=== PATIENT | male | born 1930 | race Caucasian/White ===

== ENCOUNTER 2016-06-22 13:12 | Emergency (ER) | payer MEDICARE, OTHER | END 2016-06-22 15:47 | disposition home or self-care (01) | DX: J06.9 Acute upper respiratory infection, unspecified (principal); B97.89 Other viral agents as the cause of diseases classified elsewhere; I10 Essential (primary) hypertension; J44.9 Chronic obstructive pulmonary disease, unspecified ==

== ENCOUNTER 2016-07-02 | Outpatient (CLI) | payer MEDICARE, OTHER | END 2016-07-02 06:15 | disposition EMS.NT ==

== ENCOUNTER 2017-03-21 22:24 | Observation (INO) | payer MEDICARE, OTHER ==
[2017-03-21 22:43] LABS: BASOPHILS % (AUTO) 0.3 %; EOSINOPHILS % (AUTO) 0.1 %; HCT - HEMATOCRIT 44.2 % (42.0-52.0); HGB - HEMOGLOBIN 14.7 g/dL (14.0-18.0); LYMPHOCYTES # (AUTO) 0.7 10^3/uL (1.5-3.5); LYMPHOCYTES % (AUTO) 11.2 %; MEAN CORPUSCULAR HEMOGLOBIN 29.3 pg (27.0-31.0); MEAN CORPUSCULAR HGB CONC 33.2 g/dL (32.0-36.0); MEAN CORPUSCULAR VOLUME 88.1 fL (80.0-94.0); MEAN PLATELET VOLUME 7.9 fL (7.4-11.4); MONOCYTES # (AUTO) 0.4 10^3/uL (0.0-1.0); MONOCYTES % (AUTO) 6.4 %; NEUTROPHILS # (AUTO) 5.1 10^3/uL (1.5-6.6); RED BLOOD COUNT 5.02 10^6/uL (4.70-6.10); RED CELL DISTRIBUTION WIDTH 16.7 % (12.0-15.0); UNCORRECTED WHITE BLOOD COUNT 6.2 x10^3/uL; WHITE BLOOD COUNT 6.2 x10^3/uL (4.8-10.8)
[2017-03-21 22:59] LABS: ALBUMIN/GLOBULIN RATIO 1.6 (1.0-2.2); BILIRUBIN,TOTAL 0.6 mg/dL (0.2-1.0); CALCIUM 8.8 mg/dL (8.5-10.3); CREATININE 1.3 mg/dL (0.6-1.2); MAGNESIUM 2.8 mg/dL (1.7-2.8); PHOSPHORUS 3.2 mg/dL (2.5-4.6); POTASSIUM 4.2 mmol/L (3.5-5.0); TOTAL PROTEIN 7.2 g/dL (6.7-8.2)
--- NOTE | 2017-03-21 23:06 | XRAY Preliminary Report ---
Exam: XR CHEST 2 VIEW PA/LAT IMPRESSION: Possible COPD without acute process seen in the chest. [facility] SITE ID: [id number]
--- NOTE | 2017-03-21 23:08 | XRAY Report ---
EXAM: CHEST RADIOGRAPHY EXAM DATE: 03/21/2017 10:53 PM. CLINICAL HISTORY: Chest pain. COMPARISON: 06/22/2016. TECHNIQUE: 2 views. FINDINGS: Lungs/Pleura: Large volumes. No focal opacities evident. No pneumothorax or pleural effusion. Mediastinum: Within exam limitations, cardiomediastinal contour is normal. Other: None. IMPRESSION: Possible COPD without acute process seen in the chest. [facility] Referring Provider Line: [phone] SITE ID: [id number]
[2017-03-21] MEDS ORDERED: HYDROcod/ACETAM 10 MG/325 MG TABLET PO PRN (23:38)
[2017-03-21] MEDS ORDERED: ONDANSETRON 4 MG/2 ML VIAL IVP PRN (23:38)
[2017-03-21] MEDS ORDERED: HYDROcod/ACETAM 5/325 MG TABLET PO PRN (23:38)
[2017-03-21] MEDS ORDERED: IPRATROPIUM/ALBUTEROL 3 ML NEB INH PRN (23:38)
[2017-03-21] MEDS ORDERED: ACETAMINOPHEN 325 MG TABLET PO PRN (23:38)
[2017-03-21] MEDS ORDERED: SODIUM CHLORIDE FLUSH 0.9% 10 ML SYRINGE IVP PRN (23:38)
[2017-03-21] MEDS ORDERED: NITROGLYCERIN SL 0.4 MG TABLET SL PRN (23:38)
[2017-03-21] MEDS ORDERED: PROCHLORPERAZINE 10 MG/2 ML VIAL IVP PRN (23:38)
--- NOTE | 2017-03-21 23:43 | ED Physician Documentation ---
PD HPI CHEST PAIN - Stated complaint Stated Complaint: HIGH HEART RATE - Chief complaint Chief Complaint: Cardiac - History obtained from History obtained from: Patient, Family - History of Present Illness Timing - onset: Today Timing - onset during: Rest Timing - details: Gradual onset, Still present Quality: Pressure, Tightness Location: Left chest Associated symptoms: Shortness of air, Feeling faint / dizzy, Palpitations Similar symptoms before: Work up / diagnostics, Treatment, Follow up Recently seen: Clinic - Additional information Additional information: Patient is an 87 year old male with significant cardiac history and prior stents who is presenting to the emergency department for tachycardia and chest pain. According to patient and family, earlier in the day, the patient was having indigestion and intermittent tachycardia. the stated that he heart rate went up to over 170. The stated that the patient felt better, but again tonight when the patient was lying in bed he developed chest pain a second time so they came to the emergency department for evaluation. Review of Systems Constitutional: denies: Fever, Chills Eyes: denies: Decreased vision Ears: reports: Reviewed and negative Nose: reports: Reviewed and negative Throat: denies: Sore throat Cardiac: reports: Chest pain / pressure, Palpitations. denies: Calf pain Respiratory: denies: Dyspnea, Cough, Wheezing GI: denies: Nausea, Vomiting, Constipation, Diarrhea : denies: Dysuria, Frequency Skin: denies: Rash Musculoskeletal: denies: Neck pain, Back pain Neurologic: denies: Generalized weakness, Focal weakness, Numbness, Difficulty speaking, Syncope, Seizure, Headache Immunocompromised: denies: Immunocompromised PD PAST MEDICAL HISTORY - Past Medical History Past Medical History: Yes Cardiovascular: Hypertension, [place] Respiratory: COPD GI: GERD, Other Other Past Medical History: [place] 2008; IBS - Past Surgical History Past Surgical History: Yes - Present Medications Home Medications: Ambulatory Orders Medication Instructions Recorded Confirmed Budesonide/Formoterol 80/4.5 2 puffs INH BID 06/22/16 03/21/17 [Symbicort] Carvedilol 12.5 mg ORAL BID 06/22/16 03/21/17 Clopidogrel [Plavix] 75 mg ORAL DAILY 06/22/16 03/21/17 Furosemide 20 mg ORAL DAILY 06/22/16 03/21/17 Gabapentin 300 mg ORAL TID 06/22/16 03/21/17 Simvastatin 80 mg ORAL DAILY 06/22/16 03/21/17 Triazolam [Halcion] 0.25 mg ORAL QPM PRN 06/22/16 03/21/17 Albuterol Sulfate [Proair 1 puffs IH DAILY 03/21/17 03/21/17 Respiclick] Apixaban [Eliquis] 1 tab PO BID 03/21/17 03/21/17 Budesonide/Formoterol Fumarate 2 puffs IH BID 03/21/17 03/21/17 [Symbicort 160-4.5 Mcg Inhaler] Ipratropium/Albuterol Sulfate 3 ml IH Q6HR PRN 03/21/17 03/21/17 [Iprat-Albut 0.5-3(2.5) mg/3 ml] Lisinopril 1 tab PO DAILY 03/21/17 03/21/17 Nitroglycerin 1 tab PO DAILY PRN 03/21/17 03/21/17 Pantoprazole Sodium 1 tab PO DAILY 03/21/17 03/21/17 Potassium Chloride [K-Dur] 1 tab PO DAILY 03/21/17 03/21/17 Tamsulosin HCl [Flomax] 1 tab PO DAILY 03/21/17 03/21/17 - Allergies Allergies/Adverse Reactions: Allergies Allergy/AdvReac Type Severity Reaction Status Date / Time No Known Drug Allergies Allergy Verified 03/21/17 22:33 - Social History Does the pt smoke?: No Smoking Status: Never smoker Does the pt drink ETOH?: No Does the pt have substance abuse?: No - Immunizations Immunizations are current?: Yes - POLST Patient has POLST: No PD ED PE NORMAL - Vitals Vital signs reviewed: Yes - General General: Alert and oriented X 3, Well developed/nourished - HEENT HEENT: Atraumatic, PERRL, Moist mucous membranes - Respiratory Respiratory: No respiratory distress - Abdomen Abdomen: Soft, Non tender, Non distended - Derm Derm: Normal color, Warm and dry, No rash - Extremities Extremities: No deformity, No calf tenderness / cord - Neuro Neuro: Alert and oriented X 3, No motor deficit, No sensory deficit, Normal speech Eye Opening: Spontaneous Motor: Obeys Commands Verbal: Oriented GCS Score: 15 - Psych Psych: Normal mood PD ED PE EXPANDED - HEENT HEENT: Dry mucous membranes - Cardiac Cardiac: Irregularly irregular Results - Vitals Vitals: Vital Signs - 24 hr 03/21/17 03/21/17 03/21/17 22:25 22:45 23:06 Temperature 35.9 C L Heart Rate 79 80 73 Respiratory 18 16 12 Rate Blood Pressure 173/104 H 172/98 H 145/96 H O2 Saturation 98 96 97 03/21/17 03/21/17 23:09 23:41 Temperature Heart Rate 140 H 73 Respiratory 18 14 Rate Blood Pressure 136/94 H 147/89 H O2 Saturation 96 98 Oxygen O2 Source Room air - EKG (time done) 2233 Rate: Rate (enter#) (75) Rhythm: NSR, Abnormal P waves [place]: LAD Intervals: Normal [place] Ischemia: T wave inversion Compare to prior EKG: Old EKG unavailable - Labs Labs: Laboratory Tests 03/21/17 03/21/17 03/21/17 21:35 21:35 21:35 WBC 6.2 RBC 5.02 Hgb 14.7 Hct 44.2 MCV 88.1 MCH 29.3 MCHC 33.2 RDW 16.7 H Plt Count 149 MPV 7.9 Neut # 5.1 Lymph # 0.7 L Allen # 0.4 Eos # 0.0 Baso # 0.0 Absolute Nucleated RBC 0.00 Nucleated RBC % 0.0 Sodium 138 Potassium 4.2 Chloride 106 Carbon Dioxide 25 Anion Gap 7.0 BUN 34 H Creatinine 1.3 H Estimated GFR (MDRD) 52 L Glucose 138 H Calcium 8.8 Phosphorus 3.2 Magnesium 2.8 Total Bilirubin 0.6 AST 17 ALT 24 Alkaline Phosphatase 68 Troponin I < 0.04 Total Protein 7.2 Albumin 4.4 Globulin 2.8 Albumin/Globulin Ratio 1.6 Lipase 29 TSH 03/21/17 21:35 WBC RBC Hgb Hct MCV MCH MCHC RDW Plt Count MPV Neut # Lymph # Allen # Eos # Baso # Absolute Nucleated RBC Nucleated RBC % Sodium Potassium Chloride Carbon Dioxide Anion Gap BUN Creatinine Estimated GFR (MDRD) Glucose Calcium Phosphorus Magnesium Total Bilirubin AST ALT Alkaline Phosphatase Troponin I Total Protein Albumin Globulin Albumin/Globulin Ratio Lipase TSH 0.36 - Rads (name of study) chest x-ray Radiology: Final report received (findings consistent with copd) PD MEDICAL DECISION MAKING - ED course Complexity details: reviewed old records, reviewed results, re-evaluated patient , considered differential, d/w patient, d/w family ED course: Patient was seen and examined at bedside. ekg was performed and showed sinus dysrythmia. iv access was gained and labs were drawn. patient was placed on a monitor. Patient's labs were within normal limits, but had a heart score of 5. Patient required further observation. Hospitalist was contacted and the case was discussed with him. patient was placed in observation for further evaluation and care. Departure - Departure Disposition: ED Place in Observation Clinical Impression: Chest pain Condition: Good
--- NOTE | 2017-03-22 00:45 | HISTORY & PHYSICAL EXAMINATION ---
Chief Complaint - Chief Complaint Chief Complaint: Chest pain History of Present Illness - Admitted From Admitted From:: Emergency department - History Obtained From Records Reviewed: Yes History obtained from: Patient Exam Limitations: None - History of Present Illness HPI Comment/Other: Patient is an 87-year-old gentleman with a past medical history significant for coronary artery disease status post 3 stents, recent history of DVT and PE earlier this year on Eliquis, COPD, hypertension, hyperlipidemia and BPH who presented to the emergency department with a chief complaint of chest pain. The patient states that he was in his normal state of health today he and his ate at [employer] for dinner and he noticed that he was having a lot of indigestion, gas and burping in the evening. He states that when he went to bed and lie down he began feeling chest discomfort. The patient states that the discomfort was located in the substernal region of his chest. He states that it lasted until he reached the emergency department. He states initially the discomfort was about a 6 out of 10 by the time he arrived in the emergency department it was down to a 2 out of 10. The patient also states that he began to feel some palpitations in his chest and his took his heart rate at that time and his heart rate was 130 at home. The patient denies having had any shortness of air, orthopnea, PND, nausea, diaphoresis or lightheadedness. The patient states that the pain did not change with any position or with exertion. The patient states that he continued to feel gassy and continue to burp. Given his history of heart disease and his palpitations he decided to come into the emergency department. Patient denies any fevers, chills, headaches, blurred vision, runny nose, sore throat, nasal congestion, abdominal pain, diarrhea, constipation, dysuria, increased urinary frequency, joint pain, joint swelling, muscle aches, muscle pain, back pain, neck stiffness, recent unintentional weight loss, changes in appetite, polyuria, polydipsia or any focal neurologic deficits. On presentation to the emergency department the patient was afebrile he was quite hypertensive with a blood pressure of 173/104 but otherwise the remainder of his vital signs were within normal limits and he was not in any respiratory distress. The patient was monitored on telemetry during the time he was in the emergency department and he did have a few episodes where his heart rate did go up into the 140s and into the 120s. At that time the patient appeared to have an atrial arrhythmia but was asymptomatic. The patient's chest pain resolved while he was in the emergency department and his EKG did not show any obvious ischemic changes. The patient's troponin was negative and the remainder of his lab work was notable for a creatinine of 1.3 but was otherwise unremarkable. The patient underwent a chest x-ray which revealed possible COPD without acute process in the chest. Given the patient's significant cardiac history and the fact that pain started only shortly prior to arrival it was decided that the patient would be best off in observation for rule out of acute coronary syndrome. History - Past Medical History Cardiovascular: reports: Hypertension, High cholesterol, Coronary artery disease (Status post 3 stents), Pulmonary embolism, [place] Respiratory: reports: COPD GI: reports: GERD, Other : reports: Benign prostate hypertrophy Psych: reports: Other Musculoskeletal: reports: Other (DVT) MRSA Hx?: No Other Past Medical History: [place] 2008; IBS - Past Surgical History General: reports: Appendectomy - Family & Social History Family History: Mother: , CAD, Father: , Cancer, Sister: CAD Living arrangement: At home Living Situation: With spouse/s.o. Social History Notes: The patient was born in [place] and raised in [place]. Patient currently lives with his in [place], [place]. 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 He states that over his career he lived throughout [place], [place], [place], [place], [place] and [facility]. The patient states that he only settle down on [facility] last year. The patient previously smoked cigars but quit in 1979. The patient states he has never touched alcohol and denies any illicit drug use. The patient and his are very active. - POLST Patient has POLST: No POLST Status: Full Code Meds/Allgy - Home Medications Home Medications: Ambulatory Orders Medication Instructions Recorded Confirmed Budesonide/Formoterol 80/4.5 2 puffs INH BID 06/22/16 03/21/17 [Symbicort] Carvedilol 12.5 mg ORAL BID 06/22/16 03/21/17 Clopidogrel [Plavix] 75 mg ORAL DAILY 06/22/16 03/21/17 Furosemide 20 mg ORAL DAILY 06/22/16 03/21/17 Gabapentin 300 mg ORAL TID 06/22/16 03/21/17 Simvastatin 80 mg ORAL DAILY 06/22/16 03/21/17 Triazolam [Halcion] 0.25 mg ORAL QPM PRN 06/22/16 03/21/17 Albuterol Sulfate [Proair 1 puffs IH DAILY 03/21/17 03/21/17 Respiclick] Apixaban [Eliquis] 1 tab PO BID 03/21/17 03/21/17 Budesonide/Formoterol Fumarate 2 puffs IH BID 03/21/17 03/21/17 [Symbicort 160-4.5 Mcg Inhaler] Ipratropium/Albuterol Sulfate 3 ml IH Q6HR PRN 03/21/17 03/21/17 [Iprat-Albut 0.5-3(2.5) mg/3 ml] Lisinopril 1 tab PO DAILY 03/21/17 03/21/17 Nitroglycerin 1 tab PO DAILY PRN 03/21/17 03/21/17 Pantoprazole Sodium 1 tab PO DAILY 03/21/17 03/21/17 Potassium Chloride [K-Dur] 1 tab PO DAILY 03/21/17 03/21/17 Tamsulosin HCl [Flomax] 1 tab PO DAILY 03/21/17 03/21/17 - Allergies Allergies/Adverse Reactions: Allergies Allergy/AdvReac Type Severity Reaction Status Date / Time No Known Drug Allergies Allergy Verified 03/21/17 22:33 Review of Systems - Other Findings Other Findings: A comprehensive review of systems was performed the pertinent positives and negatives are stated above in the HPI and the remainder of the review of systems is negative. Exam - Vital Signs Reviewed Vital Signs: Yes Vital Signs: Vital Signs x48h Temp Pulse Resp BP Pulse Ox 03/22/17 00:10 36.4 C L 72 14 150/97 H 97 03/21/17 23:41 73 14 147/89 H 98 - Physical Exam General Appearance: positive: No acute distress, Alert Eyes Bilateral: positive: Normal inspection, PERRL, EOMI, No lid inflammation, Conjunctivae nml, No scleral icterus ENT: positive: ENT inspection nml, Pharynx nml, No signs of dehydration. negative: Purulent nasal drainage, Pharyngeal erythema, Oral lesions Neck: positive: Nml inspection, Thyroid nml, No JVD, Trachea midline. negative : Thyromegaly, Lymphadenopathy (R), Lymphadenopathy (L) Respiratory: positive: Chest non-tender, No respiratory distress, Breath sounds nml. negative: Wheezes, Rales, Rhonchi Cardiovascular: positive: No murmur, No gallop, Irregularly irregular. negative : Systolic murmur Peripheral Pulses: positive: 2+ Abdomen: positive: Non-tender, No organomegaly, Nml bowel sounds, Other ( Abdomen is distended). negative: Guarding, Rebound Back: positive: Nml inspection. negative: CVA tenderness (R), CVA tenderness (L ) Skin: positive: Color nml, No rash, Warm. negative: Cyanosis, Pallor Extremities: positive: Non-tender, Full ROM, Nml appearance, No pedal edema Neurologic/Psychiatric: positive: Oriented x3, CN's nml (2-12), Motor nml, Sensation nml, Mood/affect nml Conclusion/Plan - Problem List (1) Chest pain Conclusion/Plan: Patient has a history of coronary disease status post 3 stents. Patient is on Plavix, lisinopril, Coreg and Eliquis. He presented to the emergency department with a chief complaint of chest discomfort. Patient had chest pain at rest while in bed with symptoms of indigestion, gas and burping. Patient also experienced palpitations at home and when his checked his heart rate was in the 130s. On presentation to the emergency department the patient's EKG showed no ST elevations or ischemic changes but there was an irregular rhythm with abnormal P waves. The patient did have several episodes in the emergency department where his heart rate went into the 120s and 130s. The patient's EKG troponin was negative and chest x-ray was negative. Patient was placed in observation for rule out of acute coronary syndrome and further monitoring on telemetry. Plan: Serial troponins x3 Telemetry monitoring Nitroglycerin when necessary for chest pain Aspirin Lipitor Echo (2) Arrhythmia Conclusion/Plan: The patient presented to the emergency department with chest discomfort and palpitations at home. At home the patient's noted that the patient's heart rate was in the 130s. In the emergency department the patient was on telemetry and had several episodes where his heart rate would go into the 120s and 130s. The patient did have palpitations at home but did not feel palpitations in the emergency department. The patient denied any dizziness or syncope. The patient's EKG did show a atrial arrhythmia with abnormal P waves the patient may be having multifocal atrial tachycardia. The patient could also be having atrial fibrillation although there are P waves present on his EKG. The patient is hemodynamically stable and is on Coreg and Eliquis. Plan: The patient will be placed in observation for serial troponins and telemetry monitoring. The patient may need further workup as an outpatient including a Holter monitor and cardiology referral. (3) Hypertension Conclusion/Plan: Patient has history of hypertension presents with an elevated blood pressure on presentation. Plan: Patient will be placed on home doses of antihypertensive medications We will monitor his blood pressure closely We will titrate antihypertensive medication as needed. (4) COPD (chronic obstructive pulmonary disease) Conclusion/Plan: Patient has history of COPD. Currently his COPD appears to be stable as the patient does not have any wheezing, hypoxia or shortness of air. Patient will be continued on duo nebs as needed while he is hospitalized, he will also be placed on budesonide twice daily and formoterol twice daily. (5) Hyperlipidemia Conclusion/Plan: Patient has history of hyperlipidemia and is on a statin at home Patient appears to be stable and will be continued on his home dose of statin (6) Pulmonary embolism Conclusion/Plan: Patient had a pulmonary embolism and DVT earlier this year and is currently still on Eliquis. The patient has been told that he will need to be on Eliquis lifelong. Continue patient's home dose of Eliquis - Lab Results Lab results reviewed: Yes Fish Bones: 03/21/17 21:35 03/21/17 21:35 Other Lab Results: Laboratory Results WBC 6.2 x10^3/uL (4.8-10.8) 03/21/17 21:35 RBC 5.02 10^6/uL (4.70-6.10) 03/21/17 21:35 Hgb 14.7 g/dL (14.0-18.0) 03/21/17 21:35 Hct 44.2 % (42.0-52.0) 03/21/17 21:35 MCV 88.1 fL (80.0-94.0) 03/21/17 21:35 MCH 29.3 pg (27.0-31.0) 03/21/17 21:35 MCHC 33.2 g/dL (32.0-36.0) 03/21/17 21:35 RDW 16.7 % (12.0-15.0) H 03/21/17 21:35 Plt Count 149 10^3/uL (130-450) 03/21/17 21:35 MPV 7.9 fL (7.4-11.4) 03/21/17 21:35 Neut # 5.1 10^3/uL (1.5-6.6) 03/21/17 21:35 Lymph # 0.7 10^3/uL (1.5-3.5) L 03/21/17 21:35 [place] # 0.4 10^3/uL (0.0-1.0) 03/21/17 21:35 Eos # 0.0 10^3/uL (0.0-0.7) 03/21/17 21:35 Baso # 0.0 10^3/uL (0.0-0.1) 03/21/17 21:35 Absolute Nucleated RBC 0.00 x10^3/uL 03/21/17 21:35 Nucleated RBC % 0.0 /100WBC 03/21/17 21:35 Sodium 138 mmol/L (135-145) 03/21/17 21:35 Potassium 4.2 mmol/L (3.5-5.0) 03/21/17 21:35 Chloride 106 mmol/L (101-111) 03/21/17 21:35 Carbon Dioxide 25 mmol/L (21-32) 03/21/17 21:35 Anion Gap 7.0 (6-13) 03/21/17 21:35 BUN 34 mg/dL (6-20) H 03/21/17 21:35 Creatinine 1.3 mg/dL (0.6-1.2) H 03/21/17 21:35 Estimated GFR (MDRD) 52 (>89) L 03/21/17 21:35 Glucose 138 mg/dL (70-100) H 03/21/17 21:35 Calcium 8.8 mg/dL (8.5-10.3) 03/21/17 21:35 Phosphorus 3.2 mg/dL (2.5-4.6) 03/21/17 21:35 Magnesium 2.8 mg/dL (1.7-2.8) 03/21/17 21:35 Total Bilirubin 0.6 mg/dL (0.2-1.0) 03/21/17 21:35 AST 17 IU/L (10-42) 03/21/17 21:35 ALT 24 IU/L (10-60) 03/21/17 21:35 Alkaline Phosphatase 68 IU/L (42-121) 03/21/17 21:35 Troponin I < 0.04 ng/mL (<0.49) 03/21/17 21:35 Total Protein 7.2 g/dL (6.7-8.2) 03/21/17 21:35 Albumin 4.4 g/dL (3.2-5.5) 03/21/17 21:35 Globulin 2.8 g/dL (2.1-4.2) 03/21/17 21:35 Albumin/Globulin Ratio 1.6 (1.0-2.2) 03/21/17 21:35 Lipase 29 U/L (22-51) 03/21/17 21:35 TSH 0.36 uIU/mL (0.34-5.60) 03/21/17 21:35 - Diagnostic Imaging Results Diagnostic Imaging Results: positive: Final report reviewed Diagnostic Imaging Results Comments: Chest x-ray Impression: Possible COPD without acute process seen in the chest. - EKG Results EKG Interpreted Independently: Yes EKG Findings: Atrial arrhythmia with no ST elevations or ischemic changes. Issues/Core Measures - Anticipated LOS Anticipated Stay Length: Less than 2 midnights - DVT/VTE - Prophylaxis VTE/DVT Device ordered at admit?: Yes
[2017-03-22] MEDS: FORMOTEROL FUMARATE NEB 20 MCG/2 ML INH SCH ×2 (01:46→07:19)
[2017-03-22] MEDS: BUDESONIDE 0.5 MG/2 ML NEB INH SCH ×2 (01:46→07:19)
[2017-03-22 05:08] LABS: BASOPHILS % (AUTO) 0.1 %; HCT - HEMATOCRIT 39.5 % (42.0-52.0); HGB - HEMOGLOBIN 13.2 g/dL (14.0-18.0); LYMPHOCYTES # (AUTO) 0.7 10^3/uL (1.5-3.5); LYMPHOCYTES % (AUTO) 13.5 %; MEAN CORPUSCULAR HEMOGLOBIN 29.6 pg (27.0-31.0); MEAN CORPUSCULAR HGB CONC 33.4 g/dL (32.0-36.0); MEAN CORPUSCULAR VOLUME 88.5 fL (80.0-94.0); MEAN PLATELET VOLUME 8.2 fL (7.4-11.4); MONOCYTES # (AUTO) 0.3 10^3/uL (0.0-1.0); MONOCYTES % (AUTO) 4.9 %; NEUTROPHILS # (AUTO) 4.3 10^3/uL (1.5-6.6); NEUTROPHILS % (AUTO) 81.5 %; NUCLEATED RED BLOOD CELLS AUTO 0.1 /100WBC; RED BLOOD COUNT 4.46 10^6/uL (4.70-6.10); RED CELL DISTRIBUTION WIDTH 16.5 % (12.0-15.0); UNCORRECTED WHITE BLOOD COUNT 5.3 x10^3/uL; WHITE BLOOD COUNT 5.3 x10^3/uL (4.8-10.8)
[2017-03-22 05:25] LABS: ALBUMIN/GLOBULIN RATIO 1.5 (1.0-2.2); BILIRUBIN,TOTAL 0.7 mg/dL (0.2-1.0); BUN - BLOOD UREA NITROGEN 34 mg/dL (6-20); CALCIUM 8.4 mg/dL (8.5-10.3); CARBON DIOXIDE - CO2 22 mmol/L (21-32); CHLORIDE 109 mmol/L (101-111); CHOL/HDL RATIO 2.9 (<5.0); CHOLESTEROL 169 mg/dL; CREATININE 1.1 mg/dL (0.6-1.2); GFR - MDRD 63 (>89); GLUCOSE 149 mg/dL (70-100); HDL CHOLESTEROL 58 mg/dL; LDL/HDL RATIO 1.6 (<3.6); POTASSIUM 4.5 mmol/L (3.5-5.0); SODIUM 138 mmol/L (135-145); TOTAL PROTEIN 5.7 g/dL (6.7-8.2); TRIGLYCERIDES 107 mg/dL; VLDL CHOLESTEROL 21 mg/dL
[2017-03-22] MEDS ORDERED: SODIUM CHLORIDE FLUSH 0.9% 10 ML SYRINGE IVP SCH (06:00)
[2017-03-22] MEDS ORDERED: GABAPENTIN 300 MG CAPSULE PO SCH (06:00)
[2017-03-22] MEDS ORDERED: PANTOPRAZOLE 40 MG TABLET PO SCH (07:00)
[2017-03-22] MEDS ORDERED: CALCIUM CARBONATE CHEW 500 MG TABLET PO PRN (07:36)
[2017-03-22 08:33] VITALS: BP 144/89
[2017-03-22] MEDS ORDERED: CARVEDILOL 12.5 MG TABLET PO SCH (09:00)
[2017-03-22] MEDS ORDERED: CLOPIDOGREL 75 MG TABLET PO SCH (09:00)
[2017-03-22] MEDS ORDERED: POLYETHYLENE GLYCOL 3350 17 GM PACKET PO SCH (09:00)
[2017-03-22] MEDS ORDERED: APIXABAN 2.5 MG TABLET PO SCH (09:00)
[2017-03-22] MEDS ORDERED: NON FORMULARY MED (Simvastatin [Simvastatin] 80 MG) ORAL SCH (09:00)
[2017-03-22] MEDS ORDERED: LISINOPRIL 5 MG TABLET PO SCH (09:00)
[2017-03-22] MEDS ORDERED: TAMSULOSIN 0.4 MG CAPSULE PO SCH (09:00)
[2017-03-22] MEDS ORDERED: ATORVASTATIN 40 MG TABLET PO SCH (09:00)
--- NOTE | 2017-03-22 12:02 | Discharge Plan ---
Discharge Plan Disposition: 01 Home, Self Care Condition: Stable Diet: Cardiac Activity Restrictions: Activity as Tolerated Shower Restrictions: No Weight Bearing: Full Weight Additional Instructions or Follow Up instructions: May follow up PCP in one week, and follow up [facility] for stress test. Follow-Up Care: [facility] - Cardiac, [facility] [place] [facility] - Medical No Smoking: If you smoke, Please STOP! Call for help. Follow-up with: Arden Serrato MD [Primary Care Provider] -
--- NOTE | 2017-03-22 12:16 | DISCHARGE SUMMARY ---
Discharge Summary Admit Date: 03/21/17 Discharge Date: 03/22/17 Discharging Provider: ZULETA Primary Care Provider: Arden Galeas Condition at Discharge: Stable Discharge Disposition: 01 Home, Self Care Discharge Facility Name: home - DIAGNOSES Admission Diagnoses: (1) Chest pain (2) Arrhythmia (3) Hypertension (4) COPD (chronic obstructive pulmonary disease) (5) Hyperlipidemia (6) Pulmonary embolism Discharge Diagnoses with Status of Each Condition: (1) Chest pain no more chest pain, per pt report. three serial troponin negative, EHCO reveal 50-55% EF, discuss with pt, referral pt have out-pt stress test with pt's reprint sorter (2) Arrhythmia resolved. HR is around 70 referral to have out-pt Stress test (3) Hypertension stable, continue management (4) COPD (chronic obstructive pulmonary disease) stable (5) Hyperlipidemia continue home regime (6) Pulmonary embolis hx of PE. continue home Eliquis, and Plavix - HPI History of Present Illness: please refer from Dr. Cunningham's HPI on 03/21/17 as the following: Patient is an 87-year-old gentleman with a past medical history significant for coronary artery disease status post 3 stents, recent history of DVT and PE earlier this year on Eliquis, COPD, hypertension, hyperlipidemia and BPH who presented to the emergency department with a chief complaint of chest pain. The patient states that he was in his normal state of health today he and his ate at [employer] for dinner and he noticed that he was having a lot of indigestion, gas and burping in the evening. He states that when he went to bed and lie down he began feeling chest discomfort. The patient states that the discomfort was located in the substernal region of his chest. He states that it lasted until he reached the emergency department. He states initially the discomfort was about a 6 out of 10 by the time he arrived in the emergency department it was down to a 2 out of 10. The patient also states that he began to feel some palpitations in his chest and his took his heart rate at that time and his heart rate was 130 at home. The patient denies having had any shortness of air, orthopnea, PND, nausea, diaphoresis or lightheadedness. The patient states that the pain did not change with any position or with exertion. The patient states that he continued to feel gassy and continue to burp. Given his history of heart disease and his palpitations he decided to come into the emergency department. Patient denies any fevers, chills, headaches, blurred vision, runny nose, sore throat, nasal congestion, abdominal pain, diarrhea, constipation, dysuria, increased urinary frequency, joint pain, joint swelling, muscle aches, muscle pain, back pain, neck stiffness, recent unintentional weight loss, changes in appetite, polyuria, polydipsia or any focal neurologic deficits. On presentation to the emergency department the patient was afebrile he was quite hypertensive with a blood pressure of 173/104 but otherwise the remainder of his vital signs were within normal limits and he was not in any respiratory distress. The patient was monitored on telemetry during the time he was in the emergency department and he did have a few episodes where his heart rate did go up into the 140s and into the 120s. At that time the patient appeared to have an atrial arrhythmia but was asymptomatic. The patient's chest pain resolved while he was in the emergency department and his EKG did not show any obvious ischemic changes. The patient's troponin was negative and the remainder of his lab work was notable for a creatinine of 1.3 but was otherwise unremarkable. The patient underwent a chest x-ray which revealed possible COPD without acute process in the chest. Given the patient's significant cardiac history and the fact that pain started only shortly prior to arrival it was decided that the patient would be best off in observation for rule out of acute coronary syndrome. - HOSPITAL COURSE Hospital Course: pt was admitted for chest pain,and arrhythmia. Pt report no more chest pain, Pt' s HR is controlled at round 70. three times of troponin are negative, ECHO reveal 50-55% EF. Discuss with pt and advised pt to have out-pt stress test. Pt agree the plan and state he will call his reprint sorter to make the schedule. - ALLERGIES Allergies/Adverse Reactions: Allergies Allergy/AdvReac Type Severity Reaction Status Date / Time No Known Drug Allergies Allergy Verified 03/21/17 22:33 - MEDICATIONS Home Medications: Ambulatory Orders Medication Instructions Recorded Confirmed Carvedilol 12.5 mg ORAL BID 06/22/16 03/21/17 Clopidogrel [Plavix] 75 mg ORAL DAILY 06/22/16 03/21/17 Furosemide 40 mg ORAL DAILY 06/22/16 03/22/17 Gabapentin 300 mg ORAL TID 06/22/16 03/21/17 Simvastatin 80 mg ORAL QPM 06/22/16 03/22/17 Triazolam [Halcion] 0.25 mg ORAL QPM PRN 06/22/16 03/21/17 Albuterol Sulfate [Proair 1 puffs IH DAILY PRN 03/21/17 03/21/17 Respiclick] Apixaban [Eliquis] 5 mg PO BID 03/21/17 03/22/17 Budesonide/Formoterol Fumarate 2 puffs IH BID 03/21/17 03/21/17 [Symbicort 160-4.5 Mcg Inhaler] Ipratropium/Albuterol Sulfate 3 ml IH Q6HR PRN 03/21/17 03/21/17 [Iprat-Albut 0.5-3(2.5) mg/3 ml] Lisinopril 5 mg PO DAILY 03/21/17 03/22/17 Nitroglycerin 0.4 mg PO Q5M PRN 03/21/17 03/22/17 Pantoprazole Sodium 40 mg PO DAILY 03/21/17 03/22/17 Potassium Chloride [K-Dur] 20 meq PO DAILY 03/21/17 03/22/17 Tamsulosin HCl [Flomax] 0.4 mg PO DAILY 03/21/17 03/22/17 Ciclopirox Olamine [Ciclopirox] 1 applic TOP DAILY 03/22/17 03/22/17 - PHYSICAL EXAM AT DISCHARGE General Appearance: positive: No acute distress, Alert. negative: Lethargic Eyes Bilateral: positive: Normal inspection, PERRL, EOMI, No lid inflammation, Conjunctivae nml ENT: positive: ENT inspection nml, Pharynx nml, No signs of dehydration. negative: Purulent nasal drainage, Pharyngeal erythema, Oral lesions Neck: positive: Nml inspection, Thyroid nml, No JVD, Trachea midline. negative : Thyromegaly, Lymphadenopathy (R), Lymphadenopathy (L), Stiff neck, Kernig's sign, Carotid bruit, Swelling/bruising, Tracheal deviation Respiratory: positive: Chest non-tender, No respiratory distress, Breath sounds nml. negative: Wheezes, Rales, Rhonchi Cardiovascular: positive: Regular rate & rhythm, No murmur, No gallop. negative : Irregularly irregular, Extrasystoles, Tachycardia, Bradycardia, Systolic murmur, Diastolic murmur Peripheral Pulses: positive: 2+ Abdomen: positive: Non-tender, Nml bowel sounds, No distention. negative: Tenderness, Guarding, Rebound Back: positive: Nml inspection. negative: CVA tenderness (R), CVA tenderness (L ) Skin: positive: Color nml, No rash, Warm, Dry. negative: Cyanosis, Diaphoresis , Pallor, Skin rash Extremities: positive: Non-tender, Full ROM, Nml appearance. negative: Pedal edema, Joint swelling, Little's sign/cords Neurologic/Psychiatric: positive: Oriented x3, Motor nml, Sensation nml, Mood/ affect nml. negative: Sensory loss, Facial droop, Slurred/abnml speech, Depressed mood/affect - LABS Result Diagrams: 03/22/17 04:50 03/22/17 04:50 - FOLLOW UP Follow Up: May see PCP in one week, to have out-pt stress test with his reprint sorter.
== END 2017-03-22 13:30 | disposition home or self-care (01) ==
LOC: ED 22:24 → OBS 23:38
PROVIDERS: ADMIT Internal Medicine; ATTEND Nurse Practitioner Gerontology
DX: R07.9 Chest pain, unspecified (principal); I49.9 Cardiac arrhythmia, unspecified; I10 Essential (primary) hypertension; J44.9 Chronic obstructive pulmonary disease, unspecified; E78.5 Hyperlipidemia, unspecified; Z86.711 Personal history of pulmonary embolism; I25.10 Atherosclerotic heart disease of native coronary artery without angina pectoris; Z95.5 Presence of coronary angioplasty implant and graft; N40.0 Benign prostatic hyperplasia without lower urinary tract symptoms; I25.2 Old myocardial infarction; K21.9 Gastro-esophageal reflux disease without esophagitis; Z87.891 Personal history of nicotine dependence; Z79.02 Long term (current) use of antithrombotics/antiplatelets; Z79.51 Long term (current) use of inhaled steroids; Z79.899 Other long term (current) drug therapy
CPT/HCPCS: 36415; 71020; 80053; 80061; 83690; 83735; 83880; 84100; 84443; 84484; 84550; 85025; 93005; 93306; 94640; 99285; A9270; G0378; J7626; 99284

== ENCOUNTER 2017-05-23 12:07 | Outpatient (CLI) | payer MEDICARE, OTHER | END 2017-05-23 12:08 | disposition EMS.NT | LOC: EMS 12:07 | PROVIDERS: ATTEND Surgery | DX: R68.89 Other general symptoms and signs (principal) ==

== ENCOUNTER 2017-07-29 03:18 | Outpatient (CLI) | payer MEDICARE, OTHER | END 2017-07-29 03:19 | disposition EMS.NT | LOC: EMS 03:18 | PROVIDERS: ATTEND Surgery | DX: Z03.89 Encounter for observation for other suspected diseases and conditions ruled out (principal) ==

== ENCOUNTER 2017-09-30 08:28 | Outpatient (CLI) | payer MEDICARE, OTHER | END 2017-09-30 08:29 | disposition short-term general hospital (02) | LOC: EMS 08:28 | PROVIDERS: ATTEND Surgery | DX: R50.9 Fever, unspecified (principal); R47.81 Slurred speech; R53.1 Weakness; R53.83 Other fatigue | CPT/HCPCS: A0425; A0427 ==

== ENCOUNTER 2017-10-22 07:43 | Outpatient (CLI) | payer MEDICARE, OTHER | END 2017-10-22 07:44 | disposition home or self-care (01) | LOC: LAB 07:43 | PROVIDERS: ATTEND Student in an Organized Health Care Education/Training Program | DX: E27.40 Unspecified adrenocortical insufficiency (principal) | CPT/HCPCS: 36415; 82024; 82533 ==

== ENCOUNTER 2017-11-14 07:54 | Outpatient (CLI) | payer MEDICARE, OTHER ==
[2017-11-14 09:47] LABS: THYROID STIMULATING HORMONE 1.04 uIU/mL (0.34-5.60)
[2017-11-14 09:52] LABS: FREE T4 (FREE THYROXINE) 1.09 ng/dL (0.58-1.64)
[2017-11-14 09:53] LABS: PROLACTIN 15.91 ng/mL
[2017-11-14 10:15] LABS: FOLLICLE STIMULATING HORMONE 33.81 mIU/mL
[2017-11-14 10:16] LABS: LUTEINIZING HORMONE 16.14 mIU/mL
== END 2017-11-14 07:55 | disposition home or self-care (01) ==
LOC: LAB 07:54
PROVIDERS: ATTEND Student in an Organized Health Care Education/Training Program
DX: E27.40 Unspecified adrenocortical insufficiency (principal)
CPT/HCPCS: 36415; 81599; 83001; 83002; 84146; 84305; 84402; 84403; 84439; 84443

== ENCOUNTER 2017-12-24 07:45 | Outpatient (CLI) | payer MEDICARE, OTHER | END 2017-12-24 07:46 | disposition short-term general hospital (02) | LOC: EMS 07:45 | PROVIDERS: ATTEND Surgery | DX: R53.1 Weakness (principal); R03.1 Nonspecific low blood-pressure reading; W18.39XA Other fall on same level, initial encounter; Y92.009 Unspecified place in unspecified non-institutional (private) residence as the place of occurrence of the external cause | CPT/HCPCS: A0425; A0427 ==

== ENCOUNTER 2017-12-28 20:54 | Emergency (ER) | payer MEDICARE, OTHER ==
[2017-12-28] MEDS ORDERED: IOPAMIDOL-300 100 ML VIAL IVP ONE ×2 (20:55→23:36)
[2017-12-28] MEDS ORDERED: ASPIRIN CHEW 81 MG TABLET PO STA (21:19)
--- NOTE | 2017-12-28 21:50 | XRAY Report ---
Reason: CP Procedure Date: 12/28/2017 Accession Number: [id number] / [id number] Procedure: XR - Chest 2 View X-Ray CPT Code: 69587 FULL RESULT: EXAM: CHEST RADIOGRAPHY. EXAM DATE: 12/28/2017 09:34 PM. CLINICAL HISTORY: Shortness of breath, cough. COMPARISON: chest 2 view PA/lateral 03/21/2017. TECHNIQUE: 2 views. FINDINGS: Lungs/Pleura: Low lung volumes. Mild bibasilar atelectasis. No focal infiltrate or effusion. Mediastinum: Mildly tortuous aorta. Heart size within normal limits. Other: None. IMPRESSION: 1. Mild bibasilar atelectasis. No infiltrate or effusion. RADIA
[2017-12-28 21:59] LABS: BASOPHILS % (AUTO) 0.6 %; EOSINOPHILS # (AUTO) 0.1 10^3/uL (0.0-0.7); EOSINOPHILS % (AUTO) 1.3 %; HGB - HEMOGLOBIN 10.8 g/dL (14.0-18.0); LYMPHOCYTES # (AUTO) 1.1 10^3/uL (1.5-3.5); LYMPHOCYTES % (AUTO) 24.3 %; MEAN CORPUSCULAR HEMOGLOBIN 27.1 pg (27.0-31.0); MEAN CORPUSCULAR HGB CONC 33.3 g/dL (32.0-36.0); MEAN CORPUSCULAR VOLUME 81.4 fL (80.0-94.0); MEAN PLATELET VOLUME 7.8 fL (7.4-11.4); MONOCYTES # (AUTO) 0.3 10^3/uL (0.0-1.0); MONOCYTES % (AUTO) 7.3 %; NEUTROPHILS # (AUTO) 2.9 10^3/uL (1.5-6.6); NEUTROPHILS % (AUTO) 66.5 %; PLT - PLATELET COUNT 202 10^3/uL (130-450); RED CELL DISTRIBUTION WIDTH 18.6 % (12.0-15.0); WHITE BLOOD COUNT 4.4 x10^3/uL (4.8-10.8)
[2017-12-28 22:12] LABS: ALBUMIN 3.5 g/dL (3.2-5.5); BILIRUBIN,TOTAL 0.3 mg/dL (0.2-1.0); CALCIUM 8.7 mg/dL (8.5-10.3); CREATININE 1.1 mg/dL (0.6-1.2); TOTAL PROTEIN 7.1 g/dL (6.7-8.2)
[2017-12-28] MEDS ORDERED: IPRATROPIUM/ALBUTEROL 3 ML NEB INH STA ×2 (22:23→22:52)
[2017-12-28] MEDS ORDERED: IOPAMIDOL-300 100 ML VIAL ONE (22:40)
--- NOTE | 2017-12-28 23:28 | ED Physician Documentation ---
History of Present Illness - Stated complaint Stated Complaint: CHEST PX/SOA - Chief complaint Chief Complaint: Cardiac - History obtained from History obtained from: Family, Friend - Additonal information Additional information: 87-year-old female presents the emergency department with increasing shortness of breath which is worse on exertion and right-sided chest pain. The patient was just discharged from an outside facility. Since returning home the patient' s had worsening shortness of breath and now developed right-sided chest pain. The patient denies any peripheral edema. The patient denies URI symptoms, fevers, chills. No relieving factors. No other associated symptoms. The patient denies using home oxygen. No relieving factors. Review of Systems Constitutional: reports: Fatigue. denies: Fever Eyes: denies: Decreased vision Ears: denies: Ear pain Nose: denies: Congestion Throat: denies: Sore throat Cardiac: reports: Chest pain / pressure Respiratory: reports: Dyspnea, Wheezing GI: denies: Abdominal Pain : denies: Dysuria Skin: denies: Rash Musculoskeletal: denies: Neck pain Neurologic: denies: Generalized weakness Immunocompromised: denies: Chemotherapy PD PAST MEDICAL HISTORY - Past Medical History Past Medical History: No Cardiovascular: Congestive heart failure, Hypertension, High cholesterol, Coronary artery disease, Pulmonary embolism, [place] Respiratory: COPD Neuro: None Endocrine/Autoimmune: None GI: GERD, Other : Benign prostate hypertrophy HEENT: None Psych: None, Other Musculoskeletal: Other Derm: None - Past Surgical History Past Surgical History: Yes General: Appendectomy HEENT: Tonsil/Adenoidectomy - Present Medications Home Medications: Ambulatory Orders Medication Instructions Recorded Confirmed Carvedilol 12.5 mg ORAL BID 06/22/16 03/21/17 Clopidogrel [Plavix] 75 mg ORAL DAILY 06/22/16 03/21/17 Furosemide 40 mg ORAL DAILY 06/22/16 03/22/17 Gabapentin 300 mg ORAL TID 06/22/16 03/21/17 Simvastatin 80 mg ORAL QPM 06/22/16 03/22/17 Triazolam [Halcion] 0.25 mg ORAL QPM PRN 06/22/16 03/21/17 Albuterol Sulfate [Proair 1 puffs IH DAILY PRN 03/21/17 03/21/17 Respiclick] Apixaban [Eliquis] 5 mg PO BID 03/21/17 03/22/17 Budesonide/Formoterol Fumarate 2 puffs IH BID 03/21/17 03/21/17 [Symbicort 160-4.5 Mcg Inhaler] Ipratropium/Albuterol Sulfate 3 ml IH Q6HR PRN 03/21/17 03/21/17 [Iprat-Albut 0.5-3(2.5) mg/3 ml] Lisinopril 5 mg PO DAILY 03/21/17 03/22/17 Nitroglycerin 0.4 mg PO Q5M PRN 03/21/17 03/22/17 Pantoprazole Sodium 40 mg PO DAILY 03/21/17 03/22/17 Potassium Chloride [K-Dur] 20 meq PO DAILY 03/21/17 03/22/17 Tamsulosin HCl [Flomax] 0.4 mg PO DAILY 03/21/17 03/22/17 Ciclopirox Olamine [Ciclopirox] 1 applic TOP DAILY 03/22/17 03/22/17 - Allergies Allergies/Adverse Reactions: Allergies Allergy/AdvReac Type Severity Reaction Status Date / Time No Known Drug Allergies Allergy Verified 12/28/17 21:07 - Social History Does the pt smoke?: No Smoking Status: Never smoker Does the pt drink ETOH?: No Does the pt have substance abuse?: No - Immunizations Immunizations are current?: Yes - POLST Patient has POLST: No POLST Status: Full Code PD ED PE NORMAL - General General: Alert and oriented X 3, Other (87-year-old debilitated appearing male who appears short of breath and slightly tachypneic) - HEENT HEENT: Atraumatic, PERRL, EOMI - Neck Neck: Supple, no meningeal sign - Cardiac Cardiac: RRR, Strong equal pulses - Respiratory Respiratory: Other (Decreased aeration with trace wheezing bilaterally) - Abdomen Abdomen: Soft, Non tender - Derm Derm: Normal color - Extremities Extremities: No deformity, No edema - Neuro Neuro: Alert and oriented X 3, Normal speech - Psych Psych: Normal affect Results - Vitals Vitals: Vital Signs - 24 hr 12/28/17 12/28/17 12/28/17 20:55 21:18 21:20 Temperature 37.1 C Heart Rate 71 69 Respiratory 22 16 Rate Blood Pressure 161/100 H 161/96 H Blood Pressure 161/96 H [Left] O2 Saturation 97 96 12/28/17 12/28/17 12/28/17 22:19 22:38 22:59 Temperature Heart Rate 67 65 66 Respiratory 16 16 15 Rate Blood Pressure 159/93 H Blood Pressure [Left] O2 Saturation 96 12/29/17 12/29/17 12/29/17 00:10 01:42 03:43 Temperature Heart Rate 67 74 68 Respiratory 18 18 14 Rate Blood Pressure 147/91 H 152/97 H 141/90 H Blood Pressure [Left] O2 Saturation 98 97 96 12/29/17 04:56 Temperature Heart Rate 74 Respiratory 12 Rate Blood Pressure 112/79 Blood Pressure [Left] O2 Saturation 96 Oxygen O2 Source Nasal cannula Oxygen Flow Rate 2 - EKG (time done) 21:00 Rate: Rate (enter#) Rhythm: NSR Intervals: Normal SC, QRS normal Ischemia: Non specific changes Other comments: Other comments (Sinus rhythm with nonspecific changes, no acute ischemic changes) - Labs Labs: Laboratory Tests 12/28/17 12/28/17 12/28/17 21:50 21:50 21:50 WBC 4.4 L RBC 4.00 L Hgb 10.8 L Hct 32.5 L MCV 81.4 MCH 27.1 MCHC 33.3 RDW 18.6 H Plt Count 202 MPV 7.8 Neut # (Auto) 2.9 Lymph # (Auto) 1.1 L [place] # (Auto) 0.3 Eos # (Auto) 0.1 Baso # (Auto) 0.0 Absolute Nucleated RBC 0.00 Nucleated RBC % 0.1 Sodium 139 Potassium 4.2 Chloride 104 Carbon Dioxide 25 Anion Gap 10.0 BUN 16 Creatinine 1.1 Estimated GFR (MDRD) 63 L Glucose 131 H Calcium 8.7 Total Bilirubin 0.3 AST 28 ALT 37 Alkaline Phosphatase 56 Troponin I < 0.04 B-Natriuretic Peptide Total Protein 7.1 Albumin 3.5 Globulin 3.6 Albumin/Globulin Ratio 1.0 Lipase 23 12/28/17 12/29/17 21:50 00:15 WBC RBC Hgb Hct MCV MCH MCHC RDW Plt Count MPV Neut # (Auto) Lymph # (Auto) [place] # (Auto) Eos # (Auto) Baso # (Auto) Absolute Nucleated RBC Nucleated RBC % Sodium Potassium Chloride Carbon Dioxide Anion Gap BUN Creatinine Estimated GFR (MDRD) Glucose Calcium Total Bilirubin AST ALT Alkaline Phosphatase Troponin I < 0.04 B-Natriuretic Peptide 171 H Total Protein Albumin Globulin Albumin/Globulin Ratio Lipase - Rads (name of study) CTA Chest Radiology: Final report received (1. No evidence of acute pulmonary embolism. 2. There are small to moderate-sized bilateral effusions. 3. No evidence of lobar infiltrate. 4. No evidence of thoracic aortic dissection or aneurysm. 5. There is significant narrowing of the trachea and mainstem bronchi which is suspicious for tracheobronchomalacia. 6. There is mild pericholecystic edema. ) PD MEDICAL DECISION MAKING - ED course ED course: A transfer was attempted at [facility] since they have a pulmonology service. After discussing with them the patient's findings and current presentation they recommended transfer to the [facility] since their youth associate are unable to do any stenting. The case was discussed with the patient's pulmonology group from [facility] in [facility]. I discussed the case with Dr. Queen who recommends transferring to their hospital for further workup and management of the findings seen on CT scan. The findings and plan were discussed with the patient and his , they understand and agreed to the plan. - Sepsis Event Vital Signs: Vital Signs - 24 hr 12/28/17 12/28/17 12/28/17 20:55 21:18 21:20 Temperature 37.1 C Heart Rate 71 69 Respiratory 22 16 Rate Blood Pressure 161/100 H 161/96 H Blood Pressure 161/96 H [Left] O2 Saturation 97 96 12/28/17 12/28/17 12/28/17 22:19 22:38 22:59 Temperature Heart Rate 67 65 66 Respiratory 16 16 15 Rate Blood Pressure 159/93 H Blood Pressure [Left] O2 Saturation 96 12/29/17 12/29/17 12/29/17 00:10 01:42 03:43 Temperature Heart Rate 67 74 68 Respiratory 18 18 14 Rate Blood Pressure 147/91 H 152/97 H 141/90 H Blood Pressure [Left] O2 Saturation 98 97 96 12/29/17 04:56 Temperature Heart Rate 74 Respiratory 12 Rate Blood Pressure 112/79 Blood Pressure [Left] O2 Saturation 96 Oxygen O2 Source Nasal cannula Oxygen Flow Rate 2 Departure - Departure Disposition: 02 Transfer Acute Care Hosp Clinical Impression: Tracheobronchomalacia, COPD exacerbation Chest pain Qualifiers: Chest pain type: other chest pain Qualified Code(s): R07.89 - Other chest pain ; R07.8 - Other chest pain Condition: Fair
[2017-12-28] MEDS ORDERED: SODIUM CHLORIDE 0.9% 500 ML IV ONE (23:32)
--- NOTE | 2017-12-29 00:02 | CT Report ---
Reason: SOA, h/o PE Procedure Date: 12/28/2017 Accession Number: [id number] / [id number] Procedure: CT - Chest Angio (PE) CPT Code: FULL RESULT: EXAM: CT ANGIOGRAM CHEST EXAM DATE: 12/28/2017 11:51 PM. CLINICAL HISTORY: Chest pain COMPARISON: None. TECHNIQUE: Routine helical imaging was performed through the chest in the pulmonary arterial phase. IV Contrast: ISOVUE 300 80mL. Reconstructions: Coronal 3-D MIP reconstructions.Sagittal and coronal. In accordance with CT protocol optimization, one or more of the following dose reduction techniques were utilized for this exam: automated exposure control, adjustment of mA and/or KV based on patient size, or use of iterative reconstructive technique. FINDINGS: Pulmonary Arteries: Diagnostic quality: Adequate through the segmental arteries. No evidence for acute or chronic pulmonary emboli. Lungs/Pleura: There are [id number] sized bilateral pleural effusions. No evidence of lobar infiltrate. No pneumothorax. There is significant narrowing of the trachea and mainstem bronchi. Mediastinum: There is cardiomegaly. No enlarged thoracic lymph nodes. There are coronary artery calcifications. Thoracic Aorta: There is no evidence of thoracic aortic dissection or aneurysm. Upper Abdomen: There is mild pericholecystic edema. Visualized portions of the upper abdominal organs are otherwise unremarkable. Other: None. IMPRESSION: 1. No evidence of acute pulmonary embolism. 2. There are small to moderate-sized bilateral effusions. 3. No evidence of lobar infiltrate. 4. No evidence of thoracic aortic dissection or aneurysm. 5. There is significant narrowing of the trachea and mainstem bronchi which is suspicious for tracheobronchomalacia. 6. There is mild pericholecystic edema. RADIA
[2017-12-29 06:58] VITALS: BP 133/88
== END 2017-12-29 07:11 | disposition short-term general hospital (02) ==
LOC: ED 20:54
DX: J39.8 Other specified diseases of upper respiratory tract (principal); J44.1 Chronic obstructive pulmonary disease with (acute) exacerbation; R07.89 Other chest pain; R94.31 Abnormal electrocardiogram [ECG] [EKG]; I11.0 Hypertensive heart disease with heart failure; I50.9 Heart failure, unspecified; E78.00 Pure hypercholesterolemia, unspecified; I25.10 Atherosclerotic heart disease of native coronary artery without angina pectoris; I25.2 Old myocardial infarction; Z86.711 Personal history of pulmonary embolism; Z79.01 Long term (current) use of anticoagulants
CPT/HCPCS: 36415; 71046; 71275; 80053; 83690; 83880; 84484; 85025; 93005; 94640; 96360; 99285; A9270; Q9967

== ENCOUNTER 2018-01-15 09:51 | Outpatient (CLI) | payer MEDICARE, OTHER | END 2018-01-15 09:52 | disposition short-term general hospital (02) | LOC: EMS 09:51 | PROVIDERS: ATTEND Surgery | DX: M54.9 Dorsalgia, unspecified (principal); R07.81 Pleurodynia; R41.0 Disorientation, unspecified; R53.1 Weakness; R50.9 Fever, unspecified | CPT/HCPCS: A0425; A0427 ==

== ENCOUNTER 2018-01-24 00:20 | Outpatient (CLI) | payer MEDICARE, OTHER | END 2018-01-24 00:21 | disposition critical access hospital (66) | LOC: EMS 00:20 | PROVIDERS: ATTEND Surgery | DX: T85.598A Other mechanical complication of other gastrointestinal prosthetic devices, implants and grafts, initial encounter (principal) | CPT/HCPCS: A0425; A0429 ==

== ENCOUNTER 2018-01-24 00:27 | Emergency (ER) | payer MEDICARE, OTHER ==
[2018-01-24] MEDS ORDERED: CEFEPIME 1 GM in SODIUM CHLORIDE 0.9% MINIBAG 100 ML IV STA (02:02)
--- NOTE | 2018-01-24 02:04 | ED Physician Documentation ---
History of Present Illness - Stated complaint Stated Complaint: DRAIN SEPERATION FROM SURGICAL SITE - Chief complaint Chief Complaint: General - Additonal information Additional information: 88-year-old male had a recent catheter placed into his gallbladder and is currently at a senior care for IV antibiotics. The patient was discharged from that hospital today and upon arriving at rehab it was found that the catheter was leaking. The patient has no acute complaints. The patient is here for evaluation of the catheter. Review of Systems Constitutional: denies: Fever Cardiac: denies: Chest pain / pressure Respiratory: denies: Dyspnea GI: denies: Abdominal Pain Skin: denies: Rash PD PAST MEDICAL HISTORY - Past Medical History Cardiovascular: Congestive heart failure, Hypertension, High cholesterol, Coronary artery disease, Pulmonary embolism, [place] Respiratory: COPD Neuro: None Endocrine/Autoimmune: None GI: GERD, Other : Benign prostate hypertrophy HEENT: None Psych: None, Other Musculoskeletal: Other Derm: None - Past Surgical History Past Surgical History: Yes General: Appendectomy HEENT: Tonsil/Adenoidectomy - Present Medications Home Medications: Ambulatory Orders Medication Instructions Recorded Confirmed Carvedilol 12.5 mg ORAL BID 06/22/16 03/21/17 Clopidogrel [Plavix] 75 mg ORAL DAILY 06/22/16 03/21/17 Furosemide 40 mg ORAL DAILY 06/22/16 03/22/17 Gabapentin 300 mg ORAL TID 06/22/16 03/21/17 Simvastatin 80 mg ORAL QPM 06/22/16 03/22/17 Triazolam [Halcion] 0.25 mg ORAL QPM PRN 06/22/16 03/21/17 Albuterol Sulfate [Proair 1 puffs IH DAILY PRN 03/21/17 03/21/17 Respiclick] Apixaban [Eliquis] 5 mg PO BID 03/21/17 03/22/17 Budesonide/Formoterol Fumarate 2 puffs IH BID 03/21/17 03/21/17 [Symbicort 160-4.5 Mcg Inhaler] Ipratropium/Albuterol Sulfate 3 ml IH Q6HR PRN 03/21/17 03/21/17 [Iprat-Albut 0.5-3(2.5) mg/3 ml] Lisinopril 5 mg PO DAILY 03/21/17 03/22/17 Nitroglycerin 0.4 mg PO Q5M PRN 03/21/17 03/22/17 Pantoprazole Sodium 40 mg PO DAILY 03/21/17 03/22/17 Potassium Chloride [K-Dur] 20 meq PO DAILY 03/21/17 03/22/17 Tamsulosin HCl [Flomax] 0.4 mg PO DAILY 03/21/17 03/22/17 Ciclopirox Olamine [Ciclopirox] 1 applic TOP DAILY 03/22/17 03/22/17 - Allergies Allergies/Adverse Reactions: Allergies Allergy/AdvReac Type Severity Reaction Status Date / Time No Known Drug Allergies Allergy Verified 01/24/18 00:39 - Social History Does the pt smoke?: No Smoking Status: Never smoker Does the pt drink ETOH?: No Does the pt have substance abuse?: No - Immunizations Immunizations are current?: Yes - POLST Patient has POLST: No POLST Status: Full Code PD ED PE NORMAL - General General: Alert and oriented X 3, No acute distress - HEENT HEENT: Atraumatic, PERRL, EOMI, Ears normal - Abdomen Abdomen: Other (There is a catheter in the right upper quadrant which appears to be appropriately placed. However, the catheter is fractured at the distal portion and is leaking bile. There is no irritation or signs of infection around the catheter) - Derm Derm: Normal color - Extremities Extremities: No deformity - Neuro Neuro: Alert and oriented X 3, Normal speech - Psych Psych: Normal affect Results - Vitals Vitals: Vital Signs - 24 hr 01/24/18 01/24/18 00:35 02:50 Temperature 36.3 C L 36.8 C Heart Rate 72 71 Respiratory 16 16 Rate Blood Pressure 134/77 H 126/85 H O2 Saturation 96 97 Oxygen O2 Source Room air PD MEDICAL DECISION MAKING - ED course ED course: The case was discussed with the on-call interventional radiologist at [facility]. Since the catheter is draining appropriately he recommends using a ostomy bag to collect the bile fluid in the interim. He will arrange for the patient to return this coming week for a change of the catheter. The findings and plan were discussed the patient and his . They understand and agreed to the plan. I discussed warning signs and recommended returning to the emergency department immediately for worsening or any concerns. - Sepsis Event Vital Signs: Vital Signs - 24 hr 01/24/18 01/24/18 00:35 02:50 Temperature 36.3 C L 36.8 C Heart Rate 72 71 Respiratory 16 16 Rate Blood Pressure 134/77 H 126/85 H O2 Saturation 96 97 Oxygen O2 Source Room air Departure - Departure Disposition: 01 Home, Self Care Clinical Impression: Malfunction of device Qualifiers: Encounter type: initial encounter Qualified Code(s): T85.618A - Breakdown (mechanical) of other specified internal prosthetic devices, implants and grafts, initial encounter Condition: Good Comments: The interventional radiology team should be contacting you Friday to arrange for an outpatient time to replace the tube that goes into your gallbladder. In the meantime please use the ostomy bags to collect the bile. Please return to the emergency department immediately for any worsening or any concerns. Discharge Date/Time: 01/24/18 03:01
[2018-01-24 02:52] VITALS: BP 126/85
== END 2018-01-24 03:01 | disposition home or self-care (01) ==
LOC: EDUNIT# → ED 00:27
DX: T85.618A Breakdown (mechanical) of other specified internal prosthetic devices, implants and grafts, initial encounter (principal); I25.2 Old myocardial infarction; I11.0 Hypertensive heart disease with heart failure; I50.9 Heart failure, unspecified; I25.10 Atherosclerotic heart disease of native coronary artery without angina pectoris; E78.00 Pure hypercholesterolemia, unspecified; Z79.01 Long term (current) use of anticoagulants
CPT/HCPCS: 96365; 99283

== ENCOUNTER 2018-01-26 08:30 | Outpatient (CLI) | payer MEDICARE, OTHER ==
[2018-01-26 12:15] LABS: BASOPHILS % (AUTO) 0.8 %; EOSINOPHILS # (AUTO) 0.1 10^3/uL (0.0-0.7); EOSINOPHILS % (AUTO) 1.1 %; LYMPHOCYTES # (AUTO) 1.2 10^3/uL (1.5-3.5); LYMPHOCYTES % (AUTO) 24.3 %; MEAN CORPUSCULAR HEMOGLOBIN 26.3 pg (27.0-31.0); MEAN CORPUSCULAR HGB CONC 32.9 g/dL (32.0-36.0); MEAN CORPUSCULAR VOLUME 80.1 fL (80.0-94.0); MEAN PLATELET VOLUME 8.5 fL (7.4-11.4); MONOCYTES # (AUTO) 0.3 10^3/uL (0.0-1.0); MONOCYTES % (AUTO) 7.1 %; NEUTROPHILS # (AUTO) 3.3 10^3/uL (1.5-6.6); NEUTROPHILS % (AUTO) 66.7 %; PLT - PLATELET COUNT 258 10^3/uL (130-450); RED BLOOD COUNT 3.44 10^6/uL (4.70-6.10); RED CELL DISTRIBUTION WIDTH 18.4 % (12.0-15.0); WHITE BLOOD COUNT 4.9 x10^3/uL (4.8-10.8)
[2018-01-26 12:21] LABS: CALCIUM 8.2 mg/dL (8.5-10.3); CREATININE 0.8 mg/dL (0.6-1.2)
== END 2018-01-26 08:31 | disposition home or self-care (01) ==
LOC: LAB.R 08:30
DX: K81.0 Acute cholecystitis (principal)
CPT/HCPCS: 80048; 85025

== ENCOUNTER 2018-02-02 10:05 | Outpatient (CLI) | payer MEDICARE, OTHER ==
[2018-02-02 11:06] LABS: BASOPHILS # (AUTO) 0.1 10^3/uL (0.0-0.1); BASOPHILS % (AUTO) 1.1 %; EOSINOPHILS % (AUTO) 0.6 %; HGB - HEMOGLOBIN 10.4 g/dL (14.0-18.0); LYMPHOCYTES # (AUTO) 1.3 10^3/uL (1.5-3.5); LYMPHOCYTES % (AUTO) 27.3 %; MEAN CORPUSCULAR HEMOGLOBIN 26.1 pg (27.0-31.0); MEAN CORPUSCULAR HGB CONC 32.4 g/dL (32.0-36.0); MEAN CORPUSCULAR VOLUME 80.5 fL (80.0-94.0); MEAN PLATELET VOLUME 7.5 fL (7.4-11.4); MONOCYTES # (AUTO) 0.4 10^3/uL (0.0-1.0); NEUTROPHILS # (AUTO) 3.1 10^3/uL (1.5-6.6); PLT - PLATELET COUNT 221 10^3/uL (130-450); RED CELL DISTRIBUTION WIDTH 18.8 % (12.0-15.0); WHITE BLOOD COUNT 4.9 x10^3/uL (4.8-10.8)
== END 2018-02-02 10:06 | disposition home or self-care (01) ==
LOC: LAB.R 10:05
DX: K81.0 Acute cholecystitis (principal)
CPT/HCPCS: 80048; 85025

== ENCOUNTER 2018-02-18 20:12 | Outpatient (CLI) | payer MEDICARE, OTHER | END 2018-02-18 20:13 | disposition critical access hospital (66) | LOC: EMS 20:12 | PROVIDERS: ATTEND Surgery | DX: M54.5 Low back pain (principal); R26.2 Difficulty in walking, not elsewhere classified; R53.1 Weakness | CPT/HCPCS: A0425; A0427 ==

== ENCOUNTER 2018-02-18 20:48 | Inpatient (IN) | payer MEDICARE, OTHER ==
--- NOTE | 2018-02-18 21:19 | ED Physician Documentation ---
PD HPI BACK PAIN - Stated complaint Stated Complaint: BACK PAIN - Chief complaint Chief Complaint: Back Pain - History obtained from History obtained from: Patient - History of Present Illness Timing - onset: How many days ago (has had progressive back pain over baseline for the past several days.) Timing - details: Gradual onset, Still present Location: Lower, Right Quality: Pain (lower back). No: Tearing, Aching Associated symptoms: Weakness (general weakness of both legs, with feeling unable to get himself around with his usual walker. says the patient could not get up from sitting on walker today and she had to call EMS to help her.), Numbness (both legs with some numbness. He usually has some numbness in feet due to neuropathy and some down lateral right leg from L4/L5 discs, but not the whole legs as currently.). No: Fever, Incontinent of urine Improves with: Rest Worsened by: Movement, Twisting Contributing factors: No: Lifting, Twisting Recently seen: Clinic (today at [facility], follow up for the cholecystitis and had his Cipro stopped (not clear from if his leg weakness symptoms were part of the med stoppage decision, as they did tell the ID specialist about those symptoms).), Admitted (had been in [facility] for acute cholecystitis and opted for drainage of it rather than CCY (surgery) due to comorbidities. He does have a back surgeon at [facility] who has felt the patient is not a surgical candidate due to comorbidities as well.) Review of Systems Constitutional: denies: Fever, Chills, Myalgias Nose: denies: Rhinorrhea / runny nose, Congestion Throat: denies: Sore throat Cardiac: denies: Chest pain / pressure Respiratory: denies: Cough GI: reports: Abdominal Pain (minimal pain at the RUQ/ostomy site the past week.). denies: Nausea, Vomiting, Diarrhea : denies: Dysuria, Frequency Skin: denies: Rash, Lesions PD PAST MEDICAL HISTORY - Past Medical History Cardiovascular: Congestive heart failure, Hypertension, High cholesterol, Coronary artery disease, Pulmonary embolism, OR Respiratory: COPD Neuro: None Endocrine/Autoimmune: None GI: GERD, Other : Benign prostate hypertrophy HEENT: None Psych: None, Other Musculoskeletal: Other Derm: None - Past Surgical History Past Surgical History: Yes General: Appendectomy HEENT: Tonsil/Adenoidectomy - Present Medications Home Medications: Ambulatory Orders Medication Instructions Recorded Confirmed Carvedilol 12.5 mg ORAL BID 06/22/16 03/21/17 Furosemide 40 mg ORAL DAILY 06/22/16 03/22/17 Gabapentin 300 mg ORAL TID 06/22/16 03/21/17 Simvastatin 80 mg ORAL QPM 06/22/16 03/22/17 Triazolam [Halcion] 0.25 mg ORAL QPM PRN 06/22/16 03/21/17 Albuterol Sulfate [Proair 1 puffs IH DAILY PRN 03/21/17 03/21/17 Respiclick] Apixaban [Eliquis] 2.5 mg PO BID 03/21/17 03/22/17 Budesonide/Formoterol Fumarate 2 puffs IH BID 03/21/17 03/21/17 [Symbicort 160-4.5 Mcg Inhaler] Ipratropium/Albuterol Sulfate 3 ml IH Q6HR PRN 03/21/17 03/21/17 [Iprat-Albut 0.5-3(2.5) mg/3 ml] Nitroglycerin 0.4 mg PO Q5M PRN 03/21/17 03/22/17 Potassium Chloride [K-Dur] 20 meq PO DAILY 03/21/17 03/22/17 Tamsulosin HCl [Flomax] 0.4 mg PO DAILY 03/21/17 03/22/17 Ciclopirox Olamine [Ciclopirox] 1 applic TOP DAILY 03/22/17 03/22/17 Cholecalciferol (Vitamin D3) 1,000 units ORAL DAILY 02/18/18 02/18/18 [Vitamin D3] Famotidine [Pepcid] 20 mg ORAL DAILY 02/18/18 02/18/18 Hydrocortisone 10 mg ORAL BID 02/18/18 02/18/18 - Allergies Allergies/Adverse Reactions: Allergies Allergy/AdvReac Type Severity Reaction Status Date / Time sulfamethoxazole Allergy Anaphylaxis Verified 02/18/18 21:06 [From Bactrim] trimethoprim [From Bactrim] Allergy Anaphylaxis Verified 02/18/18 21:06 - Social History Does the pt smoke?: No Smoking Status: Never smoker Does the pt drink ETOH?: No Does the pt have substance abuse?: No - Immunizations Immunizations are current?: Yes - POLST Patient has POLST: No POLST Status: Full Code PD ED PE NORMAL - Vitals Vital signs reviewed: Yes - General General: Alert and oriented X 3, Well developed/nourished - HEENT HEENT: Moist mucous membranes, Pharynx benign - Neck Neck: Supple, no meningeal sign, Thyroid normal - Cardiac Cardiac: RRR, No murmur - Respiratory Respiratory: No: Clear bilaterally (mostly clear with some fine crackles at bases. ) - Abdomen Abdomen: Soft, Non tender, Other (GB drain in place. No redness nor swelling around it. ) - Male Male : Deferred - Rectal Rectal: Deferred - Back Back: No CVA TTP, Other (some tender lower right paralumbar muscles without rash nor sores. ) - Derm Derm: Normal color, Warm and dry, No rash - Extremities Extremities: No edema, No calf tenderness / cord - Neuro Neuro: Other (The patient does have some mild degree of weakness for leg raising but is able to hold his legs off the cart. Sensory testing shows distinction between sharp and dull in dermatomal areas of the leg except for the right lateral lower leg consistent with L4-5 or L5-S1 distribution. He has weak but present patellar reflexes on both sides. He has no edema. He has sensation to touch in the gluteal areas.) Eye Opening: Spontaneous Motor: Obeys Commands Verbal: Oriented GCS Score: 15 Results - Vitals Vitals: Vital Signs - 24 hr 02/18/18 02/18/18 02/18/18 20:55 22:28 22:29 Temperature 37 C 36.3 C L Heart Rate 82 100 Respiratory 16 18 18 Rate Blood Pressure 126/79 137/80 H 137/80 H O2 Saturation 96 99 02/18/18 22:52 Temperature Heart Rate 91 Respiratory 13 Rate Blood Pressure 119/80 O2 Saturation 84 L Oxygen O2 Source Room air Oxygen Flow Rate 2 - Labs Labs: Laboratory Tests 02/18/18 02/18/18 02/18/18 22:15 22:15 22:15 WBC 5.8 RBC 3.17 L Hgb 8.0 L Hct 24.5 L MCV 77.4 L MCH 25.2 L MCHC 32.6 RDW 18.7 H Plt Count 189 MPV 7.3 L Neut # (Auto) 3.8 Lymph # (Auto) 1.3 L Kimble # (Auto) 0.5 Eos # (Auto) 0.1 Baso # (Auto) 0.0 Absolute Nucleated RBC 0.00 Nucleated RBC % 0.0 ESR 49 H Sodium 131 L Potassium 4.2 Chloride 101 Carbon Dioxide 24 Anion Gap 6.0 BUN 15 Creatinine 1.0 Estimated GFR (MDRD) 71 L Glucose 104 H Calcium 8.2 L Magnesium 2.2 Total Bilirubin 0.7 AST 26 ALT 28 Alkaline Phosphatase 45 Total Creatine Kinase 27 Total Protein 6.1 L Albumin 3.3 Globulin 2.8 Albumin/Globulin Ratio 1.2 Lipase 17 L Urine Color Urine Clarity Urine pH Ur Specific [place] Urine Protein Urine Glucose (UA) Urine Ketones Urine Occult Blood Urine Nitrite Urine Bilirubin Urine Urobilinogen Ur Leukocyte Esterase Urine RBC Urine WBC Ur Epithelial Cells Ur Squamous Epith Cells Urine Bacteria Ur Microscopic Review Urine Culture Comments 02/18/18 22:26 WBC RBC Hgb Hct MCV MCH MCHC RDW Plt Count MPV Neut # (Auto) Lymph # (Auto) Kimble # (Auto) Eos # (Auto) Baso # (Auto) Absolute Nucleated RBC Nucleated RBC % ESR Sodium Potassium Chloride Carbon Dioxide Anion Gap BUN Creatinine Estimated GFR (MDRD) Glucose Calcium Magnesium Total Bilirubin AST ALT Alkaline Phosphatase Total Creatine Kinase Total Protein Albumin Globulin Albumin/Globulin Ratio Lipase Urine Color YELLOW Urine Clarity CLEAR Urine pH 5.5 Ur Specific [place] 1.015 Urine Protein NEGATIVE Urine Glucose (UA) NEGATIVE Urine Ketones NEGATIVE Urine Occult Blood NEGATIVE Urine Nitrite NEGATIVE Urine Bilirubin NEGATIVE Urine Urobilinogen 0.2 (NORMAL) Ur Leukocyte Esterase TRACE H Urine RBC None Seen Urine WBC 4-5 Ur Epithelial Cells RARE Renal Tubular Ur Squamous Epith Cells FEW Squamous Urine Bacteria None Seen Ur Microscopic Review INDICATED Urine Culture Comments INDICATED PD MEDICAL DECISION MAKING - ED course Complexity details: reviewed results, considered differential (He has history of L4 and L5 disc problems and canal stenosis according to the patient and his . He has a back surgeon at [facility] but has not been a surgical candidate due to comorbidities. The patient is having increasing back pain over the last several days with a feeling of progressive weakness and numbness in his legs. He has not had any patents. This would be concerning for worsening canal stenosis. However his back pain could just be increased and causing spasms and similar symptoms. Concurrently he is being treated for cholecystectomy recently with sorry cholecystitis recently with a drainage tube. The fluid has been clear from that and he was seen by his infectious disease today and they stopped the ciprofloxacin antibiotic he had been on. They did tell the ID specialist about his leg weakness and trouble walking. I do not know if stopping the medication tied into that. He has not been febrile or having signs of infection at the gallbladder area since being on medication. Another consideration could be some fluid or pressure in the lower back. He does not take any blood thinner medicines so I doubt a hematoma in the lower spine. I will talk with the hospitalist and have the patient in the hospital for pain medication and further evaluation. A consideration would be an MRI to evaluate for the canal stenosis and discs as well as any structural mass.), d/w patient, d/w family () Departure - Departure Disposition: ED Place in Observation Clinical Impression: Acute exacerbation of chronic low back pain Leg weakness Qualifiers: Laterality: bilateral Qualified Code(s): R29.898 - Other symptoms and signs involving the musculoskeletal system Condition: Stable Record reviewed to determine appropriate education?: Yes
[2018-02-18] MEDS ORDERED: SODIUM CHLORIDE 0.9% 1,000 ML IV ONE (21:58)
[2018-02-18 22:27] LABS: BASOPHILS % (AUTO) 0.7 %; EOSINOPHILS # (AUTO) 0.1 10^3/uL (0.0-0.7); EOSINOPHILS % (AUTO) 2.4 %; LYMPHOCYTES # (AUTO) 1.3 10^3/uL (1.5-3.5); LYMPHOCYTES % (AUTO) 21.9 %; MEAN CORPUSCULAR HEMOGLOBIN 25.2 pg (27.0-31.0); MEAN CORPUSCULAR HGB CONC 32.6 g/dL (32.0-36.0); MEAN CORPUSCULAR VOLUME 77.4 fL (80.0-94.0); MEAN PLATELET VOLUME 7.3 fL (7.4-11.4); MONOCYTES # (AUTO) 0.5 10^3/uL (0.0-1.0); MONOCYTES % (AUTO) 9.5 %; NEUTROPHILS # (AUTO) 3.8 10^3/uL (1.5-6.6); NEUTROPHILS % (AUTO) 65.5 %; PLT - PLATELET COUNT 189 10^3/uL (130-450); RED BLOOD COUNT 3.17 10^6/uL (4.70-6.10); RED CELL DISTRIBUTION WIDTH 18.7 % (12.0-15.0); WHITE BLOOD COUNT 5.8 x10^3/uL (4.8-10.8)
[2018-02-18 22:40] LABS: ALBUMIN 3.3 g/dL (3.2-5.5); ALBUMIN/GLOBULIN RATIO 1.2 (1.0-2.2); BILIRUBIN,TOTAL 0.7 mg/dL (0.2-1.0); CALCIUM 8.2 mg/dL (8.5-10.3); MAGNESIUM 2.2 mg/dL (1.7-2.8); TOTAL PROTEIN 6.1 g/dL (6.7-8.2)
[2018-02-18] MEDS ORDERED: ONDANSETRON 4 MG/2 ML VIAL IVP STA (22:41)
[2018-02-18] MEDS ORDERED: MORPHINE 10 MG/ML VIAL IVP STA (22:41)
[2018-02-18 22:42] LABS: BILIRUBIN,URINE NEGATIVE (NEGATIVE); GLUCOSE, URINE (UA) NEGATIVE (NEGATIVE); KETONES,URINE (UA) NEGATIVE (NEGATIVE); LEUKOCYTE ESTERASE, URINE TRACE (NEGATIVE); NITRITE,URINE NEGATIVE (NEGATIVE); OCCULT BLOOD,URINE NEGATIVE (NEGATIVE); PH,URINE 5.5 PH (5.0-7.5); PROTEIN,URINE NEGATIVE (NEGATIVE); UROBILINOGEN,URINE 0.2 (NORMAL) E.U./dL (NORMAL)
[2018-02-18] MEDS ORDERED: KETOROLAC 15 MG/ML VIAL IVP STA (22:42)
[2018-02-18 22:44] LABS: CLARITY,URINE CLEAR (CLEAR)
[2018-02-18 22:54] LABS: BACTERIA,URINE None Seen /HPF (None Seen); EPITHELIAL CELLS,UR RARE Renal Tubular /HPF (<= Few); RBC,URINE None Seen /HPF (0-5); SQUAMOUS EPITHELIAL CELL,UR FEW Squamous (<= Few)
[2018-02-18] MEDS ORDERED: SODIUM CHLORIDE FLUSH 0.9% 10 ML SYRINGE IVP PRN (23:11)
[2018-02-18] MEDS ORDERED: oxyCODONE 5 MG TABLET PO PRN ×2 (23:11)
[2018-02-18] MEDS ORDERED: MORPHINE 2 MG/ML CARPUJECT IVP PRN (23:11)
[2018-02-18] MEDS ORDERED: predniSONE 20 MG TABLET PO SCH (23:11)
[2018-02-18] MEDS ORDERED: PROMETHAZINE 25 MG/1 ML VIAL IM PRN (23:11)
[2018-02-18] MEDS ORDERED: ACETAMINOPHEN 325 MG TABLET PO PRN (23:11)
[2018-02-18] MEDS ORDERED: PROCHLORPERAZINE 10 MG/2 ML VIAL IVP PRN (23:11)
[2018-02-18] MEDS ORDERED: ONDANSETRON 4 MG/2 ML VIAL IVP PRN (23:11)
--- NOTE | 2018-02-18 23:19 | HISTORY & PHYSICAL EXAMINATION ---
Chief Complaint - Chief Complaint Chief Complaint: Back pain and leg weakness History of Present Illness - Admitted From Admitted From:: Emergency Department - History Obtained From Records Reviewed: Yes History obtained from: Patient Exam Limitations: None - History of Present Illness HPI Comment/Other: Patient is an 88-year-old gentleman with a past medical history significant for coronary artery disease status post 3 stents, history of DVT and pulmonary embolism, COPD, hypertension, hyperlipidemia, BPH and chronic back pain secondary to degenerative disc disease who presented to the emergency department with a chief complaint of back pain and leg weakness. The patient states that the issues with his back pain stemming back from when he was babysitting his 1-year-old 44 years ago and fell down the stairs. He states that since that fall he has been suffering with back pain that has been getting worse over the years. He states that has become significantly worse over the last 4-5 years. He states that earlier today he was trying to get into the car with his and fell hitting his back. He states that he had a significant amount of pain and was unable to get up even with his 's help. At that time 911 had to be called and paramedics came to the scene and helped the patient up and into the car. The patient states that throughout the day he continued to have pain in his lower back radiating down his right leg at times. He states that when he had his returned this evening he was in a wheelchair. He states that normally he is able to get up out of the wheelchair and transfer into his normal chair with a walker. He states that tonight he was unable to even stand up out of the wheelchair. He states that when he did try to stand up his pain was very severe. He felt as though he had no strength in his legs and therefore was brought into the emergency department. The patient was just recently hospitalized at [facility] for cholecystitis. The patient was a poor surgical candidate therefore they put in a cholecystostomy tube and placed the patient on antibiotics. The patient states that he just completed his antibiotics today. He states that he just saw an infectious disease doctor earlier in the day who told him to stop the antibiotics. The patient says that after his fall this morning he was feeling weak in his legs and did tell his infectious disease doctor about this who told the patient if the symptoms persisted that he should go to the emergency department. The patient states that in fact when he got home the symptoms did persist and that is why he came to the emergency. The patient does have a spine surgeon at [facility] who feels the patient is not a surgical candidate due to his comorbidities. Patient denies any headache, blurred vision, runny nose, sore throat, nasal congestion, difficulty swallowing, fevers, chills, chest pain, cough, palpitations, shortness of air, orthopnea, PND, increased lower extremity swelling, abdominal pain, nausea, vomiting, diarrhea, constipation, increased urinary urgency, urinary frequency or dysuria. The patient denies any joint swelling, neck stiffness, recent unintentional weight loss, changes in his appetite, polyuria, polydipsia, night sweats, skin changes or rash. On presentation to the emergency department the patient was afebrile and vital signs were within normal limits. The patient continued to have back pain and bilateral lower extremity weakness on presentation to the emergency department. The emergency room physician noted that the patient had some mild degree of weakness for leg raising but was able to hold his leg off the cart. He was foun d to have sensory testing that showed distinction between sharp and dull in dermatomal areas of the leg except for the right lateral lower leg consistent with L4-L5 or L5-S1 distribution. He had weak reflexes but had present patellar reflexes on both sides. The patient underwent routine lab work which showed a chronic anemia with a hemoglobin of 8.0 and elevated ESR of 49 and mildly decreased sodium and a negative urine analysis. The patient did not undergo any imaging studies in the emergency department. It was felt that the patient was not able to stand and therefore could not go home safely. The patient was placed in observation for control of his back pain and for physical therapy c onsultation. History - Past Medical History Cardiovascular: reports: Congestive heart failure, Hypertension, High cholesterol, Coronary artery disease (Status post 3 stents), Pulmonary embolism, [place] Respiratory: reports: COPD, Other (History of pulmonary embolism) Neuro: reports: None Endocrine/Autoimmune: reports: None GI: reports: GERD, Other : reports: Benign prostate hypertrophy HEENT: reports: None Psych: reports: None, Other Musculoskeletal: reports: Chronic back pain (Degenerative retrolisthesis at L3- L4, L4-L5 and L5-S1.) Derm: reports: None MRSA Hx?: No - Past Surgical History General: reports: Appendectomy Cardiovascular: reports: Coronary stent HEENT: reports: Tonsil/Adenoidectomy - Family & Social History Family History: Mother: , CAD, Father: , Cancer, Sister: CAD Living arrangement: At home Living Situation: With spouse/s.o. Social History Notes: The patient was born in [place] and raised in [place]. Patient currently lives with his in [place], [place]. 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 He states that over his career he lived throughout [place], [place], [place], [place], [place] and [facility]. The patient states that he only settle down on [facility] last year. The patient previously smoked cigars but quit in 1979. The patient states he has never touched alcohol and denies any illicit drug use. The patient and his are very active. - POLST Patient has POLST: No POLST Status: Full Code Meds/Allgy - Home Medications Home Medications: Ambulatory Orders Medication Instructions Recorded Confirmed RX: Carvedilol 12.5 mg ORAL BID 06/22/16 03/21/17 RX: Furosemide 40 mg ORAL DAILY 06/22/16 03/22/17 RX: Gabapentin 300 mg ORAL TID 06/22/16 03/21/17 RX: Simvastatin 80 mg ORAL QPM 06/22/16 03/22/17 RX: Triazolam [Halcion] 0.25 mg ORAL QPM PRN 06/22/16 03/21/17 RX: Albuterol Sulfate [Proair 1 puffs IH DAILY PRN 03/21/17 03/21/17 Respiclick] RX: Apixaban [Eliquis] 2.5 mg PO BID 03/21/17 03/22/17 RX: Budesonide/Formoterol Fumarate 2 puffs IH BID 03/21/17 03/21/17 [Symbicort 160-4.5 Mcg Inhaler] RX: Ipratropium/Albuterol Sulfate 3 ml IH Q6HR PRN 03/21/17 03/21/17 [Iprat-Albut 0.5-3(2.5) mg/3 ml] RX: Nitroglycerin 0.4 mg PO Q5M PRN 03/21/17 03/22/17 RX: Potassium Chloride [K-Dur] 20 meq PO DAILY 03/21/17 03/22/17 RX: Tamsulosin HCl [Flomax] 0.4 mg PO DAILY 03/21/17 03/22/17 RX: Ciclopirox Olamine [Ciclopirox] 1 applic TOP DAILY 03/22/17 03/22/17 Famotidine [Pepcid] 20 mg ORAL DAILY 02/18/18 02/18/18 RX: Cholecalciferol (Vitamin D3) 1,000 units ORAL DAILY 02/18/18 02/18/18 [Vitamin D3] RX: Hydrocortisone 10 mg ORAL BID 02/18/18 02/18/18 - Allergies Allergies/Adverse Reactions: Allergies Allergy/AdvReac Type Severity Reaction Status Date / Time sulfamethoxazole Allergy Anaphylaxis Verified 02/18/18 21:06 [From Bactrim] trimethoprim [From Bactrim] Allergy Anaphylaxis Verified 02/18/18 21:06 Review of Systems - Other Findings Other Findings: A comprehensive review of systems was performed the pertinent positives and nega tives are stated above in the HPI and the remainder of the review of systems is negative. Prior Level of Functionality: The patient gets around at home with a walker and wheelchair. The patient does have significant debility secondary to his chronic back pain and degenerative disc disease. The patient requires his 's help from any of his activities of daily living. He and his still live independently. Exam - Vital Signs Reviewed Vital Signs: Yes Vital Signs: Vital Signs x48h Temp Pulse Resp BP Pulse Ox 02/18/18 22:52 91 13 119/80 84 L 02/18/18 22:29 36.3 C L 100 18 137/80 H 99 02/18/18 22:28 18 137/80 H 02/18/18 20:55 37 C 82 16 126/79 96 - Physical Exam General Appearance: positive: Alert, Mild distress (Back pain) Eyes Bilateral: positive: Normal inspection, PERRL, EOMI, No lid inflammation, Conjunctivae nml, No scleral icterus ENT: positive: ENT inspection nml, Pharynx nml, No signs of dehydration. negative: Purulent nasal drainage, Pharyngeal erythema, Oral lesions Neck: positive: Nml inspection, Thyroid nml, No JVD, Trachea midline. negative: Lymphadenopathy (R), Lymphadenopathy (L), Carotid bruit, Tracheal deviation Respiratory: positive: Chest non-tender, No respiratory distress, Breath sounds nml. negative: Wheezes, Rales, Rhonchi Cardiovascular: positive: Regular rate & rhythm, No murmur, No gallop Peripheral Pulses: positive: 2+ Abdomen: positive: Non-tender, No organomegaly, Nml bowel sounds, No distention, Other (Cholecystostomy tube in place with good drainage.). negative: Guarding, Rebound Back: positive: Nml inspection. negative: CVA tenderness (R), CVA tenderness (L) Skin: positive: Color nml, No rash, Warm, Dry. negative: Cyanosis, Diaphoresis, Pallor, Skin rash Extremities: positive: Non-tender, Full ROM, Nml appearance, No pedal edema Neurologic/Psychiatric: positive: Oriented x3, CN's nml (2-12), Motor nml, Mood/affect nml, Weakness (Bilateral lower extremities have mild weakness but the patient is able to lift both lower extremities off the bed and hold them there.), Sensory loss (Right later leg sensory deficit) Reflexes: Knee (R): 1+, Knee (L): 1+ Conclusion/Plan - Problem List (1) Acute exacerbation of chronic low back pain Conclusion/Plan: The patient has a history of chronic back pain secondary to degenerative disc disease. The patient had a fall earlier this morning when trying to get into his car. It appears that the patient has had acute exacerbation of his chronic low back pain secondary to this fall. With this the patient is also experiencing weakness in his bilateral lower extremities likely due to inflammation from the trauma of the fall. The patient is unable to stand and therefore was not safe to be discharged from the emergency department. The patient is being placed in observation for pain control and physical therapy. Plan: CT lumbar spine to rule out any fractures given his fall in the morning Toradol 30 mg every 6 hours times 1 day Prednisone 20 mg daily Gabapentin 300 mg 3 times daily Oxycodone as needed for breakthrough pain Physical therapy consult (2) Leg weakness Conclusion/Plan: Patient appears to have bilateral lower extremity weakness. He does not have any focal neurologic deficit. Weakness is only mild. This is likely n europathic weakness due to his degenerative disc disease and likely compression of his sciatic nerves. 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 Plan: Steroids and anti-inflammatories should help to decrease some of the inflammation after the patient's fall which should decrease the pressure on the patient's spinal nerves and may improve the patient's weakness. IV Toradol 30 mg every 6 hours Prednisone 20 mg daily Physical therapy consult Qualifiers: Laterality: bilateral Qualified Code(s): R29.898 - Other symptoms and signs involving the musculoskeletal system (3) Hyponatremia Conclusion/Plan: Patient presented with hyponatremia as he had a sodium of 131. The patient's baseline sodium is in the normal range. The patient appears to have hypovolemic hyponatremia. The patient has been placed on IV fluids with normal saline and we will recheck the sodium in the morning. (4) Microcytic anemia Conclusion/Plan: The patient has a microcytic anemia on presentation with a hemoglobin of 8.0 and an MCV of 77.4. The patient does appear to have a chronic anemia but it has become significantly worse recently. The patient denies any black or bloody stools. He does not appear to be having any symptoms concerning for GI bleed. Plan: Check iron studies, B12 and folate Monitor hemoglobin Transfuse if hemoglobin less than 7 (5) Hypertension Conclusion/Plan: Patient's blood pressure was well controlled on presentation. Patient is on carvedilol and Lasix at home for his blood pressure. Patient will be continued on his carvedilol while he is hospitalized and we will continue to monitor his blood pressure and titrate medication as needed. Qualifiers: Hypertension type: essential hypertension Qualified Code(s): I10 - Essent ial (primary) hypertension (6) COPD (chronic obstructive pulmonary disease) Conclusion/Plan: The patient has a history of COPD and uses inhalers at home including a rescue inhaler and Symbicort. The patient does not appear to be in any respiratory distress and denies any shortness of breath. Currently the patient's COPD appears to be stable. The patient will be placed on albuterol nebulizer as needed and formoterol and budesonide twice daily inhaled. Patient will be given supplemental oxygen as needed. Qualifiers: COPD type: unspecified COPD Qualified Code(s): J44.9 - Chronic obstructive pulmonary disease, unspecified (7) History of coronary artery disease Conclusion/Plan: The patient has a history of coronary artery disease with stents in the past. The patient is on optimal medical treatment with aspirin, beta-estephania and statin. We will continue these medications while he is hospitalized. The patient currently does not have any chest pain or shortness of breath. (8) Hyperlipidemia Conclusion/Plan: The patient has history of hyperlipidemia and is on statin at home. The patient will be continued on a statin while he is hospitalized. Qualifiers: Hyperlipidemia type: unspecified Qualified Code(s): E78.5 - Hyperlipidemia, unspecified - Lab Results Lab results reviewed: Yes Fish Bones: 02/18/18 22:15 02/18/18 22:15 Other Lab Results: Laboratory Results WBC 5.8 x10^3/uL (4.8-10.8) 02/18/18 22:15 RBC 3.17 10^6/uL (4.70-6.10) L 02/18/18 22:15 Hgb 8.0 g/dL (14.0-18.0) L 02/18/18 22:15 Hct 24.5 % (42.0-52.0) L 02/18/18 22:15 MCV 77.4 fL (80.0-94.0) L 02/18/18 22:15 MCH 25.2 pg (27.0-31.0) L 02/18/18 22:15 MCHC 32.6 g/dL (32.0-36.0) 02/18/18 22:15 RDW 18.7 % (12.0-15.0) H 02/18/18 22:15 Plt Count 189 10^3/uL (130-450) 02/18/18 22:15 MPV 7.3 fL (7.4-11.4) L 02/18/18 22:15 Neut # (Auto) 3.8 10^3/uL (1.5-6.6) 02/18/18 22:15 Lymph # (Auto) 1.3 10^3/uL (1.5-3.5) L 02/18/18:15 [place] # (Auto) 0.5 10^3/uL (0.0-1.0) 02/18/18 22:15 Eos # (Auto) 0.1 10^3/uL (0.0-0.7) 02/18/18 22:15 Baso # (Auto) 0.0 10^3/uL (0.0-0.1) 02/18/18 22:15 Absolute Nucleated RBC 0.00 x10^3/uL 02/18/18 22:15 Nucleated RBC % 0.0 /100WBC 02/18/18 22:15 ESR 49 mm/Hr (0-20) H 02/18/18 22:15 Sodium 131 mmol/L (135-145) L 02/18/18 22:15 Potassium 4.2 mmol/L (3.5-5.0) 02/18/18 22:15 Chloride 101 mmol/L (101-111) 02/18/18 22:15 Carbon Dioxide 24 mmol/L (21-32) 02/18/18 22:15 Anion Gap 6.0 (6-13) 02/18/18 22:15 BUN 15 mg/dL (6-20) 02/18/18 22:15 Creatinine 1.0 mg/dL (0.6-1.2) 02/18/18 22:15 Estimated GFR (MDRD) 71 (>89) L 02/18/18 22:15 Glucose 104 mg/dL (70-100) H 02/18/18 22:15 Calcium 8.2 mg/dL (8.5-10.3) L 02/18/18 22:15 Magnesium 2.2 mg/dL (1.7-2.8) 02/18/18 22:15 Total Bilirubin 0.7 mg/dL (0.2-1.0) 02/18/18 22:15 AST 26 IU/L (10-42) 02/18/18 22:15 ALT 28 IU/L (10-60) 02/18/18 22:15 Alkaline Phosphatase 45 IU/L (42-121) 02/18/18 22:15 Total Creatine Kinase 27 IU/L (22-269) 02/18/18 22:15 Total Protein 6.1 g/dL (6.7-8.2) L 02/18/18 22:15 Albumin 3.3 g/dL (3.2-5.5) 02/18/18 22:15 Globulin 2.8 g/dL (2.1-4.2) 02/18/18 22:15 Albumin/Globulin Ratio 1.2 (1.0-2.2) 02/18/18 22:15 Lipase 17 U/L (22-51) L 02/18/18 22:15 Urine Color YELLOW 02/18/18 22:26 Urine Clarity CLEAR (CLEAR) 02/18/18 22: Urine pH 5.5 PH (5.0-7.5) 02/18/18 22:26 Ur Specific [place] 1.015 (1.002-1.030) 02/18/18 22:26 Urine Protein NEGATIVE mg/dL (NEGATIVE) 02/18/18 22:26 Urine Glucose (UA) NEGATIVE mg/dL (NEGATIVE) 02/18/18 22: Urine Ketones NEGATIVE mg/dL (NEGATIVE) 02/18/18 22:26 Urine Occult Blood NEGATIVE (NEGATIVE) 02/18/18 22: Urine Nitrite NEGATIVE (NEGATIVE) 02/18/18 22: Urine Bilirubin NEGATIVE (NEGATIVE) 02/18/18 22: Urine Urobilinogen 0.2 (NORMAL) E.U./dL (NORMAL) 02/18/18 22:26 Ur Leukocyte Esterase TRACE (NEGATIVE) H 02/18/18 22:26 Urine RBC None Seen /HPF (0-5) 02/18/18 22:26 Urine WBC 4-5 /HPF (0-3) 02/18/18 22:26 Ur Epithelial Cells RARE Renal Tubular /HPF (<= Few) 02/18/18 22:26 Ur Squamous Epith Cells FEW Squamous (<= Few) 02/18/18 22:26 Urine Bacteria None Seen /HPF (None Seen) 02/18/18 22:26 Ur Microscopic Review INDICATED 02/18/18 22: Urine Culture Comments INDICATED 02/18/18 22: - Diagnostic Imaging Results Diagnostic Imaging Results: positive: Final report reviewed Diagnostic Imaging Results Comments: Lumbar spine CT Impression: 1. No acute lumbar spine fracture. 2. Similar appearance of severe multilevel degenerative changes compared to the CT of the abdomen and pelvis from 07/27/2015. No obvious worsening spinal canal or foraminal stenosis is appreciated. 3. Suggestions of new bibasilar atelectasis versus small bilateral pleural effusions at the lung bases. Core Measures - Anticipated LOS I expect patient to be DC'd or transferred within 96 hours.: Yes - DVT/VTE - Prophylaxis VTE/DVT Device ordered at admit?: Yes
[2018-02-19] MEDS: SODIUM CHLORIDE FLUSH 0.9% 10 ML SYRINGE IVP SCH ×3 (02:01→15:47)
[2018-02-19] MEDS: SODIUM CHLORIDE 0.9% 1,000 ML IV SCH ×3 (02:01→21:12)
[2018-02-19] MEDS: GABAPENTIN 300 MG CAPSULE PO SCH ×4 (02:01→21:08)
--- NOTE | 2018-02-19 03:05 | CT Report ---
Reason: Back pain and leg weakness h/o spinal stenosis Procedure Date: 02/19/2018 Accession Number: [id number] / [id number] Procedure: CT - Lumbar Spine W/ CPT Code: FULL RESULT: EXAM: CT LUMBAR SPINE WITHOUT CONTRAST EXAM DATE: 02/19/2018 12:39 AM. CLINICAL HISTORY: Back pain and leg weakness, history of spinal stenosis. COMPARISONS: ABDOMEN TECHNIQUE: Thin-section axial images were acquired of the lumbar spine from T11 to S1 without contrast. Post-processing: Coronal and sagittal reformats. Other: None. In accordance with CT protocol optimization, one or more of the following dose reduction techniques were utilized for this exam: automated exposure control, adjustment of mA and/or KV based on patient size, or use of iterative reconstructive technique. FINDINGS: Alignment: Degenerative retrolisthesis is again noted at L3-L4, L4-L5, and L5-S1 measuring 3-4 mm, stable. There is no scoliosis. Bones: The bones are demineralized. Five [id number] lumbar vertebral bodies are present. However, there is bilateral sacralization of L5. No acute lumbar spine fracture is identified. However, moderately prominent Schmorl's nodes are again noted at all lumbar levels. Disk Levels/Facets: T11-T12: Mild right foraminal narrowing is present due to facet arthropathy. The spinal canal and left foramen are patent. T12-L1: The spinal canal and foramina are patent. L1-L2: The spinal canal and foramina are patent. L2-L3: A disk bulge with bilateral facet arthropathy result in mild bilateral foraminal narrowing and mild spinal canal stenosis. L3-L4: A disk bulge with ligamentum flavum infolding result in mild spinal canal stenosis. There is mild bilateral foraminal narrowing, worse on the right. L4-L5: A disk bulge with facet arthropathy and ligamentum flavum infolding result in moderate to severe spinal canal stenosis. There is moderate bilateral foraminal narrowing. These findings are similar to the prior CT. L5-S1: There is severe narrowing of the thecal sac due to prominent circumferential epidural fat. Disk height loss and bilateral facet arthropathy result in severe bilateral foraminal narrowing. These findings are likely similar to the prior CT. Musculature: There is moderate to severe diffuse fatty atrophy of the posterior paraspinal muscles. Other: No acute abnormality is seen in the soft tissues of the partially visualized abdomen and pelvis. New bibasilar atelectasis versus small pleural effusions are seen at the lung apices. IMPRESSION: 1. No acute lumbar spine fracture. 2. Similar appearance of severe multilevel degenerative changes compared to the CT of the abdomen and pelvis from 07/27/2015. No obvious worsening spinal canal or foraminal stenosis is appreciated. 3. Suggestion of new bibasilar atelectasis versus small bilateral pleural effusions at the lung bases. [facility]
[2018-02-19] MEDS: KETOROLAC 30 MG/ML VIAL IVP SCH ×3 (03:54→11:34)
[2018-02-19 05:57] LABS: BASOPHILS % (AUTO) 0.7 %; EOSINOPHILS # (AUTO) 0.1 10^3/uL (0.0-0.7); EOSINOPHILS % (AUTO) 3.3 %; HGB - HEMOGLOBIN 7.8 g/dL (14.0-18.0); LYMPHOCYTES # (AUTO) 1.1 10^3/uL (1.5-3.5); LYMPHOCYTES % (AUTO) 25.3 %; MEAN CORPUSCULAR HEMOGLOBIN 25.6 pg (27.0-31.0); MEAN CORPUSCULAR HGB CONC 32.5 g/dL (32.0-36.0); MEAN CORPUSCULAR VOLUME 78.7 fL (80.0-94.0); MEAN PLATELET VOLUME 7.5 fL (7.4-11.4); MONOCYTES # (AUTO) 0.4 10^3/uL (0.0-1.0); MONOCYTES % (AUTO) 8.2 %; NEUTROPHILS # (AUTO) 2.8 10^3/uL (1.5-6.6); NEUTROPHILS % (AUTO) 62.5 %; PLT - PLATELET COUNT 171 10^3/uL (130-450); RED BLOOD COUNT 3.04 10^6/uL (4.70-6.10); RED CELL DISTRIBUTION WIDTH 19.2 % (12.0-15.0); WHITE BLOOD COUNT 4.5 x10^3/uL (4.8-10.8)
[2018-02-19 06:07] LABS: INR 1.3 (0.8-1.2); PT - PROTHROMBIN TIME 14.5 secs (9.9-12.6)
[2018-02-19 06:17] LABS: ALBUMIN 3.1 g/dL (3.2-5.5); ALBUMIN/GLOBULIN RATIO 1.2 (1.0-2.2); BILIRUBIN,TOTAL 0.8 mg/dL (0.2-1.0); CALCIUM 8.2 mg/dL (8.5-10.3); CREATININE 1.1 mg/dL (0.6-1.2); MAGNESIUM 2.2 mg/dL (1.7-2.8); TOTAL PROTEIN 5.6 g/dL (6.7-8.2)
[2018-02-19] MEDS: IPRATROPIUM/ALBUTEROL 3 ML NEB INH PRN ×2 (06:17→18:13)
[2018-02-19] MEDS: BUDESONIDE 0.5 MG/2 ML NEB INH SCH ×2 (06:17→18:13)
[2018-02-19] MEDS: FORMOTEROL FUMARATE NEB 20 MCG/2 ML INH SCH ×2 (06:17→18:13)
[2018-02-19] MEDS ORDERED: predniSONE 20 MG TABLET PO SCH (08:00)
[2018-02-19 09:33] LABS: MEAN RETIC VALUE 103.5; RED BLOOD COUNT 2.98 10^6/uL (4.70-6.10)
[2018-02-19 09:57] LABS: FERRITIN 22.4 ng/mL (23.9-336.2)
[2018-02-19 10:03] LABS: % IRON SATURATION 8 % (20-50); IRON 29 ug/dL (45-182); TOTAL IRON BINDING CAPACITY 343 ug/dL (250-450); TRANSFERRIN 245 mg/dL (180-329)
[2018-02-19] MEDS: FAMOTIDINE 20 MG TABLET PO SCH ×2 (10:25→21:09)
[2018-02-19] MEDS: POTASSIUM CHLORIDE 20 MEQ TABLET PO SCH (10:25)
[2018-02-19] MEDS: TAMSULOSIN 0.4 MG CAPSULE PO SCH (10:25)
[2018-02-19] MEDS: POLYETHYLENE GLYCOL 3350 17 GM PACKET PO SCH (10:26)
[2018-02-19] MEDS: FERROUS SULFATE 325 MG TABLET PO SCH ×2 (10:26→17:26)
[2018-02-19] MEDS: CARVEDILOL 12.5 MG TABLET PO SCH ×2 (10:26→21:08)
[2018-02-19] MEDS: CICLOPIROX OLAMINE TOP SCH (10:30)
[2018-02-19] MEDS: HYDROCORTISONE 10 MG TABLET PO SCH ×2 (11:34→15:47)
[2018-02-19] MEDS ORDERED: NITROGLYCERIN SL 0.4 MG TABLET SL PRN (11:37)
[2018-02-19] MEDS: APIXABAN 2.5 MG TABLET PO SCH ×2 (11:50→21:09)
--- NOTE | 2018-02-19 13:25 | XRAY Report ---
Reason: cough, shortness of breath Procedure Date: 02/19/2018 Accession Number: [id number] / [id number] Procedure: XR - Chest 1 View X-Ray CPT Code: 55525 FULL RESULT: EXAM: CHEST RADIOGRAPHY EXAM DATE: 02/19/2018 11:02 AM. CLINICAL HISTORY: Cough, shortness of breath. COMPARISON: 12/28/2017. TECHNIQUE: 1 view. FINDINGS: Lungs/Pleura: Bibasal infiltrate or atelectasis. Small bilateral effusions. Mediastinum: Within exam limitations, the cardiomediastinal contour is normal. Other: None. IMPRESSION: Bibasal infiltrate or atelectasis with small bilateral effusions. Similar to previous [facility]
[2018-02-19] MEDS: OXYBUTYNIN 5MG TABLET PO SCH ×2 (13:43→21:10)
[2018-02-19] MEDS: AZITHROMYCIN 250 MG TABLET PO SCH (15:47)
[2018-02-19] MEDS: HYDROcod/ACETAM 5/325 MG TABLET PO PRN (15:47)
--- NOTE | 2018-02-19 16:42 | PROVIDER PROGRESS NOTE ---
Subjective - Prog Note Date Prog Note Date: 02/19/18 - Subjective Pt reports feeling: Improved Subjective: pt walks a few step with PT, but still feel very weakness. pt report he still has back pain. he denies fever, chill, CP Current Medications - Current Medications Current Medications: Active Medications Acetaminophen (Tylenol) 650 mg PO Q4HR PRN PRN Reason: Pain 1 to 4 Hydrocodone Bitart/Acetaminophen ([place] 5/325) 1 tab PO Q4H PRN PRN Reason: PAIN Last Admin: 02/19/18 15:47 Dose: 1 tab Albuterol/Ipratropium (Duoneb) 3 ml INH Q4HR PRN PRN Reason: Wheezing Last Admin: 02/19/18 06:17 Dose: 3 ml Apixaban (Eliquis) 2.5 mg PO BID [facility] Last Admin: 02/19/18 11:50 Dose: 2.5 mg Aspirin (Ecotrin) 81 mg PO DAILY [facility] Atorvastatin Calcium (Lipitor) 40 mg PO QPM [facility] Azithromycin (Zithromax) 500 mg PO DAILY [facility] Last Admin: 02/19/18 15:47 Dose: 500 mg Budesonide (Pulmicort) 0.5 mg INH RTBID [facility] Last Admin: 02/19/18 06:17 Dose: 0.5 mg Carvedilol (Coreg) 12.5 mg PO BID [facility] Last Admin: 02/19/18 10:26 Dose: 12.5 mg Famotidine (Pepcid) 20 mg PO BID [facility] Last Admin: 02/19/18 10:25 Dose: 20 mg Ferrous Sulfate (Feosol) 325 mg PO BIDWM [facility] Last Admin: 02/19/18 10:26 Dose: 325 mg Formoterol Fumarate (Perforomist) 20 mcg INH RTBID [facility] Last Admin: 02/19/18 06:17 Dose: 20 mcg Gabapentin (Neurontin) 300 mg PO TID [facility] Last Admin: 02/19/18 13:43 Dose: 300 mg Hydrocortisone (Cortef) 10 mg PO DAILY [facility] Last Admin: 02/19/18 11:34 Dose: 10 mg Hydrocortisone (Cortef) 5 mg PO 1700 [facility] Last Admin: 02/19/18 15:47 Dose: 5 mg Sodium Chloride (Normal Saline 0.9%) 1,000 mls @ 100 mls/hr IV .Q10H [facility] Last Admin: 02/19/18 11:51 Dose: 100 mls/hr Ceftriaxone Sodium 1 gm/ (Sodium Chloride) 100 mls @ 200 mls/hr IV DAILY [facility] Morphine Sulfate (Morphine (Carpuject)) 2 mg IVP Q2HR PRN PRN Reason: Pain 8 to 10 Nitroglycerin (Nitrostat) 0.4 mg SL Q5M PRN PRN Reason: Chest Pain Non-Formulary Medication (Ciclopirox Olamine [Ciclopirox]) 1 applic TOP DAILY [facility] Last Admin: 02/19/18 10:30 Dose: Not Given Ondansetron HCl (Zofran Inj) 4 mg IVP Q6HR PRN PRN Reason: Nausea / Vomiting Last Admin: 02/19/18 15:47 Dose: 4 mg Oxybutynin Chloride (Ditropan) 5 mg PO BID [facility] Last Admin: 02/19/18 13:43 Dose: 5 mg Oxycodone HCl (Roxicodone) 5 mg PO Q4HR PRN PRN Reason: Pain 5 to 7 Oxycodone HCl (Roxicodone) 10 mg PO Q4HR PRN PRN Reason: Pain 8 to 10 Polyethylene Glycol (Miralax) 17 gm PO DAILY [facility] Last Admin: 02/19/18 10:26 Dose: 17 gm Potassium Chloride (K-Dur) 20 meq PO DAILY [facility] Last Admin: 02/19/18 10:25 Dose: 20 meq Prochlorperazine Edisylate (Compazine Inj) 10 mg IVP Q6HR PRN PRN Reason: Nausea / Vomiting Promethazine HCl (Phenergan Inj) 25 mg IM Q6HR PRN PRN Reason: Nausea / Vomiting Sodium Chloride (Normal Saline Flush 0.9%) 10 ml IVP PRN PRN PRN Reason: NEEDED PER PROVIDER ORDERS Sodium Chloride (Normal Saline Flush 0.9%) 10 ml IVP 0100,0900,1700 [facility] Last Admin: 02/19/18 15:47 Dose: 10 ml Tamsulosin HCl (Flomax) 0.4 mg PO DAILY [facility] Last Admin: 02/19/18 10:25 Dose: 0.4 mg Carvedilol 12.5 mg ORAL BID 06/22/16 Furosemide 20 mg PO DAILY 06/22/16 Gabapentin 300 mg PO BID 06/22/16 Simvastatin 80 mg PO QPM 06/22/16 Triazolam [Halcion] 0.25 mg PO QPM PRN 06/22/16 Albuterol Sulfate [Proair Respiclick] 2 puffs INH Q6H PRN 03/21/17 Budesonide/Formoterol Fumarate [Symbicort 160-4.5 Mcg Inhaler] 2 puffs INH BID 03/21/17 Nitroglycerin 0.4 mg PO Q5M PRN 03/21/17 Potassium Chloride [K-Dur] 20 meq PO DAILYWM 03/21/17 Tamsulosin HCl [Flomax] 0.4 mg PO DAILY 03/21/17 Cholecalciferol (Vitamin D3) [Vitamin D3] 1,000 units PO DAILY 02/18/18 Famotidine [Pepcid] 20 mg PO BID 02/18/18 Hydrocortisone 10 mg PO DAILY 02/18/18 Apixaban [Eliquis] 2.5 mg PO BID 02/19/18 Aspirin [Aspirin EC] 81 mg PO DAILY 02/19/18 Hydrocodone/Acetaminophen [Hydrocodone-Acetamin 5-325 mg] 1 tab PO Q4H PRN 02/19/18 Hydrocortisone 5 mg PO QPM 02/19/18 Oxybutynin Chloride [Ditropan Xl] 10 mg PO DAILY 02/19/18 Polyethylene Glycol 3350 [Miralax] 17 gm PO DAILY PRN 02/19/18 Objective - Vital Signs/Intake & Output Reviewed Vital Signs: Yes Vital Signs: Vital Signs x48h Temp Pulse Pulse Resp Resp BP BP 02/19/18 15:36 36.5 C 73 18 126/77 02/19/18 14:35 36.6 C 71 18 114/69 02/19/18 10:42 72 16 124/75 Pulse Ox Pulse Ox 02/19/18 15:36 95 02/19/18 14:35 92 02/19/18 10:42 97 Intake & Output: Intake & Output 02/16/18 02/17/18 02/18/18 02/19/18 23:59 23:59 23:59 23:59 Intake Total 1000 1703.333 Output Total 100 975 Balance 900 728.333 - Objective General Appearance: positive: No acute distress, Alert. negative: Lethargic Eyes Bilateral: positive: Normal inspection, PERRL, No lid inflammation, Conjunctivae nml ENT: positive: ENT inspection nml, Pharynx nml, No signs of dehydration. negative: Purulent nasal drainage, Pharyngeal erythema, Oral lesions Neck: positive: Nml inspection, Thyroid nml, No JVD, Trachea midline. negative: Thyromegaly, Lymphadenopathy (R), Lymphadenopathy (L), Stiff neck, Swelling/bruising, Tracheal deviation Respiratory: positive: Chest non-tender, No respiratory distress. negative: Wheezes, Rales Cardiovascular: positive: Regular rate & rhythm, No murmur, No gallop. negative: Irregularly irregular, Extrasystoles, Tachycardia, Bradycardia, JVD present, Systolic murmur, Diastolic murmur Peripheral Pulses: 2+ Radial (R), 2+ Radial (L), 2+ Dorsalis pedis (R), 2+ Dors monae pedis (L) Abdomen: positive: Non-tender, No organomegaly, Nml bowel sounds, No distention. negative: Tenderness, Guarding, Rebound Back: positive: Nml inspection. negative: CVA tenderness (R), CVA tenderness (L) Skin: positive: Color nml, No rash, Warm, Dry. negative: Cyanosis, Diaphoresis, Pallor Extremities: positive: Non-tender, Full ROM, Nml appearance. negative: Calf tenderness, Joint swelling, Little's sign/cords Neurologic/Psychiatric: positive: Oriented x3, Sensation nml, Mood/affect nml, Weakness. negative: Sensory loss, Facial droop, Slurred/abnml speech, Depressed mood/affect - Lab Results Fish Bones: 02/19/18 05:30 02/19/18 05:30 Other Labs: Lab Results x24hrs 02/19/18 02/19/18 02/19/18 Range/Units 09:10 09:10 09:10 WBC (4.8-10.8) x10^3/uL RBC (4.70-6.10) 10^6/uL Hgb (14.0-18.0) g/dL Hct (42.0-52.0) % MCV (80.0-94.0) fL MCH (27.0-31.0) pg MCHC (32.0-36.0) g/dL RDW (12.0-15.0) % Plt Count (130-450) 10^3/uL MPV (7.4-11.4) fL Reticulocyte % (Auto) (0.5-2.3) % Neut # (Auto) (1.5-6.6) 10^3/uL Lymph # (Auto) (1.5-3.5) 10^3/uL [place] # (Auto) (0.0-1.0) 10^3/uL Eos # (Auto) (0.0-0.7) 10^3/uL Baso # (Auto) (0.0-0.1) 10^3/uL Absolute Nucleated RBC x10^3/uL Nucleated RBC % /100WBC ESR (0-20) mm/Hr Absolute Retic (0.020-0.110) 10^6/uL PT (9.9-12.6) secs INR (0.8-1.2) Sodium (135-145) mmol/L Potassium (3.5-5.0) mmol/L Chloride (101-111) mmol/L Carbon Dioxide (21-32) mmol/L Anion Gap (6-13) BUN (6-20) mg/dL Creatinine (0.6-1.2) mg/dL Estimated GFR (MDRD) (>89) Glucose (70-100) mg/dL Lactic Acid (0.5-2.2) mmol/L Calcium (8.5-10.3) mg/dL Phosphorus (2.5-4.6) mg/dL Magnesium (1.7-2.8) mg/dL Iron 29 L (45-182) ug/dL TIBC 343 (250-450) ug/dL % Saturation 8 L (20-50) % Transferrin 245 (180-329) mg/dL Ferritin 22.4 L (23.9-336.2) ng/mL Total Bilirubin (0.2-1.0) mg/dL AST (10-42) IU/L ALT (10-60) IU/L Alkaline Phosphatase (42-121) IU/L Lactate Dehydrogenase 157 (91-225) IU/L Total Creatine Kinase (22-269) IU/L Total Protein (6.7-8.2) g/dL Albumin (3.2-5.5) g/dL Globulin (2.1-4.2) g/dL Albumin/Globulin Ratio (1.0-2.2) Lipase (22-51) U/L Vitamin B12 261 (180-914) pg/mL Urine Color Urine Clarity (CLEAR) Urine pH (5.0-7.5) PH Ur Specific [place] (1.002-1.030) Urine Protein (NEGATIVE) mg/dL Urine Glucose (UA) (NEGATIVE) mg/dL Urine Ketones (NEGATIVE) mg/dL Urine Occult Blood (NEGATIVE) Urine Nitrite (NEGATIVE) Urine Bilirubin (NEGATIVE) Urine Urobilinogen (NORMAL) E.U./dL Ur Leukocyte Esterase (NEGATIVE) Urine RBC (0-5) /HPF Urine WBC (0-3) /HPF Ur Epithelial Cells (<= Few) /HPF Ur Squamous Epith Cells (<= Few) Urine Bacteria (None Seen) /HPF Ur Microscopic Review Urine Culture Comments 02/19/18 02/19/18 02/19/18 Range/Units 09:10 05:30 05:30 WBC (4.8-10.8) x10^3/uL RBC 2.98 L (4.70-6.10) 10^6/uL Hgb (14.0-18.0) g/dL Hct (42.0-52.0) % MCV (80.0-94.0) fL MCH (27.0-31.0) pg MCHC (32.0-36.0) g/dL RDW (12.0-15.0) % Plt Count (130-450) 10^3/uL MPV (7.4-11.4) fL Reticulocyte % (Auto) 2.28 (0.5-2.3) % Neut # (Auto) (1.5-6.6) 10^3/uL Lymph # (Auto) (1.5-3.5) 10^3/uL [place] # (Auto) (0.0-1.0) 10^3/uL Eos # (Auto) (0.0-0.7) 10^3/uL Baso # (Auto) (0.0-0.1) 10^3/uL Absolute Nucleated RBC x10^3/uL Nucleated RBC % /100WBC ESR (0-20) mm/Hr Absolute Retic 0.068 (0.020-0.110) 10^6/uL PT (9.9-12.6) secs INR (0.8-1.2) Sodium (135-145) mmol/L Potassium (3.5-5.0) mmol/L Chloride (101-111) mmol/L Carbon Dioxide (21-32) mmol/L Anion Gap (6-13) BUN (6-20) mg/dL Creatinine (0.6-1.2) mg/dL Estimated GFR (MDRD) (>89) Glucose (70-100) mg/dL Lactic Acid 0.9 (0.5-2.2) mmol/L Calcium (8.5-10.3) mg/dL Phosphorus (2.5-4.6) mg/dL Magnesium (1.7-2.8) mg/dL Iron (45-182) ug/dL TIBC (250-450) ug/dL % Saturation (20-50) % Transferrin (180-329) mg/dL Ferritin 23.2 L (23.9-336.2) ng/mL Total Bilirubin (0.2-1.0) mg/dL AST (10-42) IU/L ALT (10-60) IU/L Alkaline Phosphatase (42-121) IU/L Lactate Dehydrogenase (91-225) IU/L Total Creatine Kinase (22-269) IU/L Total Protein (6.7-8.2) g/dL Albumin (3.2-5.5) g/dL Globulin (2.1-4.2) g/dL Albumin/Globulin Ratio (1.0-2.2) Lipase (22-51) U/L Vitamin B12 (180-914) pg/mL Urine Color Urine Clarity (CLEAR) Urine pH (5.0-7.5) PH Ur Specific [place] (1.002-1.030) Urine Protein (NEGATIVE) mg/dL Urine Glucose (UA) (NEGATIVE) mg/dL Urine Ketones (NEGATIVE) mg/dL Urine Occult Blood (NEGATIVE) Urine Nitrite (NEGATIVE) Urine Bilirubin (NEGATIVE) Urine Urobilinogen (NORMAL) E.U./dL Ur Leukocyte Esterase (NEGATIVE) Urine RBC (0-5) /HPF Urine WBC (0-3) /HPF Ur Epithelial Cells (<= Few) /HPF Ur Squamous Epith Cells (<= Few) Urine Bacteria (None Seen) /HPF Ur Microscopic Review Urine Culture Comments 02/19/18 02/19/18 02/19/18 Range/Units 05:30 05:30 05:30 WBC 4.5 L (4.8-10.8) x10^3/uL RBC 3.04 L (4.70-6.10) 10^6/uL Hgb 7.8 L (14.0-18.0) g/dL Hct 23.9 L (42.0-52.0) % MCV 78.7 L (80.0-94.0) fL MCH 25.6 L (27.0-31.0) pg MCHC 32.5 (32.0-36.0) g/dL RDW 19.2 H (12.0-15.0) % Plt Count 171 (130-450) 10^3/uL MPV 7.5 (7.4-11.4) fL Reticulocyte % (Auto) (0.5-2.3) % Neut # (Auto) 2.8 (1.5-6.6) 10^3/uL Lymph # (Auto) 1.1 L (1.5-3.5) 10^3/uL [place] # (Auto) 0.4 (0.0-1.0) 10^3/uL Eos # (Auto) 0.1 (0.0-0.7) 10^3/uL Baso # (Auto) 0.0 (0.0-0.1) 10^3/uL Absolute Nucleated RBC 0.00 x10^3/uL Nucleated RBC % 0.0 /100WBC ESR (0-20) mm/Hr Absolute Retic (0.020-0.110) 10^6/uL PT 14.5 H (9.9-12.6) secs INR 1.3 H (0.8-1.2) Sodium 135 (135-145) mmol/L Potassium 4.4 (3.5-5.0) mmol/L Chloride 102 (101-111) mmol/L Carbon Dioxide 25 (21-32) mmol/L Anion Gap 8.0 (6-13) BUN 15 (6-20) mg/dL Creatinine 1.1 (0.6-1.2) mg/dL Estimated GFR (MDRD) 63 L (>89) Glucose 114 H (70-100) mg/dL Lactic Acid (0.5-2.2) mmol/L Calcium 8.2 L (8.5-10.3) mg/dL Phosphorus 4.0 (2.5-4.6) mg/dL Magnesium 2.2 (1.7-2.8) mg/dL Iron (45-182) ug/dL TIBC (250-450) ug/dL % Saturation (20-50) % Transferrin (180-329) mg/dL Ferritin (23.9-336.2) ng/mL Total Bilirubin 0.8 (0.2-1.0) mg/dL AST 24 (10-42) IU/L ALT 26 (10-60) IU/L Alkaline Phosphatase 41 L (42-121) IU/L Lactate Dehydrogenase (91-225) IU/L Total Creatine Kinase (22-269) IU/L Total Protein 5.6 L (6.7-8.2) g/dL Albumin 3.1 L (3.2-5.5) g/dL Globulin 2.5 (2.1-4.2) g/dL Albumin/Globulin Ratio 1.2 (1.0-2.2) Lipase (22-51) U/L Vitamin B12 (180-914) pg/mL Urine Color Urine Clarity (CLEAR) Urine pH (5.0-7.5) PH Ur Specific [place] (1.002-1.030) Urine Protein (NEGATIVE) mg/dL Urine Glucose (UA) (NEGATIVE) mg/dL Urine Ketones (NEGATIVE) mg/dL Urine Occult Blood (NEGATIVE) Urine Nitrite (NEGATIVE) Urine Bilirubin (NEGATIVE) Urine Urobilinogen (NORMAL) E.U./dL Ur Leukocyte Esterase (NEGATIVE) Urine RBC (0-5) /HPF Urine WBC (0-3) /HPF Ur Epithelial Cells (<= Few) /HPF Ur Squamous Epith Cells (<= Few) Urine Bacteria (None Seen) /HPF Ur Microscopic Review Urine Culture Comments 02/18/18 02/18/18 02/18/18 Range/Units 22:26 22:15 22:15 WBC (4.8-10.8) x10^3/uL RBC (4.70-6.10) 10^6/uL Hgb (14.0-18.0) g/dL Hct (42.0-52.0) % MCV (80.0-94.0) fL MCH (27.0-31.0) pg MCHC (32.0-36.0) g/dL RDW (12.0-15.0) % Plt Count (130-450) 10^3/uL MPV (7.4-11.4) fL Reticulocyte % (Auto) (0.5-2.3) % Neut # (Auto) (1.5-6.6) 10^3/uL Lymph # (Auto) (1.5-3.5) 10^3/uL [place] # (Auto) (0.0-1.0) 10^3/uL Eos # (Auto) (0.0-0.7) 10^3/uL Baso # (Auto) (0.0-0.1) 10^3/uL Absolute Nucleated RBC x10^3/uL Nucleated RBC % /100WBC ESR 49 H (0-20) mm/Hr Absolute Retic (0.020-0.110) 10^6/uL PT (9.9-12.6) secs INR (0.8-1.2) Sodium 131 L (135-145) mmol/L Potassium 4.2 (3.5-5.0) mmol/L Chloride 101 (101-111) mmol/L Carbon Dioxide 24 (21-32) mmol/L Anion Gap 6.0 (6-13) BUN 15 (6-20) mg/dL Creatinine 1.0 (0.6-1.2) mg/dL Estimated GFR (MDRD) 71 L (>89) Glucose 104 H (70-100) mg/dL Lactic Acid (0.5-2.2) mmol/L Calcium 8.2 L (8.5-10.3) mg/dL Phosphorus (2.5-4.6) mg/dL Magnesium 2.2 (1.7-2.8) mg/dL Iron (45-182) ug/dL TIBC (250-450) ug/dL % Saturation (20-50) % Transferrin (180-329) mg/dL Ferritin (23.9-336.2) ng/mL Total Bilirubin 0.7 (0.2-1.0) mg/dL AST 26 (10-42) IU/L ALT 28 (10-60) IU/L Alkaline Phosphatase 45 (42-121) IU/L Lactate Dehydrogenase (91-225) IU/L Total Creatine Kinase 27 (22-269) IU/L Total Protein 6.1 L (6.7-8.2) g/dL Albumin 3.3 (3.2-5.5) g/dL Globulin 2.8 (2.1-4.2) g/dL Albumin/Globulin Ratio 1.2 (1.0-2.2) Lipase 17 L (22-51) U/L Vitamin B12 (180-914) pg/mL Urine Color YELLOW Urine Clarity CLEAR (CLEAR) Urine pH 5.5 (5.0-7.5) PH Ur Specific [place] 1.015 (1.002-1.030) Urine Protein NEGATIVE (NEGATIVE) mg/dL Urine Glucose (UA) NEGATIVE (NEGATIVE) mg/dL Urine Ketones NEGATIVE (NEGATIVE) mg/dL Urine Occult Blood NEGATIVE (NEGATIVE) Urine Nitrite NEGATIVE (NEGATIVE) Urine Bilirubin NEGATIVE (NEGATIVE) Urine Urobilinogen 0.2 (NORMAL) (NORMAL) E.U./dL Ur Leukocyte Esterase TRACE H (NEGATIVE) Urine RBC None Seen (0-5) /HPF Urine WBC 4-5 (0-3) /HPF Ur Epithelial Cells RARE Renal Tubular (<= Few) /HPF Ur Squamous Epith Cells FEW Squamous (<= Few) Urine Bacteria None Seen (None Seen) /HPF Ur Microscopic Review INDICATED Urine Culture Comments INDICATED 02/18/18 Range/Units 22:15 WBC 5.8 (4.8-10.8) x10^3/uL RBC 3.17 L (4.70-6.10) 10^6/uL Hgb 8.0 L (14.0-18.0) g/dL Hct 24.5 L (42.0-52.0) % MCV 77.4 L (80.0-94.0) fL MCH 25.2 L (27.0-31.0) pg MCHC 32.6 (32.0-36.0) g/dL RDW 18.7 H (12.0-15.0) % Plt Count 189 (130-450) 10^3/uL MPV 7.3 L (7.4-11.4) fL Reticulocyte % (Auto) (0.5-2.3) % Neut # (Auto) 3.8 (1.5-6.6) 10^3/uL Lymph # (Auto) 1.3 L (1.5-3.5) 10^3/uL [place] # (Auto) 0.5 (0.0-1.0) 10^3/uL Eos # (Auto) 0.1 (0.0-0.7) 10^3/uL Baso # (Auto) 0.0 (0.0-0.1) 10^3/uL Absolute Nucleated RBC 0.00 x10^3/uL Nucleated RBC % 0.0 /100WBC ESR (0-20) mm/Hr Absolute Retic (0.020-0.110) 10^6/uL PT (9.9-12.6) secs INR (0.8-1.2) Sodium (135-145) mmol/L Potassium (3.5-5.0) mmol/L Chloride (101-111) mmol/L Carbon Dioxide (21-32) mmol/L Anion Gap (6-13) BUN (6-20) mg/dL Creatinine (0.6-1.2) mg/dL Estimated GFR (MDRD) (>89) Glucose (70-100) mg/dL Lactic Acid (0.5-2.2) mmol/L Calcium (8.5-10.3) mg/dL Phosphorus (2.5-4.6) mg/dL Magnesium (1.7-2.8) mg/dL Iron (45-182) ug/dL TIBC (250-450) ug/dL % Saturation (20-50) % Transferrin (180-329) mg/dL Ferritin (23.9-336.2) ng/mL Total Bilirubin (0.2-1.0) mg/dL AST (10-42) IU/L ALT (10-60) IU/L Alkaline Phosphatase (42-121) IU/L Lactate Dehydrogenase (91-225) IU/L Total Creatine Kinase (22-269) IU/L Total Protein (6.7-8.2) g/dL Albumin (3.2-5.5) g/dL Globulin (2.1-4.2) g/dL Albumin/Globulin Ratio (1.0-2.2) Lipase (22-51) U/L Vitamin B12 (180-914) pg/mL Urine Color Urine Clarity (CLEAR) Urine pH (5.0-7.5) PH Ur Specific [place] (1.002-1.030) Urine Protein (NEGATIVE) mg/dL Urine Glucose (UA) (NEGATIVE) mg/dL Urine Ketones (NEGATIVE) mg/dL Urine Occult Blood (NEGATIVE) Urine Nitrite (NEGATIVE) Urine Bilirubin (NEGATIVE) Urine Urobilinogen (NORMAL) E.U./dL Ur Leukocyte Esterase (NEGATIVE) Urine RBC (0-5) /HPF Urine WBC (0-3) /HPF Ur Epithelial Cells (<= Few) /HPF Ur Squamous Epith Cells (<= Few) Urine Bacteria (None Seen) /HPF Ur Microscopic Review Urine Culture Comments ABX Reporting Has patient been on IV antibiotics over the past 48 hours?: Yes Assessment/Plan - Problem List (1) Weakness generalized Impression: Conclusion/Plan: pt feel better after walk with PT, continue PT/OT pt's HGB 7.8, which could contribute his weakness, start iron pill (2) Acute exacerbation of chronic low back pain Conclusion/Plan: CT lumbar spine to rule out any fractures given his fall in the morning continue Toradol 30 mg every 6 hours times 1 day, Prednisone 20 mg daily, Gabapentin 300 mg 3 times daily, Oxycodone as needed for breakthrough pain continue Physical therapy (3) Hyponatremia Conclusion/Plan: resolved (4) Microcytic anemia Conclusion/Plan: HGB 7.8, MCV is at 74 order iron study start iron pill, will consider IV of iron following iron study (5) Hypertension stable, continue home meds continue vital monitor (6) COPD (chronic obstructive pulmonary disease) stable, 95% sats on room air continue home meds, RT treatment, O2 supplement as needed (7) History of coronary artery disease stable, no chest pain, no cardiac acute distress continue tele, vital continue eliquis (8) Hyperlipidemia stable, continue home meds (9) cough with sputum CXR and CT indicate pneumonia. pt with WNL WBC, no fever, but with cough and sputum treat with antibiotics continue lab and vital monitor
[2018-02-19] MEDS: cefTRIAXone 1 GM in SODIUM CHLORIDE 0.9% MINIBAG 100 ML IV SCH (17:26)
[2018-02-19] MEDS ORDERED: NON FORMULARY MED (Simvastatin [Simvastatin] 80 MG) ORAL SCH (21:00)
[2018-02-19] MEDS: ATORVASTATIN 40 MG TABLET PO SCH (21:09)
[2018-02-20] MEDS: SODIUM CHLORIDE FLUSH 0.9% 10 ML SYRINGE IVP SCH ×3 (04:49→17:36)
[2018-02-20 06:04] LABS: BASOPHILS % (AUTO) 0.1 %; HGB - HEMOGLOBIN 7.3 g/dL (14.0-18.0); LYMPHOCYTES # (AUTO) 0.7 10^3/uL (1.5-3.5); LYMPHOCYTES % (AUTO) 12.4 %; MEAN CORPUSCULAR HEMOGLOBIN 25.1 pg (27.0-31.0); MEAN CORPUSCULAR HGB CONC 32.2 g/dL (32.0-36.0); MEAN CORPUSCULAR VOLUME 78.2 fL (80.0-94.0); MEAN PLATELET VOLUME 7.6 fL (7.4-11.4); MONOCYTES # (AUTO) 0.3 10^3/uL (0.0-1.0); MONOCYTES % (AUTO) 5.1 %; NEUTROPHILS # (AUTO) 4.6 10^3/uL (1.5-6.6); NEUTROPHILS % (AUTO) 82.4 %; PLT - PLATELET COUNT 179 10^3/uL (130-450); RED CELL DISTRIBUTION WIDTH 18.3 % (12.0-15.0); WHITE BLOOD COUNT 5.6 x10^3/uL (4.8-10.8)
[2018-02-20 06:07] LABS: ALBUMIN/GLOBULIN RATIO 1.2 (1.0-2.2); BILIRUBIN,TOTAL 0.7 mg/dL (0.2-1.0); CREATININE 0.9 mg/dL (0.6-1.2); TOTAL PROTEIN 5.6 g/dL (6.7-8.2)
[2018-02-20 06:17] LABS: % IRON SATURATION 49 % (20-50); IRON 167 ug/dL (45-182); TOTAL IRON BINDING CAPACITY 339 ug/dL (250-450); TRANSFERRIN 242 mg/dL (180-329)
[2018-02-20] MEDS: GABAPENTIN 300 MG CAPSULE PO SCH ×3 (06:29→21:07)
[2018-02-20] MEDS: SODIUM CHLORIDE 0.9% 1,000 ML IV SCH (07:03)
[2018-02-20 07:35] LABS: FOLATE 17.08 ng/mL (5.90 - >24.8)
[2018-02-20] MEDS: cefTRIAXone 1 GM in SODIUM CHLORIDE 0.9% MINIBAG 100 ML IV SCH (08:46)
[2018-02-20] MEDS: FERROUS SULFATE 325 MG TABLET PO SCH (08:46)
[2018-02-20] MEDS: POLYETHYLENE GLYCOL 3350 17 GM PACKET PO SCH (08:46)
[2018-02-20] MEDS: HYDROCORTISONE 10 MG TABLET PO SCH ×2 (08:46→17:33)
[2018-02-20] MEDS: FAMOTIDINE 20 MG TABLET PO SCH ×2 (08:47→21:07)
[2018-02-20] MEDS: APIXABAN 2.5 MG TABLET PO SCH ×2 (08:47→21:06)
[2018-02-20] MEDS: TAMSULOSIN 0.4 MG CAPSULE PO SCH (08:47)
[2018-02-20] MEDS: ASPIRIN EC 81 MG TABLET PO SCH (08:47)
[2018-02-20] MEDS: POTASSIUM CHLORIDE 20 MEQ TABLET PO SCH (08:47)
[2018-02-20] MEDS: OXYBUTYNIN 5MG TABLET PO SCH ×2 (08:47→21:06)
[2018-02-20] MEDS: CARVEDILOL 12.5 MG TABLET PO SCH ×2 (08:47→21:06)
[2018-02-20] MEDS: AZITHROMYCIN 250 MG TABLET PO SCH (08:47)
[2018-02-20] MEDS: CICLOPIROX OLAMINE TOP SCH (08:51)
[2018-02-20] MEDS ORDERED: cefTRIAXone 2 GM in SODIUM CHLORIDE 0.9% MINIBAG 100 ML IV SCH (09:00)
[2018-02-20 09:24] LABS: FERRITIN 106.1 ng/mL (23.9-336.2)
[2018-02-20 09:26] LABS: % IRON SATURATION 35 % (20-50); IRON 122 ug/dL (45-182); TOTAL IRON BINDING CAPACITY 347 ug/dL (250-450); TRANSFERRIN 248 mg/dL (180-329)
[2018-02-20] MEDS: FORMOTEROL FUMARATE NEB 20 MCG/2 ML INH SCH (09:29)
[2018-02-20] MEDS: BUDESONIDE 0.5 MG/2 ML NEB INH SCH (09:29)
--- NOTE | 2018-02-20 15:48 | PROVIDER PROGRESS NOTE ---
Subjective - Prog Note Date Prog Note Date: 02/20/18 - Subjective Pt reports feeling: Improved Subjective: pt sit in the chair and comfortable ate his breakfast. pt feel he is better. but he still feel weakness on his legs. he denies CP, fever, chill, SOB Current Medications - Current Medications Current Medications: Active Medications Acetaminophen (Tylenol) 650 mg PO Q4HR PRN PRN Reason: Pain 1 to 4 Hydrocodone Bitart/Acetaminophen (Michael 5/325) 1 tab PO Q4H PRN PRN Reason: PAIN Last Admin: 02/19/18 15:47 Dose: 1 tab Albuterol/Ipratropium (Duoneb) 3 ml INH Q4HR PRN PRN Reason: Wheezing Last Admin: 02/19/18 18:13 Dose: 3 ml Apixaban (Eliquis) 2.5 mg PO BID [facility] Last Admin: 02/20/18 08:47 Dose: 2.5 mg Aspirin (Ecotrin) 81 mg PO DAILY [facility] Last Admin: 02/20/18 08:47 Dose: 81 mg Atorvastatin Calcium (Lipitor) 40 mg PO QPM [facility] Last Admin: 02/19/18 21:09 Dose: 40 mg Azithromycin (Zithromax) 500 mg PO DAILY [facility] Last Admin: 02/20/18 08:47 Dose: 500 mg Budesonide (Pulmicort) 0.5 mg INH RTBID [facility] Last Admin: 02/20/18 09:29 Dose: 0.5 mg Carvedilol (Coreg) 12.5 mg PO BID [facility] Last Admin: 02/20/18 08:47 Dose: 12.5 mg Famotidine (Pepcid) 20 mg PO BID [facility] Last Admin: 02/20/18 08:47 Dose: 20 mg Ferrous Sulfate (Feosol) 325 mg PO DAILYWM [facility] Formoterol Fumarate (Perforomist) 20 mcg INH RTBID [facility] Last Admin: 02/20/18 09:29 Dose: 20 mcg Gabapentin (Neurontin) 300 mg PO TID [facility] Last Admin: 02/20/18 13:35 Dose: 300 mg Hydrocortisone (Cortef) 10 mg PO DAILY [facility] Last Admin: 02/20/18 08:46 Dose: 10 mg Hydrocortisone (Cortef) 5 mg PO 1700 [facility] Last Admin: 02/19/18 15:47 Dose: 5 mg Ceftriaxone Sodium 1 gm/ (Sodium Chloride) 100 mls @ 200 mls/hr IV DAILY [facility] Last Infusion: 02/20/18 09:23 Dose: Infused Morphine Sulfate (Morphine (Carpuject)) 2 mg IVP Q2HR PRN PRN Reason: Pain 8 to 10 Nitroglycerin (Nitrostat) 0.4 mg SL Q5M PRN PRN Reason: Chest Pain Non-Formulary Medication (Ciclopirox Olamine [Ciclopirox]) 1 applic TOP DAILY [facility] Last Admin: 02/20/18 08:51 Dose: Not Given Ondansetron HCl (Zofran Inj) 4 mg IVP Q6HR PRN PRN Reason: Nausea / Vomiting Last Admin: 02/19/18 15:47 Dose: 4 mg Oxybutynin Chloride (Ditropan) 5 mg PO BID [facility] Last Admin: 02/20/18 08:47 Dose: 5 mg Oxycodone HCl (Roxicodone) 5 mg PO Q4HR PRN PRN Reason: Pain 5 to 7 Oxycodone HCl (Roxicodone) 10 mg PO Q4HR PRN PRN Reason: Pain 8 to 10 Polyethylene Glycol (Miralax) 17 gm PO DAILY [facility] Last Admin: 02/20/18 08:46 Dose: 17 gm Potassium Chloride (K-Dur) 20 meq PO DAILY [facility] Last Admin: 02/20/18 08:47 Dose: 20 meq Prochlorperazine Edisylate (Compazine Inj) 10 mg IVP Q6HR PRN PRN Reason: Nausea / Vomiting Promethazine HCl (Phenergan Inj) 25 mg IM Q6HR PRN PRN Reason: Nausea / Vomiting Sodium Chloride (Normal Saline Flush 0.9%) 10 ml IVP PRN PRN PRN Reason: NEEDED PER PROVIDER ORDERS Sodium Chloride (Normal Saline Flush 0.9%) 10 ml IVP 0100,0900,1700 [facility] Last Admin: 02/20/18 08:47 Dose: Not Given Tamsulosin HCl (Flomax) 0.4 mg PO DAILY [facility] Last Admin: 02/20/18 08:47 Dose: 0.4 mg Carvedilol 12.5 mg ORAL BID 06/22/16 Furosemide 20 mg PO DAILY 06/22/16 Gabapentin 300 mg PO BID 06/22/16 Simvastatin 80 mg PO QPM 06/22/16 Triazolam [Halcion] 0.25 mg PO QPM PRN 06/22/16 Albuterol Sulfate [Proair Respiclick] 2 puffs INH Q6H PRN 03/21/17 Budesonide/Formoterol Fumarate [Symbicort 160-4.5 Mcg Inhaler] 2 puffs INH BID 03/21/17 Nitroglycerin 0.4 mg PO Q5M PRN 03/21/17 Potassium Chloride [K-Dur] 20 meq PO DAILYWM 03/21/17 Tamsulosin HCl [Flomax] 0.4 mg PO DAILY 03/21/17 Cholecalciferol (Vitamin D3) [Vitamin D3] 1,000 units PO DAILY 02/18/18 Famotidine [Pepcid] 20 mg PO BID 02/18/18 Hydrocortisone 10 mg PO DAILY 02/18/18 Apixaban [Eliquis] 2.5 mg PO BID 02/19/18 Aspirin [Aspirin EC] 81 mg PO DAILY 02/19/18 Hydrocodone/Acetaminophen [Hydrocodone-Acetamin 5-325 mg] 1 tab PO Q4H PRN 02/19/18 Hydrocortisone 5 mg PO QPM 02/19/18 Oxybutynin Chloride [Ditropan Xl] 10 mg PO DAILY 02/19/18 Polyethylene Glycol 3350 [Miralax] 17 gm PO DAILY PRN 02/19/18 Objective - Vital Signs/Intake & Output Reviewed Vital Signs: Yes Vital Signs: Vital Signs x48h Temp Pulse Pulse Resp BP BP Pulse Ox 02/20/18 14:48 36.4 C L 74 16 110/72 02/20/18 12:39 36.6 C 75 16 109/74 02/20/18 12:29 36.6 C 74 16 108/66 02/20/18 12:24 36.4 C L 75 16 121/68 02/20/18 09:31 75 18 02/20/18 08:16 36.4 C L 91 20 136/88 H 98 Intake & Output: Intake & Output 02/17/18 02/18/18 02/19/18 02/20/18 23:59 23:59 23:59 23:59 Intake Total 1000 2988.333 2993 Output Total 100 1375 1725 Balance 900 8415.822 4637 - Objective General Appearance: positive: No acute distress, Alert. negative: Lethargic Eyes Bilateral: positive: Normal inspection, PERRL, No lid inflammation, Conjunctivae nml ENT: positive: ENT inspection nml, Pharynx nml, No signs of dehydration. negative: Purulent nasal drainage, Pharyngeal erythema, Oral lesions Neck: positive: Nml inspection, Thyroid nml, No JVD, Trachea midline. negative: Thyromegaly, Lymphadenopathy (R), Lymphadenopathy (L), Stiff neck, Swelling/bru ising, Tracheal deviation Respiratory: positive: Chest non-tender, No respiratory distress, Breath sounds nml. negative: Wheezes, Rales, Rhonchi Cardiovascular: positive: Regular rate & rhythm, No murmur, No gallop. negative: Irregularly irregular, Extrasystoles, Tachycardia, Bradycardia, JVD present, Systolic murmur, Diastolic murmur Peripheral Pulses: 2+ Radial (R), 2+ Radial (L), 2+ Dorsalis pedis (R), 2+ Dorsalis pedis (L) Abdomen: positive: Non-tender, No organomegaly, Nml bowel sounds, No distention. negative: Tenderness, Guarding, Rebound Back: positive: Nml inspection. negative: CVA tenderness (R), CVA tenderness (L) Skin: positive: Color nml, No rash, Warm, Dry. negative: Cyanosis, Diaphoresis, Pallor Extremities: positive: Non-tender, Full ROM, Nml appearance. negative: Calf tenderness, Joint swelling, Little's sign/cords Neurologic/Psychiatric: positive: Oriented x3, Sensation nml, Mood/affect nml. negative: Weakness, Sensory loss, Facial droop, Slurred/abnml speech, Depressed mood/affect - Lab Results Fish Bones: 02/20/18 05:40 02/20/18 05:40 Other Labs: Lab Results x24hrs 02/20/18 02/20/18 02/20/18 Range/Units 09:53 07:58 07:50 WBC (4.8-10.8) x10^3/uL RBC (4.70-6.10) 10^6/uL Hgb (14.0-18.0) g/dL Hct (42.0-52.0) % MCV (80.0-94.0) fL MCH (27.0-31.0) pg MCHC (32.0-36.0) g/dL RDW (12.0-15.0) % Plt Count (130-450) 10^3/uL MPV (7.4-11.4) fL Neut # (Auto) (1.5-6.6) 10^3/uL Lymph # (Auto) (1.5-3.5) 10^3/uL Davison # (Auto) (0.0-1.0) 10^3/uL Eos # (Auto) (0.0-0.7) 10^3/uL Baso # (Auto) (0.0-0.1) 10^3/uL Absolute Nucleated RBC x10^3/uL Nucleated RBC % /100WBC Sodium (135-145) mmol/L Potassium (3.5-5.0) mmol/L Chloride (101-111) mmol/L Carbon Dioxide (21-32) mmol/L Anion Gap (6-13) BUN (6-20) mg/dL Creatinine (0.6-1.2) mg/dL Estimated GFR (MDRD) (>89) Glucose (70-100) mg/dL Calcium (8.5-10.3) mg/dL Iron (45-182) ug/dL TIBC (250-450) ug/dL % Saturation (20-50) % Transferrin (180-329) mg/dL Ferritin (23.9-336.2) ng/mL Total Bilirubin (0.2-1.0) mg/dL AST (10-42) IU/L ALT (10-60) IU/L Alkaline Phosphatase (42-121) IU/L Lactate Dehydrogenase 174 (91-225) IU/L Total Protein (6.7-8.2) g/dL Albumin (3.2-5.5) g/dL Globulin (2.1-4.2) g/dL Albumin/Globulin Ratio (1.0-2.2) Vitamin B12 (180-914) pg/mL Folate (5.90 - >24.8) ng/mL Cortisol AM Sample 4.5 ug/dL Blood Type O POSITIVE Blood Type Recheck Antibody Screen NEGATIVE Crossmatch IS Only See Detail 02/20/18 02/20/18 02/20/18 Range/Units 07:50 07:50 05:40 WBC (4.8-10.8) x10^3/uL RBC (4.70-6.10) 10^6/uL Hgb (14.0-18.0) g/dL Hct (42.0-52.0) % MCV (80.0-94.0) fL MCH (27.0-31.0) pg MCHC (32.0-36.0) g/dL RDW (12.0-15.0) % Plt Count (130-450) 10^3/uL MPV (7.4-11.4) fL Neut # (Auto) (1.5-6.6) 10^3/uL Lymph # (Auto) (1.5-3.5) 10^3/uL Davison # (Auto) (0.0-1.0) 10^3/uL Eos # (Auto) (0.0-0.7) 10^3/uL Baso # (Auto) (0.0-0.1) 10^3/uL Absolute Nucleated RBC x10^3/uL Nucleated RBC % /100WBC Sodium (135-145) mmol/L Potassium (3.5-5.0) mmol/L Chloride (101-111) mmol/L Carbon Dioxide (21-32) mmol/L Anion Gap (6-13) BUN (6-20) mg/dL Creatinine (0.6-1.2) mg/dL Estimated GFR (MDRD) (>89) Glucose (70-100) mg/dL Calcium (8.5-10.3) mg/dL Iron 122 (45-182) ug/dL TIBC 347 (250-450) ug/dL % Saturation 35 (20-50) % Transferrin 248 (180-329) mg/dL Ferritin 106.1 (23.9-336.2) ng/mL Total Bilirubin (0.2-1.0) mg/dL AST (10-42) IU/L ALT (10-60) IU/L Alkaline Phosphatase (42-121) IU/L Lactate Dehydrogenase (91-225) IU/L Total Protein (6.7-8.2) g/dL Albumin (3.2-5.5) g/dL Globulin (2.1-4.2) g/dL Albumin/Globulin Ratio (1.0-2.2) Vitamin B12 231 (180-914) pg/mL Folate (5.90 - >24.8) ng/mL Cortisol AM Sample ug/dL Blood Type Blood Type Recheck O POSITIVE Antibody Screen Crossmatch IS Only 02/20/18 02/20/18 02/20/18 Range/Units 05:40 05:40 05:40 WBC (4.8-10.8) x10^3/uL RBC (4.70-6.10) 10^6/uL Hgb (14.0-18.0) g/dL Hct (42.0-52.0) % MCV (80.0-94.0) fL MCH (27.0-31.0) pg MCHC (32.0-36.0) g/dL RDW (12.0-15.0) % Plt Count (130-450) 10^3/uL MPV (7.4-11.4) fL Neut # (Auto) (1.5-6.6) 10^3/uL Lymph # (Auto) (1.5-3.5) 10^3/uL Davison # (Auto) (0.0-1.0) 10^3/uL Eos # (Auto) (0.0-0.7) 10^3/uL Baso # (Auto) (0.0-0.1) 10^3/uL Absolute Nucleated RBC x10^3/uL Nucleated RBC % /100WBC Sodium 132 L (135-145) mmol/L Potassium 5.0 (3.5-5.0) mmol/L Chloride 103 (101-111) mmol/L Carbon Dioxide 23 (21-32) mmol/L Anion Gap 6.0 (6-13) BUN 16 (6-20) mg/dL Creatinine 0.9 (0.6-1.2) mg/dL Estimated GFR (MDRD) 80 L (>89) Glucose 169 H (70-100) mg/dL Calcium 8.0 L (8.5-10.3) mg/dL Iron 167 (45-182) ug/dL TIBC 339 (250-450) ug/dL % Saturation 49 (20-50) % Transferrin 242 (180-329) mg/dL Ferritin (23.9-336.2) ng/mL Total Bilirubin 0.7 (0.2-1.0) mg/dL AST 25 (10-42) IU/L ALT 28 (10-60) IU/L Alkaline Phosphatase 46 (42-121) IU/L Lactate Dehydrogenase (91-225) IU/L Total Protein 5.6 L (6.7-8.2) g/dL Albumin 3.0 L (3.2-5.5) g/dL Globulin 2.6 (2.1-4.2) g/dL Albumin/Globulin Ratio 1.2 (1.0-2.2) Vitamin B12 236 (180-914) pg/mL Folate 17.08 (5.90 - >24.8) ng/mL Cortisol AM Sample ug/dL Blood Type Blood Type Recheck Antibody Screen Crossmatch IS Only 02/20/18 Range/Units 05:40 WBC 5.6 (4.8-10.8) x10^3/uL RBC 2.90 L (4.70-6.10) 10^6/uL Hgb 7.3 L (14.0-18.0) g/dL Hct 22.6 L (42.0-52.0) % MCV 78.2 L (80.0-94.0) fL MCH 25.1 L (27.0-31.0) pg MCHC 32.2 (32.0-36.0) g/dL RDW 18.3 H (12.0-15.0) % Plt Count 179 (130-450) 10^3/uL MPV 7.6 (7.4-11.4) fL Neut # (Auto) 4.6 (1.5-6.6) 10^3/uL Lymph # (Auto) 0.7 L (1.5-3.5) 10^3/uL Davison # (Auto) 0.3 (0.0-1.0) 10^3/uL Eos # (Auto) 0.0 (0.0-0.7) 10^3/uL Baso # (Auto) 0.0 (0.0-0.1) 10^3/uL Absolute Nucleated RBC 0.01 x10^3/uL Nucleated RBC % 0.2 /100WBC Sodium (135-145) mmol/L Potassium (3.5-5.0) mmol/L Chloride (101-111) mmol/L Carbon Dioxide (21-32) mmol/L Anion Gap (6-13) BUN (6-20) mg/dL Creatinine (0.6-1.2) mg/dL Estimated GFR (MDRD) (>89) Glucose (70-100) mg/dL Calcium (8.5-10.3) mg/dL Iron (45-182) ug/dL TIBC (250-450) ug/dL % Saturation (20-50) % Transferrin (180-329) mg/dL Ferritin (23.9-336.2) ng/mL Total Bilirubin (0.2-1.0) mg/dL AST (10-42) IU/L ALT (10-60) IU/L Alkaline Phosphatase (42-121) IU/L Lactate Dehydrogenase (91-225) IU/L Total Protein (6.7-8.2) g/dL Albumin (3.2-5.5) g/dL Globulin (2.1-4.2) g/dL Albumin/Globulin Ratio (1.0-2.2) Vitamin B12 (180-914) pg/mL Folate (5.90 - >24.8) ng/mL Cortisol AM Sample ug/dL Blood Type Blood Type Recheck Antibody Screen Crossmatch IS Only ABX Reporting Has patient been on IV antibiotics over the past 48 hours?: Yes Assessment/Plan - Problem List (1) Weakness generalized Impression: Conclusion/Plan: 02/20 pt feel stronger than before, will continue PT/OT, plan d/c to SNF pt feel better after walk with PT, continue PT/OT pt's HGB 7.8, which could contribute his weakness, start iron pill (2) Acute exacerbation of chronic low back pain Conclusion/Plan: 02/20 pt feel much better, continue pain control. continue PT/OT CT lumbar spine to rule out any fractures given his fall in the morning continue Toradol 30 mg every 6 hours times 1 day, Prednisone 20 mg daily, Gabapentin 300 mg 3 times daily, Oxycodone as needed for breakthrough pain continue Physical therapy (3) Hyponatremia Conclusion/Plan: resolved (4) Microcytic anemia Conclusion/Plan: 02/20 pt's HGB is down 7.3, pt feel mild dizziness, will transfusion of blood pt denies black stool, hematuria. continue iron pill HGB 7.8, MCV is at 74 order iron study start iron pill, will consider IV of iron following iron study (5) Hypertension stable, continue home meds continue vital monitor (6) COPD (chronic obstructive pulmonary disease) stable, 95% sats on room air continue home meds, RT treatment, O2 supplement as needed (7) History of coronary artery disease stable, no chest pain, no cardiac acute distress continue tele, vital continue eliquis (8) Hyperlipidemia stable, continue home meds (9) cough with sputum 02/20 pt feel breath is much better, cough is good control. 94% sats on room air continue antibiotics Rocephin and Azithymycin CXR and CT indicate pneumonia. pt with WNL WBC, no fever, but with cough and sputum treat with antibiotics continue lab and vital monitor (10) status post of cholecystectomy with drainage bag pt report he had cholecystectomy in [place]. Pt state he will see surgeon's clinic office every Friday for assessment of his post status of his surgery we will request medical record from [place] will drain bag as needed will assess the drainage site skin as needed
[2018-02-20] MEDS: ATORVASTATIN 40 MG TABLET PO SCH (21:06)
[2018-02-21] MEDS: SODIUM CHLORIDE FLUSH 0.9% 10 ML SYRINGE IVP SCH ×2 (00:16→08:40)
[2018-02-21] MEDS: GABAPENTIN 300 MG CAPSULE PO SCH (06:10)
[2018-02-21 06:34] LABS: BASOPHILS % (AUTO) 0.4 %; EOSINOPHILS # (AUTO) 0.1 10^3/uL (0.0-0.7); EOSINOPHILS % (AUTO) 2.2 %; HGB - HEMOGLOBIN 8.6 g/dL (14.0-18.0); LYMPHOCYTES # (AUTO) 1.2 10^3/uL (1.5-3.5); LYMPHOCYTES % (AUTO) 20.1 %; MEAN CORPUSCULAR HEMOGLOBIN 26.6 pg (27.0-31.0); MEAN CORPUSCULAR VOLUME 80.6 fL (80.0-94.0); MEAN PLATELET VOLUME 7.6 fL (7.4-11.4); MONOCYTES # (AUTO) 0.4 10^3/uL (0.0-1.0); MONOCYTES % (AUTO) 7.4 %; NEUTROPHILS # (AUTO) 4.2 10^3/uL (1.5-6.6); NEUTROPHILS % (AUTO) 69.9 %; PLT - PLATELET COUNT 180 10^3/uL (130-450); RED BLOOD COUNT 3.23 10^6/uL (4.70-6.10)
[2018-02-21 06:54] LABS: ALBUMIN 3.2 g/dL (3.2-5.5); ALBUMIN/GLOBULIN RATIO 1.3 (1.0-2.2); BILIRUBIN,TOTAL 0.7 mg/dL (0.2-1.0); CALCIUM 8.6 mg/dL (8.5-10.3); TOTAL PROTEIN 5.7 g/dL (6.7-8.2)
[2018-02-21] MEDS: BUDESONIDE 0.5 MG/2 ML NEB INH SCH ×2 (07:12→07:23)
[2018-02-21] MEDS: FORMOTEROL FUMARATE NEB 20 MCG/2 ML INH SCH ×2 (07:12→07:23)
[2018-02-21] MEDS ORDERED: FERROUS SULFATE 325 MG TABLET PO SCH (08:00)
[2018-02-21] MEDS: HYDROCORTISONE 10 MG TABLET PO SCH (08:39)
[2018-02-21] MEDS: ASPIRIN EC 81 MG TABLET PO SCH (08:39)
[2018-02-21] MEDS: POTASSIUM CHLORIDE 20 MEQ TABLET PO SCH (08:39)
[2018-02-21] MEDS: TAMSULOSIN 0.4 MG CAPSULE PO SCH (08:39)
[2018-02-21] MEDS: FAMOTIDINE 20 MG TABLET PO SCH (08:39)
[2018-02-21] MEDS: CARVEDILOL 12.5 MG TABLET PO SCH (08:39)
[2018-02-21] MEDS: OXYBUTYNIN 5MG TABLET PO SCH (08:39)
[2018-02-21] MEDS: APIXABAN 2.5 MG TABLET PO SCH (08:39)
[2018-02-21] MEDS: CICLOPIROX OLAMINE TOP SCH (08:40)
[2018-02-21] MEDS: POLYETHYLENE GLYCOL 3350 17 GM PACKET PO SCH (08:40)
[2018-02-21] MEDS: AZITHROMYCIN 250 MG TABLET PO SCH (08:40)
[2018-02-21] MEDS: cefTRIAXone 1 GM in SODIUM CHLORIDE 0.9% MINIBAG 100 ML IV SCH (08:44)
[2018-02-21] MEDS ORDERED: FUROSEMIDE 20 MG TABLET PO SCH (09:00)
--- NOTE | 2018-02-21 11:26 | Ultrasound Report ---
Reason: leg pain, DVT Procedure Date: 02/21/2018 Accession Number: [id number] / [id number] Procedure: US - Duplex Ext Veins Bilateral CPT Code: FULL RESULT: EXAM: BILATERAL LOWER EXTREMITY VENOUS ULTRASOUND EXAM DATE: 02/21/2018 11:01 AM. CLINICAL HISTORY: Leg pain, DVT. 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 COMPARISON: None. TECHNIQUE: Real-time sonographic vascular imaging was performed by the making line worker through the lower extremities utilizing both color-flow and Doppler spectral analysis. Multiple tax compliance representative static images were saved for review. FINDINGS: Right: Common Femoral Vein (CFV): Normal. CFV-GSV Junction: Normal. Profunda Femoral Vein (PFV): Normal. Femoral Vein (FV) Prox: Normal. Femoral Vein (FV) Mid: Normal. Femoral Vein (FV) Dist: Normal. Popliteal Vein: Normal. Posterior Tibial Veins: Normal. Peroneal Veins: Normal. Left: Common Femoral Vein (CFV): Normal. CFV-GSV Junction: Normal. Profunda Femoral Vein (PFV): Normal. Femoral Vein (FV) Prox: Normal. Femoral Vein (FV) Mid: Slow flow. Femoral Vein (FV) Dist: Slow flow. Popliteal Vein: Normal. Posterior Tibial Veins: Normal. Peroneal Veins: Normal. Other: None. IMPRESSION: No evidence for deep venous thrombosis in the bilateral lower extremities. RADIA
[2018-02-21] MEDS: HYDROcod/ACETAM 5/325 MG TABLET PO PRN (11:39)
--- NOTE | 2018-02-21 11:47 | Discharge Plan ---
"Discharge Plan for SNF / [facility]IC - Discharge Plan And Transition Orders Disposition: 03 SNF DC/Xfer Condition: Poor Allergies and Adverse Reactions: Allergies Allergy/AdvReac Type Severity Reaction Status Date / Time sulfamethoxazole Allergy Anaphylaxis Verified 02/18/18 21:06 [From Bactrim] trimethoprim [From Bactrim] Allergy Anaphylaxis Verified 02/18/18 21:06 - SNF / [facility]IC Transition Orders Admit to (Facility): [facility] Under the care of (Name): Arden Galeas Discharge Diagnosis: Generalized Weakness, chronic back pain, anemia, HTN, COPD, pneumonia, hx of CAD, status post of cholecystectomy with drainage bag Medicare Certification Statement: I certify that Post Hospital halfway care is medically necessary on a continuing basis for any of the conditions for which she/he is receiving care during hospitalization. Notify PCP of admission and forward orders to primary provider for signature. Weight on admission and: Daily Call PCP immediately if weight increases by: 2 kg Other Notification Orders: Call PCP immediately if patient develops dyspnea, chest pain/tightness or edema. House Bowel Program: Yes Additional Bowel Program Orders: If no BM after 2 days, nurse may give M.O.M. 30ml PO PRN and/or ducolax Supp 1 [place] and/or PAULA 250mg P.O., and/or senna 1-2 tabs PO. On day 3 nurse may give repeat above order until residents constipation is resolved. Annual Influenza Vaccine (between Jan 03 and August 02): Yes Two-step PPD per [facility] [phone] or approved exception documents: Yes Treatments & Other Orders: pt may follow up Arden Galeas, his PCP, when pt is arrival at [facility], continue PT/OT, have CBC in one week to monitor his anemia status. Oxygen Orders: PRN Medication Orders: PLEASE REFER TO THE DISCHARGE MEDICATION LIST. Insulin Orders?: No - Medications New Prescriptions: Amox/Clav 500/125 [Augmentin] 1 each PO Q12H #14 tablet Ferrous Sulfate 325 mg PO DAILY #15 tablet - Diet Type: Geriatric Texture: Regular Liquids: Thin May have monthly special meal: Yes - Therapies | Activity Therapy: Evaluation | Treat if indicated: PT, OT Rehabilitation Potential: Maximize functional status Activity: Activity as Tolerated Additional Instructions: pt may follow up Arden Galeas, his PCP, when pt is arrival at [facility], continue PT/OT, have CBC in one week to monitor his anemia status."
--- NOTE | 2018-02-21 11:58 | DISCHARGE SUMMARY ---
Discharge Summary Discharge Date: 02/21/18 Discharging Provider: ZULETA Primary Care Provider: Dr. Serrato Code Status: Do Not Attempt Resuscitation () Condition at Discharge: Poor Discharge Disposition: SNF DC/Xfer Discharge Facility Name: [facility] - DIAGNOSES Admission Diagnoses: (1) Acute exacerbation of chronic low back pain (2) Leg weakness (3) Hyponatremia (4) Microcytic anemia (5) Hypertension (6) COPD (chronic obstructive pulmonary disease) (7) History of coronary artery disease (8) Hyperlipidemia Discharge Diagnoses with Status of Each Condition: (1) Weakness generalized Impression: Conclusion/Plan: 02/20 pt feel stronger than before, will continue PT/OT, plan d/c to SNF pt feel better after walk with PT, continue PT/OT pt's HGB 7.8, which could contribute his weakness, start iron pill (2) Acute exacerbation of chronic low back pain Conclusion/Plan: great improved. continue SNF for training and strength (3) Hyponatremia Conclusion/Plan: resolved (4) Microcytic anemia pt had one unit of blood. HGB is 8.6 now. stable without symptoms. pt is prescribed Ferrous sulf (5) Hypertension stable, continue home meds follow up PCP (6) COPD (chronic obstructive pulmonary disease) stable, 95% sats on room air continue home meds, followup PCP (7) History of coronary artery disease stable, no chest pain, no cardiac acute distress continue eliquis, continue PCP and his victim advocate management (8) Hyperlipidemia stable, continue home meds (9) cough with sputum no more cough, 95% sats on room air after treat with antibiotics, and prescribed antibiotics Augmentin for d/c to continue the antibiotics course. (10) status post of cholecystectomy with drainage bag No complication and stable in this time hospital. pt had his previous surgeon's schedule to monitor. follow up the schedule - HPI History of Present Illness: refer from Dr. Cunningham's HPI on 02/18/18 for pt as the following: Patient is an 88-year-old gentleman with a past medical history significant for coronary artery disease status post 3 stents, history of DVT and pulmonary embolism, COPD, hypertension, hyperlipidemia, BPH and chronic back pain secondary to degenerative disc disease who presented to the emergency department with a chief complaint of back pain and leg weakness. The patient states that the issues with his back pain stemming back from when he was babysitting his 1-year-old 44 years ago and fell down the stairs. He states that since that f all he has been suffering with back pain that has been getting worse over the years. He states that has become significantly worse over the last 4-5 years. He states that earlier today he was trying to get into the car with his and fell hitting his back. He states that he had a significant amount of pain and was unable to get up even with his 's help. At that time 911 had to be called and paramedics came to the scene and helped the patient up and into the car. The patient states that throughout the day he continued to have pain in his lower back radiating down his right leg at times. He states that when he had his returned this evening he was in a wheelchair. He states that normally he is able to get up out of the wheelchair and transfer into his normal chair with a walker. He states that tonight he was unable to even stand up out of the wheelchair. He states that when he did try to stand up his pain was very severe. He felt as though he had no strength in his legs and therefore was brought into the emergency department. The patient was just recently hospital ized at [facility] for cholecystitis. The patient was a poor surgical candidate therefore they put in a cholecystostomy tube and placed the patient on antibiotics. The patient states that he just completed his antibiotics today. He states that he just saw an infectious disease doctor earlier in the day who told him to stop the antibiotics. The patient says that after his fall this morning he was feeling weak in his legs and did tell his infectious disease doctor about this who told the patient if the symptoms persisted that he should go to the emergency department. The patient states that in fact when he got home the symptoms did persist and that is why he came to the emergency. The patient does have a spine surgeon at [facility] who feels the patient is not a surgical candidate due to his comorbidities. Patient denies any headache, blurred vision, runny nose, sore throat, nasal congestion, difficulty swallowing, fevers, chills, chest pain, cough, palpitations, shortness of air, orthopnea, PND, increased lower extremity swelling, abdominal pain, nausea, vomiting, diarrhea, constipation, increased urinary urgency, urinary frequency or dysuria. The patient denies any joint swelling, neck stiffness, recent unintentional weight loss, changes in his appetite, polyuria, polydipsia, night sweats, skin changes or rash. On presentation to the emergency department the patient was afebrile and vital signs were within normal limits. The patient continued to have back pain and bilateral lower extremity weakness on presentation to the emergency department. The emergency room physician noted that the patient had some mild degree of wea kness for leg raising but was able to hold his leg off the cart. He was found to have sensory testing that showed distinction between sharp and dull in dermatomal areas of the leg except for the right lateral lower leg consistent with L4-L5 or L5-S1 distribution. He had weak reflexes but had present patellar reflexes on both sides. The patient underwent routine lab work which showed a chronic anemia with a hemoglobin of 8.0 and elevated ESR of 49 and mildly decreased sodium and a negative urine analysis. The patient did not undergo any imaging studies in the emergency department. It was felt that the patient was not able to stand and therefore could not go home safely. The patient was placed in observation for control of his back pain and for physical therapy consultation. - HOSPITAL COURSE Hospital Course: pt was admitted for lower extremities weakness. pt had PT/OT evaluation and treatment, improved and recommended to SNF for continuing training. pt was also found to have anemia. pt had one unit of blood transfused. pt was also found to have pneumonia. pt was treated with antibiotics. after treatment pt has 95% sats on room air. pt is prescribed Augmentin for continuing the antibiotics course. - ALLERGIES Allergies/Adverse Reactions: Allergies Allergy/AdvReac Type Severity Reaction Status Date / Time sulfamethoxazole Allergy Anaphylaxis Verified 02/18/18 21:06 [From Bactrim] trimethoprim [From Bactrim] Allergy Anaphylaxis Verified 02/18/18 21:06 - MEDICATIONS Home Medications: Ambulatory Orders Medication Instructions Recorded Confirmed Carvedilol 12.5 mg ORAL BID 06/22/16 02/19/18 Furosemide 20 mg PO DAILY 06/22/16 02/19/18 Gabapentin 300 mg PO BID 06/22/16 02/19/18 Simvastatin 80 mg PO QPM 06/22/16 02/19/18 Triazolam [Halcion] 0.25 mg PO QPM PRN 06/22/16 02/19/18 Albuterol Sulfate [Proair 2 puffs INH Q6H PRN 03/21/17 02/19/18 Respiclick] Budesonide/Formoterol Fumarate 2 puffs INH BID 03/21/17 02/19/18 [Symbicort 160-4.5 Mcg Inhaler] Nitroglycerin 0.4 mg PO Q5M PRN 03/21/17 02/19/18 Potassium Chloride [K-Dur] 20 meq PO DAILYWM 03/21/17 02/19/18 Tamsulosin HCl [Flomax] 0.4 mg PO DAILY 03/21/17 02/19/18 Cholecalciferol (Vitamin D3) 1,000 units PO DAILY 02/18/18 02/19/18 [Vitamin D3] Famotidine [Pepcid] 20 mg PO BID 02/18/18 02/19/18 Hydrocortisone 10 mg PO DAILY 02/18/18 02/19/18 Apixaban [Eliquis] 2.5 mg PO BID 02/19/18 02/19/18 Aspirin [Aspirin EC] 81 mg PO DAILY 02/19/18 02/19/18 Hydrocodone/Acetaminophen 1 tab PO Q4H PRN 02/19/18 02/19/18 [Hydrocodone-Acetamin 5-325 mg] Hydrocortisone 5 mg PO QPM 02/19/18 02/19/18 Oxybutynin Chloride [Ditropan Xl] 10 mg PO DAILY 02/19/18 02/19/18 Polyethylene Glycol 3350 [Miralax] 17 gm PO DAILY PRN 02/19/18 02/19/18 Amox/Clav 500/125 [Augmentin] 1 each PO Q12H #14 tablet 02/21/18 Ferrous Sulfate 325 mg PO DAILY #15 tablet 02/21/18 - PHYSICAL EXAM AT DISCHARGE General Appearance: positive: No acute distress, Alert. negative: Lethargic Eyes Bilateral: positive: Normal inspection, PERRL, No lid inflammation, Conjunctivae nml ENT: positive: ENT inspection nml, Pharynx nml, No signs of dehydration. n egative: Purulent nasal drainage, Pharyngeal erythema, Oral lesions Neck: positive: Nml inspection, Thyroid nml, No JVD, Trachea midline. negative: Thyromegaly, Lymphadenopathy (R), Lymphadenopathy (L), Stiff neck, Swelling/bruising, Tracheal deviation Respiratory: positive: Chest non-tender, No respiratory distress, Breath sounds nml. negative: Wheezes, Rales, Rhonchi Cardiovascular: positive: Regular rate & rhythm, No murmur, No gallop. negative: Irregularly irregular, Extrasystoles, Tachycardia, Bradycardia, JVD p resent, Systolic murmur, Diastolic murmur Abdomen: positive: Non-tender, No organomegaly, Nml bowel sounds, No distention. negative: Tenderness, Guarding, Rebound Back: positive: Nml inspection. negative: CVA tenderness (R), CVA tenderness (L) Skin: positive: Color nml, No rash, Warm, Dry. negative: Cyanosis, Diaphoresis, Pallor Extremities: positive: Non-tender, Full ROM, Nml appearance. negative: Calf tenderness, Joint swelling, Little's sign/cords Neurologic/Psychiatric: positive: Oriented x3, Sensation nml, Mood/affect nml. negative: Weakness, Sensory loss, Facial droop, Slurred/abnml speech, Depressed mood/affect - LABS Result Diagrams: 02/21/18 06:15 02/21/18 06:15 - FOLLOW UP Follow Up: pt may follow up Arden Galeas, his PCP, when pt is arrival at [facility], continue PT/OT, have CBC in one week to monitor his anemia status. - TIME SPENT Time Spent in Discharge (Minutes): 50
[2018-02-21 12:29] VITALS: BP 109/66
== END 2018-02-21 14:35 | DRG 551 ==
LOC: EDUNIT# → ED 20:48 → OBS 23:12 → OBSVTOIN 02-19 12:26 → MS2 02-19 14:16
PROVIDERS: ADMIT Internal Medicine; ATTEND Nurse Practitioner Gerontology
DX: M51.16 Intervertebral disc disorders with radiculopathy, lumbar region (principal); J18.9 Pneumonia, unspecified organism; R26.2 Difficulty in walking, not elsewhere classified; E87.1 Hypo-osmolality and hyponatremia; E86.1 Hypovolemia; J44.9 Chronic obstructive pulmonary disease, unspecified; I11.0 Hypertensive heart disease with heart failure; I50.9 Heart failure, unspecified; D50.9 Iron deficiency anemia, unspecified; M51.17 Intervertebral disc disorders with radiculopathy, lumbosacral region; M43.16 Spondylolisthesis, lumbar region; M43.17 Spondylolisthesis, lumbosacral region; M48.061 Spinal stenosis, lumbar region without neurogenic claudication; E78.5 Hyperlipidemia, unspecified; N40.0 Benign prostatic hyperplasia without lower urinary tract symptoms; I25.10 Atherosclerotic heart disease of native coronary artery without angina pectoris; K21.9 Gastro-esophageal reflux disease without esophagitis; W18.30XA Fall on same level, unspecified, initial encounter; Z91.81 History of falling; Z79.51 Long term (current) use of inhaled steroids; Z79.52 Long term (current) use of systemic steroids; Z79.899 Other long term (current) drug therapy; Z93.3 Colostomy status; Z87.891 Personal history of nicotine dependence; Z95.5 Presence of coronary angioplasty implant and graft; Z86.718 Personal history of other venous thrombosis and embolism; Z86.711 Personal history of pulmonary embolism; I25.2 Old myocardial infarction; Z98.890 Other specified postprocedural states; Z90.49 Acquired absence of other specified parts of digestive tract
CPT/HCPCS: 36415; 71045; 72131; 80053; 81001; 81003; 82533; 82550; 82607; 82728; 82746; 83540; 83605; 83615; 83690; 83735; 84100; 84466; 85025; 85044; 85610; 85651; 86850; 86900; 86901; 86920; 87040; 87086; 93970; 94640; 96361; 96374; 96375; 96376; 99284; 99285

== ENCOUNTER 2018-02-27 15:42 | Outpatient (CLI) | payer MEDICARE, OTHER ==
[2018-02-27 16:32] LABS: BASOPHILS % (AUTO) 0.7 %; EOSINOPHILS # (AUTO) 0.1 10^3/uL (0.0-0.7); EOSINOPHILS % (AUTO) 2.1 %; HGB - HEMOGLOBIN 9.4 g/dL (14.0-18.0); LYMPHOCYTES # (AUTO) 1.4 10^3/uL (1.5-3.5); MEAN CORPUSCULAR HEMOGLOBIN 26.4 pg (27.0-31.0); MEAN CORPUSCULAR HGB CONC 32.4 g/dL (32.0-36.0); MEAN CORPUSCULAR VOLUME 81.4 fL (80.0-94.0); MEAN PLATELET VOLUME 7.9 fL (7.4-11.4); MONOCYTES # (AUTO) 0.4 10^3/uL (0.0-1.0); MONOCYTES % (AUTO) 6.9 %; NEUTROPHILS # (AUTO) 3.8 10^3/uL (1.5-6.6); NEUTROPHILS % (AUTO) 66.3 %; PLT - PLATELET COUNT 205 10^3/uL (130-450); RED BLOOD COUNT 3.55 10^6/uL (4.70-6.10); RED CELL DISTRIBUTION WIDTH 21.7 % (12.0-15.0); WHITE BLOOD COUNT 5.7 x10^3/uL (4.8-10.8)
[2018-02-27 18:18] LABS: PLATELET ESTIMATE, MANUAL NORMAL (130-450,000) (NORMAL); PLATELET MORPHOLOGY NORMAL APPEARANCE (NORMAL); RBC MORPHOLOGY (MULTIPLE) 1+ ANISOCYTOSIS (NORMAL)
== END 2018-02-27 15:43 | disposition home or self-care (01) ==
LOC: LAB.R 15:42
DX: D64.9 Anemia, unspecified (principal)
CPT/HCPCS: 85025

== ENCOUNTER 2018-06-12 08:00 | Outpatient (CLI) | payer MEDICARE, OTHER ==
[2018-06-12 14:05] LABS: PROLACTIN 28.86 ng/mL
== END 2018-06-12 08:01 | disposition home or self-care (01) ==
LOC: LAB.F 08:00
PROVIDERS: ATTEND Student in an Organized Health Care Education/Training Program
DX: E22.1 Hyperprolactinemia (principal); R63.5 Abnormal weight gain; E27.40 Unspecified adrenocortical insufficiency
CPT/HCPCS: 36415; 82533; 84146; 84443

== ENCOUNTER 2018-07-20 09:25 | Outpatient (CLI) | payer MEDICARE, OTHER | END 2018-07-20 09:26 | disposition critical access hospital (66) | LOC: EMS 09:25 | PROVIDERS: ATTEND Surgery | DX: R53.1 Weakness (principal); R05 Cough; R26.2 Difficulty in walking, not elsewhere classified; W18.2XXA Fall in (into) shower or empty bathtub, initial encounter; Y92.002 Bathroom of unspecified non-institutional (private) residence as the place of occurrence of the external cause ==

== ENCOUNTER 2018-07-20 09:58 | Emergency (ER) | payer MEDICARE, OTHER ==
--- NOTE | 2018-07-20 10:08 | ED Physician Documentation ---
History of Present Illness - Stated complaint Stated Complaint: WEAKNESS - History obtained from History obtained from: Patient, Family - History of Present Illness Timing: Prior to arrival - Additonal information Additional information: Patient is a 88-year-old male with multiple medical comorbidities and previous visits for generalized weakness presenting via ambulance for generalized weakness with cough starting over the past several days. Patient denies specific pain including head pain, neck or back pain, chest pain, abdominal pain. Also denies fever, difficulty breathing, URI symptoms, stool or urine changes, or fever. Patient denies any particular worsening or improving factors to his symptoms. Review of Systems Constitutional: denies: Fever Eyes: denies: Reviewed and negative Ears: denies: Reviewed and negative Nose: denies: Reviewed and negative PD PAST MEDICAL HISTORY - Past Medical History Cardiovascular: Congestive heart failure, Hypertension, High cholesterol, Coronary artery disease, Pulmonary embolism, [place] Respiratory: COPD, Other (History of pulmonary embolism) Neuro: None Endocrine/Autoimmune: None GI: GERD, Other : Benign prostate hypertrophy HEENT: None Psych: None, Other Musculoskeletal: Chronic back pain Derm: None - Past Surgical History Past Surgical History: Yes General: Appendectomy Cardiovascular: Coronary stent HEENT: Tonsil/Adenoidectomy - Present Medications Home Medications: Ambulatory Orders Medication Instructions Recorded Confirmed RX: Carvedilol 12.5 mg ORAL BID 06/22/16 02/19/18 RX: Furosemide 20 mg PO DAILY 06/22/16 02/19/18 RX: Gabapentin 300 mg PO BID 06/22/16 02/19/18 RX: Simvastatin 80 mg PO QPM 06/22/16 02/19/18 RX: Triazolam [Halcion] 0.25 mg PO QPM PRN 06/22/16 02/19/18 RX: Albuterol Sulfate [Proair 2 puffs INH Q6H PRN 03/21/17 02/19/18 Respiclick] RX: Budesonide/Formoterol Fumarate 2 puffs INH BID 03/21/17 02/19/18 [Symbicort 160-4.5 Mcg Inhaler] RX: Nitroglycerin 0.4 mg PO Q5M PRN 03/21/17 02/19/18 RX: Potassium Chloride [K-Dur] 20 meq PO DAILYWM 03/21/17 02/19/18 RX: Tamsulosin HCl [Flomax] 0.4 mg PO DAILY 03/21/17 02/19/18 RX: Cholecalciferol (Vitamin D3) 1,000 units PO DAILY 02/18/18 02/19/18 [Vitamin D3] RX: Famotidine [Pepcid] 20 mg PO BID 02/18/18 02/19/18 RX: Hydrocortisone 10 mg PO DAILY 02/18/18 02/19/18 RX: Apixaban [Eliquis] 2.5 mg PO BID 02/19/18 02/19/18 RX: Aspirin [Aspirin EC] 81 mg PO DAILY 02/19/18 02/19/18 RX: Hydrocodone/Acetaminophen 1 tab PO Q4H PRN 02/19/18 02/19/18 [Hydrocodone-Acetamin 5-325 mg] RX: Hydrocortisone 5 mg PO QPM 02/19/18 02/19/18 RX: Oxybutynin Chloride [Ditropan 10 mg PO DAILY 02/19/18 02/19/18 Xl] RX: Polyethylene Glycol 3350 17 gm PO DAILY PRN 02/19/18 02/19/18 [Miralax] Amox/Clav 500/125 [Augmentin] 1 each PO Q12H #14 tablet 02/21/18 RX: Ferrous Sulfate 325 mg PO DAILY #15 tablet 02/21/18 Oseltamivir [Tamiflu] 30 mg PO BID 7 Days capsule 07/20/18 - Allergies Allergies/Adverse Reactions: Allergies Allergy/AdvReac Type Severity Reaction Status Date / Time sulfamethoxazole Allergy Anaphylaxis Verified 07/20/18 10:10 [From Bactrim] trimethoprim [From Bactrim] Allergy Anaphylaxis Verified 07/20/18 10:10 - Social History Does the pt smoke?: No Smoking Status: Former smoker Does the pt drink ETOH?: No Does the pt have substance abuse?: No - Immunizations Immunizations are current?: Yes - POLST Patient has POLST: No POLST Status: Full Code PD ED PE NORMAL - General General: Alert and oriented X 3, No acute distress, Well developed/nourished - HEENT HEENT: Atraumatic, Moist mucous membranes, Pharynx benign - Cardiac Cardiac: RRR, No murmur - Respiratory Respiratory: No respiratory distress. No: Clear bilaterally (Dry cough present with poor air movement throughout, but no wheezing or crackles noted) - Abdomen Abdomen: Normal bowel sounds, Soft, Non tender, Non distended - Derm Derm: Normal color, Warm and dry, No rash - Extremities Extremities: No edema - Neuro Neuro: No motor deficit, No sensory deficit - Psych Psych: Normal mood, Normal affect Results - Vitals Vitals: Vital Signs - 24 hr 07/20/18 07/20/18 07/20/18 10:05 10:10 10:12 Temperature 36.9 C 37.1 C Heart Rate 80 78 78 Respiratory 20 18 14 Rate Blood Pressure 111/75 116/70 111/75 O2 Saturation 93 99 93 07/20/18 07/20/18 10:25 12:12 Temperature Heart Rate 79 78 Respiratory 14 14 Rate Blood Pressure 111/75 117/79 O2 Saturation 92 95 Oxygen O2 Source [Without Activity] Nasal cannula O2 Source Room air - EKG (time done) 1034 Rhythm: NSR Ischemia: Non specific changes - Labs Labs: Laboratory Tests 07/20/18 07/20/18 07/20/18 10:20 10:26 10:29 WBC 5.3 RBC 4.15 L Hgb 12.0 L Hct 35.6 L MCV 85.8 MCH 29.0 MCHC 33.8 RDW 17.2 H Plt Count 163 MPV 7.6 Neut # (Auto) 4.2 Lymph # (Auto) 0.[address] [place] # (Auto) 0.4 Eos # (Auto) 0.1 Baso # (Auto) 0.0 Absolute Nucleated RBC 0.00 Nucleated RBC % 0.0 Sodium Potassium Chloride Carbon Dioxide Anion Gap BUN Creatinine Estimated GFR (MDRD) Glucose Calcium Total Bilirubin AST ALT Alkaline Phosphatase Troponin I Total Protein Albumin Globulin Albumin/Globulin Ratio Lipase Urine Color YELLOW Urine Clarity CLEAR Urine pH 6.0 Ur Specific [place] 1.010 Urine Protein NEGATIVE Urine Glucose (UA) NEGATIVE Urine Ketones NEGATIVE Urine Occult Blood SMALL H Urine Nitrite NEGATIVE Urine Bilirubin NEGATIVE Urine Urobilinogen 0.2 (NORMAL) Ur Leukocyte Esterase TRACE H Urine RBC 0-5 Urine WBC 6-10 H Urine WBC Clumps PRESENT Ur Squamous Epith Cells FEW Squamous Urine Bacteria Rare Ur Microscopic Review INDICATED Urine Culture Comments INDICATED Influenza A (Rapid) POSITIVE H Influenza B (Rapid) Negative 07/20/18 07/20/18 10:29 10:29 WBC RBC Hgb Hct MCV MCH MCHC RDW Plt Count MPV Neut # (Auto) Lymph # (Auto) [place] # (Auto) Eos # (Auto) Baso # (Auto) Absolute Nucleated RBC Nucleated RBC % Sodium 134 L Potassium 3.7 Chloride 94 L Carbon Dioxide 30 Anion Gap 10.0 BUN 18 Creatinine 1.3 H Estimated GFR (MDRD) 52 L Glucose 134 H Calcium 8.9 Total Bilirubin 1.0 AST 20 ALT 16 Alkaline Phosphatase 54 Troponin I < 0.04 Total Protein 7.1 Albumin 3.8 Globulin 3.3 Albumin/Globulin Ratio 1.2 Lipase 19 L Urine Color Urine Clarity Urine pH Ur Specific [place] Urine Protein Urine Glucose (UA) Urine Ketones Urine Occult Blood Urine Nitrite Urine Bilirubin Urine Urobilinogen Ur Leukocyte Esterase Urine RBC Urine WBC Urine WBC Clumps Ur Squamous Epith Cells Urine Bacteria Ur Microscopic Review Urine Culture Comments Influenza A (Rapid) Influenza B (Rapid) PD MEDICAL DECISION MAKING - ED course Complexity details: reviewed old records, reviewed results, re-evaluated patient, considered differential, d/w patient, d/w family ED course: Patient presenting with generalized weakness and given his comp gated past medical history obtained screening lab work, urinalysis, as well as chest x-ray, EKG, and influenza swab. Physical exam is relatively unremarkable except for dry cough and poor air movement throughout.At this time, consider, but have low suspicion for stroke, intracranial injury, migraine, viral URI, pneumonia, PE, cardiac disease including ACS and unstable angina as well as myocardial infarction, intra-abdominal infection or obstruction, but considered. Patient received IV fluid, but did not require medications. EKG and troponin performed to further evaluate for possible cardiac etiologies, but returned unremarkable. Screening lab work also returned relatively unremarkable, as do urinalysis. However, influenza testing returned positive. As patient's symptoms recently began as well as his age and comorbidities, felt appropriate prescribing Tamiflu and patient agreed. Also discussed return precautions, appropriate follow- up and other supportive cares. All voiced understanding and are comfortable with discharge plan. Departure - Departure Disposition: 01 Home, Self Care Clinical Impression: Influenza Condition: Good Instructions: ED Flu Follow-Up: DOMI RIGGS MD [Primary Care Provider] - Prescriptions: Oseltamivir [Tamiflu] 30 mg PO BID 7 Days capsule Comments: Please take Tamiflu as prescribed for influenza. Please follow-up with primary care physician in next 2-3 days. Return to ED sooner if explains worsening symptoms or other concerns. May continue all other home medications. Discharge Date/Time: 07/20/18 12:15
[2018-07-20] MEDS ORDERED: SODIUM CHLORIDE 0.9% 1,000 ML IV ONE (10:22)
[2018-07-20 10:38] LABS: BASOPHILS % (AUTO) 0.4 %; EOSINOPHILS # (AUTO) 0.1 10^3/uL (0.0-0.7); EOSINOPHILS % (AUTO) 2.2 %; LYMPHOCYTES # (AUTO) 0.5 10^3/uL (1.5-3.5); LYMPHOCYTES % (AUTO) 9.4 %; MEAN CORPUSCULAR HGB CONC 33.8 g/dL (32.0-36.0); MEAN CORPUSCULAR VOLUME 85.8 fL (80.0-94.0); MEAN PLATELET VOLUME 7.6 fL (7.4-11.4); MONOCYTES # (AUTO) 0.4 10^3/uL (0.0-1.0); MONOCYTES % (AUTO) 7.8 %; NEUTROPHILS # (AUTO) 4.2 10^3/uL (1.5-6.6); NEUTROPHILS % (AUTO) 80.2 %; PLT - PLATELET COUNT 163 10^3/uL (130-450); RED BLOOD COUNT 4.15 10^6/uL (4.70-6.10); RED CELL DISTRIBUTION WIDTH 17.2 % (12.0-15.0); WHITE BLOOD COUNT 5.3 x10^3/uL (4.8-10.8)
[2018-07-20 10:43] LABS: BILIRUBIN,URINE NEGATIVE (NEGATIVE); GLUCOSE, URINE (UA) NEGATIVE (NEGATIVE); KETONES,URINE (UA) NEGATIVE (NEGATIVE); LEUKOCYTE ESTERASE, URINE TRACE (NEGATIVE); NITRITE,URINE NEGATIVE (NEGATIVE); OCCULT BLOOD,URINE SMALL (NEGATIVE); PROTEIN,URINE NEGATIVE (NEGATIVE); UROBILINOGEN,URINE 0.2 (NORMAL) E.U./dL (NORMAL)
[2018-07-20 10:49] LABS: ALBUMIN 3.8 g/dL (3.2-5.5); ALBUMIN/GLOBULIN RATIO 1.2 (1.0-2.2); CALCIUM 8.9 mg/dL (8.5-10.3); CREATININE 1.3 mg/dL (0.6-1.2); TOTAL PROTEIN 7.1 g/dL (6.7-8.2)
[2018-07-20 10:52] LABS: CLARITY,URINE CLEAR (CLEAR)
[2018-07-20 11:01] LABS: BACTERIA,URINE Rare /HPF (None Seen); RBC,URINE 0-5 /HPF (0-5); SQUAMOUS EPITHELIAL CELL,UR FEW Squamous (<= Few); WBC CLUMPS,URINE PRESENT
--- NOTE | 2018-07-20 11:46 | XRAY Report ---
Reason: cough Procedure Date: 07/20/2018 Accession Number: [id number] / [id number] Procedure: XR - Chest 2 View X-Ray CPT Code: 89373 FULL RESULT: EXAM: CHEST RADIOGRAPHY EXAM DATE: 07/20/2018 11:32 AM. CLINICAL HISTORY: Cough. COMPARISON: CHEST LAT 06/11/2018 6:01 PM [facility] CHEST WO XCARE (ADULT) 07/16/2018 10:37 AM. TECHNIQUE: 2 views. FINDINGS: Lungs/Pleura: Bibasilar infiltrate, atelectasis with small bilateral effusions. Decreased lung volumes. No pneumothorax. Mediastinum: Stable cardiomegaly ectatic aorta. Other: None. IMPRESSION: 1. Bibasilar infiltrate, atelectasis small bilateral effusions. 2. Cardiomegaly RADIA
[2018-07-20 12:29] VITALS: BP 117/79
== END 2018-07-20 12:15 | disposition home or self-care (01) ==
LOC: EDUNIT# → ED 09:58
DX: J11.1 Influenza due to unidentified influenza virus with other respiratory manifestations (principal); I25.2 Old myocardial infarction; I11.0 Hypertensive heart disease with heart failure; I50.9 Heart failure, unspecified; E78.00 Pure hypercholesterolemia, unspecified; I25.10 Atherosclerotic heart disease of native coronary artery without angina pectoris; Z95.5 Presence of coronary angioplasty implant and graft; Z86.711 Personal history of pulmonary embolism; Z87.891 Personal history of nicotine dependence
CPT/HCPCS: 36415; 71046; 80053; 81001; 81003; 83690; 84484; 85025; 87086; 87275; 87276; 93005; 96360; 99283

== ENCOUNTER 2018-07-20 16:21 | Outpatient (CLI) | payer MEDICARE, OTHER | END 2018-07-20 16:22 | disposition short-term general hospital (02) | LOC: EMS 16:21 | PROVIDERS: ATTEND Surgery | DX: R53.1 Weakness (principal); R50.9 Fever, unspecified; R05 Cough; R53.83 Other fatigue; R35.0 Frequency of micturition; R26.2 Difficulty in walking, not elsewhere classified; R32 Unspecified urinary incontinence; W18.2XXA Fall in (into) shower or empty bathtub, initial encounter; Y92.002 Bathroom of unspecified non-institutional (private) residence as the place of occurrence of the external cause | CPT/HCPCS: A0425; A0427; A0429 ==

== ENCOUNTER 2018-12-20 09:05 | Emergency (ER) | payer MEDICARE, OTHER ==
[2018-12-20] MEDS ORDERED: TETANUS/DIPHTHERIA/PERTUSSIS 0.5 ML SYRINGE IM ONE (09:40)
[2018-12-20] MEDS ORDERED: BACITRACIN OINT TOP STA (09:40)
[2018-12-20] MEDS ORDERED: IPRATROPIUM/ALBUTEROL 3 ML NEB INH STA (09:40)
--- NOTE | 2018-12-20 10:00 | ED Physician Documentation ---
History of Present Illness - Stated complaint Stated Complaint: RT ARM SKIN TEAR - Chief complaint Chief Complaint: General - History obtained from History obtained from: Patient, Family - History of Present Illness Timing: How many days ago (5) Pain level max: 0 Pain level now: 0 - Additonal information Additional information: 88-year-old male with a right elbow skin tear for the past 5 days or so. Brought in today as it does not appear to be healing. No redness, no drainage. Unknown last tetanus. Nothing makes it better or worse. Review of Systems Constitutional: denies: Fever, Chills GI: denies: Vomiting, Diarrhea Skin: denies: Rash Musculoskeletal: denies: Neck pain, Back pain Neurologic: denies: Headache PD PAST MEDICAL HISTORY - Past Medical History Cardiovascular: Congestive heart failure, Hypertension, High cholesterol, Coronary artery disease, Pulmonary embolism, [place] Respiratory: COPD, Other (History of pulmonary embolism) Neuro: None Endocrine/Autoimmune: None GI: GERD, Other : Benign prostate hypertrophy HEENT: None Psych: None, Other Musculoskeletal: Chronic back pain Derm: None - Past Surgical History Past Surgical History: Yes General: Appendectomy Cardiovascular: Coronary stent HEENT: Tonsil/Adenoidectomy - Present Medications Home Medications: Ambulatory Orders Medication Instructions Recorded Confirmed Carvedilol 12.5 mg ORAL BID 06/22/16 02/19/18 Furosemide 20 mg PO DAILY 06/22/16 02/19/18 Gabapentin 300 mg PO BID 06/22/16 02/19/18 Simvastatin 80 mg PO QPM 06/22/16 02/19/18 Triazolam [Halcion] 0.25 mg PO QPM PRN 06/22/16 02/19/18 Albuterol Sulfate [Proair 2 puffs INH Q6H PRN 03/21/17 02/19/18 Respiclick] Budesonide/Formoterol Fumarate 2 puffs INH BID 03/21/17 02/19/18 [Symbicort 160-4.5 Mcg Inhaler] Nitroglycerin 0.4 mg PO Q5M PRN 03/21/17 02/19/18 Potassium Chloride [K-Dur] 20 meq PO DAILYWM 03/21/17 02/19/18 Tamsulosin HCl [Flomax] 0.4 mg PO DAILY 03/21/17 02/19/18 Cholecalciferol (Vitamin D3) 1,000 units PO DAILY 02/18/18 02/19/18 [Vitamin D3] Famotidine [Pepcid] 20 mg PO BID 02/18/18 02/19/18 Hydrocortisone 10 mg PO DAILY 02/18/18 02/19/18 Apixaban [Eliquis] 2.5 mg PO BID 02/19/18 02/19/18 Aspirin [Aspirin EC] 81 mg PO DAILY 02/19/18 02/19/18 Hydrocodone/Acetaminophen 1 tab PO Q4H PRN 02/19/18 02/19/18 [Hydrocodone-Acetamin 5-325 mg] Hydrocortisone 5 mg PO QPM 02/19/18 02/19/18 Oxybutynin Chloride [Ditropan Xl] 10 mg PO DAILY 02/19/18 02/19/18 Polyethylene Glycol 3350 [Miralax] 17 gm PO DAILY PRN 02/19/18 02/19/18 Amox/Clav 500/125 [Augmentin] 1 each PO Q12H #14 tablet 02/21/18 Ferrous Sulfate 325 mg PO DAILY #15 tablet 02/21/18 Oseltamivir [Tamiflu] 30 mg PO BID 7 Days capsule 07/20/18 - Allergies Allergies/Adverse Reactions: Allergies Allergy/AdvReac Type Severity Reaction Status Date / Time cefuroxime [From Ceftin] Allergy Rash Verified 12/20/18 09:18 ciprofloxacin Allergy Unknown Verified 12/20/18 09:18 nitrofurantoin Allergy Rash Verified 12/20/18 09:19 sulfamethoxazole Allergy Anaphylaxis Verified 07/20/18 10:10 [From Bactrim] trimethoprim [From Bactrim] Allergy Anaphylaxis Verified 07/20/18 10:10 - Social History Does the pt smoke?: No Smoking Status: Former smoker Does the pt drink ETOH?: No Does the pt have substance abuse?: No - Immunizations Immunizations are current?: Yes - POLST Patient has POLST: No POLST Status: Full Code PD ED PE NORMAL - Vitals Vital signs reviewed: Yes - General General: Alert and oriented X 3 - HEENT HEENT: Moist mucous membranes - Neck Neck: Supple, no meningeal sign - Cardiac Cardiac: RRR - Respiratory Respiratory: Other (wheezing B) - Derm Derm: Warm and dry - Extremities Extremities: Other (2 cm, linear skin tear to the right elbow, anterior aspect. No bony tenderness. No active bleeding. No signs of infection.) - Neuro Neuro: Alert and oriented X 3 Results - Vitals Vitals: Vital Signs - 24 hr 12/20/18 12/20/18 12/20/18 09:11 10:02 10:21 Temperature 36.4 C L Heart Rate 75 75 74 Respiratory 14 20 18 Rate Blood Pressure 118/81 H 104/74 O2 Saturation 92 93 Oxygen O2 Source [Without Activity] Nasal cannula O2 Source Room air PD MEDICAL DECISION MAKING - ED course Complexity details: considered differential, d/w patient, d/w family ED course: Wound was dressed with Mepitel. Tolerated well. Bacitracin applied over this. Tdap given. Breathing treatment also given. He is well-appearing, nontoxic. No hypoxia. No fevers. Warnings of infection and instructions on wound care given at bedside. Also counseled on how to minimize scarring. Patient and family counseled regarding signs and symptoms for which I believe and urgent re- evaluation would be necessary. Patient with good understanding of and agreement to plan and is comfortable going home at this time This document was made in part using voice recognition software. While efforts are made to proofread this document, sound alike and grammatical errors may occur. Departure - Departure Disposition: 01 Home, Self Care Clinical Impression: Avulsion of skin of elbow Qualifiers: Encounter type: initial encounter Laterality: right Qualified Code(s): S51.001A - Unspecified open wound of right elbow, initial encounter Condition: Good Instructions: ED Avulsion Dermal Follow-Up: Arden Serrato MD [Primary Care Provider] - Within 1 week (for wound check) Comments: Keep the wound clean. You can apply antibiotic ointment twice daily. The Mepitel can be removed in approximately 10 to 14 days. Return if you notice redness, swelling or drainage from the wound. Discharge Date/Time: 12/20/18 10:30
[2018-12-20 10:22] VITALS: BP 104/74
== END 2018-12-20 10:30 | disposition home or self-care (01) ==
LOC: ED 09:05
DX: S51.001A Unspecified open wound of right elbow, initial encounter (principal); X58.XXXA Exposure to other specified factors, initial encounter; Z23 Encounter for immunization; J44.9 Chronic obstructive pulmonary disease, unspecified; I11.0 Hypertensive heart disease with heart failure; I50.9 Heart failure, unspecified; Z86.711 Personal history of pulmonary embolism; Z79.01 Long term (current) use of anticoagulants; Z79.82 Long term (current) use of aspirin; Z87.891 Personal history of nicotine dependence
CPT/HCPCS: 90471; 90715; 94640; 99282; 99283; A9270

== ENCOUNTER 2018-12-22 04:04 | Outpatient (CLI) | payer MEDICARE, OTHER | END 2018-12-22 04:05 | disposition critical access hospital (66) | LOC: EMS 04:04 | PROVIDERS: ATTEND Surgery | DX: R06.00 Dyspnea, unspecified (principal); R50.9 Fever, unspecified | CPT/HCPCS: A0425; A0427 ==

== ENCOUNTER 2018-12-22 04:38 | Inpatient (IN) | payer MEDICARE, OTHER ==
[2018-12-22] MEDS ORDERED: IPRATROPIUM/ALBUTEROL 3 ML NEB INH STA (04:46)
[2018-12-22] MEDS ORDERED: AZITHROMYCIN INJ 500 MG in SODIUM CHLORIDE 0.9% 250 ML IV STA (04:50)
--- NOTE | 2018-12-22 04:50 | ED Physician Documentation ---
PD HPI DYSPNEA - Stated complaint Stated Complaint: SOA - Chief complaint Chief Complaint: Resp - History obtained from History obtained from: Patient, EMS - History of Present Illness Timing - onset: How many days ago (several days or more) Timing - onset during: Light activity Timing - duration: Days Timing - details: Gradual onset, Still present Inciting event(s): URI (he says he has had some cough with sputum production. This evening had fever.). No: Out of meds Improved by: O2, Inhaler/neb, Rest Worsened by: Exertion, Coughing Associated symptoms: Fever (this morning), Cough, Wheezing. No: Chest pain / discomfort, Bilateral edema Recently seen: Clinic (He said he was seen in his providers office yesterday and had a chest x-ray that did not show any pneumonia. He was given a DuoNeb inha ler or nebulizer.) Review of Systems Constitutional: reports: Fever (this morning, EMS recorded temp 101.), Fatigue Nose: reports: Congestion. denies: Rhinorrhea / runny nose Throat: denies: Sore throat Cardiac: denies: Chest pain / pressure, Palpitations Respiratory: reports: Dyspnea, Cough, Wheezing. denies: Hemoptysis GI: denies: Abdominal Pain, Nausea, Vomiting, Diarrhea, Bloody / black stool Musculoskeletal: denies: Neck pain, Back pain, Extremity swelling Neurologic: reports: Confused (overnight and today). denies: Focal weakness, Numbness PD PAST MEDICAL HISTORY - Past Medical History Cardiovascular: Congestive heart failure, Hypertension, High cholesterol, Coronary artery disease, Pulmonary embolism, [place] Respiratory: COPD, Other (History of pulmonary embolism) Neuro: None Endocrine/Autoimmune: None GI: GERD, Other : Benign prostate hypertrophy HEENT: None Psych: None, Other Musculoskeletal: Chronic back pain Derm: None - Past Surgical History Past Surgical History: Yes General: Appendectomy Cardiovascular: Coronary stent HEENT: Tonsil/Adenoidectomy - Present Medications Home Medications: Ambulatory Orders Medication Instructions Recorded Confirmed Carvedilol 12.5 mg ORAL BID 06/22/16 12/22/18 Furosemide 80 mg PO DAILY 06/22/16 12/22/18 Gabapentin 300 mg PO BID 06/22/16 12/22/18 Simvastatin 80 mg PO QPM 06/22/16 12/22/18 Triazolam [Halcion] 0.25 mg PO QPM PRN 06/22/16 12/22/18 Albuterol Sulfate [Proair 2 puffs INH Q6H PRN 03/21/17 12/22/18 Respiclick] Nitroglycerin 0.4 mg PO Q5M PRN 03/21/17 12/22/18 Potassium Chloride [K-Dur] 20 meq PO DAILYWM 03/21/17 12/22/18 Tamsulosin HCl [Flomax] 0.4 mg PO DAILY 03/21/17 12/22/18 Cholecalciferol (Vitamin D3) 1,000 units PO DAILY 02/18/18 12/22/18 [Vitamin D3] Hydrocortisone 10 mg PO DAILY 02/18/18 12/22/18 Apixaban [Eliquis] 2.5 mg PO BID 02/19/18 12/22/18 Aspirin [Aspirin EC] 81 mg PO DAILY 02/19/18 12/22/18 Hydrocodone/Acetaminophen 1 tab PO Q6H PRN 02/19/18 12/22/18 [Hydrocodone-Acetamin 5-325 mg] Oxybutynin Chloride [Ditropan Xl] 10 mg PO DAILY 02/19/18 12/22/18 Doxycycline Hyclate [Vibramycin] 100 mg PO BID 12/22/18 12/22/18 Ferrous Sulfate 324 mg PO DAILY 12/22/18 12/22/18 Fexofenadine HCl [Nika Allergy] 180 mg PO DAILY PRN 12/22/18 12/22/18 Ipratropium/Albuterol [Duoneb] 3 ml INH Q6H 12/22/18 12/22/18 Mometasone Furoate [Asmanex] 220 mcg IH BID 12/22/18 12/22/18 metFORMIN [Glucophage] 500 mg PO BIDWM 12/22/18 12/22/18 - Allergies Allergies/Adverse Reactions: Allergies Allergy/AdvReac Type Severity Reaction Status Date / Time cefuroxime [From Ceftin] Allergy Rash Verified 12/22/18 05:18 ciprofloxacin Allergy Unknown Verified 12/22/18 05:18 nitrofurantoin Allergy Rash Verified 12/22/18 05:18 sulfamethoxazole Allergy Anaphylaxis Verified 12/22/18 05:18 [From Bactrim] trimethoprim [From Bactrim] Allergy Anaphylaxis Verified 12/22/18 05:18 - Social History Does the pt smoke?: No Smoking Status: Former smoker Does the pt drink ETOH?: No Does the pt have substance abuse?: No - Immunizations Immunizations are current?: Yes - POLST Patient has POLST: No POLST Status: Full Code PD ED PE NORMAL - Vitals Vital signs reviewed: Yes (88 to 89% on room air when first arrived by EMS.) - General General: Well developed/nourished, Other (Seems slightly winded with partial sentence conversation. There is no accessory muscle use. He feels better with oxygen by nasal cannula on route.). No: Alert and oriented X 3 (to person and place, but not time. Seems a little confused. ) - HEENT HEENT: Ears normal, Moist mucous membranes, Pharynx benign - Neck Neck: Supple, no meningeal sign, No adenopathy - Cardiac Cardiac: RRR (slightly tachycardic), No murmur - Respiratory Respiratory: No: Clear bilaterally (Coarse sounds at bases and more on the right. There is prolonged expiration and diffusely and diffuse expiratory wheezing. There are no crackles fine crackles heard.) - Abdomen Abdomen: Normal bowel sounds, Soft, Non tender, Non distended - Back Back: No CVA TTP - Derm Derm: Normal color, Warm and dry - Extremities Extremities: No deformity, No tenderness to palpate, Normal ROM s pain, No edema - Neuro Neuro: Alert and oriented X 3, No motor deficit, No sensory deficit Eye Opening: Spontaneous Motor: Obeys Commands Verbal: Confused GCS Score: 14 Results - Vitals Vitals: Vital Signs - 24 hr 12/22/18 12/22/18 12/22/18 04:35 05:00 05:19 Temperature 37.0 C Heart Rate 110 H 107 H 106 H Respiratory 24 23 22 Rate Blood Pressure 149/103 H O2 Saturation 88 L 94 95 12/22/18 12/22/18 12/22/18 06:09 06:48 07:26 Temperature 36.9 C Heart Rate 101 H 98 Respiratory 20 23 Rate Blood Pressure O2 Saturation 96 92 12/22/18 07:28 Temperature Heart Rate 98 Respiratory 24 Rate Blood Pressure 158/96 H O2 Saturation 96 Oxygen O2 Source [] Nasal cannula O2 Source Room air Oxygen Flow Rate 2 - EKG (time done) 04:44 Rate: Rate (enter#) (108) Rhythm: Sinus tachycardia [place]: Normal Intervals: Normal OR QRS: Normal, Low voltage Ischemia: Normal ST segments. No: ST elevation c/w ischemia, ST depression - Labs Labs: Laboratory Tests 12/22/18 12/22/18 12/22/18 05:14 05:14 05:14 WBC 4.5 L RBC 3.98 L Hgb 12.0 L Hct 36.5 L MCV 91.7 MCH 30.2 MCHC 32.9 RDW 16.8 H Plt Count 127 L MPV 9.9 Neut # (Auto) 3.2 Lymph # (Auto) 0.8 L [place] # (Auto) 0.3 Eos # (Auto) 0.1 Baso # (Auto) 0.0 Absolute Nucleated RBC 0.02 Nucleated RBC % 0.4 Sodium 140 Potassium 3.6 Chloride 104 Carbon Dioxide 23 Anion Gap 13.0 BUN 30 H Creatinine 1.5 H Estimated GFR (MDRD) 44 L Glucose 156 H Lactic Acid Calcium 8.4 L Magnesium 1.7 Total Bilirubin 0.6 AST 15 ALT 20 Alkaline Phosphatase 51 B-Natriuretic Peptide 74 Total Protein 6.4 L Albumin 3.5 Globulin 2.9 Albumin/Globulin Ratio 1.2 Lipase 15 L 12/22/18 05:14 WBC RBC Hgb Hct MCV MCH MCHC RDW Plt Count MPV Neut # (Auto) Lymph # (Auto) [place] # (Auto) Eos # (Auto) Baso # (Auto) Absolute Nucleated RBC Nucleated RBC % Sodium Potassium Chloride Carbon Dioxide Anion Gap BUN Creatinine Estimated GFR (MDRD) Glucose Lactic Acid 1.2 Calcium Magnesium Total Bilirubin AST ALT Alkaline Phosphatase B-Natriuretic Peptide Total Protein Albumin Globulin Albumin/Globulin Ratio Lipase - Rads (name of study) chest xray Radiology: Prelim report reviewed (Mild effusion at the left base which appears chronic. No acute infiltrate seen.), See rad report PD MEDICAL DECISION MAKING - ED course Complexity details: reviewed results, re-evaluated patient (He has decreased work of breathing and is more relaxed and comfortable. However there is still diffuse wheezing. His O2 sats on room air 89%. Even though there is no infiltrates on x-ray, his lung sounds are still coarse in the right mid lung. He has exacerbation of COPD and bronchitis and clinically early pneumonia. He was given steroids by EMS. He is given further nebs here. We will start antibiotics working around his allergy list. Can give Tessalon as well. His says he still seems a little bit confused which happens when he gets infections.), considered differential, d/w patient Departure - Departure Disposition: 66 [facility] DC/Xfer Clinical Impression: Acute exacerbation of COPD with asthma, Hypoxia, Confusion Acute bronchitis Qualifiers: Bronchitis organism: unspecified organism Qualified Code(s): J20.9 - Acute bronchitis, unspecified Condition: Stable Record reviewed to determine appropriate education?: Yes
[2018-12-22 05:23] LABS: BASOPHILS % (AUTO) 0.2 %; EOSINOPHILS # (AUTO) 0.1 10^3/uL (0.0-0.7); EOSINOPHILS % (AUTO) 1.1 %; LYMPHOCYTES # (AUTO) 0.8 10^3/uL (1.5-3.5); LYMPHOCYTES % (AUTO) 17.4 %; MEAN CORPUSCULAR HEMOGLOBIN 30.2 pg (27.0-31.0); MEAN CORPUSCULAR HGB CONC 32.9 g/dL (32.0-36.0); MEAN CORPUSCULAR VOLUME 91.7 fL (80.0-94.0); MEAN PLATELET VOLUME 9.9 fL (7.4-11.4); MONOCYTES # (AUTO) 0.3 10^3/uL (0.0-1.0); MONOCYTES % (AUTO) 7.6 %; NEUTROPHILS # (AUTO) 3.2 10^3/uL (1.5-6.6); NEUTROPHILS % (AUTO) 72.4 %; PLT - PLATELET COUNT 127 10^3/uL (130-450); RED BLOOD COUNT 3.98 10^6/uL (4.70-6.10); RED CELL DISTRIBUTION WIDTH 16.8 % (12.0-15.0); WHITE BLOOD COUNT 4.5 x10^3/uL (4.8-10.8)
[2018-12-22 05:39] LABS: ALBUMIN 3.5 g/dL (3.2-5.5); ALBUMIN/GLOBULIN RATIO 1.2 (1.0-2.2); BILIRUBIN,TOTAL 0.6 mg/dL (0.2-1.0); CALCIUM 8.4 mg/dL (8.5-10.3); CREATININE 1.5 mg/dL (0.6-1.2); MAGNESIUM 1.7 mg/dL (1.7-2.8); TOTAL PROTEIN 6.4 g/dL (6.7-8.2)
--- NOTE | 2018-12-22 05:53 | XRAY Report ---
Reason: dyspnea/ cough Procedure Date: 12/22/2018 Accession Number: [id number] / [id number] Procedure: XR - Chest 2 View X-Ray CPT Code: 46067 FULL RESULT: EXAM: CHEST RADIOGRAPHY EXAM DATE: 12/22/2018 05:45 AM CLINICAL HISTORY: Dyspnea, cough. COMPARISON: CHEST 2 VIEW 07/20/2018 11:23 AM, THORAX CHEST WO XCARE (ADULT) 07/16/2018 10:37 AM, THORAX 01 XCARE CHEST IV 07/24/2016 6:24 PM, CHEST ANGIO 12/28/2017 11:37 PM, CT KUB 12/30/2017 1:48 PM. TECHNIQUE: 2 views. FINDINGS: Lungs/Pleura: No focal opacities evident with the exception of mild left lung base scarring. No pleural effusion. No pneumothorax. Normal volumes. Mediastinum: Heart and mediastinal contours are unremarkable. Other: None. IMPRESSION: No acute process seen in the chest. RADIA
[2018-12-22] MEDS ORDERED: ALBUTEROL NEB 2.5 MG/3 ML INH STA (07:12)
[2018-12-22] MEDS ORDERED: BENZONATATE 100 MG CAPSULE PO STA (07:16)
[2018-12-22] MEDS ORDERED: ACETAMINOPHEN 325 MG TABLET PO PRN (07:55)
[2018-12-22] MEDS ORDERED: ONDANSETRON 4 MG/2 ML VIAL IVP PRN (07:55)
[2018-12-22] MEDS ORDERED: ZOLPIDEM 5 MG TABLET PO PRN (07:55)
[2018-12-22] MEDS ORDERED: SODIUM CHLORIDE FLUSH 0.9% 10 ML SYRINGE IVP PRN (07:55)
[2018-12-22] MEDS ORDERED: SODIUM CHLORIDE 0.9% 1,000 ML IV SCH ×3 (08:00→09:22)
[2018-12-22] MEDS ORDERED: NITROGLYCERIN SL 0.4 MG TABLET SL PRN (08:04)
[2018-12-22] MEDS ORDERED: ALBUTEROL NEB 2.5 MG/3 ML INH PRN (08:09)
[2018-12-22] MEDS ORDERED: HYDROcod/ACETAM 5/325 MG TABLET PO PRN (08:28)
[2018-12-22] MEDS ORDERED: TEMAZEPAM 7.5 MG CAPSULE PO PRN (08:33)
[2018-12-22 08:59] LABS: HB2 TOTAL 12.6 g/dL; HEMOGLOBIN A1C 0.67 g/dL
[2018-12-22] MEDS ORDERED: ENOXAPARIN 40 MG/0.4 ML SYRINGE SUBQ SCH (09:00)
[2018-12-22] MEDS ORDERED: FERROUS SULFATE 325 MG TABLET PO SCH (09:00)
[2018-12-22] MEDS ORDERED: methylPREDNISolone SUCCINATE 40 MG/ML VIAL IVP SCH (09:00)
--- NOTE | 2018-12-22 09:20 | HISTORY & PHYSICAL EXAMINATION ---
Chief Complaint - Chief Complaint Chief Complaint: shortness of breath History of Present Illness - History of Present Illness HPI Comment/Other: Patient is an 88-year-old gentleman with a past medical history significant for coronary artery disease status post 3 stents, history of DVT and pulmonary embolism, COPD, hypertension, hyperlipidemia, BPH and chronic back pain secondary to degenerative disc disease who presented to the emergency department with a chief complaint of shortness of breath. pt's is at the bedside to provide some medical history. She report her became difficult to breath, more cough, congestion and wheezing on last , then pt came to ER for shortness of breath. pt had breath treatment in ER, then pt was discharged. pt did not feel better, then pt visited his PCP and was prescribed Doxycycline. But pt still continue shortness of breath, not feeling better. pt was reported to have 101 degree fever in EMS's record. CXR reveals no acute process seen in the chest. pt was found elevated creatinine to 1.5. When pt is at ER, pt was afebrile but slight tachycardia 110, and RR 24 and 88% sats on room air. Upon examination, pt has found to have mild to moderate wheezing on bilateral upper and right lower lobes, chest congestion and cough. pt denies chest pain, headache, vision change, fever,chill, abdominal pain, nausea, vomiting. pt was admitted for hypoxia and shortness of breath. History - Past Medical History Cardiovascular: reports: Congestive heart failure, Hypertension, High cholesterol, Coronary artery disease, Pulmonary embolism, [place] Respiratory: reports: COPD, Other (History of pulmonary embolism) Neuro: reports: None Endocrine/Autoimmune: reports: None GI: reports: GERD, Other : reports: Benign prostate hypertrophy HEENT: reports: None Psych: reports: None, Other Musculoskeletal: reports: Chronic back pain Derm: reports: None MRSA Hx?: No Other Past Medical History: acute PE, CKD, ED, facet joint syndrome, inflammatory liver diease, hyperuricemia - Past Surgical History General: reports: Appendectomy Cardiovascular: reports: Coronary stent HEENT: reports: Tonsil/Adenoidectomy - Family & Social History Family History: Mother: , CAD, Father: , Cancer, Sister: CAD Family History Comment/Other: Patient currently lives with his in [place], [place]. pt report both his parents suffered from CAD, his father from cancer. Living arrangement: At home Living Situation: With spouse/s.o. Social History Notes: The patient was born in [place] and raised in [place]. Patient currently lives with his in [place], [place]. 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 He states that over his career he lived throughout [place], [place], [place], [place], [place] and [facility]. The patient states that he only settle down on [facility] last year. The patient previously smoked cigars but quit in 1979. The patient states he has never touched alcohol and denies any illicit drug use. The patient and his are very active. - POLST Patient has POLST: No POLST Status: Full Code Meds/Allgy - Home Medications Home Medications: Ambulatory Orders Medication Instructions Recorded Confirmed Carvedilol 12.5 mg ORAL BID 06/22/16 12/22/18 Furosemide 80 mg PO DAILY 06/22/16 12/22/18 Gabapentin 300 mg PO BID 06/22/16 12/22/18 Simvastatin 80 mg PO QPM 06/22/16 12/22/18 Triazolam [Halcion] 0.25 mg PO QPM PRN 06/22/16 12/22/18 Albuterol Sulfate [Proair 2 puffs INH Q6H PRN 03/21/17 12/22/18 Respiclick] Nitroglycerin 0.4 mg PO Q5M PRN 03/21/17 12/22/18 Potassium Chloride [K-Dur] 20 meq PO DAILYWM 03/21/17 12/22/18 Tamsulosin HCl [Flomax] 0.4 mg PO DAILY 03/21/17 12/22/18 Cholecalciferol (Vitamin D3) 1,000 units PO DAILY 02/18/18 12/22/18 [Vitamin D3] Hydrocortisone 10 mg PO DAILY 02/18/18 12/22/18 Apixaban [Eliquis] 2.5 mg PO BID 02/19/18 12/22/18 Aspirin [Aspirin EC] 81 mg PO DAILY 02/19/18 12/22/18 Hydrocodone/Acetaminophen 1 tab PO Q6H PRN 02/19/18 12/22/18 [Hydrocodone-Acetamin 5-325 mg] Oxybutynin Chloride [Ditropan Xl] 10 mg PO DAILY 02/19/18 12/22/18 Allopurinol 100 mg PO DAILY 12/22/18 12/22/18 Doxycycline Hyclate [Vibramycin] 100 mg PO BID 12/22/18 12/22/18 Ferrous Sulfate 324 mg PO DAILY 12/22/18 12/22/18 Fexofenadine HCl [Nika Allergy] 180 mg PO DAILY PRN 12/22/18 12/22/18 Ipratropium/Albuterol [Duoneb] 3 ml INH Q6H 12/22/18 12/22/18 Mometasone Furoate [Asmanex] 220 mcg IH BID 12/22/18 12/22/18 metFORMIN [Glucophage] 500 mg PO BIDWM 12/22/18 12/22/18 - Allergies Allergies/Adverse Reactions: Allergies Allergy/AdvReac Type Severity Reaction Status Date / Time cefuroxime [From Ceftin] Allergy Rash Verified 12/22/18 05:18 ciprofloxacin Allergy Unknown Verified 12/22/18 05:18 nitrofurantoin Allergy Rash Verified 12/22/18 05:18 sulfamethoxazole Allergy Anaphylaxis Verified 12/22/18 05:18 [From Bactrim] trimethoprim [From Bactrim] Allergy Anaphylaxis Verified 12/22/18 05:18 Review of Systems - Constitutional Constitutional: reports: Fatigue. denies: Fever, Chills, Malaise, Weakness, Poor appetite, Diaphoresis, Night sweats - Eyes Eyes: denies: Pain, Irritation, Amaurosis, Blurred vision, Spots in vision, Field loss, Vision loss, Dipolpia - Ears, Nose & Throat Ears, Nose & Throat: denies: Ear pain, Hearing loss, Hearing aids, Tinnitus, Vertigo, Nasal pain, Nasal discharge, Nosebleeds, Postnasal drainage, Dentures, Sore throat, Hoarseness - Cardiovascular Cariovascular: denies: Irregular heart rate, Palpitations, Chest pain, Edema, Li ghtheadedness, Syncope, Exertional dyspnea, Decr. exercise tolerance - Respiratory Respiratory: reports: Cough, Sputum production, Wheezing, SOB at rest, SOB with exertion. denies: Snoring, Hemoptysis, Orthopnea - Gastrointestinal Gastrointestinal: denies: Abdominal pain, Abdominal distention, Constipation, Diarrhea, Bloody stools, Nausea, Vomiting, Godfrey blood emesis - Genitourinary Genitourinary: denies: Dysuria, Frequency, Urgency, Hematuria, Incontinence, Flank pain, Nocturia, Urethral discharge - Musculoskeletal Musculoskeletal: denies: Muscle pain, Back pain, Muscle aches, Stiffness, Limited range of motion, Muscle weakness, Gout, Joint pain - Integumentary Integumentary: denies: Rash, Pruritis, Lesions, Dryness, Lumps, Acne, Pigment changes - Neurological Neurological: denies: General weakness, Focal weakness, Headache, Dizziness, Numbness, Memory problems, Pre-existing deficit, Abnormal gait, Incoordination, Slurred speech - Psychiatric Psychiatric: denies: Depression, Anxiety, Suicidal, Delusions, Hallucinations, Homicidal - Endocrine Endocrine: denies: Polyuria, Polydypsia, Polyphagia, Intolerance to cold - Hematologic/Lymphatic Hematologic/Lymphatic: denies: Anemia, Bruising, Petechiae, Lymphadenopathy Exam - Vital Signs Reviewed Vital Signs: Yes Vital Signs: Vital Signs x48h Temp Pulse Resp BP Pulse Ox 12/22/18 09:03 36.8 C 98 24 125/75 95 12/22/18 07:28 98 24 158/96 H 96 12/22/18 07:26 98 23 12/22/18 06:48 36.9 C 101 H 20 92 12/22/18 06:09 96 12/22/18 05:19 106 H 22 95 12/22/18 05:00 107 H 23 94 12/22/18 04:35 37.0 C 110 H 24 149/103 H 88 L - Physical Exam General Appearance: positive: No acute distress, Alert. negative: Lethargic Eyes Bilateral: positive: Normal inspection, PERRL, EOMI. negative: No lid inflammation, Conjunctivae nml, No scleral icterus ENT: positive: ENT inspection nml, Pharynx nml, No signs of dehydration. negative: Purulent nasal drainage, Pharyngeal erythema, Oral lesions Neck: positive: Nml inspection, Thyroid nml, No JVD, Trachea midline. negative: Thyromegaly, Lymphadenopathy (R), Lymphadenopathy (L), Stiff neck, Swelling/bruising, Tracheal deviation Respiratory: positive: Chest non-tender, Wheezes. negative: No respiratory distress, Breath sounds nml, Rales, Rhonchi Cardiovascular: positive: Regular rate & rhythm, No murmur, No gallop. negative: Irregularly irregular, Extrasystoles, Tachycardia, Bradycardia, JVD present, Systolic murmur, Diastolic murmur Peripheral Pulses: positive: 2+ Abdomen: positive: Non-tender, No organomegaly, Nml bowel sounds, No distention. negative: Tenderness, Guarding, Rebound Back: positive: Nml inspection. negative: CVA tenderness (R), CVA tenderness (L) Skin: positive: Color nml, No rash, Warm, Dry. negative: Cyanosis, Diaphoresis, Pallor Extremities: positive: Non-tender, Full ROM, Nml appearance. negative: Calf tenderness, Joint swelling, Little's sign/cords Neurologic/Psychiatric: positive: Oriented x3, Sensation nml, Mood/affect nml. negative: Weakness, Sensory loss, Facial droop, Slurred/abnml speech, Depressed mood/affect Sepsis Event Note (H) - Evaluation Current Stage of Sepsis: Ruled out Conclusion/Plan - Problem List (1) Shortness of breath Conclusion/Plan: pt present SOB on rest and exertion. pt also present cough, chest congestion, fever. pt hx of COPD and smoking history. Although pt has hx of DVT and PE, pt has been on Eliquis at home meds, it is unlikely pt has PE or DVT. treat underline of COPD exacerbation and bronchitis with breath treatment, steroid, and antibiotics supplement of O2 as needed (2) Acute exacerbation of COPD with asthma Conclusion/Plan: pt hx of COPD, now clinic pt present wheezing on ex/inhalation, cough, and hypoxia. treat with steroid Duoneb, albuterol, singular, and pulmocort supplement of O2 PRN (3) Acute bronchitis Conclusion/Plan: pt was prescribed antibiotics as out-pt but unsuccessfully. pt has one episode of fever at 101 degree. CXR did not reveal acute process. ER gave pt once of Azithromycin continue Azithromycin continue breath treatment. (4) Fever Conclusion/Plan: pt has once fever by EMS measure, but no fever on ER. pt denies fever/chill at home. it is likely caused by bronchitis blood culture, will followup sputum culture antibiotics Azithromycin gently IVF of NS (5) Confusion Conclusion/Plan: it is likely caused by acute disease. pt is better now for his mental status, nearly return his baseline neuro check treat underline infection, acute COPD (6) Dehydration Conclusion/Plan: pt's creatinine is 1.5, increase from 1.0 and 1.3 recently. clinic present dry mouth, slight reduced capillary refill time. pt also had once fever at 101 degree. Gently hydration with IVF of NS, closely monitor pt's fluid over load. daily lab and vital monitor (7) Hx of coronary artery disease Conclusion/Plan: pt denies chest pain, dizziness. Troponin is negative. EKG is no acute variation continue home meds eliquis and aspirin tele and vital monitor pt is full code status in PLOST and currently request. (8) Hx of deep venous thrombosis Conclusion/Plan: pt has hx of DVT and PE, pt has home meds Eliquis. now pt is stable. reconcile Eliquis (9) Diabetes Conclusion/Plan: pt is on Metformin control at home only. will hold Metformin now and start low degree of slide scale, ACHS, hypoglycemia protocol. (10) Sleep apnea Conclusion/Plan: pt report sleep apnea. pt is allowed to bring his own CPAP, RT was consulted for setting up for. - Lab Results Fish Bones: 12/22/18 05:14 12/22/18 05:14 Core Measures - Anticipated LOS I expect patient to be DC'd or transferred within 96 hours.: Yes - DVT/VTE - Prophylaxis VTE/DVT Device ordered at admit?: Yes VTE/DVT Prophylaxis med ordered at admit?: Yes
[2018-12-22] MEDS: SODIUM CHLORIDE FLUSH 0.9% 10 ML SYRINGE IVP SCH ×2 (11:00→17:13)
[2018-12-22] MEDS: ASPIRIN EC 81 MG TABLET PO SCH (11:05)
[2018-12-22] MEDS: TAMSULOSIN 0.4 MG CAPSULE PO SCH (11:06)
[2018-12-22] MEDS: APIXABAN 2.5 MG TABLET PO SCH ×2 (11:08→21:21)
[2018-12-22] MEDS: OXYBUTYNIN 5MG TABLET PO SCH ×2 (11:09→21:22)
[2018-12-22] MEDS: guaiFENesin 600 MG TABLET PO SCH ×2 (11:09→21:21)
[2018-12-22] MEDS: GABAPENTIN 300 MG CAPSULE PO SCH ×2 (11:09→21:22)
[2018-12-22] MEDS: CARVEDILOL 12.5 MG TABLET PO SCH ×2 (11:10→21:22)
[2018-12-22] MEDS: FAMOTIDINE 20 MG TABLET PO SCH ×2 (11:10→21:22)
[2018-12-22] MEDS: POLYETHYLENE GLYCOL 3350 17 GM PACKET PO SCH (11:11)
[2018-12-22] MEDS: INSULIN ASPART 300 UNIT/3 ML PEN SUBQ SCH ×3 (12:16→21:22)
[2018-12-22] MEDS: IPRATROPIUM/ALBUTEROL 3 ML NEB INH PRN (15:45)
[2018-12-22] MEDS ORDERED: FEXOFENADINE 60 MG TABLET PO PRN (16:38)
[2018-12-22] MEDS: methylPREDNISolone SUCCINATE 40 MG/ML VIAL IVP SCH (19:32)
[2018-12-22] MEDS: BUDESONIDE 0.5 MG/2 ML NEB INH SCH (19:46)
[2018-12-22] MEDS ORDERED: MONTELUKAST 10 MG TABLET PO SCH (21:00)
[2018-12-23] MEDS ORDERED: SODIUM CHLORIDE 0.9% 500 ML IV PRN (00:35)
[2018-12-23] MEDS: SODIUM CHLORIDE FLUSH 0.9% 10 ML SYRINGE IVP SCH ×2 (02:47→08:34)
[2018-12-23] MEDS: methylPREDNISolone SUCCINATE 40 MG/ML VIAL IVP SCH (02:47)
[2018-12-23] MEDS: IPRATROPIUM/ALBUTEROL 3 ML NEB INH PRN ×2 (04:28→08:55)
[2018-12-23 04:31] LABS: BILIRUBIN,URINE NEGATIVE (NEGATIVE); GLUCOSE, URINE (UA) 100 mg/dL (NEGATIVE); KETONES,URINE (UA) NEGATIVE (NEGATIVE); LEUKOCYTE ESTERASE, URINE NEGATIVE (NEGATIVE); NITRITE,URINE NEGATIVE (NEGATIVE); OCCULT BLOOD,URINE SMALL (NEGATIVE); PH,URINE 5.5 PH (5.0-7.5); PROTEIN,URINE NEGATIVE (NEGATIVE); UROBILINOGEN,URINE 0.2 (NORMAL) E.U./dL (NORMAL)
[2018-12-23 04:32] LABS: CLARITY,URINE CLEAR (CLEAR)
[2018-12-23 04:46] LABS: BACTERIA,URINE Rare /HPF (None Seen); RBC,URINE 0-5 /HPF (0-5); SQUAMOUS EPITHELIAL CELL,UR FEW Squamous (<= Few)
[2018-12-23 05:44] LABS: HGB - HEMOGLOBIN 11.5 g/dL (14.0-18.0); LYMPHOCYTES # (AUTO) 0.6 10^3/uL (1.5-3.5); LYMPHOCYTES % (AUTO) 10.8 %; MEAN CORPUSCULAR HEMOGLOBIN 29.5 pg (27.0-31.0); MEAN CORPUSCULAR HGB CONC 32.9 g/dL (32.0-36.0); MEAN CORPUSCULAR VOLUME 89.7 fL (80.0-94.0); MEAN PLATELET VOLUME 10.1 fL (7.4-11.4); MONOCYTES # (AUTO) 0.1 10^3/uL (0.0-1.0); MONOCYTES % (AUTO) 2.4 %; NEUTROPHILS # (AUTO) 4.9 10^3/uL (1.5-6.6); NEUTROPHILS % (AUTO) 85.9 %; PLT - PLATELET COUNT 131 10^3/uL (130-450); RED CELL DISTRIBUTION WIDTH 16.3 % (12.0-15.0); WHITE BLOOD COUNT 5.8 x10^3/uL (4.8-10.8)
[2018-12-23 05:56] LABS: CALCIUM 8.5 mg/dL (8.5-10.3); CREATININE 1.1 mg/dL (0.6-1.2)
[2018-12-23] MEDS ORDERED: POTASSIUM CHLORIDE 20 MEQ TABLET PO SCH (07:20)
[2018-12-23] MEDS ORDERED: methylPREDNISolone SUCCINATE 40 MG/ML VIAL IVP SCH (08:00)
[2018-12-23] MEDS ORDERED: INSULIN ASPART 300 UNIT/3 ML PEN SUBQ SCH (08:00)
[2018-12-23] MEDS: FAMOTIDINE 20 MG TABLET PO SCH (08:31)
[2018-12-23] MEDS: APIXABAN 2.5 MG TABLET PO SCH (08:31)
[2018-12-23] MEDS: guaiFENesin 600 MG TABLET PO SCH (08:31)
[2018-12-23] MEDS: CARVEDILOL 12.5 MG TABLET PO SCH (08:31)
[2018-12-23] MEDS: GABAPENTIN 300 MG CAPSULE PO SCH (08:32)
[2018-12-23] MEDS: TAMSULOSIN 0.4 MG CAPSULE PO SCH (08:32)
[2018-12-23] MEDS: OXYBUTYNIN 5MG TABLET PO SCH (08:32)
[2018-12-23] MEDS: ASPIRIN EC 81 MG TABLET PO SCH (08:32)
[2018-12-23] MEDS: INSULIN ASPART 300 UNIT/3 ML PEN SUBQ SCH ×2 (08:33→12:10)
[2018-12-23] MEDS ORDERED: WATER FOR INJECTION,STERILE 10 ML ONE (08:34)
[2018-12-23] MEDS: POLYETHYLENE GLYCOL 3350 17 GM PACKET PO SCH (08:34)
[2018-12-23] MEDS: BUDESONIDE 0.5 MG/2 ML NEB INH SCH (08:56)
[2018-12-23] MEDS ORDERED: AZITHROMYCIN INJ 250 MG in SODIUM CHLORIDE 0.9% 250 ML IV SCH ×4 (09:00)
[2018-12-23] MEDS ORDERED: AZITHROMYCIN INJ 500 MG in SODIUM CHLORIDE 0.9% 250 ML IV SCH (09:00)
[2018-12-23] MEDS ORDERED: FERROUS SULFATE 325 MG TABLET PO SCH (09:00)
--- NOTE | 2018-12-23 14:49 | Discharge Plan ---
Discharge Plan Problem Reviewed?: Yes Disposition: Home, Self Care Condition: Poor Prescriptions: Azithromycin 250 mg PO DAILY #4 tablet predniSONE [Deltasone] 10 mg PO [id number] #31 tab Diet: Diabetic Activity Restrictions: Activity as Tolerated Shower Restrictions: No (fall precaution) Instruction Topics: COPD, Bronchitis Acute Dc, Azithromycin tablets, Prednisone tablets Health Concerns: COPD, bronchitis Plan of Treatment: your hypoxia, wheezing, congestion are resolved after treatment. You are prescribed Prednisone for short term and wane off the dosage. Please continue your breath treatment in your home as needed. Antibiotics Azithromycin is prescribed for you as well. Care Goals: stabilization and improvement for your medical conditions Assessment: assessment as the above Additional Instructions or Follow Up instructions: you may followup your PCP in one week. Should your symptoms return or worsen, you may present ER, or call 911 for help. Follow-Up Care: [facility] No Smoking: If you smoke, Please STOP! Call for help. Follow-up with: Arden Serrato MD [Primary Care Provider] -
--- NOTE | 2018-12-23 15:01 | DISCHARGE SUMMARY ---
Discharge Summary Discharge Date: 12/23/18 Discharging Provider: ZULETA Primary Care Provider: Dr. Serrato Condition at Discharge: Poor Discharge Disposition: 01 Home, Self Care Discharge Facility Name: home - DIAGNOSES Admission Diagnoses: (1) Shortness of breath (2) Acute exacerbation of COPD with asthma (3) Acute bronchitis (4) Fever (5) Confusion (6) Dehydration (7) Hx of coronary artery disease (8) Hx of deep venous thrombosis (9) Diabetes (10) Sleep apnea Discharge Diagnoses with Status of Each Condition: 1) Shortness of breath resolved. pt had 95% sats on room air when he walked with nurse (2) Acute exacerbation of COPD with asthma resolved and stable (3) Acute bronchitis stable, continue antibiotics treatment course (4) Fever resolved. blood culture was negative (5) Confusion resolved (6) Dehydration resolved (7) Hx of coronary artery disease stable (8) Hx of deep venous thrombosis stable, continue home eliquis (9) Diabetes stable, continue home Metformin (10) Sleep apnea stable - HPI History of Present Illness: Patient is an 88-year-old gentleman with a past medical history significant for coronary artery disease status post 3 stents, history of DVT and pulmonary embolism, COPD, hypertension, hyperlipidemia, BPH and chronic back pain secondary to degenerative disc disease who presented to the emergency department with a chief complaint of shortness of breath. pt's is at the bedside to provide some medical history. She report her became difficult to breath, more cough, congestion and wheezing on last , then pt came to ER for shortness of breath. pt had breath treatment in ER, then pt was discharged. pt did not feel better, then pt visited his PCP and was prescribed Doxycycline. But pt still continue shortness of breath, not feeling better. pt was reported to have 101 degree fever in EMS's record. CXR reveals no acute process seen in the chest. pt was found elevated creatinine to 1.5. When pt is at ER, pt was afebrile but slight tachycardia 110, and RR 24 and 88% sats on room air. Upon examination, pt has found to have mild to moderate wheezing on bilateral upper and right lower lobes, chest congestion and cough. pt denies chest pain, headache, vision change, fever,chill, abdominal pain, nausea, vomiting. pt was admitted for hypoxia and shortness of breath. - HOSPITAL COURSE Hospital Course: pt was admitted for SOB. pt failed out-pt treatment. pt was found to have COPD exacerbation, acute bronchitis, RUSSELL. pt was treated with Steroid and breath treatment. pt's reparatory status was quickly recovered to his normal baseline status after treatment. pt walked with nurse without SOB, and had 95% sats room air, 97% sats on room air at rest. The detail hospital course is as the following 1) Shortness of breath resolved. pt walked with nurse without SOB. pt had 95% sats on room air when he walked with nurse. 97% sats on room air at rest (2) Acute exacerbation of COPD with asthma resolved and stable. pt is prescribed 10 days of Predinsone and gradually wane off dosage. continue home breath treat as needed, followup PCP. (3) Acute bronchitis stable, continue antibiotics Azithromycin treatment course (4) Fever resolved. blood culture was negative (5) Confusion resolved (6) Dehydration resolved. Creatinine was down to 1.1 (7) Hx of coronary artery disease stable (8) Hx of deep venous thrombosis stable, continue home eliquis (9) Diabetes stable, continue home Metformin (10) Sleep apnea stable - ALLERGIES Allergies/Adverse Reactions: Allergies Allergy/AdvReac Type Severity Reaction Status Date / Time cefuroxime [From Ceftin] Allergy Rash Verified 12/22/18 05:18 ciprofloxacin Allergy Unknown Verified 12/22/18 05:18 nitrofurantoin Allergy Rash Verified 12/22/18 05:18 sulfamethoxazole Allergy Anaphylaxis Verified 12/22/18 05:18 [From Bactrim] trimethoprim [From Bactrim] Allergy Anaphylaxis Verified 12/22/18 05:18 - MEDICATIONS Home Medications: Ambulatory Orders Medication Instructions Recorded Confirmed Carvedilol 12.5 mg ORAL BID 06/22/16 12/22/18 Furosemide 80 mg PO DAILY 06/22/16 12/22/18 Gabapentin 300 mg PO BID 06/22/16 12/22/18 Simvastatin 80 mg PO QPM 06/22/16 12/22/18 Triazolam [Halcion] 0.25 mg PO QPM PRN 06/22/16 12/22/18 Albuterol Sulfate [Proair 2 puffs INH Q6H PRN 03/21/17 12/22/18 Respiclick] Nitroglycerin 0.4 mg PO Q5M PRN 03/21/17 12/22/18 Potassium Chloride [K-Dur] 20 meq PO DAILYWM 03/21/17 12/22/18 Tamsulosin HCl [Flomax] 0.4 mg PO DAILY 03/21/17 12/22/18 Cholecalciferol (Vitamin D3) 1,000 units PO DAILY 02/18/18 12/22/18 [Vitamin D3] Hydrocortisone 10 mg PO DAILY 02/18/18 12/22/18 Apixaban [Eliquis] 2.5 mg PO BID 02/19/18 12/22/18 Aspirin [Aspirin EC] 81 mg PO DAILY 02/19/18 12/22/18 Hydrocodone/Acetaminophen 1 tab PO Q6H PRN 02/19/18 12/22/18 [Hydrocodone-Acetamin 5-325 mg] Oxybutynin Chloride [Ditropan Xl] 10 mg PO DAILY 02/19/18 12/22/18 Allopurinol 100 mg PO DAILY 12/22/18 12/22/18 Ferrous Sulfate 324 mg PO DAILY 12/22/18 12/22/18 Fexofenadine HCl [Nika Allergy] 180 mg PO DAILY PRN 12/22/18 12/22/18 Ipratropium/Albuterol [Duoneb] 3 ml INH Q6H 12/22/18 12/22/18 Mometasone Furoate [Asmanex] 220 mcg IH BID 12/22/18 12/22/18 metFORMIN [Glucophage] 500 mg PO BIDWM 12/22/18 12/22/18 Azithromycin 250 mg PO DAILY #4 tablet 12/23/18 predniSONE [Deltasone] 10 mg PO [id number] #31 tab 12/23/18 - PHYSICAL EXAM AT DISCHARGE General Appearance: positive: No acute distress, Alert. negative: Lethargic Eyes Bilateral: positive: Normal inspection, PERRL, No lid inflammation, Conjunctivae nml ENT: positive: ENT inspection nml, Pharynx nml, No signs of dehydration. negative: Purulent nasal drainage, Pharyngeal erythema Neck: positive: Nml inspection, Thyroid nml, No JVD, Trachea midline. negative: Thyromegaly, Lymphadenopathy (R), Lymphadenopathy (L), Stiff neck, Swelling/bruising, Tracheal deviation Respiratory: positive: Chest non-tender, No respiratory distress, Breath sounds nml. negative: Wheezes, Rales, Rhonchi Cardiovascular: positive: Regular rate & rhythm, No murmur, No gallop. negative: Irregularly irregular, Extrasystoles, Tachycardia, Bradycardia, JVD present, Systolic murmur, Diastolic murmur Peripheral Pulses: positive: 2+ Abdomen: positive: Non-tender, No organomegaly, Nml bowel sounds, No distention. negative: Tenderness, Guarding, Rebound Back: positive: Nml inspection. negative: CVA tenderness (R), CVA tenderness (L) Skin: positive: Color nml, No rash, Warm, Dry. negative: Cyanosis, Diaphoresis, Pallor Extremities: positive: Non-tender, Full ROM, Nml appearance. negative: Calf tenderness, Joint swelling, Little's sign/cords Neurologic/Psychiatric: positive: Oriented x3, Motor nml, Sensation nml, Mood/affect nml. negative: Weakness, Sensory loss, Facial droop, Slurred/abnml speech, Depressed mood/affect - LABS Result Diagrams: 12/23/18 05:14 12/23/18 05:14 - SEPSIS Current Stage of Sepsis: Ruled out - FOLLOW UP Follow Up: your hypoxia, wheezing, congestion are resolved after treatment. You are prescribed Prednisone for short term and wane off the dosage. Please continue your breath treatment in your home as needed. Antibiotics Azithromycin is prescribed for you as well. you may followup your PCP in one week. Should your symptoms return or worsen, you may present ER, or call 911 for help. - TIME SPENT Time Spent in Discharge (Minutes): 60
[2018-12-23 16:20] VITALS: BP 133/87
[2018-12-24] MEDS ORDERED: AZITHROMYCIN INJ 250 MG in SODIUM CHLORIDE 0.9% 250 ML IV SCH (09:00)
== END 2018-12-23 16:30 | disposition home or self-care (01) | DRG 191 ==
LOC: EDUNIT# → ED 04:38 → UNDOADMIN 07:55 → MS2 07:55 → UNDODISIN 12-23 16:30
PROVIDERS: ADMIT Nurse Practitioner Gerontology; ATTEND Nurse Practitioner Gerontology
DX: J44.1 Chronic obstructive pulmonary disease with (acute) exacerbation (principal); N17.9 Acute kidney failure, unspecified; I13.0 Hypertensive heart and chronic kidney disease with heart failure and stage 1 through stage 4 chronic kidney disease, or unspecified chronic kidney disease; J20.9 Acute bronchitis, unspecified; R41.0 Disorientation, unspecified; J44.0 Chronic obstructive pulmonary disease with (acute) lower respiratory infection; E86.0 Dehydration; R09.02 Hypoxemia; I25.10 Atherosclerotic heart disease of native coronary artery without angina pectoris; E11.22 Type 2 diabetes mellitus with diabetic chronic kidney disease; N18.9 Chronic kidney disease, unspecified; G47.30 Sleep apnea, unspecified; I11.0 Hypertensive heart disease with heart failure; I50.9 Heart failure, unspecified; E78.5 Hyperlipidemia, unspecified; N40.0 Benign prostatic hyperplasia without lower urinary tract symptoms; G89.29 Other chronic pain; M54.9 Dorsalgia, unspecified; E79.0 Hyperuricemia without signs of inflammatory arthritis and tophaceous disease; I25.2 Old myocardial infarction; Z79.01 Long term (current) use of anticoagulants; Z79.899 Other long term (current) drug therapy; Z86.718 Personal history of other venous thrombosis and embolism; Z79.84 Long term (current) use of oral hypoglycemic drugs; Z95.5 Presence of coronary angioplasty implant and graft; Z86.711 Personal history of pulmonary embolism; Z88.1 Allergy status to other antibiotic agents; Z88.2 Allergy status to sulfonamides; Z79.82 Long term (current) use of aspirin; Z79.51 Long term (current) use of inhaled steroids; Z87.891 Personal history of nicotine dependence
CPT/HCPCS: 36415; 71046; 80048; 80053; 81001; 83036; 83605; 83690; 83735; 83880; 84484; 85025; 87040; 93005; 93306; 94640; 96365; 99284; 99285; A9270; J7626; 87086

== ENCOUNTER 2019-01-01 21:38 | Outpatient (CLI) | payer MEDICARE, OTHER | END 2019-01-01 21:39 | disposition critical access hospital (66) | LOC: EMS 21:38 | PROVIDERS: ATTEND Surgery | DX: M25.571 Pain in right ankle and joints of right foot (principal); W18.39XA Other fall on same level, initial encounter; Y92.002 Bathroom of unspecified non-institutional (private) residence as the place of occurrence of the external cause | CPT/HCPCS: A0425; A0429 ==

== ENCOUNTER 2019-01-01 22:10 | Emergency (ER) | payer MEDICARE, OTHER ==
--- NOTE | 2019-01-01 22:22 | ED Physician Documentation ---
PD HPI LOWER EXT INJURY - Stated complaint Stated Complaint: GLF/WEAKNESS - Chief complaint Chief Complaint: Neuro - History obtained from History obtained from: Patient - History of Present Illness PD HPI LOW EXT INJURY LOCATION: Right, Ankle Type of injury: Fall, Twist Where injury occurred: Home Timing - onset: Today Timing - duration: Minutes Timing - details: Abrupt onset, Still present Improved by: Rest, Immobilization Worsened by: Moving, Palpating Associated symptoms: Swelling. No: Weakness, Numbness Contributing factors: Anticoagulated Similar symptoms before: Has not had sx before Recently seen: Clinic, Admitted - Additional information Additional information: 88-year-old male with a history of advanced COPD who was recently been hospitalized was home this evening after going to visit his doctors in [place] today for for follow-up visits. He was on the commode and when he went to get up from the commode he felt a bit weak his left knee which is his bad knee gave out on him and his right ankle twisted. He has had pain in this ankle he has been able to get around on it with his walker but is not able to bear weight on this ankle. He is brought to the hospital now by ambulance. Review of Systems Constitutional: denies: Fever Ears: denies: Ear pain Nose: denies: Congestion Throat: denies: Sore throat Cardiac: denies: Chest pain / pressure Respiratory: reports: Dyspnea, Cough, Wheezing GI: denies: Vomiting Musculoskeletal: reports: Joint pain, Joint swelling, Pain with weight bearing Neurologic: reports: Generalized weakness. denies: Focal weakness, Numbness PD PAST MEDICAL HISTORY - Past Medical History Past Medical History: Yes Cardiovascular: Congestive heart failure, Hypertension, High cholesterol, Coronary artery disease, Pulmonary embolism, [place] Respiratory: COPD, Other Neuro: None Endocrine/Autoimmune: None GI: GERD, Other : Benign prostate hypertrophy HEENT: None Psych: None, Other Musculoskeletal: Chronic back pain Derm: None - Past Surgical History Past Surgical History: Yes General: Appendectomy Ortho: Shoulder arthroplasty, Spine surgery Cardiovascular: Coronary stent HEENT: Tonsil/Adenoidectomy - Present Medications Home Medications: Ambulatory Orders Medication Instructions Recorded Confirmed Carvedilol 12.5 mg ORAL BID 06/22/16 12/22/18 Furosemide 80 mg PO DAILY 06/22/16 12/22/18 Gabapentin 300 mg PO BID 06/22/16 12/22/18 Simvastatin 80 mg PO QPM 06/22/16 12/22/18 Triazolam [Halcion] 0.25 mg PO QPM PRN 06/22/16 12/22/18 Albuterol Sulfate [Proair 2 puffs INH Q6H PRN 03/21/17 12/22/18 Respiclick] Nitroglycerin 0.4 mg PO Q5M PRN 03/21/17 12/22/18 Potassium Chloride [K-Dur] 20 meq PO DAILYWM 03/21/17 12/22/18 Tamsulosin HCl [Flomax] 0.4 mg PO DAILY 03/21/17 12/22/18 Cholecalciferol (Vitamin D3) 1,000 units PO DAILY 02/18/18 12/22/18 [Vitamin D3] Hydrocortisone 10 mg PO DAILY 02/18/18 12/22/18 Apixaban [Eliquis] 2.5 mg PO BID 02/19/18 12/22/18 Aspirin [Aspirin EC] 81 mg PO DAILY 02/19/18 12/22/18 Hydrocodone/Acetaminophen 1 tab PO Q6H PRN 02/19/18 12/22/18 [Hydrocodone-Acetamin 5-325 mg] Oxybutynin Chloride [Ditropan Xl] 10 mg PO DAILY 02/19/18 12/22/18 Allopurinol 100 mg PO DAILY 12/22/18 12/22/18 Ferrous Sulfate 324 mg PO DAILY 12/22/18 12/22/18 Fexofenadine HCl [Nika Allergy] 180 mg PO DAILY PRN 12/22/18 12/22/18 Ipratropium/Albuterol [Duoneb] 3 ml INH Q6H 12/22/18 12/22/18 Mometasone Furoate [Asmanex] 220 mcg IH BID 12/22/18 12/22/18 metFORMIN [Glucophage] 500 mg PO BIDWM 12/22/18 12/22/18 Azithromycin 250 mg PO DAILY #4 tablet 12/23/18 predniSONE [Deltasone] 10 mg PO [id number] #31 tab 12/23/18 - Allergies Allergies/Adverse Reactions: Allergies Allergy/AdvReac Type Severity Reaction Status Date / Time cefuroxime [From Ceftin] Allergy Rash Verified 01/01/19 22:16 ciprofloxacin Allergy Unknown Verified 08/30/19 22:16 nitrofurantoin Allergy Rash Verified 01/01/19 22:16 sulfamethoxazole Allergy Anaphylaxis Verified 01/01/19 22:16 [From Bactrim] trimethoprim [From Bactrim] Allergy Anaphylaxis Verified 01/01/19 22:16 - Social History Does the pt smoke?: No Smoking Status: Never smoker Does the pt drink ETOH?: No Does the pt have substance abuse?: No - Immunizations Immunizations are current?: Yes - POLST Patient has POLST: No POLST Status: Full Code PD ED PE NORMAL - Vitals Vital signs reviewed: Yes (hypertensive ) - General General: Alert and oriented X 3, No acute distress, Well developed/nourished - HEENT HEENT: Atraumatic, PERRL - Neck Neck: Supple, no meningeal sign, No bony TTP - Cardiac Cardiac: No murmur, Other (irregularly irregular ) - Respiratory Respiratory: No respiratory distress, Other (diminished breath sounds bilat) - Abdomen Abdomen: Soft, Non tender - Derm Derm: Normal color, Warm and dry, No rash - Extremities Extremities: Other (There is swelling and tenderness over the talofibular ligam ent. There is pain to flexion/extention of the ankle. Distal n/v is intact. 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 The bones are osteopenic. 2 No displaced acute fracture. 3 Soft tissue swollen anterior to the distal tibia may represent a hematoma, however extensor tendon injury should be excluded clinically. 4. Severe peripheral arterial disease is present), EMP read indepedently, See rad report PD MEDICAL DECISION MAKING - ED course Complexity details: reviewed old records, reviewed results, re-evaluated patient, considered differential, d/w patient, d/w family ED course: 88-year-old male getting up off the commode collapsed with pain in his left knee and has injured his right ankle. He has swelling and tenderness ankles without fracture he is placed into a Airc[employer] and road tested. Departure - Departure Disposition: 01 Home, Self Care Clinical Impression: Right ankle sprain Qualifiers: Encounter type: initial encounter Involved ligament of ankle: calcaneofibular ligament Qualified Code(s): S93.411A - Sprain of calcaneofibular ligament of right ankle, initial encounter Instructions: ED Sprain Ankle W X Ray Follow-Up: Your, orthopedis [Other]
--- NOTE | 2019-01-01 22:48 | XRAY Report ---
Reason: collapse and twist pain swelling lateral Procedure Date: 01/01/2019 Accession Number: [id number] / [id number] Procedure: XR - Ankle 3 View RT CPT Code: FULL RESULT: EXAM: RIGHT ANKLE RADIOGRAPHY EXAM DATE: 01/01/2019 10:27 PM. CLINICAL HISTORY: Trauma COMPARISON: None. TECHNIQUE: 3 views. FINDINGS: Bones: The bones are osteopenic. No displaced acute fracture. No suspicious osseous lesion. Bulky calcaneal spur. Joints: Mild tibiotalar joint osteoarthritis. There is also moderate osteoarthritis of the midfoot. No dislocation. Other: Severe peripheral arterial disease is present. Soft tissue swelling anterior to the distal tibial. IMPRESSION: 1. The bones are osteopenic. 2. No displaced acute fracture. 3. Soft tissue swollen anterior to the distal tibia may represent a hematoma, however, extensor tendon injury should be excluded clinically. 4. Severe peripheral arterial disease is present. RADIA
[2019-01-01 23:43] VITALS: BP 142/94
== END 2019-01-02 00:10 | disposition home or self-care (01) ==
LOC: EDUNIT# → ED 22:10
DX: S93.411A Sprain of calcaneofibular ligament of right ankle, initial encounter (principal); W18.11XA Fall from or off toilet without subsequent striking against object, initial encounter; Y93.89 Activity, other specified; Y92.002 Bathroom of unspecified non-institutional (private) residence as the place of occurrence of the external cause; I10 Essential (primary) hypertension
CPT/HCPCS: 99282; 99283

== ENCOUNTER 2019-01-04 19:46 | Outpatient (CLI) | payer MEDICARE, OTHER | END 2019-01-04 19:47 | disposition short-term general hospital (02) | LOC: EMS 19:46 | PROVIDERS: ATTEND Surgery | DX: R53.1 Weakness (principal); R53.81 Other malaise; R06.02 Shortness of breath | CPT/HCPCS: A0425; A0429 ==

== ENCOUNTER 2019-01-17 18:30 | Outpatient (CLI) | payer MEDICARE, OTHER ==
[2019-01-17 19:30] LABS: CREATININE 1.3 mg/dL (0.6-1.2)
== END 2019-01-17 23:59 | disposition home or self-care (01) ==
LOC: LAB.R 18:30
PROVIDERS: ATTEND Family Medicine
DX: N17.9 Acute kidney failure, unspecified (principal)
CPT/HCPCS: 80048

== ENCOUNTER 2019-01-21 08:30 | Outpatient (CLI) | payer MEDICARE, OTHER ==
[2019-01-21 16:55] LABS: ALBUMIN 3.2 g/dL (3.2-5.5); ALBUMIN/GLOBULIN RATIO 1.1 (1.0-2.2); BILIRUBIN,TOTAL 0.8 mg/dL (0.2-1.0); CALCIUM 8.9 mg/dL (8.5-10.3); CREATININE 1.6 mg/dL (0.6-1.2)
== END 2019-01-21 23:59 | disposition home or self-care (01) ==
LOC: LAB.R 08:30
DX: J15.9 Unspecified bacterial pneumonia (principal); R79.89 Other specified abnormal findings of blood chemistry
CPT/HCPCS: 80053

== ENCOUNTER 2019-01-27 08:15 | Outpatient (CLI) | payer MEDICARE, OTHER ==
[2019-01-27 09:39] LABS: BASOPHILS % (AUTO) 0.7 %; EOSINOPHILS # (AUTO) 0.1 10^3/uL (0.0-0.7); EOSINOPHILS % (AUTO) 1.4 %; HGB - HEMOGLOBIN 10.7 g/dL (14.0-18.0); LYMPHOCYTES # (AUTO) 1.3 10^3/uL (1.5-3.5); LYMPHOCYTES % (AUTO) 22.3 %; MEAN CORPUSCULAR HEMOGLOBIN 30.4 pg (27.0-31.0); MEAN CORPUSCULAR HGB CONC 32.2 g/dL (32.0-36.0); MEAN CORPUSCULAR VOLUME 94.3 fL (80.0-94.0); MEAN PLATELET VOLUME 9.6 fL (7.4-11.4); MONOCYTES # (AUTO) 0.5 10^3/uL (0.0-1.0); MONOCYTES % (AUTO) 8.5 %; NEUTROPHILS # (AUTO) 3.7 10^3/uL (1.5-6.6); NEUTROPHILS % (AUTO) 65.7 %; PLT - PLATELET COUNT 181 10^3/uL (130-450); RED BLOOD COUNT 3.52 10^6/uL (4.70-6.10); RED CELL DISTRIBUTION WIDTH 17.8 % (12.0-15.0); WHITE BLOOD COUNT 5.6 x10^3/uL (4.8-10.8)
[2019-01-27 10:00] LABS: CALCIUM 8.5 mg/dL (8.5-10.3); CREATININE 1.5 mg/dL (0.6-1.2)
== END 2019-01-27 23:59 | disposition home or self-care (01) ==
LOC: LAB.R 08:15
DX: N18.3 Chronic kidney disease, stage 3 (moderate) (principal); J18.8 Other pneumonia, unspecified organism
CPT/HCPCS: 80048; 85025

== ENCOUNTER 2019-02-03 10:33 | Outpatient (CLI) | payer MEDICARE, OTHER | END 2019-02-03 10:34 | disposition critical access hospital (66) | LOC: EMS 10:33 | PROVIDERS: ATTEND Surgery | DX: R50.9 Fever, unspecified (principal) | CPT/HCPCS: A0425; A0429 ==

== ENCOUNTER 2019-02-03 11:03 | Inpatient (IN) | payer MEDICARE, OTHER ==
[2019-02-03] MEDS ORDERED: ACETAMINOPHEN 325 MG TABLET PO STA (12:05)
[2019-02-03 12:08] LABS: BILIRUBIN,URINE NEGATIVE (NEGATIVE); GLUCOSE, URINE (UA) NEGATIVE (NEGATIVE); KETONES,URINE (UA) NEGATIVE (NEGATIVE); LEUKOCYTE ESTERASE, URINE MODERATE (NEGATIVE); NITRITE,URINE POSITIVE (NEGATIVE); OCCULT BLOOD,URINE SMALL (NEGATIVE); PROTEIN,URINE NEGATIVE (NEGATIVE); UROBILINOGEN,URINE 1 (NORMAL) E.U./dL (NORMAL)
[2019-02-03 12:12] LABS: BASOPHILS % (AUTO) 0.4 %; EOSINOPHILS # (AUTO) 0.1 10^3/uL (0.0-0.7); EOSINOPHILS % (AUTO) 0.9 %; LYMPHOCYTES % (AUTO) 10.7 %; MEAN CORPUSCULAR HEMOGLOBIN 30.4 pg (27.0-31.0); MEAN CORPUSCULAR HGB CONC 32.5 g/dL (32.0-36.0); MEAN CORPUSCULAR VOLUME 93.4 fL (80.0-94.0); MEAN PLATELET VOLUME 10.4 fL (7.4-11.4); MONOCYTES # (AUTO) 0.5 10^3/uL (0.0-1.0); MONOCYTES % (AUTO) 5.2 %; NEUTROPHILS # (AUTO) 7.6 10^3/uL (1.5-6.6); NEUTROPHILS % (AUTO) 82.3 %; PLT - PLATELET COUNT 215 10^3/uL (130-450); RED BLOOD COUNT 3.62 10^6/uL (4.70-6.10); RED CELL DISTRIBUTION WIDTH 17.8 % (12.0-15.0); WHITE BLOOD COUNT 9.2 x10^3/uL (4.8-10.8)
[2019-02-03 12:17] LABS: BACTERIA,URINE Moderate /HPF (None Seen); CLARITY,URINE CLOUDY (CLEAR); SQUAMOUS EPITHELIAL CELL,UR RARE Squamous (<= Few)
[2019-02-03 12:23] LABS: ALBUMIN 3.6 g/dL (3.2-5.5); ALBUMIN/GLOBULIN RATIO 1.2 (1.0-2.2); BILIRUBIN,TOTAL 0.9 mg/dL (0.2-1.0); CREATININE 1.5 mg/dL (0.6-1.2); TOTAL PROTEIN 6.6 g/dL (6.7-8.2)
--- NOTE | 2019-02-03 12:31 | ED Physician Documentation ---
PD HPI FEVER - Stated complaint Stated Complaint: FEVER - Chief complaint Chief Complaint: Resp - History obtained from History obtained from: Patient, Family - History of Present Illness Timing - onset: Last night Timing duration: Hours Timing details: Gradual onset, Still present Associated symptoms: Chills, Sweats, Urinary symptoms Contributing factors: Sick contact, COPD / asthma Similar symptoms before: Diagnosis (pneumonia and urinary tract infection) Recently seen: Admitted - Additional information Additional information: 89 y/o male Admitted into the hospital in December with bronchitis subsequently admitted to [facility] with pneumonia in the middle of January and at that time he ended up having MRSA and was called back to the hospital and he is now finished 10 days of vancomycin. He did get a reaction to the vancomycin and the last 3 days of his course were filled with Linezolid. He was discharged from [facility] to [facility] and he has been in [facility] since. Last night he developed confusion and fever and today this is worse. He does not have specific symptoms to implicate the pneumonia. Review of Systems Constitutional: reports: Fever, Chills, Myalgias, Fatigue, Sweats Eyes: denies: Decreased vision Ears: denies: Ear pain Nose: denies: Rhinorrhea / runny nose, Congestion Throat: denies: Sore throat Cardiac: denies: Chest pain / pressure, Palpitations Respiratory: reports: Dyspnea, Cough GI: denies: Abdominal Pain, Nausea, Vomiting : reports: Incontinent. denies: Dysuria, Frequency Skin: denies: Rash Musculoskeletal: denies: Neck pain, Back pain, Extremity pain Neurologic: reports: Generalized weakness. denies: Focal weakness, Numbness PD PAST MEDICAL HISTORY - Past Medical History Cardiovascular: Congestive heart failure, Hypertension, High cholesterol, Coronary artery disease, Pulmonary embolism, [place] Respiratory: COPD, Other Neuro: None Endocrine/Autoimmune: None GI: GERD, Other : Benign prostate hypertrophy HEENT: None Psych: None, Other Musculoskeletal: Chronic back pain Derm: None - Past Surgical History Past Surgical History: Yes General: Appendectomy Ortho: Shoulder arthroplasty, Spine surgery Cardiovascular: Coronary stent HEENT: Tonsil/Adenoidectomy - Present Medications Home Medications: Ambulatory Orders Medication Instructions Recorded Confirmed Carvedilol 12.5 mg ORAL BID 06/22/16 12/22/18 Furosemide 80 mg PO DAILY 06/22/16 12/22/18 Gabapentin 300 mg PO BID 06/22/16 12/22/18 Simvastatin 80 mg PO QPM 06/22/16 12/22/18 Triazolam [Halcion] 0.25 mg PO QPM PRN 06/22/16 12/22/18 Albuterol Sulfate [Proair 2 puffs INH Q6H PRN 03/21/17 12/22/18 Respiclick] Nitroglycerin 0.4 mg PO Q5M PRN 03/21/17 12/22/18 Potassium Chloride [K-Dur] 20 meq PO DAILYWM 03/21/17 12/22/18 Tamsulosin HCl [Flomax] 0.4 mg PO DAILY 03/21/17 12/22/18 Cholecalciferol (Vitamin D3) 1,000 units PO DAILY 02/18/18 12/22/18 [Vitamin D3] Hydrocortisone 10 mg PO DAILY 02/18/18 12/22/18 Apixaban [Eliquis] 2.5 mg PO BID 02/19/18 12/22/18 Aspirin [Aspirin EC] 81 mg PO DAILY 02/19/18 12/22/18 Hydrocodone/Acetaminophen 1 tab PO Q6H PRN 02/19/18 12/22/18 [Hydrocodone-Acetamin 5-325 mg] Oxybutynin Chloride [Ditropan Xl] 10 mg PO DAILY 02/19/18 12/22/18 Allopurinol 100 mg PO DAILY 12/22/18 12/22/18 Ferrous Sulfate 324 mg PO DAILY 12/22/18 12/22/18 Fexofenadine HCl [Nika Allergy] 180 mg PO DAILY PRN 12/22/18 12/22/18 Ipratropium/Albuterol [Duoneb] 3 ml INH Q6H 12/22/18 12/22/18 Mometasone Furoate [Asmanex] 220 mcg IH BID 12/22/18 12/22/18 metFORMIN [Glucophage] 500 mg PO BIDWM 12/22/18 12/22/18 Azithromycin 250 mg PO DAILY #4 tablet 12/23/18 predniSONE [Deltasone] 10 mg PO [id number] #31 tab 12/23/18 - Allergies Allergies/Adverse Reactions: Allergies Allergy/AdvReac Type Severity Reaction Status Date / Time cefuroxime [From Ceftin] Allergy Rash Verified 01/01/19 22:16 ciprofloxacin Allergy Unknown Verified 01/01/19 22:16 nitrofurantoin Allergy Rash Verified 01/01/19 22:16 sulfamethoxazole Allergy Anaphylaxis Verified 01/01/19 22:16 [From Bactrim] trimethoprim [From Bactrim] Allergy Anaphylaxis Verified 01/01/19 22:16 vancomycin Allergy Rash Verified 02/03/19 12:24 - Social History Does the pt smoke?: No Smoking Status: Never smoker Does the pt drink ETOH?: No Does the pt have substance abuse?: No - Immunizations Immunizations are current?: Yes - POLST Patient has POLST: No POLST Status: Full Code PD ED PE NORMAL - Vitals Vital signs reviewed: Yes (febrile, tachy and hypertensive ) - General General: No acute distress, Well developed/nourished, Other (The patient appears confused is pleasantly interactive. The is a good historian and an advocate. ) - HEENT HEENT: Atraumatic, PERRL, EOMI - Neck Neck: Supple, no meningeal sign, No bony TTP - Cardiac Cardiac: RRR, No murmur - Respiratory Respiratory: No respiratory distress, Other (diminished breath sounds. ) - Abdomen Abdomen: Soft, Non tender, Other (obese) - Back Back: No CVA TTP, No spinal TTP - Derm Derm: Normal color, Warm and dry, No rash - Extremities Extremities: No deformity, Other (There is trace edema bilaterally and erythema to the medial aspect of the leg from the thigh down. ) - Neuro Neuro: scale adjuster 2-12 intact, No motor deficit, No sensory deficit Eye Opening: Spontaneous Motor: Obeys Commands Verbal: Confused GCS Score: 14 - Psych Psych: Normal mood, Normal affect Results - Vitals Vitals: Vital Signs - 24 hr 02/03/19 02/03/19 02/03/19 11:06 11:35 12:36 Temperature 37.8 C H 38.5 C H Heart Rate 102 H 104 H Respiratory 21 18 Rate Blood Pressure 140/77 H 106/83 H O2 Saturation 92 95 02/03/19 13:16 Temperature 38.5 C H Heart Rate 115 H Respiratory 21 Rate Blood Pressure 133/96 H O2 Saturation 94 Oxygen O2 Source [] Nasal cannula O2 Source Nasal cannula - EKG (time done) 1217 Rate: Rate (enter#) (116) Rhythm: Sinus tachycardia QRS: Low voltage Ischemia: Q waves, Non specific changes Compare to prior EKG: Changed from prior EKG (SPT 12-22-2018 rate has increased. The tracing today is poor quality no significant changes. ) Computer interpretation: Disagree with computer (I do not see inferior ST elevation ) - Labs Labs: Laboratory Tests 02/03/19 02/03/19 02/03/19 11:14 11:14 11:26 WBC 9.2 RBC 3.62 L Hgb 11.0 L Hct 33.8 L MCV 93.4 MCH 30.4 MCHC 32.5 RDW 17.8 H Plt Count 215 MPV 10.4 Neut # (Auto) 7.6 H Lymph # (Auto) 1.0 L [place] # (Auto) 0.5 Eos # (Auto) 0.1 Baso # (Auto) 0.0 Absolute Nucleated RBC 0.00 Nucleated RBC % 0.0 Sodium 139 Potassium 4.2 Chloride 100 L Carbon Dioxide 28 Anion Gap 11.0 BUN 17 Creatinine 1.5 H Estimated GFR (MDRD) 44 L Glucose 106 H Lactic Acid Calcium 9.0 Total Bilirubin 0.9 AST 16 ALT 15 Alkaline Phosphatase 50 Total Protein 6.6 L Albumin 3.6 Globulin 3.0 Albumin/Globulin Ratio 1.2 Lipase 18 L Urine Color YELLOW Urine Clarity CLOUDY Urine pH 7.0 Ur Specific [place] <=1.005 Urine Protein NEGATIVE Urine Glucose (UA) NEGATIVE Urine Ketones NEGATIVE Urine Occult Blood SMALL H Urine Nitrite POSITIVE H Urine Bilirubin NEGATIVE Urine Urobilinogen 1 (NORMAL) Ur Leukocyte Esterase MODERATE H Urine RBC 6-10 H Urine WBC >25 H Ur Squamous Epith Cells RARE Squamous Urine Bacteria Moderate H Ur Microscopic Review INDICATED Urine Culture Comments INDICATED 02/03/19 12:55 WBC RBC Hgb Hct MCV MCH MCHC RDW Plt Count MPV Neut # (Auto) Lymph # (Auto) [place] # (Auto) Eos # (Auto) Baso # (Auto) Absolute Nucleated RBC Nucleated RBC % Sodium Potassium Chloride Carbon Dioxide Anion Gap BUN Creatinine Estimated GFR (MDRD) Glucose Lactic Acid 1.7 Calcium Total Bilirubin AST ALT Alkaline Phosphatase Total Protein Albumin Globulin Albumin/Globulin Ratio Lipase Urine Color Urine Clarity Urine pH Ur Specific [place] Urine Protein Urine Glucose (UA) Urine Ketones Urine Occult Blood Urine Nitrite Urine Bilirubin Urine Urobilinogen Ur Leukocyte Esterase Urine RBC Urine WBC Ur Squamous Epith Cells Urine Bacteria Ur Microscopic Review Urine Culture Comments - Rads (name of study) chest Radiology: Prelim report reviewed (Impression: 1. Shallow inspiration. Possible bronchitis. No definite consolidation. Follow-up suggested. 2 Borderline heart size accentuated by low lung volumes. Mild interstitial pulmonary edema is not excluded.), EMP read indepedently, See rad report Procedures - IVC sono (time) 1145 Bedside IVC sono: IVC measures (cm) (1.12), Dehydration (est 1+ liter deficit.) PD MEDICAL DECISION MAKING - ED course Complexity details: reviewed results, re-evaluated patient, considered differential, d/w patient, d/w family ED course: 89 y/o male with a history of CHF, COPD, pneumonia and chronic back pain has been a resident of [facility] for 2 weeks and he has now developed fever and confusion, has UTI on evaluation of the urine and he is given a dose of cefepime and IV saline is begun. Departure - Departure Disposition: 66 [facility] DC/Xfer Clinical Impression: Confusion Urinary tract infection Qualifiers: Urinary tract infection type: acute cystitis Hematuria presence: without hematuria Qualified Code(s): N30.00 - Acute cystitis without hematuria
[2019-02-03] MEDS ORDERED: CEFEPIME 2 GM in SODIUM CHLORIDE 0.9% MINIBAG 100 ML IV STA (12:44)
--- NOTE | 2019-02-03 12:45 | XRAY Report ---
Reason: fever, hypoxia Procedure Date: 02/03/2019 Accession Number: [id number] / [id number] Procedure: XR - Chest 1 View X-Ray CPT Code: 37360 FULL RESULT: EXAM: CHEST RADIOGRAPHY EXAM DATE: 02/03/2019 12:20 PM. CLINICAL HISTORY: Fever, hypoxia. COMPARISON: 12/22/2018. TECHNIQUE: 1 view. FINDINGS: Lungs/Pleura: Low lung volumes accentuate bronchovascular markings. There is central vascular prominence and peribronchial cuffing. No obvious consolidation. No pneumothorax or significant pleural effusion. Mediastinum: Accentuated by shallow inspiration. Possible mild cardiomegaly. Calcified ectatic aorta. Other: No acute osseous findings. Degenerative changes of the shoulders including elevated right humeral head with markedly narrowed acromial humeral interval compatible with full-thickness right rotator cuff tear. IMPRESSION: 1. Shallow inspiration. 2. Possible bronchitis. No definite consolidation. Follow-up suggested. 3. Borderline heart size accentuated by low lung volumes. Mild interstitial pulmonary edema is not excluded. RADIA
[2019-02-03] MEDS ORDERED: SODIUM CHLORIDE 0.9% 1,000 ML IV ONE ×2 (13:25→22:35)
[2019-02-03] MEDS ORDERED: ONDANSETRON 4 MG/2 ML VIAL IVP PRN (14:30)
[2019-02-03] MEDS ORDERED: ONDANSETRON ODT 4 MG TABLET TL PRN (14:30)
[2019-02-03] MEDS ORDERED: ACETAMINOPHEN 325 MG TABLET PO PRN (14:30)
--- NOTE | 2019-02-03 15:03 | HISTORY & PHYSICAL EXAMINATION ---
Chief Complaint - Chief Complaint Chief Complaint: Altered mental status in an elderly man living in a SNF History of Present Illness - Admitted From Admitted From:: residential facility - History Obtained From Records Reviewed: Uriel History obtained from: Emergency room physician, records Uriel Mccormack and Exam Limitations: Patient has memory loss and lethargy - History of Present Illness HPI Comment/Other: He is an elderly gentleman who is currently living at a fdc facility since last week. He was admitted to us in December 2018 with an episode of bronchitis and COPD exacerbation. He went home, and became more short of breath over 3 days at the end of December. On January 04, EMS was called and he asked to be taken to [facility]. He was there from 01/05-01/08 for pneumonia and sent home on more lasix plus dosycycline for hemophilus. After being home for 2 days, they called him back in because his sputum grew out MRSA. He was there from 01/11-01/15. He was discharged from [facility] and transitioned to a fdc facility for rehab and continued IV Vancomycin at [facility]. Since being at [facility] he has seen his Beef Splitter (Uday Mon II/Freddy Ryder [facility]), Special Education Tutor (Noman Queen/Delicia) and Manager Operational (Flori Kendrick/Delicia). He did develop a drug rash of red man sydrome with the Vancomycin last week and was changed to Linezolid to complete his pneumonia therapy. About two weeks ago he had a gout attack and was put on colchicine in addition to his allopurinol. She got sick the the stomach flu ("everyone at [facility] has it" she states) 2 days ago and hasn't seen him. But even on that last day she noted he was starting to shiver out of the blue with no reason. He called his last night saying that they were not helping him go to the bathroom. He seemed confused. When his saw him this morning he was febrile, confused and he was brought to our emergency room. She does not describe cough, acute sob, edema, abd pain, diarrhea. He was evaluated by Dr. Espinoza. His highest temperature in the emergency room was 38.5. He is consistently tachycardic at 102 and up to 115. Mildly hypotensive at 100/72. He is requiring 2 to 3 L nasal cannula for his oxygenation. Respiratory rate is up to 21. He is not felt to have pneumonia on chest x-ray. There is no definite consolidation. His urinalysis is positive for infection. White cell count is not elevated. he does have a history of BPH but no documented pyelonephritis in the past. History - Past Medical History Cardiovascular: reports: Congestive heart failure (Ischemic Cardiomyopathy: Echocardiogram March 2017 done in association with chest pain showed overall left ventricular ejection fraction 50 to 55%. Grade 1 diastolic dysfunction. Right ventricle normal size. Echocardiogram done December 2018 in association with COPD exacerbation showed a mildly dilated left ventricle with moderately reduced ejection fraction. His ejection fraction was 35% due to primarily severe apical hypokinesis and hypokinesis of the distal anterior wall. Left atrium mildly dilated and he has normal pulmonary pressures.), Hypertension, High cholesterol, Coronary artery disease (s/p 1 stent in [place] and 2 stents [place]), Deep vein thrombosis (with PE early 2016, tx w Eliquis), Pulmonary embolism, [place] (2008), Atrial fibrillation (paroxysmal in the past. Followed by [facility]) Respiratory: reports: COPD, Pneumonia (multiple admissions from [facility] in [place] to [place] ([facility]) to [place] over the years. ), Sleep apnea, Other Neuro: reports: None Endocrine/Autoimmune: reports: Type 2 diabetes, Other (hypoadrenal and followed by Flori Kendrick MD) GI: reports: GERD (without esophagitis), Cholelithiasis : reports: Benign prostate hypertrophy (and he takes concentrated cranberry juice (but not for weeks since recent illnesses)), Retention, Chronic bladder infection (not chronic but has recurrent infection hx), Nocturia, Frequency, Other (CKD Stage III) HEENT: reports: None Musculoskeletal: reports: Osteoarthritis (bella knees but Cardiology feels not safe for knee replacement), Gout, Chronic back pain (severe, gets regular LESI at [place] with Henrry Dwyer MD (PM&R)), Other (shoulders with rotator cuff tears) Derm: reports: Other (recent drug rash with vancomycin last week) MRSA Hx?: Yes Other Past Medical History: thrombocytopenia. Hyperuricemia and gout - Past Surgical History General: reports: Appendectomy Ortho: reports: Shoulder arthroplasty, Spine surgery Cardiovascular: reports: Coronary stent HEENT: reports: Tonsil/Adenoidectomy - Family & Social History Family History Comment/Other: Dad in his 80's of heart and cancer. Mom in her late 70's of heart. 6 siblings, 2 alive (his twin is in [place] in hospital with cholecystitis right now) and 4 : brother with CAD, brother with pancreatic cancer, Sister w COPD, and one ? no children Living arrangement: [facility] (right now for the week, usually lives w . Was about to be discharged on 02/05 after completing therapy) Social History Notes: The patient was born in [place] and raised in [place]. Patient currently lives with his second of 6 years in [place], [place] and anticipates this when going home after this admit to [facility]. He was and since 1987. Knew his second in high school and they re-met at a reunion and got . 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 He states that over his career he lived throughout [place], [place], [place], [place], [place] and [facility]. The patient states that he only settle down on [facility] 2015. The patient previously smoked cigars but quit in 1979. The patient states he has never touched alcohol and denies any illicit drug use. The patient and his are very active. - Substance History Use: Uses substance without health or social issues: NONE Abuse: Recurrent use of substance despite neg consequences: NONE Dependence: Experiences withdrawal or developed tolerances: NONE - POLST Patient has POLST: Yes POLST Status: Limited Interventions ( is very firm in this. Discussed with PCP. But she and have never seen or understand what full resucitation means.) Meds/Allgy - Home Medications Home Medications: Ambulatory Orders Medication Instructions Recorded Confirmed Carvedilol 12.5 mg ORAL BID 06/22/16 12/22/18 Furosemide 80 mg PO DAILY 06/22/16 12/22/18 Gabapentin 300 mg PO BID 06/22/16 12/22/18 Simvastatin 80 mg PO QPM 06/22/16 12/22/18 Triazolam [Halcion] 0.25 mg PO QPM PRN 06/22/16 12/22/18 Albuterol Sulfate [Proair 2 puffs INH Q6H PRN 03/21/17 12/22/18 Respiclick] Nitroglycerin 0.4 mg PO Q5M PRN 03/21/17 12/22/18 Potassium Chloride [K-Dur] 20 meq PO DAILYWM 03/21/17 12/22/18 Tamsulosin HCl [Flomax] 0.4 mg PO DAILY 03/21/17 12/22/18 Cholecalciferol (Vitamin D3) 1,000 units PO DAILY 02/18/18 12/22/18 [Vitamin D3] Hydrocortisone 10 mg PO DAILY 02/18/18 12/22/18 Apixaban [Eliquis] 2.5 mg PO BID 02/19/18 12/22/18 Aspirin [Aspirin EC] 81 mg PO DAILY 02/19/18 12/22/18 Hydrocodone/Acetaminophen 1 tab PO Q6H PRN 02/19/18 12/22/18 [Hydrocodone-Acetamin 5-325 mg] Oxybutynin Chloride [Ditropan Xl] 10 mg PO DAILY 02/19/18 12/22/18 Allopurinol 100 mg PO DAILY 12/22/18 12/22/18 Ferrous Sulfate 324 mg PO DAILY 12/22/18 12/22/18 Fexofenadine HCl [Nika Allergy] 180 mg PO DAILY PRN 12/22/18 12/22/18 Ipratropium/Albuterol [Duoneb] 3 ml INH Q6H 12/22/18 12/22/18 Mometasone Furoate [Asmanex] 220 mcg IH BID 12/22/18 12/22/18 metFORMIN [Glucophage] 500 mg PO BIDWM 12/22/18 12/22/18 Azithromycin 250 mg PO DAILY #4 tablet 12/23/18 predniSONE [Deltasone] 10 mg PO [id number] #31 tab 12/23/18 - Allergies Allergies/Adverse Reactions: Allergies Allergy/AdvReac Type Severity Reaction Status Date / Time cefuroxime [From Ceftin] Allergy Rash Verified 01/01/19 22:16 ciprofloxacin Allergy Unknown Verified 01/01/19 22:16 nitrofurantoin Allergy Rash Verified 01/01/19 22:16 sulfamethoxazole Allergy Anaphylaxis Verified 01/01/19 22:16 [From Bactrim] trimethoprim [From Bactrim] Allergy Anaphylaxis Verified 01/01/19 22:16 vancomycin Allergy Rash Verified 02/03/19 12:24 Review of Systems - Constitutional Constitutional: reports: Fatigue, Chills, Other (all of ROS from , patient is confused and mumbling) - Cardiovascular Cariovascular: reports: Palpitations, Exertional dyspnea - Gastrointestinal Gastrointestinal: reports: Bloating - Genitourinary Genitourinary: reports: Frequency, Urgency, Incontinence, Nocturia (once a night and without change per ) - Musculoskeletal Musculoskeletal: reports: Back pain (severe), Gout (2 weeks ago), Other (back pain is what slows him down, not his chronic heart failure) - Integumentary Integumentary: reports: Rash (last week from vancomycin) - Neurological Neurological: reports: General weakness, Slurred speech (today) - Psychiatric Psychiatric: reports: Depression - Endocrine Endocrine: reports: Intolerance to cold (right now). denies: Polyuria, Polydypsia, Polyphagia - Hematologic/Lymphatic Hematologic/Lymphatic: reports: Bruising Prior Level of Functionality: Before is hospitalization in December for COPD, he was alert, ambulatory, able to do ADL's and enjoying life. His back pain slowed him down but was other german ok. These last 2 months have "knocked him down" Exam - Vital Signs Reviewed Vital Signs: Yes Vital Signs: Vital Signs x48h Temp Pulse Resp BP Pulse Ox 02/03/19 14:11 38.5 C H 114 H 18 100/72 95 02/03/19 13:16 38.5 C H 115 H 21 133/96 H 94 02/03/19 12:36 38.5 C H 02/03/19 11:35 104 H 18 106/83 H 95 02/03/19 11:06 37.8 C H 102 H 21 140/77 H 92 - Physical Exam General Appearance: positive: Moderate distress (elderly white male with deep forrest, mumbling and shivering under covers, c/o severe back pain), Lethargic Eyes Bilateral: positive: PERRL, EOMI ENT: positive: Pharynx nml Neck: positive: No JVD. negative: Stiff neck, Carotid bruit Respiratory: positive: Chest non-tender, Other (barrel chest with prolonged end exhalation phase but no wheeze). negative: Wheezes, Rales, Rhonchi Cardiovascular: positive: Regular rate & rhythm, Tachycardia, Systolic murmur. negative: Gallop/S4, Friction rub Peripheral Pulses: positive: 1+ Abdomen: positive: Non-tender, No organomegaly, Nml bowel sounds, No distention, Other (a lot of flatus). negative: Guarding, Rebound Skin: positive: Warm, Diaphoresis Extremities: positive: Non-tender, No pedal edema Neurologic/Psychiatric: positive: Motor nml, Disoriented to place, Disoriented to time, Weakness (generalized), Slurred/abnml speech (mumbling but able to answer yes/no especially to his ) Sepsis Event Note (H) - Evaluation Current Stage of Sepsis: Sepsis Possible source of Sepsis: positive: Genitourinary - Sepsis Criteria Sepsis Criteria: Recorded Temperature greater than 38.3C or Less than 36C, Recorded Heart Rate greater than 90 bpm, Recorded Respiratory Rate greater than 20, Respiratory: Increasing oxygen requirements, BRIM WELT SEWING MACHINE OPERATOR: altered consciousness (unrelated to primary neuro pathology) Conclusion/Plan - Problem List (1) Sepsis secondary to UTI Conclusion/Plan: He would be described as an adult male with a complicated UTI and a history of urinary retention. He has had previous history of sepsis with UTI in the past according to his . He has been hospitalized in [place] and in the [place] area for this. As such, using the UptoDate algorithm, he is placed on meropenem and linezolid. It is supposed to be meropenem and vancomycin but he has developed an allergy to the vancomycin. Patient will be monitored on the floor. Although he meets the criteria for sepsis, lactic acid is normal. He is mildly hypotensive. Now that he is on MedSurg his systolic has dropped to 90. He will be receiving 2 L of NS. I hesitate to be aggressive with wide open IVF because of his history of chronic systolic and diastolic congestive heart failure. (2) Metabolic encephalopathy Conclusion/Plan: secondary to infection but this man also is on steroids for adrenal insufficiency. Will make sure he stays supplemented. (3) Chronic combined systolic and diastolic CHF, NYHA class 2 Conclusion/Plan: He was just seen by his Beef Splitter last week . Lasix was changed at discharge from [facility] to 80 mg a day. I will not resume his usual meds for now since he is mildly hypotensive. Resume carvedilol tomorrow and lasix later than that depending on his tolerance of fluid resuscitation (4) COPD (chronic obstructive pulmonary disease) Conclusion/Plan: he is not in acute exacerbation. Will make sure nebs and long acting inhaled meds given per ususal regimin but will substitute for formulary: pulmicort, perforomist, duoneb. Qualifiers: COPD type: unspecified COPD Qualified Code(s): J44.9 - Chronic obstructive pulmonary disease, unspecified (5) Back pain Conclusion/Plan: he is very uncomfortable right now, grimacing with pain. asked if he can get 2 of his usual home meds and I have allowed 2 norco from home for expediency but will order his meds for here and include Morphine prn IV. I will give his gabapentin. Qualifiers: Back pain location: low back pain Chronicity: chronic Back pain laterali ty: bilateral Sciatica presence: with sciatica (6) BPH loc w urin obs/LUTS Conclusion/Plan: he has a long hx of BPH but only once a night nocturia. I don't know if he had a mercado at [facility]. will check reroperitoneal US here for obstruction or hydronephrosis. (7) CKD (chronic kidney disease) stage 3, GFR 30-59 ml/min Conclusion/Plan: his lowest creat was 0.8 with us and he was 1.3 in January ER visit. Highest has been 1.6 and he is 1.5 today. will continue to monitor and avoid nephrotoxic agents. Bactrim caused a severe rise in creat in the past and will be avoided. He is on reduced dose of allopurinol of 100 mg and will be continued. (8) Adrenal insufficiency Conclusion/Plan: will give one dose of solumedrol IV and then resume his usual oral dose tomorrow. (9) Type 2 diabetes mellitus without complication, without long-term current use of insulin Conclusion/Plan: it appears to be due to his steroids for his adrenals. I will not give metformin to a septic patient so as to avoid contributing to lactic acidosis. Use SS insulin for converage. (10) Full code status Conclusion/Plan: his is irritated and states that she left the room with the last physician that asked her. He has filled out a POLST with his PCP Arden Chan and he wants to be Full Code. She asks why do doctors seem to be fixated on this. I explain that with his age, his co-morbidities (especially his EF/COPD) he is at increased risk of dying from his illnesses. So we don't like to give unnecessary treatment to people in their age group. But only they can guide us as to what is necessary or unnecessary depending on belief, quality of life, etc. I asked her if she knew what resuscitation meant and she didn't. Her grandfather was the Plant Guide in [place] to first start emergency services. She even shows me his gold ring that he [facility] at [facility]. So she knows what chest compression means. But she has never seen full court chest compressions, intubations, using of electrical current to restart the heart. Once I described this to her, she starts to doubt if this is what her would want. I told her that he is okay for now. For right now he is a full code with limited interventions on what she feels is appropriate. It is a discussion her should have in detail with his primary care provider because they very comfortable with him and his care of her . I have asked her to go over in detail what their goals mean, what is the reasonable expectation those goals will be met with resuscitation if he has a respiratory or cardiac arrest, what are their plans if he really doesn't recover to live independently (which is what she thinks will happen with surety). - Lab Results Lab results reviewed: Yes Fish Bones: 02/03/19 11:14 02/03/19 11:14 - Diagnostic Imaging Results Diagnostic Imaging Results: positive: Final report reviewed Diagnostic Imaging Results Comments: CHEST RADIOGRAPHY EXAM DATE: 02/03/2019 12:20 PM. CLINICAL HISTORY: Fever, hypoxia. COMPARISON: 12/22/2018. TECHNIQUE: 1 view. FINDINGS: Lungs/Pleura: Low lung volumes accentuate bronchovascular markings. There is central vascular prominence and peribronchial cuffing. No obvious consolidation. No pneumothorax or significant pleural effusion. Mediastinum: Accentuated by shallow inspiration. Possible mild cardiomegaly. Calcified ectatic aorta. Other: No acute osseous findings. Degenerative changes of the shoulders including elevated right humeral head with markedly narrowed acromial humeral interval compatible with full-thickness right rotator cuff tear. IMPRESSION: 1. Shallow inspiration. 2. Possible bronchitis. No definite consolidation. Follow-up suggested. 3. Borderline heart size accentuated by low lung volumes. Mild interstitial pulmonary edema is not excluded. - EKG Results EKG Interpreted Independently: No EKG Comparison: Unchanged from prior EKG Core Measures - Anticipated LOS I expect patient to be DC'd or transferred within 96 hours.: Yes - DVT/VTE - Prophylaxis VTE/DVT Device ordered at admit?: Yes
[2019-02-03] MEDS ORDERED: HYDROcod/ACETAM 5/325 MG TABLET PO PRN ×2 (15:45→19:20)
[2019-02-03] MEDS: SODIUM CHLORIDE 0.9% 1,000 ML IV SCH (16:00)
[2019-02-03] MEDS: SODIUM CHLORIDE FLUSH 0.9% 10 ML SYRINGE IVP SCH (16:05)
[2019-02-03] MEDS: MEROPENEM 1 GM in SODIUM CHLORIDE 0.9% MINIBAG 100 ML IV SCH ×2 (16:06→23:10)
[2019-02-03] MEDS: LINEZOLID 600 MG/300 ML 600 MG/300 ML BAG IV SCH ×2 (17:01→17:04)
[2019-02-03] MEDS ORDERED: ALBUTEROL NEB 2.5 MG/3 ML INH PRN (17:37)
[2019-02-03] MEDS ORDERED: methylPREDNISolone SUCCINATE 125 MG/2 ML VIAL IVP STA (17:57)
[2019-02-03 18:18] LABS: HEMOGLOBIN A1C 0.52 g/dL; HEMOGLOBIN A1C % 6.5 % (4.6-6.2)
[2019-02-03] MEDS: BUDESONIDE 0.5 MG/2 ML NEB INH SCH (20:30)
[2019-02-03] MEDS: FORMOTEROL FUMARATE NEB 20 MCG/2 ML INH SCH (20:31)
[2019-02-03] MEDS: IPRATROPIUM/ALBUTEROL 3 ML NEB INH SCH (20:31)
[2019-02-03] MEDS ORDERED: LACTATED RINGERS 1,000 ML IV ONE (20:42)
[2019-02-03] MEDS ORDERED: INSULIN ASPART 300 UNIT/3 ML PEN SUBQ SCH (21:00)
[2019-02-03] MEDS: APIXABAN 2.5 MG TABLET PO SCH (21:19)
[2019-02-03] MEDS: GABAPENTIN 300 MG CAPSULE PO SCH (21:19)
[2019-02-03] MEDS: HYDROCORTISONE SUCCINATE 100 MG/2 ML VIAL IVP SCH (21:29)
[2019-02-03] MEDS ORDERED: SODIUM CHLORIDE FLUSH 0.9% 10 ML SYRINGE ONE (21:39)
[2019-02-03 21:52] LABS: ABG HCO3 18.5 mmol/L (22.0-26.0); ABG PCO2 27 mmHg (34-45); ABG PH 7.45 (7.35-7.45); ABG PO2 85 mmHg (80-100); ABG TCO2 19.3 MMOL/L (21.0-29.0)
[2019-02-03 21:53] LABS: ABG BASE EXCESS -4.4 mmol/L (-2.0-3.0); ABG OXYGEN SATURATION 96 % (94-98); ALLEN TEST POSITIVE
[2019-02-03] MEDS: SODIUM CHLORIDE FLUSH 0.9% 10 ML SYRINGE IVP PRN (22:00)
[2019-02-03] MEDS: NYSTATIN POWDER 15 GM TOP SCH (22:20)
--- NOTE | 2019-02-03 22:22 | ANESTHESIA PROCEDURE NOTE ---
Anesth Central Line Template - Central Line Central Line Preparation: Consent Obtained (), Time out completed, Ultras ound used, Sterile prep and drape Central line location: Right IJ Central line type: Triple lumen Central line catheter tip site resides: Superior vena cava (SVC) Central line aftercare: Chlorhexidine disc placed, Secured, Placement confirmed, No pneumothorax, No complications, Bundle checklist complete, Pt tolerated well (unresponsive) Other Info/Details: CVL placed to 16@skin, suture x2. Biopatch and tegaderm to site
--- NOTE | 2019-02-03 22:27 | XRAY Report ---
Reason: line placement Procedure Date: 02/03/2019 Accession Number: [id number] / [id number] Procedure: XR - Chest for Line Placement CPT Code: FULL RESULT: EXAM: CHEST RADIOGRAPHY EXAM DATE: 02/03/2019 10:18 PM. CLINICAL HISTORY: Line placement. COMPARISON: CHEST 1 VIEW 02/03/2019 12:01 PM. TECHNIQUE: 1 view. FINDINGS: Lungs/Pleura: Persistent low lung volumes. No pneumothoraces. Some basilar atelectasis, particularly in the retrocardiac region. No obvious effusions. Mediastinum: Within exam limitations, the cardiomediastinal contour is normal. Other: No right IJ central line with tip proximal superior vena cava. IMPRESSION: Right IJ central line, no pneumothorax. RADIA
[2019-02-03] MEDS ORDERED: NALOXONE 0.4 MG/ML VIAL IVP ONE (22:36)
[2019-02-03] MEDS: ZINC OXIDE 20% OINT 30 GM TUBE TOP PRN (23:00)
--- NOTE | 2019-02-04 01:33 | CT Report ---
Reason: Encephalopathy. Procedure Date: 02/04/2019 Accession Number: [id number] / [id number] Procedure: CT - HEAD WO CPT Code: FULL RESULT: EXAM: CT HEAD EXAM DATE: 02/04/2019 01:16 AM. CLINICAL HISTORY: Encephalopathy. COMPARISON: None. TECHNIQUE: Multiaxial CT images were obtained from the foramen magnum to the vertex. Reformats: Sagittal and coronal. IV contrast: None. In accordance with CT protocol optimization, one or more of the following dose reduction techniques were utilized for this exam: automated exposure control, adjustment of mA and/or KV based on patient size, or use of iterative reconstructive technique. FINDINGS: Parenchyma: No intraparenchymal hemorrhage. No evidence of mass, midline shift, or CT findings of acute infarction. Barton-white differentiation is distinct. Diffuse chronic microangiopathic white matter changes are evident. Extraaxial Spaces: Normal for age. No subdural or epidural collections identified. Ventricles: The ventricles and cortical sulci are enlarged, consistent with age-related tissue loss. Sinuses and orbits: Imaged paranasal sinuses, orbits, and mastoids show no significant abnormality. Bones: No evidence of fracture or calvarial defect. Other: None. IMPRESSION: Generalized age-related cortical atrophic changes without evidence of acute intracranial abnormality. RADIA
--- NOTE | 2019-02-04 02:49 | Ultrasound Report ---
Reason: fever, UTI in male w BPH Procedure Date: 02/04/2019 Accession Number: [id number] / [id number] Procedure: US - Retroperitoneal CPT Code: FULL RESULT: EXAM: RENAL ULTRASOUND EXAM DATE: 02/04/2019 02:38 AM CLINICAL HISTORY: Fever, urinary tract infection in male with benign prostatic hyperplasia. COMPARISON: CHEST ANGIO 12/28/2017 11:37 PM. TECHNIQUE: Real-time scanning was performed with static images obtained. FINDINGS: Right Kidney: 9.0 x 5.7 x 4.3 cm. Increased echotexture with no stones, contour-deforming masses, or hydronephrosis. Left Kidney: 11.4 x 4.7 x 5.6 cm. Increased echotexture with no stones, contour-deforming masses, or hydronephrosis. Bladder: Hannah catheter present. Other: None. IMPRESSION: 1. No hydronephrosis or gross renal abscess. 2. Suspect medical renal disease. RADIA
[2019-02-04] MEDS: SODIUM CHLORIDE 0.9% 1,000 ML IV SCH (04:00)
[2019-02-04] MEDS: LINEZOLID 600 MG/300 ML 600 MG/300 ML BAG IV SCH ×2 (04:42→15:35)
[2019-02-04] MEDS: SODIUM CHLORIDE FLUSH 0.9% 10 ML SYRINGE IVP SCH ×3 (04:43→16:44)
[2019-02-04] MEDS: SODIUM CHLORIDE FLUSH 0.9% 10 ML SYRINGE IVP PRN (04:43)
[2019-02-04 05:19] LABS: BASOPHILS # (AUTO) 0.1 10^3/uL (0.0-0.1); BASOPHILS % (AUTO) 0.3 %; EOSINOPHILS % (AUTO) 0.1 %; HGB - HEMOGLOBIN 10.3 g/dL (14.0-18.0); LYMPHOCYTES # (AUTO) 0.5 10^3/uL (1.5-3.5); LYMPHOCYTES % (AUTO) 2.7 %; MEAN CORPUSCULAR HEMOGLOBIN 30.1 pg (27.0-31.0); MEAN CORPUSCULAR VOLUME 94.2 fL (80.0-94.0); MEAN PLATELET VOLUME 10.3 fL (7.4-11.4); MONOCYTES # (AUTO) 0.3 10^3/uL (0.0-1.0); MONOCYTES % (AUTO) 1.6 %; NEUTROPHILS # (AUTO) 17.7 10^3/uL (1.5-6.6); NEUTROPHILS % (AUTO) 94.2 %; PLT - PLATELET COUNT 164 10^3/uL (130-450); RED BLOOD COUNT 3.42 10^6/uL (4.70-6.10); RED CELL DISTRIBUTION WIDTH 18.1 % (12.0-15.0); WHITE BLOOD COUNT 18.8 x10^3/uL (4.8-10.8)
[2019-02-04 05:41] LABS: CREATININE 2.3 mg/dL (0.6-1.2)
[2019-02-04] MEDS: MEROPENEM 1 GM in SODIUM CHLORIDE 0.9% MINIBAG 100 ML IV SCH ×2 (06:23→18:20)
[2019-02-04 06:30] LABS: ABG BASE EXCESS -3.4 mmol/L (-2.0-3.0); ABG HCO3 21.1 mmol/L (22.0-26.0); ABG OXYGEN SATURATION 96 % (94-98); ABG PCO2 36 mmHg (34-45); ABG PH 7.39 (7.35-7.45); ABG PO2 85 mmHg (80-100); ABG TCO2 22.2 MMOL/L (21.0-29.0); ALLEN TEST POSITIVE
[2019-02-04] MEDS: HYDROCORTISONE SUCCINATE 100 MG/2 ML VIAL IVP SCH ×3 (06:32→22:17)
[2019-02-04] MEDS: INSULIN REGULAR HUMAN 300 UNIT/3 ML VIAL SUBQ SCH ×3 (06:40→18:16)
--- NOTE | 2019-02-04 07:02 | PROVIDER PROGRESS NOTE ---
Black Top Roller Note - Black Top Roller Note Black Top Roller Note: Last night I was called to bedside as the patient was unresponsive. At that time, he was hypotensive with blood pressure in the 50's/30's. He was given a bolus of saline with minimal improvement and half way through the bolus he was started on levophed. He was transferred to the ICU and Anesthesia was consulted for central line placement. His blood pressure improved with levophed but he was still unresponsive. An ABG was done which showed he was slightly alkalotic and that he was not hypercapnic or hypoxic. He was given Narcan x1 as his pupils were constricted and he had received [place] earlier in the day. There was no improvement in his mental status. A CT of the head was then obtained which did not show an acute process. Although his LFT's are normal, I will check an ammonia level to rule out hepatic encephalopathy. I suspect that his mental status is related to his ongoing sepsis. Will continue antibiotics and supportive care at this time. and daughter were updated on his medical condition and the plan.
[2019-02-04] MEDS: IPRATROPIUM/ALBUTEROL 3 ML NEB INH SCH ×4 (07:27→19:27)
[2019-02-04] MEDS: BUDESONIDE 0.5 MG/2 ML NEB INH SCH ×3 (07:27→19:28)
[2019-02-04] MEDS: FORMOTEROL FUMARATE NEB 20 MCG/2 ML INH SCH ×2 (07:27→19:25)
[2019-02-04 08:18] LABS: VBG PH 7.376 (7.31-7.41)
[2019-02-04] MEDS: ALLOPURINOL 100 MG TABLET PO SCH (10:23)
[2019-02-04] MEDS: APIXABAN 2.5 MG TABLET PO SCH ×2 (10:24→21:13)
[2019-02-04] MEDS: POLYETHYLENE GLYCOL 3350 17 GM PACKET PO SCH (10:24)
[2019-02-04] MEDS: NYSTATIN POWDER 15 GM TOP SCH ×2 (10:24→21:10)
--- NOTE | 2019-02-04 10:29 | PROVIDER PROGRESS NOTE ---
Subjective - Prog Note Date Prog Note Date: 02/04/19 Prog Note Time: 10:39 - Subjective Subjective: is at the bedside. Unfortunately, he became even more hypotensive last night, went into septic shock with severe mental status and was obtunded. CT of the head was done to make sure he was not having a stroke. Central line placed. He was placed on IV fluids and did not respond. As such transferred into ICU and placed on levo fed. He is now off levo fed but his systolic is 108. His creatinine has gone up to 2.3 because he went into the [facility]. This morning he is opening his eyes, but not really verbal. Does look at his . Blood cultures are growing gram-positive cocci. Current Medications - Current Medications Current Medications: Active Medications Acetaminophen (Tylenol) 650 mg PO Q4HR PRN PRN Reason: Pain 1 to 4 Hydrocodone Bitart/Acetaminophen ([place] 5/325) 1 tab PO Q4HR PRN PRN Reason: PAIN Albuterol () 2.5 mg INH RTQ4H PRN PRN Reason: Wheezing Albuterol/Ipratropium (Duoneb) 3 ml INH RTQID [facility] Last Admin: 02/04/19 07:27 Dose: 3 ml Allopurinol (Zyloprim) 100 mg PO DAILY [facility] Last Admin: 02/04/19 10:23 Dose: Not Given Apixaban (Eliquis) 2.5 mg PO BID [facility] Last Admin: 02/04/19 10:24 Dose: Not Given Budesonide (Pulmicort) 0.5 mg INH RTBID [facility] Last Admin: 02/04/19 08:08 Dose: Not Given Formoterol Fumarate (Perforomist) 20 mcg INH RTBID [facility] Last Admin: 02/04/19 07:27 Dose: 20 mcg Gabapentin (Neurontin) 300 mg PO QPM [facility] Last Admin: 02/03/19 21:19 Dose: Not Given Heparin Sodium (Beef Lung) () 30 - 50 unit IVP PRN PRN PRN Reason: Central Line Protocol (<24 hr) Last Admin: 02/04/19 04:44 Dose: 30 unit Hydrocortisone Sodium Succinate (Solu-Cortef) 100 mg IVP TID [facility] Last Admin: 02/04/19 06:32 Dose: 100 mg Sodium Chloride (Normal Saline 0.9%) 1,000 mls @ 100 mls/hr IV .Q10H [facility] Stop: 02/04/19 10:59 Last Infusion: 02/04/19 10:00 Dose: 100 mls/hr Linezolid (Zyvox 600 Mg/300 Ml) 600 mg in 300 mls @ 300 mls/hr IV Q12H [facility] Last Infusion: 02/04/19 05:44 Dose: Infused Norepinephrine Bitartrate 8 mg (/ Dextrose) 250 mls @ 15 mls/hr IV .[id number] [facility]; Protocol Last Titration: 02/04/19 06:50 Dose: 0 mcg/min, 0 mls/hr Meropenem 1 gm/ Sodium (Chloride) 100 mls @ 200 mls/hr IV Q12H [facility] Insulin Human Regular (Humulin R) 1 - 5 unit SUBQ Q6HR [facility]; Protocol Last Admin: 02/04/19 06:40 Dose: 4 unit Multi-Ingredient Ointment (Zinc Oxide) 1 applic TOP PRN PRN PRN Reason: Skin Care Last Admin: 02/03/19 23:00 Dose: 1 applic Nystatin (Nystop) 1 applic TOP BID [facility] Last Admin: 02/04/19 10:24 Dose: Not Given Polyethylene Glycol (Miralax) 17 gm PO DAILY [facility] Last Admin: 02/04/19 10:24 Dose: Not Given Sodium Chloride (Normal Saline Flush 0.9%) 10 ml IVP PRN PRN PRN Reason: NEEDED PER PROVIDER ORDERS Last Admin: 02/03/19 22:00 Dose: 20 ml Sodium Chloride (Normal Saline Flush 0.9%) 10 ml IVP 0100,0900,1700 [facility] Last Admin: 02/04/19 09:00 Dose: 10 ml Sodium Chloride (Normal Saline Flush 0.9%) 20 ml IVP PRN PRN PRN Reason: After Blood Draw Last Admin: 02/04/19 04:43 Dose: 20 ml Tamsulosin HCl (Flomax) 0.4 mg PO DAILY [facility] Carvedilol 12.5 mg ORAL BID 06/22/16 Furosemide 80 mg PO DAILY 06/22/16 Gabapentin 300 mg PO BID 06/22/16 Simvastatin 80 mg PO QPM 06/22/16 Triazolam [Halcion] 0.25 mg PO QPM PRN 06/22/16 Albuterol Sulfate [Proair Respiclick] 2 puffs INH Q6H PRN 03/21/17 Nitroglycerin 0.4 mg PO Q5M PRN 03/21/17 Potassium Chloride [K-Dur] 20 meq PO DAILYWM 03/21/17 Tamsulosin HCl [Flomax] 0.4 mg PO DAILY 03/21/17 Cholecalciferol (Vitamin D3) [Vitamin D3] 1,000 units PO DAILY 02/18/18 Hydrocortisone 10 mg PO DAILY 02/18/18 Apixaban [Eliquis] 2.5 mg PO BID 02/19/18 Aspirin [Aspirin EC] 81 mg PO DAILY 02/19/18 Hydrocodone/Acetaminophen [Hydrocodone-Acetamin 5-325 mg] 1 tab PO Q6H PRN 02/19/18 Oxybutynin Chloride [Ditropan Xl] 10 mg PO DAILY 02/19/18 Allopurinol 100 mg PO DAILY 12/22/18 Ferrous Sulfate 324 mg PO DAILY 12/22/18 Fexofenadine HCl [Nika Allergy] 180 mg PO DAILY PRN 12/22/18 Ipratropium/Albuterol [Duoneb] 3 ml INH Q6H 12/22/18 Mometasone Furoate [Asmanex] 220 mcg IH BID 12/22/18 metFORMIN [Glucophage] 500 mg PO BIDWM 12/22/18 Objective - Vital Signs/Intake & Output Reviewed Vital Signs: Yes Vital Signs: Vital Signs Temp Pulse Pulse Resp BP Pulse Ox 02/04/19 09:00 70 16 109/86 H 99 02/04/19 08:03 95 02/04/19 08:00 36 C L 73 15 105/81 H 97 02/04/19 07:47 71 14 02/04/19 07:00 75 16 102/76 96 02/04/19 06:55 73 107/79 02/04/19 06:50 74 95/82 H 02/04/19 06:45 74 113/80 02/04/19 06:40 76 118/86 H 02/04/19 06:35 71 108/75 02/04/19 06:30 73 108/79 Intake & Output: Intake & Output 02/01/19 02/02/19 02/03/19 02/04/19 23:59 23:59 23:59 23:59 Intake Total 4126.063 1465.394 Output Total 115 507 Balance 4011.063 958.394 - Objective General Appearance: positive: Lethargic, Other (Tall, moderately overweight white male with no response, but eyes open, laying flat in ICU bed with at the bedside) Eyes Bilateral: positive: PERRL ENT: positive: Pharynx nml Neck: positive: No JVD. negative: Stiff neck, Carotid bruit Respiratory: positive: Chest non-tender, No respiratory distress, Other (Slow, shallow, unlabored respiration). negative: Wheezes, Rales Cardiovascular: positive: Regular rate & rhythm, Other (distant cardiac tones). negative: Gallop/S4, Friction rub Abdomen: positive: Nml bowel sounds, No distention, Other (firm abd wall musculature). negative: Guarding, Rebound Skin: positive: Warm, Dry, Pallor, Other (thin flaking diffuse). negative: Diaphoresis Extremities: positive: Non-tender, Pedal edema Neurologic/Psychiatric: positive: Other (laying flat, eyes open, eyelids flutter to 's voice, no posturing, nonverbal, occasionally moves to stimuli) - Lab Results Fish Bones: 02/04/19 04:45 02/04/19 04:45 Other Labs: Lab Results x24hrs 02/04/19 02/04/19 02/04/19 Range/Units 08:08 06:18 04:45 WBC (4.8-10.8) x10^3/uL RBC (4.70-6.10) 10^6/uL Hgb (14.0-18.0) g/dL Hct (42.0-52.0) % MCV (80.0-94.0) fL MCH (27.0-31.0) pg MCHC (32.0-36.0) g/dL RDW (12.0-15.0) % Plt Count (130-450) 10^3/uL MPV (7.4-11.4) fL Neut # (Auto) (1.5-6.6) 10^3/uL Lymph # (Auto) (1.5-3.5) 10^3/uL Riley # (Auto) (0.0-1.0) 10^3/uL Eos # (Auto) (0.0-0.7) 10^3/uL Baso # (Auto) (0.0-0.1) 10^3/uL Absolute Nucleated RBC x10^3/uL Nucleated RBC % /100WBC Bld Gas Analysis Time 0632 Sample Site RIGHT RADIAL ABG pH 7.39 (7.35-7.45) ABG pCO2 36 (34-45) mmHg ABG pO2 85 (80-100) mmHg ABG HCO3 21.1 L (22.0-26.0) mmol/L ABG Total CO2 22.2 (21.0-29.0) MMOL/L ABG O2 Saturation 96 (94-98) % ABG Base Excess -3.4 L (-2.0-3.0) mmol/L Dano Test POSITIVE VBG pH 7.376 (7.31-7.41) Ionized Calcium 1.01 L (1.15-1.33) mmol/L O2 Delivery Device OXYMASK O2 Liters/Min 4.00 LPM Sodium (135-145) mmol/L Potassium (3.5-5.0) mmol/L Chloride (101-111) mmol/L Carbon Dioxide (21-32) mmol/L Anion Gap (6-13) BUN (6-20) mg/dL Creatinine (0.6-1.2) mg/dL Estimated GFR (MDRD) (>89) Glucose (70-100) mg/dL Glycated Hemoglobin (4.6-6.2) % Estim Average Glucose (70-100) Lactic Acid (0.5-2.2) mmol/L Calcium (8.5-10.3) mg/dL Total Bilirubin (0.2-1.0) mg/dL AST (10-42) IU/L ALT (10-60) IU/L Alkaline Phosphatase (42-121) IU/L Ammonia (7-35) umol/L Total Protein (6.7-8.2) g/dL Albumin (3.2-5.5) g/dL Globulin (2.1-4.2) g/dL Albumin/Globulin Ratio (1.0-2.2) Lipase (22-51) U/L TSH 0.76 (0.34-5.60) uIU/mL Urine Color Urine Clarity (CLEAR) Urine pH (5.0-7.5) PH Ur Specific [place] (1.002-1.030) Urine Protein (NEGATIVE) mg/dL Urine Glucose (UA) (NEGATIVE) mg/dL Urine Ketones (NEGATIVE) mg/dL Urine Occult Blood (NEGATIVE) Urine Nitrite (NEGATIVE) Urine Bilirubin (NEGATIVE) Urine Urobilinogen (NORMAL) E.U./dL Ur Leukocyte Esterase (NEGATIVE) Urine RBC (0-5) /HPF Urine WBC (0-3) /HPF Ur Squamous Epith Cells (<= Few) Urine Bacteria (None Seen) /HPF Ur Microscopic Review Urine Culture Comments Nasal Screen MRSA (PCR) (NEGATIVE) 02/04/19 02/04/19 02/04/19 Range/Units 04:45 04:45 04:45 WBC 18.8 H (4.8-10.8) x10^3/uL RBC 3.42 L (4.70-6.10) 10^6/uL Hgb 10.3 L (14.0-18.0) g/dL Hct 32.2 L (42.0-52.0) % MCV 94.2 H (80.0-94.0) fL MCH 30.1 (27.0-31.0) pg MCHC 32.0 (32.0-36.0) g/dL RDW 18.1 H (12.0-15.0) % Plt Count 164 (130-450) 10^3/uL MPV 10.3 (7.4-11.4) fL Neut # (Auto) 17.7 H (1.5-6.6) 10^3/uL Lymph # (Auto) 0.5 L (1.5-3.5) 10^3/uL Riley # (Auto) 0.3 (0.0-1.0) 10^3/uL Eos # (Auto) 0.0 (0.0-0.7) 10^3/uL Baso # (Auto) 0.1 (0.0-0.1) 10^3/uL Absolute Nucleated RBC 0.00 x10^3/uL Nucleated RBC % 0.0 /100WBC Bld Gas Analysis Time Sample Site ABG pH (7.35-7.45) ABG pCO2 (34-45) mmHg ABG pO2 (80-100) mmHg ABG HCO3 (22.0-26.0) mmol/L ABG Total CO2 (21.0-29.0) MMOL/L ABG O2 Saturation (94-98) % ABG Base Excess (-2.0-3.0) mmol/L Dano Test VBG pH (7.31-7.41) Ionized Calcium (1.15-1.33) mmol/L O2 Delivery Device O2 Liters/Min LPM Sodium 141 (135-145) mmol/L Potassium 4.6 (3.5-5.0) mmol/L Chloride 105 (101-111) mmol/L Carbon Dioxide 24 (21-32) mmol/L Anion Gap 12.0 (6-13) BUN 23 H (6-20) mg/dL Creatinine 2.3 H (0.6-1.2) mg/dL Estimated GFR (MDRD) 27 L (>89) Glucose 256 H (70-100) mg/dL Glycated Hemoglobin (4.6-6.2) % Estim Average Glucose (70-100) Lactic Acid (0.5-2.2) mmol/L Calcium 8.0 L (8.5-10.3) mg/dL Total Bilirubin (0.2-1.0) mg/dL AST (10-42) IU/L ALT (10-60) IU/L Alkaline Phosphatase (42-121) IU/L Ammonia 24.3 (7-35) umol/L Total Protein (6.7-8.2) g/dL Albumin (3.2-5.5) g/dL Globulin (2.1-4.2) g/dL Albumin/Globulin Ratio (1.0-2.2) Lipase (22-51) U/L TSH (0.34-5.60) uIU/mL Urine Color Urine Clarity (CLEAR) Urine pH (5.0-7.5) PH Ur Specific [place] (1.002-1.030) Urine Protein (NEGATIVE) mg/dL Urine Glucose (UA) (NEGATIVE) mg/dL Urine Ketones (NEGATIVE) mg/dL Urine Occult Blood (NEGATIVE) Urine Nitrite (NEGATIVE) Urine Bilirubin (NEGATIVE) Urine Urobilinogen (NORMAL) E.U./dL Ur Leukocyte Esterase (NEGATIVE) Urine RBC (0-5) /HPF Urine WBC (0-3) /HPF Ur Squamous Epith Cells (<= Few) Urine Bacteria (None Seen) /HPF Ur Microscopic Review Urine Culture Comments Nasal Screen MRSA (PCR) (NEGATIVE) 02/03/19 02/03/19 02/03/19 Range/Units 21:38 16:53 12:55 WBC (4.8-10.8) x10^3/uL RBC (4.70-6.10) 10^6/uL Hgb (14.0-18.0) g/dL Hct (42.0-52.0) % MCV (80.0-94.0) fL MCH (27.0-31.0) pg MCHC (32.0-36.0) g/dL RDW (12.0-15.0) % Plt Count (130-450) 10^3/uL MPV (7.4-11.4) fL Neut # (Auto) (1.5-6.6) 10^3/uL Lymph # (Auto) (1.5-3.5) 10^3/uL Riley # (Auto) (0.0-1.0) 10^3/uL Eos # (Auto) (0.0-0.7) 10^3/uL Baso # (Auto) (0.0-0.1) 10^3/uL Absolute Nucleated RBC x10^3/uL Nucleated RBC % /100WBC Bld Gas Analysis Time 2150 Sample Site RIGHT RADIAL ABG pH 7.45 (7.35-7.45) ABG pCO2 27 L (34-45) mmHg ABG pO2 85 (80-100) mmHg ABG HCO3 18.5 L (22.0-26.0) mmol/L ABG Total CO2 19.3 L (21.0-29.0) MMOL/L ABG O2 Saturation 96 (94-98) % ABG Base Excess -4.4 L (-2.0-3.0) mmol/L Dano Test POSITIVE VBG pH (7.31-7.41) Ionized Calcium (1.15-1.33) mmol/L O2 Delivery Device C-PAP O2 Liters/Min 10.00 LPM Sodium (135-145) mmol/L Potassium (3.5-5.0) mmol/L Chloride (101-111) mmol/L Carbon Dioxide (21-32) mmol/L Anion Gap (6-13) BUN (6-20) mg/dL Creatinine (0.6-1.2) mg/dL Estimated GFR (MDRD) (>89) Glucose (70-100) mg/dL Glycated Hemoglobin (4.6-6.2) % Estim Average Glucose (70-100) Lactic Acid 1.7 (0.5-2.2) mmol/L Calcium (8.5-10.3) mg/dL Total Bilirubin (0.2-1.0) mg/dL AST (10-42) IU/L ALT (10-60) IU/L Alkaline Phosphatase (42-121) IU/L Ammonia (7-35) umol/L Total Protein (6.7-8.2) g/dL Albumin (3.2-5.5) g/dL Globulin (2.1-4.2) g/dL Albumin/Globulin Ratio (1.0-2.2) Lipase (22-51) U/L TSH (0.34-5.60) uIU/mL Urine Color Urine Clarity (CLEAR) Urine pH (5.0-7.5) PH Ur Specific [place] (1.002-1.030) Urine Protein (NEGATIVE) mg/dL Urine Glucose (UA) (NEGATIVE) mg/dL Urine Ketones (NEGATIVE) mg/dL Urine Occult Blood (NEGATIVE) Urine Nitrite (NEGATIVE) Urine Bilirubin (NEGATIVE) Urine Urobilinogen (NORMAL) E.U./dL Ur Leukocyte Esterase (NEGATIVE) Urine RBC (0-5) /HPF Urine WBC (0-3) /HPF Ur Squamous Epith Cells (<= Few) Urine Bacteria (None Seen) /HPF Ur Microscopic Review Urine Culture Comments Nasal Screen MRSA (PCR) NEGATIVE (NEGATIVE) 02/03/19 02/03/19 02/03/19 Range/Units 11:26 11:14 11:14 WBC (4.8-10.8) x10^3/uL RBC (4.70-6.10) 10^6/uL Hgb (14.0-18.0) g/dL Hct (42.0-52.0) % MCV (80.0-94.0) fL MCH (27.0-31.0) pg MCHC (32.0-36.0) g/dL RDW (12.0-15.0) % Plt Count (130-450) 10^3/uL MPV (7.4-11.4) fL Neut # (Auto) (1.5-6.6) 10^3/uL Lymph # (Auto) (1.5-3.5) 10^3/uL Riley # (Auto) (0.0-1.0) 10^3/uL Eos # (Auto) (0.0-0.7) 10^3/uL Baso # (Auto) (0.0-0.1) 10^3/uL Absolute Nucleated RBC x10^3/uL Nucleated RBC % /100WBC Bld Gas Analysis Time Sample Site ABG pH (7.35-7.45) ABG pCO2 (34-45) mmHg ABG pO2 (80-100) mmHg ABG HCO3 (22.0-26.0) mmol/L ABG Total CO2 (21.0-29.0) MMOL/L ABG O2 Saturation (94-98) % ABG Base Excess (-2.0-3.0) mmol/L Dano Test VBG pH (7.31-7.41) Ionized Calcium (1.15-1.33) mmol/L O2 Delivery Device O2 Liters/Min LPM Sodium 139 (135-145) mmol/L Potassium 4.2 (3.5-5.0) mmol/L Chloride 100 L (101-111) mmol/L Carbon Dioxide 28 (21-32) mmol/L Anion Gap 11.0 (6-13) BUN 17 (6-20) mg/dL Creatinine 1.5 H (0.6-1.2) mg/dL Estimated GFR (MDRD) 44 L (>89) Glucose 106 H (70-100) mg/dL Glycated Hemoglobin 6.5 H (4.6-6.2) % Estim Average Glucose 140 H (70-100) Lactic Acid (0.5-2.2) mmol/L Calcium 9.0 (8.5-10.3) mg/dL Total Bilirubin 0.9 (0.2-1.0) mg/dL AST 16 (10-42) IU/L ALT 15 (10-60) IU/L Alkaline Phosphatase 50 (42-121) IU/L Ammonia (7-35) umol/L Total Protein 6.6 L (6.7-8.2) g/dL Albumin 3.6 (3.2-5.5) g/dL Globulin 3.0 (2.1-4.2) g/dL Albumin/Globulin Ratio 1.2 (1.0-2.2) Lipase 18 L (22-51) U/L TSH (0.34-5.60) uIU/mL Urine Color YELLOW Urine Clarity CLOUDY (CLEAR) Urine pH 7.0 (5.0-7.5) PH Ur Specific [place] <=1.005 (1.002-1.030) Urine Protein NEGATIVE (NEGATIVE) mg/dL Urine Glucose (UA) NEGATIVE (NEGATIVE) mg/dL Urine Ketones NEGATIVE (NEGATIVE) mg/dL Urine Occult Blood SMALL H (NEGATIVE) Urine Nitrite POSITIVE H (NEGATIVE) Urine Bilirubin NEGATIVE (NEGATIVE) Urine Urobilinogen 1 (NORMAL) (NORMAL) E.U./dL Ur Leukocyte Esterase MODERATE H (NEGATIVE) Urine RBC 6-10 H (0-5) /HPF Urine WBC >25 H (0-3) /HPF Ur Squamous Epith Cells RARE Squamous (<= Few) Urine Bacteria Moderate H (None Seen) /HPF Ur Microscopic Review INDICATED Urine Culture Comments INDICATED Nasal Screen MRSA (PCR) (NEGATIVE) 02/03/19 Range/Units 11:14 WBC 9.2 (4.8-10.8) x10^3/uL RBC 3.62 L (4.70-6.10) 10^6/uL Hgb 11.0 L (14.0-18.0) g/dL Hct 33.8 L (42.0-52.0) % MCV 93.4 (80.0-94.0) fL MCH 30.4 (27.0-31.0) pg MCHC 32.5 (32.0-36.0) g/dL RDW 17.8 H (12.0-15.0) % Plt Count 215 (130-450) 10^3/uL MPV 10.4 (7.4-11.4) fL Neut # (Auto) 7.6 H (1.5-6.6) 10^3/uL Lymph # (Auto) 1.0 L (1.5-3.5) 10^3/uL Riley # (Auto) 0.5 (0.0-1.0) 10^3/uL Eos # (Auto) 0.1 (0.0-0.7) 10^3/uL Baso # (Auto) 0.0 (0.0-0.1) 10^3/uL Absolute Nucleated RBC 0.00 x10^3/uL Nucleated RBC % 0.0 /100WBC Bld Gas Analysis Time Sample Site ABG pH (7.35-7.45) ABG pCO2 (34-45) mmHg ABG pO2 (80-100) mmHg ABG HCO3 (22.0-26.0) mmol/L ABG Total CO2 (21.0-29.0) MMOL/L ABG O2 Saturation (94-98) % ABG Base Excess (-2.0-3.0) mmol/L Dano Test VBG pH (7.31-7.41) Ionized Calcium (1.15-1.33) mmol/L O2 Delivery Device O2 Liters/Min LPM Sodium (135-145) mmol/L Potassium (3.5-5.0) mmol/L Chloride (101-111) mmol/L Carbon Dioxide (21-32) mmol/L Anion Gap (6-13) BUN (6-20) mg/dL Creatinine (0.6-1.2) mg/dL Estimated GFR (MDRD) (>89) Glucose (70-100) mg/dL Glycated Hemoglobin (4.6-6.2) % Estim Average Glucose (70-100) Lactic Acid (0.5-2.2) mmol/L Calcium (8.5-10.3) mg/dL Total Bilirubin (0.2-1.0) mg/dL AST (10-42) IU/L ALT (10-60) IU/L Alkaline Phosphatase (42-121) IU/L Ammonia (7-35) umol/L Total Protein (6.7-8.2) g/dL Albumin (3.2-5.5) g/dL Globulin (2.1-4.2) g/dL Albumin/Globulin Ratio (1.0-2.2) Lipase (22-51) U/L TSH (0.34-5.60) uIU/mL Urine Color Urine Clarity (CLEAR) Urine pH (5.0-7.5) PH Ur Specific [place] (1.002-1.030) Urine Protein (NEGATIVE) mg/dL Urine Glucose (UA) (NEGATIVE) mg/dL Urine Ketones (NEGATIVE) mg/dL Urine Occult Blood (NEGATIVE) Urine Nitrite (NEGATIVE) Urine Bilirubin (NEGATIVE) Urine Urobilinogen (NORMAL) E.U./dL Ur Leukocyte Esterase (NEGATIVE) Urine RBC (0-5) /HPF Urine WBC (0-3) /HPF Ur Squamous Epith Cells (<= Few) Urine Bacteria (None Seen) /HPF Ur Microscopic Review Urine Culture Comments Nasal Screen MRSA (PCR) (NEGATIVE) Sepsis Event Note (H) - Evaluation Current Stage of Sepsis: Septic shock Possible source of Sepsis: positive: Genitourinary Confirmed Source and Organism (if known) of Sepsis: UTI with gram positive bacteremia - Sepsis Criteria Sepsis Criteria: Recorded Temperature greater than 38.3C or Less than 36C, Recorded Heart Rate greater than 90 bpm, Recorded Respiratory Rate greater than 20, Respiratory: Increasing oxygen requirements, [employer]: altered consciousness (unrelated to primary neuro pathology), SBP drop more than 40mHg, SBP less than 90 mmHg Assessment/Plan - Problem List (1) Shock due to systemic infection Impression: He would be described as an adult male with a complicated UTI and a history of urinary retention. He has had previous history of sepsis with UTI in the past according to his . He has been hospitalized in [place] and in the [place] area for this. As such, using the UptoDate algorithm, he is placed on meropenem and linezolid. It is supposed to be meropenem and vancomycin but he has developed an allergy to the vancomycin. Patient initially monitored on the floor. Although he met the criteria for sepsis, lactic acid was normal. He was mildly hypotensive and then severely hypotensive in spite of IVF and abx, requiring central line and placement in ICU with levophed. Plan: Day #2 for meropenem and vancomycin levophed prn to keep MAP >65 (2) Gram-positive bacteremia Impression: he was being treated for MRSA pneumonia at [facility] and then sent to [facility] to complete therapy. Developed red man syndrome and vancomycin stopped. Now here w UTI but GPC in blood, not what I would anticipate for UTI (GNR). He will need 10 days of abx depending on ID and sensitivity. I have re-examined skin and there is no source from skin breakdown. He did not have central access at [facility]. (3) Metabolic encephalopathy Impression: secondary to infection but this man also is on steroids for adrenal insufficiency. given increased doses last night in the face of shock. Also had CT of head checked for stroke and none found. This am a bit better but not by much. 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 Lasix was changed at discharge from prov 01/08 to 80 mg a day. I will not resume his usual meds for now since he is in ICU but will monitor for acute failure and give diuretic when needed. I planned on resuming carvedilol today but will wait. (4) COPD (chronic obstructive pulmonary disease) Conclusion/Plan: he is not in acute exacerbation. Will make sure nebs and long acting inhaled meds given per ususal regimin but will substitute for formulary: continue pulmicort, perforomist, duoneb. Qualifiers: COPD type: unspecified COPD Qualified Code(s): J44.9 - Chronic obstructive pulmonary disease, unspecified (5) Back pain Conclusion/Plan: he was very uncomfortable on night of admission, grimacing with pain. asked if he could get 2 of his usual home meds and I allowed 2 norco from home for expediency but will order his meds for here and include Morphine prn IV. I will give his gabapentin. He received Narcan when he went into shock to make sure not opiate induced encephalopathy but no response. Qualifiers: Back pain location: low back pain Chronicity: chronic Back pain laterality: bilateral Sciatica presence: with sciatica (6) BPH loc w urin obs/LUTS Conclusion/Plan: he has a long hx of BPH but only once a night nocturia. I don't know if he had a mercado at [place]. will check reroperitoneal US did not show obstruction of hydronephrosis. (7) ATN: Acute on CKD (chronic kidney disease) stage 3, GFR 30-59 ml/min Conclusion/Plan: his lowest creat was 0.8 with us and he was 1.3 in January ER visit. Highest has been 1.6 and he was 1.5 on admission. However with hypotension to 50 systolic for an extended time, until line could be placed for levo, his creat has risen to 2.3. will continue to monitor and avoid nephrotoxic agents. Bactrim caused a severe rise in creat in the past and will be avoided. He is on reduced dose of allopurinol of 100 mg and will be continued. (8) Adrenal insufficiency Conclusion/Plan: was given one dose of solumedrol IV and then doses continued with his shock. (9) Type 2 diabetes mellitus without complication, without long-term current use of insulin Conclusion/Plan: A1c 6.5%. it appears to be due to his steroids for his adrenals. I will not give metformin to a septic patient so as to avoid contributing to lactic acidosis. Use SS insulin for converage.
[2019-02-04] MEDS ORDERED: CALCIUM GLUCONATE 1,000 MG in SODIUM CHLORIDE 0.9% 50 ML IV ONE (10:54)
[2019-02-04] MEDS: SODIUM CHLORIDE 0.9% 500 ML IV PRN (11:30)
[2019-02-04] MEDS: PANTOPRAZOLE 40 MG VIAL IVP SCH (12:08)
[2019-02-04] MEDS: ZINC OXIDE 20% OINT 30 GM TUBE TOP PRN (14:25)
[2019-02-04] MEDS: GABAPENTIN 300 MG CAPSULE PO SCH (21:13)
[2019-02-05] MEDS: TAMSULOSIN 0.4 MG CAPSULE PO SCH ×2 (00:07→09:37)
[2019-02-05] MEDS: INSULIN REGULAR HUMAN 300 UNIT/3 ML VIAL SUBQ SCH ×4 (00:08→18:01)
[2019-02-05] MEDS: LINEZOLID 600 MG/300 ML 600 MG/300 ML BAG IV SCH ×2 (04:37→16:00)
[2019-02-05] MEDS: SODIUM CHLORIDE FLUSH 0.9% 10 ML SYRINGE IVP SCH ×3 (04:38→17:26)
[2019-02-05] MEDS: SODIUM CHLORIDE FLUSH 0.9% 10 ML SYRINGE IVP PRN (05:03)
[2019-02-05 05:47] LABS: BASOPHILS % (AUTO) 0.2 %; HGB - HEMOGLOBIN 9.5 g/dL (14.0-18.0); LYMPHOCYTES # (AUTO) 0.4 10^3/uL (1.5-3.5); LYMPHOCYTES % (AUTO) 3.6 %; MEAN CORPUSCULAR HEMOGLOBIN 29.5 pg (27.0-31.0); MEAN CORPUSCULAR HGB CONC 32.3 g/dL (32.0-36.0); MEAN CORPUSCULAR VOLUME 91.3 fL (80.0-94.0); MEAN PLATELET VOLUME 10.9 fL (7.4-11.4); MONOCYTES # (AUTO) 0.2 10^3/uL (0.0-1.0); MONOCYTES % (AUTO) 2.1 %; NEUTROPHILS # (AUTO) 10.8 10^3/uL (1.5-6.6); NEUTROPHILS % (AUTO) 93.2 %; PLT - PLATELET COUNT 169 10^3/uL (130-450); RED BLOOD COUNT 3.22 10^6/uL (4.70-6.10); RED CELL DISTRIBUTION WIDTH 17.4 % (12.0-15.0); WHITE BLOOD COUNT 11.5 x10^3/uL (4.8-10.8)
[2019-02-05 05:54] LABS: CREATININE 2.2 mg/dL (0.6-1.2)
[2019-02-05 05:55] LABS: CALCIUM 7.8 mg/dL (8.5-10.3)
[2019-02-05] MEDS: HYDROCORTISONE SUCCINATE 100 MG/2 ML VIAL IVP SCH ×2 (06:21→13:58)
[2019-02-05 06:24] LABS: MAGNESIUM 1.7 mg/dL (1.7-2.8); PHOSPHORUS 5.1 mg/dL (2.5-4.6)
[2019-02-05 06:32] LABS: ALBUMIN 2.7 g/dL (3.2-5.5)
[2019-02-05] MEDS: MEROPENEM 1 GM in SODIUM CHLORIDE 0.9% MINIBAG 100 ML IV SCH ×2 (07:06→17:40)
[2019-02-05] MEDS: PANTOPRAZOLE 40 MG VIAL IVP SCH (07:06)
[2019-02-05] MEDS: FORMOTEROL FUMARATE NEB 20 MCG/2 ML INH SCH ×2 (08:07→20:30)
[2019-02-05] MEDS: IPRATROPIUM/ALBUTEROL 3 ML NEB INH SCH ×4 (08:07→20:30)
[2019-02-05] MEDS: BUDESONIDE 0.5 MG/2 ML NEB INH SCH ×2 (08:07→20:30)
[2019-02-05] MEDS: APIXABAN 2.5 MG TABLET PO SCH ×2 (09:35→21:08)
[2019-02-05] MEDS: ALLOPURINOL 100 MG TABLET PO SCH (09:35)
[2019-02-05] MEDS: POLYETHYLENE GLYCOL 3350 17 GM PACKET PO SCH (09:36)
[2019-02-05] MEDS: NYSTATIN POWDER 15 GM TOP SCH ×2 (10:00→21:17)
--- NOTE | 2019-02-05 12:08 | PROVIDER PROGRESS NOTE ---
Subjective - Prog Note Date Prog Note Date: 02/05/19 Prog Note Time: 13:01 - Subjective Subjective: he is stable from a BP and pulse and UOP perspective but he's not less sleepy. He will answer his and do it appropriately but not spontaneously verbal. he will squeeze hands or answer more than 50% of the time, but not all the time. Current Medications - Current Medications Current Medications: Active Medications Acetaminophen (Tylenol) 650 mg PO Q4HR PRN PRN Reason: Pain 1 to 4 Hydrocodone Bitart/Acetaminophen ([place] 5/325) 1 tab PO Q4HR PRN PRN Reason: PAIN Albuterol () 2.5 mg INH RTQ4H PRN PRN Reason: Wheezing Albuterol/Ipratropium (Duoneb) 3 ml INH RTQID [facility] Last Admin: 02/05/19 12:00 Dose: 3 ml Allopurinol (Zyloprim) 100 mg PO DAILY [facility] Last Admin: 02/05/19 09:35 Dose: Not Given Apixaban (Eliquis) 2.5 mg PO BID [facility] Last Admin: 02/05/19 09:35 Dose: Not Given Budesonide (Pulmicort) 0.5 mg INH RTBID [facility] Last Admin: 02/05/19 08:07 Dose: 0.5 mg Formoterol Fumarate (Perforomist) 20 mcg INH RTBID [facility] Last Admin: 02/05/19 08:07 Dose: 20 mcg Gabapentin (Neurontin) 300 mg PO QPM [facility] Last Admin: 02/04/19 21:13 Dose: Not Given Heparin Sodium (Beef Lung) () 30 - 50 unit IVP PRN PRN PRN Reason: Central Line Protocol (<24 hr) Last Admin: 02/04/19 04:44 Dose: 30 unit Hydrocortisone Sodium Succinate (Solu-Cortef) 100 mg IVP TID [facility] Last Admin: 02/05/19 06:21 Dose: 100 mg Linezolid (Zyvox 600 Mg/300 Ml) 600 mg in 300 mls @ 300 mls/hr IV Q12H [facility] Last Infusion: 02/05/19 05:37 Dose: Infused Norepinephrine Bitartrate 8 mg (/ Dextrose) 250 mls @ 15 mls/hr IV .[id number] [facility]; Protocol Last Admin: 02/05/19 07:38 Dose: Not Given Meropenem 1 gm/ Sodium (Chloride) 100 mls @ 200 mls/hr IV Q12H [facility] Last Infusion: 02/05/19 07:36 Dose: Infused Sodium Chloride (Normal Saline 0.9%) 500 mls @ 0 mls/hr IV Q24H PRN PRN Reason: TKO RATE Last Infusion: 02/05/19 12:00 Dose: 20 mls/hr Insulin Human Regular (Humulin R) 1 - 5 unit SUBQ Q6HR [facility]; Protocol Last Admin: 02/05/19 11:59 Dose: 1 unit Multi-Ingredient Ointment (Zinc Oxide) 1 applic TOP PRN PRN PRN Reason: Skin Care Last Admin: 02/04/19 14:25 Dose: 1 applic Nystatin (Nystop) 1 applic TOP BID [facility] Last Admin: 02/05/19 10:00 Dose: 1 applic Pantoprazole Sodium (Protonix) 40 mg IVP QDAC [facility] Last Admin: 02/05/19 07:06 Dose: 40 mg Polyethylene Glycol (Miralax) 17 gm PO DAILY [facility] Last Admin: 02/05/19 09:36 Dose: Not Given Sodium Chloride (Normal Saline Flush 0.9%) 10 ml IVP PRN PRN PRN Reason: NEEDED PER PROVIDER ORDERS Last Admin: 02/03/19 22:00 Dose: 20 ml Sodium Chloride (Normal Saline Flush 0.9%) 10 ml IVP 0100,0900,1700 [facility] Last Admin: 02/05/19 09:37 Dose: 10 ml Sodium Chloride (Normal Saline Flush 0.9%) 20 ml IVP PRN PRN PRN Reason: After Blood Draw Last Admin: 02/05/19 05:03 Dose: 20 ml Tamsulosin HCl (Flomax) 0.4 mg PO DAILY [facility] Last Admin: 02/05/19 09:37 Dose: Not Given Carvedilol 12.5 mg PO BID 06/22/16 Furosemide 80 mg PO DAILY 06/22/16 Gabapentin 300 mg PO BID 06/22/16 Simvastatin 80 mg PO QPM 06/22/16 Tamsulosin HCl [Flomax] 0.4 mg PO DAILY 03/21/17 Hydrocortisone 10 mg PO DAILY 02/18/18 Apixaban [Eliquis] 2.5 mg PO BID 02/19/18 Aspirin [Aspirin EC] 81 mg PO DAILY 02/19/18 Hydrocodone/Acetaminophen [Hydrocodone-Acetamin 5-325 mg] 1 tab PO Q6H PRN 02/19/18 Oxybutynin Chloride [Ditropan Xl] 10 mg PO DAILY 02/19/18 Allopurinol 100 mg PO DAILY 12/22/18 Ferrous Sulfate 325 mg PO DAILY 12/22/18 Mometasone Furoate [Asmanex] 2 puffs IH DAILY 12/22/18 metFORMIN [Glucophage] 500 mg PO BID 12/22/18 Albuterol 3 ml INH Q8H 02/04/19 Benzonatate 100 mg PO DAILY PRN 02/04/19 Calcium Carbonate 1,000 mg PO Q4H PRN 02/04/19 Fluticasone Propionate [24 Hour Allergy] 1 spray ALAN DAILY PRN 02/04/19 Miconazole Nitrate [Desenex] 1 applic TOP BID 02/04/19 Pantoprazole [Protonix] 40 mg PO BID 02/04/19 Potassium Chloride 20 meq PO DAILY 02/04/19 Tiotropium Br/Olodaterol HCl [Stiolto Respimat Inhal [place]] 2 puffs PO DAILY 02/04/19 Objective - Vital Signs/Intake & Output Reviewed Vital Signs: Yes Vital Signs: Vital Signs Temp Pulse Resp BP Pulse Ox 02/05/19 11:00 36.1 C L 72 17 127/91 H 96 02/05/19 10:00 71 20 129/87 H 97 02/05/19 09:00 77 16 122/73 97 Intake & Output: Intake & Output 02/02/19 02/03/19 02/04/19 02/05/19 23:59 23:59 23:59 23:59 Intake Total 4126.063 2191.938 723.333 Output Total 115 1121 530 Balance 4011.063 1070.938 193.333 - Objective General Appearance: positive: No acute distress, Other (laying flat, eyes close. Opens to my voice or to . Looks at me. But silent.) Eyes Bilateral: positive: PERRL, Other (can't assess EOMI completely since he doesn't alway follow commands) Neck: positive: No JVD. negative: Stiff neck, Carotid bruit Respiratory: positive: Chest non-tender, Other (but he's holding his breath ever y 2-3 breaths. Not mouth breathing. Almost seems to be clamping his mouth shut.). negative: Wheezes, Rales, Rhonchi Cardiovascular: positive: Regular rate & rhythm. negative: Systolic murmur, Gallop/S4, Friction rub Abdomen: positive: Non-tender, No organomegaly, Nml bowel sounds, No distention. negative: Guarding, Rebound Skin: positive: Warm, Dry, Pallor Extremities: positive: Pedal edema (mild around ankles) Neurologic/Psychiatric: positive: Other (responds to voice by opening eyes, occasional sponataneous movement like to move sheets with his foot, nonverbal otherwise) - Lab Results Fish Bones: 02/05/19 05:00 02/05/19 05:00 Other Labs: Lab Results x24hrs 02/05/19 02/05/19 02/05/19 Range/Units 05:00 05:00 05:00 WBC 11.5 H (4.8-10.8) x10^3/uL RBC 3.22 L (4.70-6.10) 10^6/uL Hgb 9.5 L (14.0-18.0) g/dL Hct 29.4 L (42.0-52.0) % MCV 91.3 (80.0-94.0) fL MCH 29.5 (27.0-31.0) pg MCHC 32.3 (32.0-36.0) g/dL RDW 17.4 H (12.0-15.0) % Plt Count 169 (130-450) 10^3/uL MPV 10.9 (7.4-11.4) fL Neut # (Auto) 10.8 H (1.5-6.6) 10^3/uL Lymph # (Auto) 0.4 L (1.5-3.5) 10^3/uL [place] # (Auto) 0.2 (0.0-1.0) 10^3/uL Eos # (Auto) 0.0 (0.0-0.7) 10^3/uL Baso # (Auto) 0.0 (0.0-0.1) 10^3/uL Absolute Nucleated RBC 0.00 x10^3/uL Nucleated RBC % 0.0 /100WBC Sodium 142 (135-145) mmol/L Potassium 3.7 (3.5-5.0) mmol/L Chloride 104 (101-111) mmol/L Carbon Dioxide 25 (21-32) mmol/L Anion Gap 13.0 (6-13) BUN 33 H (6-20) mg/dL Creatinine 2.2 H (0.6-1.2) mg/dL Estimated GFR (MDRD) 28 L (>89) Glucose 211 H (70-100) mg/dL Calcium 7.8 L (8.5-10.3) mg/dL Phosphorus 5.1 H (2.5-4.6) mg/dL Magnesium 1.7 (1.7-2.8) mg/dL Albumin 2.7 L (3.2-5.5) g/dL Sepsis Event Note (H) - Evaluation Current Stage of Sepsis: Resolved Possible source of Sepsis: positive: Genitourinary - Sepsis Criteria Sepsis Criteria: Recorded Temperature greater than 38.3C or Less than 36C, Recorded Heart Rate greater than 90 bpm, Recorded Respiratory Rate greater than 20, Respiratory: Increasing oxygen requirements, CLAIMS ADJUDICATOR: altered consciousness (unrelated to primary neuro pathology), SBP drop more than 40mHg, SBP less than 90 mmHg Assessment/Plan - Problem List (1) Shock due to systemic infection Impression: Resolved. He would be described as an adult male with a complicated UTI and a history of urinary retention. He has had previous history of sepsis with UTI in the past according to his . He has been hospitalized in [place] and in the [place] area for this. As such, using the UptoDate algorithm, he is placed on meropenem and linezolid. It is supposed to be meropenem and vancomycin but he has developed an allergy to the vancomycin. Patient initially monitored on the floor. Although he met the criteria for sepsis, lactic acid was normal. He was mildly hypotensive and then severely hypotensive that first in spite of IVF and abx, requiring central line and placement in ICU with levophed. That was 10/3. Plan: Day #3 for meropenem and vancomycin levophed prn to keep MAP >65. hasn't needed to be used since 10/3 am. (2) alpha hemolytic strep bacteremia Impression: he was being treated for MRSA pneumonia at [facility] and then sent to [facility] to complete therapy. Developed red man syndrome and vancomycin stopped. Now here w UTI but GPC in blood, not what I would anticipate for UTI (GNR). He will need 10 days of abx depending on ID and sensitivity. I have re-examined skin 02/04 and today and there is no source from skin breakdown. He did not have central access at [facility]. (3) Metabolic encephalopathy Impression: secondary to infection but this man also is on steroids for adrenal in sufficiency. given increased doses 02/03 and 02/04 in the face of shock. Also had CT of head checked for stroke and none found. 02/04 am and today, a bit better but not by much. is worried. (3) Chronic combined systolic and diastolic CHF, NYHA class 2 Conclusion/Plan: He was just seen by his Marketing Analytics Lead last week . Lasix was changed at discharge from prov 01/08 to 80 mg a day. I will not resume his usual meds for now since he is in ICU but will monitor for acute failure and give diuretic when needed. I planned on resuming carvedilol but will wait. He doesn't have JVD, crackles, hypoxia. Will resume his lasix. (4) COPD (chronic obstructive pulmonary disease) Conclusion/Plan: he is not in acute exacerbation. Will make sure nebs and long acting inhaled meds given per ususal regimin but will substitute for formulary: continue pulmicort, perforomist, duoneb. Qualifiers: COPD type: unspecified COPD Qualified Code(s): J44.9 - Chronic obstructive pulmonary disease, unspecified (5) Back pain Conclusion/Plan: he was very uncomfortable on night of admission, grimacing with pain. asked if he could get 2 of his usual home meds and I allowed 2 norco from home for expediency but will order his meds for here and include Morphine prn IV. I will give his gabapentin. He received Narcan when he went into shock to make sure not opiate induced encephalopathy but no response. Pain not a problem the last few days. Qualifiers: Back pain location: low back pain Chronicity: chronic Back pain laterality: bilateral Sciatica presence: with sciatica (6) BPH loc w urin obs/LUTS Conclusion/Plan: he has a long hx of BPH but only once a night nocturia. I don't know if he had a mercado at [place]. will check reroperitoneal US did not show obstruction of hydronephrosis. (7) ATN: Acute on CKD (chronic kidney disease) stage 3, GFR 30-59 ml/min Conclusion/Plan: his lowest creat was 0.8 with us and he was 1.3 in January ER visit. Highest has been 1.6 and he was 1.5 on admission. However with hypotension to 50 systolic for an extended time, until line could be placed for levo, his creat has risen to 2.3>2.2 today. will continue to monitor and avoid nephrotoxic agents. Bactrim caused a severe rise in creat in the past and will be avoided. He is on reduced dose of allopurinol of 100 mg and will be continued. (8) Adrenal insufficiency Conclusion/Plan: was given one dose of solumedrol IV and then doses continued with his shock. (9) Type 2 diabetes mellitus without complication, without long-term current use of insulin Conclusion/Plan: A1c 6.5%. it appears to be due to his steroids for his adrenals. I will not give metformin to a septic patient so as to avoid contributing to lactic acidosis. Use SS insulin for converage. (10) BRUCE on CPAP he is holding his breath for a few seconds today. Will see if CPAP helps.
[2019-02-05] MEDS: SODIUM CHLORIDE 0.9% 500 ML IV PRN (14:05)
[2019-02-05] MEDS: CARVEDILOL 12.5 MG TABLET PO SCH (21:08)
[2019-02-05] MEDS: GABAPENTIN 300 MG CAPSULE PO SCH (21:08)
[2019-02-06] MEDS: INSULIN REGULAR HUMAN 300 UNIT/3 ML VIAL SUBQ SCH ×4 (00:31→18:16)
[2019-02-06] MEDS: LINEZOLID 600 MG/300 ML 600 MG/300 ML BAG IV SCH ×2 (05:25→16:34)
[2019-02-06] MEDS: SODIUM CHLORIDE FLUSH 0.9% 10 ML SYRINGE IVP SCH ×3 (05:25→21:01)
[2019-02-06] MEDS: SODIUM CHLORIDE FLUSH 0.9% 10 ML SYRINGE IVP PRN ×2 (06:11→07:31)
[2019-02-06 06:43] LABS: BASOPHILS % (AUTO) 0.1 %; HGB - HEMOGLOBIN 9.8 g/dL (14.0-18.0); LYMPHOCYTES # (AUTO) 0.5 10^3/uL (1.5-3.5); LYMPHOCYTES % (AUTO) 5.1 %; MEAN CORPUSCULAR HEMOGLOBIN 30.2 pg (27.0-31.0); MEAN CORPUSCULAR HGB CONC 32.9 g/dL (32.0-36.0); MEAN PLATELET VOLUME 10.7 fL (7.4-11.4); MONOCYTES # (AUTO) 0.2 10^3/uL (0.0-1.0); MONOCYTES % (AUTO) 1.8 %; NEUTROPHILS # (AUTO) 8.1 10^3/uL (1.5-6.6); NEUTROPHILS % (AUTO) 92.5 %; PLT - PLATELET COUNT 171 10^3/uL (130-450); RED BLOOD COUNT 3.24 10^6/uL (4.70-6.10); RED CELL DISTRIBUTION WIDTH 17.2 % (12.0-15.0); WHITE BLOOD COUNT 8.7 x10^3/uL (4.8-10.8)
[2019-02-06 06:47] LABS: CALCIUM 7.9 mg/dL (8.5-10.3); CREATININE 1.8 mg/dL (0.6-1.2)
[2019-02-06 06:51] LABS: ALBUMIN 2.7 g/dL (3.2-5.5); PHOSPHORUS 3.6 mg/dL (2.5-4.6)
[2019-02-06] MEDS ORDERED: POTASSIUM CHLORIDE 20 MEQ TABLET PO ONE (07:00)
[2019-02-06] MEDS: PANTOPRAZOLE 40 MG VIAL IVP SCH (07:30)
[2019-02-06] MEDS: MEROPENEM 1 GM in SODIUM CHLORIDE 0.9% MINIBAG 100 ML IV SCH ×2 (07:31→18:31)
[2019-02-06 07:44] LABS: VBG PH 7.467 (7.31-7.41)
[2019-02-06] MEDS: BUDESONIDE 0.5 MG/2 ML NEB INH SCH ×2 (08:04→21:25)
[2019-02-06] MEDS: IPRATROPIUM/ALBUTEROL 3 ML NEB INH SCH ×4 (08:04→21:25)
[2019-02-06] MEDS: FORMOTEROL FUMARATE NEB 20 MCG/2 ML INH SCH ×2 (08:05→21:26)
[2019-02-06] MEDS ORDERED: CALCIUM GLUCONATE 2,000 MG in SODIUM CHLORIDE 0.9% 100ML 100 ML IV ONE (08:57)
[2019-02-06] MEDS ORDERED: TAMSULOSIN 0.4 MG CAPSULE PO SCH (09:00)
[2019-02-06] MEDS: ALLOPURINOL 100 MG TABLET PO SCH (09:20)
[2019-02-06] MEDS: FERROUS SULFATE 325 MG TABLET PO SCH (09:21)
[2019-02-06] MEDS: NYSTATIN POWDER 15 GM TOP SCH ×2 (09:21→21:05)
[2019-02-06] MEDS: APIXABAN 2.5 MG TABLET PO SCH ×2 (09:21→21:01)
[2019-02-06] MEDS: HYDROCORTISONE 10 MG TABLET PO SCH (09:21)
[2019-02-06] MEDS: CARVEDILOL 12.5 MG TABLET PO SCH ×2 (09:21→21:01)
[2019-02-06] MEDS: FUROSEMIDE 40 MG TABLET PO SCH (09:21)
[2019-02-06] MEDS: POLYETHYLENE GLYCOL 3350 17 GM PACKET PO SCH (09:21)
[2019-02-06] MEDS: TAMSULOSIN 0.4 MG CAPSULE PO SCH (09:22)
[2019-02-06] MEDS: POTASSIUM CHLOR 20 MEQ/100 ML 20 MEQ/100 ML BAG IV SCH ×2 (10:30→12:00)
--- NOTE | 2019-02-06 12:17 | PROVIDER PROGRESS NOTE ---
Subjective - Prog Note Date Prog Note Date: 02/06/19 Prog Note Time: 12:33 - Subjective Subjective: he is awake. when I walk in room, his eyes are open to ceiling and he turns his head to watch me walk in room and say "hello" when I greet him. he is not volubly speaking but and RN confirm he is appropriate. He is grimacing but denies pain. Main problem is all the wires and the fact he is itching. No rash. Denies abd, chest pain. Overnight BP stable. No fever. UOP stable. He is 96-97% on RA. Current Medications - Current Medications Current Medications: Active Medications Acetaminophen (Tylenol) 650 mg PO Q4HR PRN PRN Reason: Pain 1 to 4 Hydrocodone Bitart/Acetaminophen (Hobbs 5/325) 1 tab PO Q4HR PRN PRN Reason: PAIN Albuterol () 2.5 mg INH RTQ4H PRN PRN Reason: Wheezing Albuterol/Ipratropium (Duoneb) 3 ml INH RTQID [facility] Last Admin: 02/06/19 11:55 Dose: 3 ml Allopurinol (Zyloprim) 100 mg PO DAILY [facility] Last Admin: 02/06/19 09:20 Dose: Not Given Apixaban (Eliquis) 2.5 mg PO BID [facility] Last Admin: 02/06/19 09:21 Dose: Not Given Budesonide (Pulmicort) 0.5 mg INH RTBID [facility] Last Admin: 02/06/19 08:04 Dose: 0.5 mg Carvedilol (Coreg) 12.5 mg PO BID [facility] Last Admin: 02/06/19 09:21 Dose: Not Given Diphenhydramine HCl (Benadryl Inj) 25 mg IVP Q6H PRN PRN Reason: Allergy Symptoms Ferrous Sulfate (Feosol) 325 mg PO DAILY [facility] Last Admin: 02/06/19 09:21 Dose: Not Given Formoterol Fumarate (Perforomist) 20 mcg INH RTBID [facility] Last Admin: 02/06/19 08:05 Dose: 20 mcg Furosemide (Lasix) 80 mg PO DAILY [facility] Last Admin: 02/06/19 09:21 Dose: Not Given Gabapentin (Neurontin) 300 mg PO QPM [facility] Last Admin: 10/04/19 21:08 Dose: Not Given Heparin Sodium (Beef Lung) () 30 - 50 unit IVP PRN PRN PRN Reason: Central Line Protocol (<24 hr) Last Admin: 02/04/19 04:44 Dose: 30 unit Hydrocortisone (Cortef) 10 mg PO DAILY [facility] Last Admin: 02/06/19 09:21 Dose: Not Given Linezolid (Zyvox 600 Mg/300 Ml) 600 mg in 300 mls @ 300 mls/hr IV Q12H [facility] Last Infusion: 02/06/19 07:47 Dose: Infused Meropenem 1 gm/ Sodium (Chloride) 100 mls @ 200 mls/hr IV Q12H [facility] Last Infusion: 02/06/19 08:40 Dose: Infused Sodium Chloride (Normal Saline 0.9%) 500 mls @ 0 mls/hr IV Q24H PRN PRN Reason: TKO RATE Last Infusion: 02/05/19 19:00 Dose: 20 mls/hr Insulin Human Regular (Humulin R) 1 - 5 unit SUBQ Q6HR [facility]; Protocol Last Admin: 02/06/19 12:00 Dose: 2 unit Multi-Ingredient Ointment (Zinc Oxide) 1 applic TOP PRN PRN PRN Reason: Skin Care Last Admin: 02/04/19 14:25 Dose: 1 applic Nystatin (Nystop) 1 applic TOP BID [facility] Last Admin: 02/06/19 09:21 Dose: 1 applic Pantoprazole Sodium (Protonix) 40 mg IVP QDAC [facility] Last Admin: 02/06/19 07:30 Dose: 40 mg Polyethylene Glycol (Miralax) 17 gm PO DAILY [facility] Last Admin: 02/06/19 09:21 Dose: Not Given Sodium Chloride (Normal Saline Flush 0.9%) 10 ml IVP PRN PRN PRN Reason: NEEDED PER PROVIDER ORDERS Last Admin: 02/03/19 22:00 Dose: 20 ml Sodium Chloride (Normal Saline Flush 0.9%) 10 ml IVP 0100,0900,1700 [facility] Last Admin: 02/06/19 09:21 Dose: 10 ml Sodium Chloride (Normal Saline Flush 0.9%) 20 ml IVP PRN PRN PRN Reason: After Blood Draw Last Admin: 02/06/19 07:31 Dose: 20 ml Tamsulosin HCl (Flomax) 0.4 mg PO DAILY [facility] Last Admin: 02/06/19 09:22 Dose: Not Given Tamsulosin HCl (Flomax) 0.4 mg PO DAILY [facility] Last Admin: 02/06/19 09:22 Dose: Not Given Carvedilol 12.5 mg PO BID 06/22/16 Furosemide 80 mg PO DAILY 06/22/16 Gabapentin 300 mg PO BID 06/22/16 Simvastatin 80 mg PO QPM 06/22/16 Tamsulosin HCl [Flomax] 0.4 mg PO DAILY 03/21/17 Hydrocortisone 10 mg PO DAILY 02/18/18 Apixaban [Eliquis] 2.5 mg PO BID 02/19/18 Aspirin [Aspirin EC] 81 mg PO DAILY 02/19/18 Hydrocodone/Acetaminophen [Hydrocodone-Acetamin 5-325 mg] 1 tab PO Q6H PRN 02/19/18 Oxybutynin Chloride [Ditropan Xl] 10 mg PO DAILY 02/19/18 Allopurinol 100 mg PO DAILY 12/22/18 Ferrous Sulfate 325 mg PO DAILY 12/22/18 Mometasone Furoate [Asmanex] 2 puffs IH DAILY 12/22/18 metFORMIN [Glucophage] 500 mg PO BID 12/22/18 Albuterol 3 ml INH Q8H 02/04/19 Benzonatate 100 mg PO DAILY PRN 02/04/19 Calcium Carbonate 1,000 mg PO Q4H PRN 02/04/19 Fluticasone Propionate [24 Hour Allergy] 1 spray ALAN DAILY PRN 02/04/19 Miconazole Nitrate [Desenex] 1 applic TOP BID 02/04/19 Pantoprazole [Protonix] 40 mg PO BID 02/04/19 Potassium Chloride 20 meq PO DAILY 02/04/19 Tiotropium Br/Olodaterol HCl [Stiolto Respimat Inhal Union] 2 puffs PO DAILY 02/04/19 Objective - Vital Signs/Intake & Output Reviewed Vital Signs: Yes Vital Signs: Vital Signs Temp Pulse Pulse Resp BP Pulse Ox 02/06/19 11:00 72 14 147/86 H 02/06/19 10:00 36.5 C 73 16 135/96 H 95 02/06/19 09:00 79 80 16 123/74 94 Intake & Output: Intake & Output 02/03/19 02/04/19 02/05/19 02/06/19 23:59 23:59 23:59 23:59 Intake Total 4126.063 2191.938 1253.332 620 Output Total 115 1121 1012 610 Balance 4011.063 1070.938 241.332 10 - Objective General Appearance: positive: No acute distress, Mild distress (manifested as facial grimace and c/o itching) Eyes Bilateral: positive: PERRL, EOMI ENT: positive: Other (mucosa peeling from ?old rash, current reaction) Neck: positive: No JVD. negative: Stiff neck, Carotid bruit Respiratory: positive: Chest non-tender, Other (very diminished at bases, slow, shallow unlabored). negative: Wheezes, Rales, Rhonchi Cardiovascular: positive: Regular rate & rhythm. negative: Systolic murmur, Gallop/S4, Friction rub Abdomen: positive: Non-tender, No organomegaly, Nml bowel sounds, No distention, Other (musculature continues to be firm) Skin: positive: Warm, Dry, Other (flaking of skin less and less as time has gone by) Extremities: positive: Full ROM, Pedal edema Neurologic/Psychiatric: positive: CN's nml (2-12), Motor nml (but slow, sometimes discoordinated.), Disoriented to place, Disoriented to time - Lab Results Fish Bones: 02/06/19 06:10 02/06/19 06:10 Other Labs: Lab Results x24hrs 02/06/19 02/06/19 02/06/19 Range/Units 07:30 06:10 06:10 WBC (4.8-10.8) x10^3/uL RBC (4.70-6.10) 10^6/uL Hgb (14.0-18.0) g/dL Hct (42.0-52.0) % MCV (80.0-94.0) fL MCH (27.0-31.0) pg MCHC (32.0-36.0) g/dL RDW (12.0-15.0) % Plt Count (130-450) 10^3/uL MPV (7.4-11.4) fL Neut # (Auto) (1.5-6.6) 10^3/uL Lymph # (Auto) (1.5-3.5) 10^3/uL [place] # (Auto) (0.0-1.0) 10^3/uL Eos # (Auto) (0.0-0.7) 10^3/uL Baso # (Auto) (0.0-0.1) 10^3/uL Absolute Nucleated RBC x10^3/uL Nucleated RBC % /100WBC VBG pH 7.467 H (7.31-7.41) Ionized Calcium 0.95 L (1.15-1.33) mmol/L Sodium 141 (135-145) mmol/L Potassium 3.3 L (3.5-5.0) mmol/L Chloride 104 (101-111) mmol/L Carbon Dioxide 25 (21-32) mmol/L Anion Gap 12.0 (6-13) BUN 38 H (6-20) mg/dL Creatinine 1.8 H (0.6-1.2) mg/dL Estimated GFR (MDRD) 36 L (>89) Glucose 224 H (70-100) mg/dL Calcium 7.9 L (8.5-10.3) mg/dL Phosphorus 3.6 (2.5-4.6) mg/dL Magnesium 2.0 (1.7-2.8) mg/dL Albumin 2.7 L (3.2-5.5) g/dL 02/06/19 Range/Units 06:10 WBC 8.7 (4.8-10.8) x10^3/uL RBC 3.24 L (4.70-6.10) 10^6/uL Hgb 9.8 L (14.0-18.0) g/dL Hct 29.8 L (42.0-52.0) % MCV 92.0 (80.0-94.0) fL MCH 30.2 (27.0-31.0) pg MCHC 32.9 (32.0-36.0) g/dL RDW 17.2 H (12.0-15.0) % Plt Count 171 (130-450) 10^3/uL MPV 10.7 (7.4-11.4) fL Neut # (Auto) 8.1 H (1.5-6.6) 10^3/uL Lymph # (Auto) 0.5 L (1.5-3.5) 10^3/uL [place] # (Auto) 0.2 (0.0-1.0) 10^3/uL Eos # (Auto) 0.0 (0.0-0.7) 10^3/uL Baso # (Auto) 0.0 (0.0-0.1) 10^3/uL Absolute Nucleated RBC 0.00 x10^3/uL Nucleated RBC % 0.0 /100WBC VBG pH (7.31-7.41) Ionized Calcium (1.15-1.33) mmol/L Sodium (135-145) mmol/L Potassium (3.5-5.0) mmol/L Chloride (101-111) mmol/L Carbon Dioxide (21-32) mmol/L Anion Gap (6-13) BUN (6-20) mg/dL Creatinine (0.6-1.2) mg/dL Estimated GFR (MDRD) (>89) Glucose (70-100) mg/dL Calcium (8.5-10.3) mg/dL Phosphorus (2.5-4.6) mg/dL Magnesium (1.7-2.8) mg/dL Albumin (3.2-5.5) g/dL Sepsis Event Note (H) - Evaluation Current Stage of Sepsis: Resolved Possible source of Sepsis: positive: Genitourinary - Sepsis Criteria Sepsis Criteria: Recorded Temperature greater than 38.3C or Less than 36C, Recorded Heart Rate greater than 90 bpm, Recorded Respiratory Rate greater than 20, Respiratory: Increasing oxygen requirements, SNUFF CONTAINER INSPECTOR: altered consciousness (unrelated to primary neuro pathology), SBP drop more than 40mHg, SBP less than 90 mmHg Assessment/Plan - Problem List (1) Streptococcal bacteremia Impression: this is a gentleman who has resolved septic shock from his UTI and unknown source for Strep mitis. He has bacteremia from Strep mitis (alpha hemolytic strep, viridans). He was being treated for MRSA pneumonia at [facility] and then sent [place] [facility] [place]. Developed red man syndrome and vancomycin stopped. Now here w UTI but GPC in blood, not what I would anticipate for UTI (GNR). He will need 10 days of abx for the strep mitis and it is susceptible to zyvox already on board. He is day # 4 zyvox. I have re-examined skin 02/04 and today and there is no source from skin breakdown. He did not have central access at [facility]. (2) EBSL producing Klebsiella pnueumonia and E coli UTI Impression: both are covered by meropenem Day #4. The UTI is in an elderly man who has probably had mercado catheters while previously hospitalized and has BPH. (3) Metabolic encephalopathy Impression: He has improved today. He has gone from being unresponsive, to opening eyes to voice, to now looking at me and his when we speak to him and he answers appropriately. Encephalopathy felt secondary to infection but this man also is on steroids for adrenal insufficiency. given increased doses / and / in the face of shock. Also had CT of head checked for stroke and none found. I have asked PT to see him today. He can be transitioned to Med Surg status from ICU status. (3) Chronic combined systolic and diastolic CHF, NYHA class 2 Conclusion/Plan: He was just seen by his Iron Pourer week before admission. Lasix was changed at discharge from prov 01/08 to 80 mg a day. I did not resume his usual meds on admission since he was in ICU but monitored for acute failure and give diuretic when needed. I planned on resuming carvedilol but will wait. He doesn't have JVD, crackles, hypoxia. Resumed his lasix 02/05 and he is on TKO. (4) COPD (chronic obstructive pulmonary disease) Conclusion/Plan: he is not in acute exacerbation. Will make sure nebs and long acting inhaled meds given per ususal regimin but will substitute for formulary: continue pulmicort, perforomist, duoneb. Qualifiers: COPD type: unspecified COPD Qualified Code(s): J44.9 - Chronic obstructive pulmonary disease, unspecified (5) Back pain Conclusion/Plan: he was very uncomfortable on night of admission, grimacing with pain. asked if he could get 2 of his usual home meds and I allowed 2 norco from home for expediency but will order his meds for here and include Morphine prn IV. I will give his gabapentin. He received Narcan when he went into shock to make sure not opiate induced encephalopathy but no response. Pain not a problem the last few days. Qualifiers: Back pain location: low back pain Chronicity: chronic Back pain laterality: bilateral Sciatica presence: with sciatica (6) BPH loc w urin obs/LUTS Conclusion/Plan: he has a long hx of BPH but only once a night nocturia. I don't know if he had a mercado at [place]. will check reroperitoneal US and it did not show obstruction of hydronephrosis. (7) ATN: Acute on CKD (chronic kidney disease) stage 3, GFR 30-59 ml/min Conclusion/Plan: his lowest creat was 0.8 with us and he was 1.3 in January ER visit. Highest has been 1.6 and he was 1.5 on admission. However with hypotension to 50 systolic for an extended time, until line could be placed for levo, his creat has risen to 2.3>2.2>1.8 today. will continue to monitor and avoid nephrotoxic agents. Bactrim caused a severe rise in creat in the past and will be avoided. He is on reduced dose of allopurinol of 100 mg and will be continued. (8) Adrenal insufficiency Conclusion/Plan: was given one dose of solumedrol IV and then doses continued with his shock. Changed to his regular hydrocortisone 02/05 (9) Type 2 diabetes mellitus without complication, without long-term current use of insulin Conclusion/Plan: A1c 6.5%. it appears to be due to his steroids for his adrenals. I will not give metformin to a septic patient so as to avoid contributing to lactic acidosis. Use SS insulin for converage. (10) BRUCE on CPAP he is holding his breath for a few seconds today. Will see if CPAP helps. He tolerated that overnight wihtout issues. (11) Pruritis he has resolved flaking from red man syndrome. Now on zyvox and meroepenem for sepsis protocol. NO rash on body right now. Already on steroids. use benadryl prn
[2019-02-06 12:26] LABS: VBG PH 7.463 (7.31-7.41)
[2019-02-06] MEDS ORDERED: diphenhydrAMINE INJ 50 MG/ML VIAL IVP PRN (12:30)
[2019-02-06] MEDS ORDERED: SODIUM CHLORIDE FLUSH 0.9% 10 ML SYRINGE ONE (16:35)
[2019-02-06 19:08] LABS: HEMOGLOBIN A1C 0.48 g/dL; HEMOGLOBIN A1C % 6.5 % (4.6-6.2)
[2019-02-06] MEDS: GABAPENTIN 300 MG CAPSULE PO SCH (21:01)
[2019-02-06] MEDS: INSULIN ASPART 300 UNIT/3 ML PEN SUBQ SCH (21:02)
[2019-02-07] MEDS: SODIUM CHLORIDE FLUSH 0.9% 10 ML SYRINGE IVP SCH ×3 (01:05→16:34)
[2019-02-07] MEDS: LINEZOLID 600 MG/300 ML 600 MG/300 ML BAG IV SCH (03:51)
[2019-02-07] MEDS: MEROPENEM 1 GM in SODIUM CHLORIDE 0.9% MINIBAG 100 ML IV SCH ×2 (06:43→18:41)
[2019-02-07] MEDS: SODIUM CHLORIDE FLUSH 0.9% 10 ML SYRINGE IVP PRN ×2 (06:44→18:42)
[2019-02-07] MEDS: PANTOPRAZOLE 40 MG VIAL IVP SCH (06:44)
[2019-02-07] MEDS: BUDESONIDE 0.5 MG/2 ML NEB INH SCH ×2 (08:05→20:50)
[2019-02-07] MEDS: FORMOTEROL FUMARATE NEB 20 MCG/2 ML INH SCH ×2 (08:05→20:50)
[2019-02-07] MEDS: IPRATROPIUM/ALBUTEROL 3 ML NEB INH SCH ×4 (08:05→20:49)
[2019-02-07 10:13] LABS: CALCIUM 8.4 mg/dL (8.5-10.3); CREATININE 1.4 mg/dL (0.6-1.2)
[2019-02-07] MEDS: TAMSULOSIN 0.4 MG CAPSULE PO SCH (10:30)
[2019-02-07] MEDS: FERROUS SULFATE 325 MG TABLET PO SCH (10:31)
[2019-02-07] MEDS: FUROSEMIDE 40 MG TABLET PO SCH (10:31)
[2019-02-07] MEDS: POLYETHYLENE GLYCOL 3350 17 GM PACKET PO SCH (10:31)
[2019-02-07] MEDS: NYSTATIN POWDER 15 GM TOP SCH ×2 (10:31→20:26)
[2019-02-07] MEDS: APIXABAN 2.5 MG TABLET PO SCH ×2 (10:31→20:25)
[2019-02-07] MEDS: ALLOPURINOL 100 MG TABLET PO SCH (10:31)
[2019-02-07] MEDS: CARVEDILOL 12.5 MG TABLET PO SCH ×2 (10:31→20:26)
[2019-02-07] MEDS: HYDROCORTISONE 10 MG TABLET PO SCH (10:31)
[2019-02-07] MEDS: INSULIN ASPART 300 UNIT/3 ML PEN SUBQ SCH ×4 (10:32→20:28)
--- NOTE | 2019-02-07 11:49 | PROVIDER PROGRESS NOTE ---
Subjective - Prog Note Date Prog Note Date: 02/07/19 Prog Note Time: 11:50 - Subjective Pt reports feeling: Improved Subjective: he is awake, alert, joking, eating. Current Medications - Current Medications Current Medications: Active Medications Acetaminophen (Tylenol) 650 mg PO Q4HR PRN PRN Reason: Pain 1 to 4 Hydrocodone Bitart/Acetaminophen ([place] 5/325) 1 tab PO Q4HR PRN PRN Reason: PAIN Albuterol () 2.5 mg INH RTQ4H PRN PRN Reason: Wheezing Albuterol/Ipratropium (Duoneb) 3 ml INH RTQID [facility] Last Admin: 02/07/19 08:05 Dose: 3 ml Allopurinol (Zyloprim) 100 mg PO DAILY [facility] Last Admin: 02/07/19 10:31 Dose: 100 mg Apixaban (Eliquis) 2.5 mg PO BID [facility] Last Admin: 02/07/19 10:31 Dose: 2.5 mg Budesonide (Pulmicort) 0.5 mg INH RTBID [facility] Last Admin: 02/07/19 08:05 Dose: 0.5 mg Carvedilol (Coreg) 12.5 mg PO BID [facility] Last Admin: 02/07/19 10:31 Dose: 12.5 mg Diphenhydramine HCl (Benadryl Inj) 25 mg IVP Q6H PRN PRN Reason: Allergy Symptoms Ferrous Sulfate (Feosol) 325 mg PO DAILY [facility] Last Admin: 02/07/19 10:31 Dose: 325 mg Formoterol Fumarate (Perforomist) 20 mcg INH RTBID [facility] Last Admin: 02/07/19 08:05 Dose: 20 mcg Furosemide (Lasix) 80 mg PO DAILY [facility] Last Admin: 02/07/19 10:31 Dose: 80 mg Gabapentin (Neurontin) 300 mg PO QPM [facility] Last Admin: 02/06/19 21:01 Dose: 300 mg Heparin Sodium (Beef Lung) () 30 - 50 unit IVP PRN PRN PRN Reason: Central Line Protocol (<24 hr) Last Admin: 02/04/19 04:44 Dose: 30 unit Hydrocortisone (Cortef) 10 mg PO DAILY [facility] Last Admin: 02/07/19 10:31 Dose: 10 mg Meropenem 1 gm/ Sodium (Chloride) 100 mls @ 200 mls/hr IV Q12H [facility] Last Infusion: 02/07/19 07:46 Dose: Infused Sodium Chloride (Normal Saline 0.9%) 500 mls @ 0 mls/hr IV Q24H PRN PRN Reason: TKO RATE Last Infusion: 02/06/19 14:45 Dose: Infused Insulin Aspart (Novolog) 1 - 9 unit SUBQ 0800,1200,1700,2100 [facility]; Protocol Last Admin: 02/07/19 10:32 Dose: 1 unit Multi-Ingredient Ointment (Zinc Oxide) 1 applic TOP PRN PRN PRN Reason: Skin Care Last Admin: 02/04/19 14:25 Dose: 1 applic Nystatin (Nystop) 1 applic TOP BID [facility] Last Admin: 02/07/19 10:31 Dose: 1 applic Pantoprazole Sodium (Protonix) 40 mg IVP QDAC [facility] Last Admin: 02/07/19 06:44 Dose: 40 mg Polyethylene Glycol (Miralax) 17 gm PO DAILY [facility] Last Admin: 02/07/19 10:31 Dose: 17 gm Sodium Chloride (Normal Saline Flush 0.9%) 10 ml IVP PRN PRN PRN Reason: NEEDED PER PROVIDER ORDERS Last Admin: 02/07/19 06:44 Dose: 10 ml Sodium Chloride (Normal Saline Flush 0.9%) 10 ml IVP 0100,0900,1700 [facility] Last Admin: 02/07/19 10:31 Dose: 10 ml Sodium Chloride (Normal Saline Flush 0.9%) 20 ml IVP PRN PRN PRN Reason: After Blood Draw Last Admin: 02/06/19 07:31 Dose: 20 ml Tamsulosin HCl (Flomax) 0.4 mg PO DAILY [facility] Last Admin: 02/07/19 10:30 Dose: 0.4 mg Carvedilol 12.5 mg PO BID 06/22/16 Furosemide 80 mg PO DAILY 06/22/16 Gabapentin 300 mg PO BID 06/22/16 Simvastatin 80 mg PO QPM 06/22/16 Tamsulosin HCl [Flomax] 0.4 mg PO DAILY 03/21/17 Hydrocortisone 10 mg PO DAILY 02/18/18 Apixaban [Eliquis] 2.5 mg PO BID 02/19/18 Aspirin [Aspirin EC] 81 mg PO DAILY 02/19/18 Hydrocodone/Acetaminophen [Hydrocodone-Acetamin 5-325 mg] 1 tab PO Q6H PRN 02/19/18 Oxybutynin Chloride [Ditropan Xl] 10 mg PO DAILY 02/19/18 Allopurinol 100 mg PO DAILY 12/22/18 Ferrous Sulfate 325 mg PO DAILY 12/22/18 Mometasone Furoate [Asmanex] 2 puffs IH DAILY 12/22/18 metFORMIN [Glucophage] 500 mg PO BID 12/22/18 Albuterol 3 ml INH Q8H 02/04/19 Benzonatate 100 mg PO DAILY PRN 02/04/19 Calcium Carbonate 1,000 mg PO Q4H PRN 02/04/19 Fluticasone Propionate [24 Hour Allergy] 1 spray ALAN DAILY PRN 02/04/19 Miconazole Nitrate [Desenex] 1 applic TOP BID 02/04/19 Pantoprazole [Protonix] 40 mg PO BID 02/04/19 Potassium Chloride 20 meq PO DAILY 02/04/19 Tiotropium Br/Olodaterol HCl [Stiolto Respimat Inhal [place]] 2 puffs PO DAILY 02/04/19 Objective - Vital Signs/Intake & Output Reviewed Vital Signs: Yes Vital Signs: Vital Signs x48h Temp Pulse Pulse Resp BP Pulse Ox 02/07/19 08:05 80 18 02/07/19 07:55 34.4 C L 64 12 135/84 H 96 02/07/19 03:58 36.2 C L 63 16 122/75 96 Intake & Output: Intake & Output 02/04/19 02/05/19 02/06/19 02/07/19 23:59 23:59 23:59 23:59 Intake Total 2191.938 3470.114 1548.667 700 Output Total 1121 1012 810 585 Balance 1070.938 554.366 7247.667 115 - Objective General Appearance: positive: No acute distress, Alert Eyes Bilateral: positive: PERRL, EOMI ENT: positive: Pharynx nml (except for resolving peeling of roof of mouth) Neck: positive: No JVD. negative: Stiff neck, Carotid bruit Respiratory: positive: Chest non-tender. negative: Wheezes, Rales, Rhonchi Cardiovascular: positive: Regular rate & rhythm. negative: Gallop/S4, Friction rub Abdomen: positive: Non-tender, No organomegaly, Nml bowel sounds, No distention Skin: positive: Warm, Dry Extremities: positive: Non-tender, Full ROM Neurologic/Psychiatric: positive: Oriented x3, CN's nml (2-12), Motor nml, Weakness (generalized.) - Lab Results Fish Bones: 02/06/19 06:10 02/07/19 08:25 Other Labs: Lab Results x24hrs 02/07/19 02/06/19 02/06/19 Range/Units 08:25 12:10 06:10 VBG pH 7.463 H (7.31-7.41) Ionized Calcium 1.14 L (1.15-1.33) mmol/L Sodium 145 (135-145) mmol/L Potassium 3.3 L (3.5-5.0) mmol/L Chloride 108 (101-111) mmol/L Carbon Dioxide 26 (21-32) mmol/L Anion Gap 11.0 (6-13) BUN 36 H (6-20) mg/dL Creatinine 1.4 H (0.6-1.2) mg/dL Estimated GFR (MDRD) 48 L (>89) Glucose 156 H (70-100) mg/dL Glycated Hemoglobin 6.5 H (4.6-6.2) % Estim Average Glucose 140 H (70-100) Calcium 8.4 L (8.5-10.3) mg/dL ABX Reporting Has patient been on IV antibiotics over the past 48 hours?: Yes Sepsis Event Note (H) - Evaluation Current Stage of Sepsis: Resolved Possible source of Sepsis: positive: Genitourinary - Sepsis Criteria Sepsis Criteria: Recorded Temperature greater than 38.3C or Less than 36C, Recorded Heart Rate greater than 90 bpm, Recorded Respiratory Rate greater than 20, Respiratory: Increasing oxygen requirements, HOME AGENT: altered consciousness (unrelated to primary neuro pathology), SBP drop more than 40mHg, SBP less than 90 mmHg Assessment/Plan - Problem List (1) Streptococcal bacteremia Impression: this is a gentleman who has resolved septic shock from his UTI and unknown source for Strep mitis. He has bacteremia from Strep mitis (alpha hemolytic strep, viridans). He was being treated for MRSA pneumonia at [facility] and then sent to [facility] to complete therapy. Developed red man syndrome and vancomycin stopped. Now here w UTI but GPC in blood, not what I would anticipate for UTI (GNR). He will need 10 days of abx for the strep mitis and it is susceptible to zyvox already on board. He is day # 5 zyvox. I have re-examined skin 10 and today and there is no source from skin breakdown. He did not have central access at [facility] and I have discusses his abx and strep viridans can be covered by carbapenems. as such I can stop the zyvox and continue meropenem Day #09/11 (2) EBSL producing Klebsiella pnueumonia and E coli UTI Impression: both are covered by meropenem Day #5. The UTI is in an elderly man who has probably had mercado catheters while previously hospitalized and has BPH. (3) Metabolic encephalopathy resolved. Impression: He had improved quite a bit yesterday and today very approprate in joking, speech, cooperation. He has gone from being unresponsive, to opening eyes to voice, to now looking at me and his when we speak to him to answers questions appropriately and is joking today. Encephalopathy felt secondary to infection but this man also is on steroids for adrenal insufficiency. given increased doses 02/03 and 02/04 in the face of shock. Also had CT of head checked for stroke and none found. I have asked PT to see him and he is doing well with them He was transitioned to Med Surg status from ICU status 02/06 (3) Chronic combined systolic and diastolic CHF, NYHA class 2 Conclusion/Plan: He was just seen by his Design Draftsman week before admission. Lasix was changed at discharge from prov 01/08 to 80 mg a day. I did not resume his usual meds on admis dany since he was in ICU but monitored for acute failure and give diuretic when needed. I planned on resuming carvedilol but will wait. He doesn't have JVD, crackles, hypoxia. Resumed his lasix 02/05 and he was on TKO and now no IVF (4) COPD (chronic obstructive pulmonary disease) Conclusion/Plan: he is not in acute exacerbation. Will make sure nebs and long acting inhaled meds given per ususal regimin but will substitute for formulary: continue pulmicort, perforomist, duoneb. Qualifiers: COPD type: unspecified COPD Qualified Code(s): J44.9 - Chronic obstructive pulmonary disease, unspecified (5) Generalized weaknes on chronic back pain Conclusion/Plan: he was very uncomfortable on night of admission, grimacing with pain. asked if he could get 2 of his usual home meds and I allowed 2 norco from home for expediency but will order his meds for here and include Morphine prn IV. I will give his gabapentin. He received Narcan when he went into shock to make sure not opiate induced encephalopathy but no response. Pain not a problem the last few days. But is concerned since he will work w PT a bit today. I had already ordered meds and RN will give before PT. Qualifiers: Back pain location: low back pain Chronicity: chronic Back pain laterality: bilateral Sciatica presence: with sciatica (6) BPH loc w urin obs/LUTS Conclusion/Plan: he has a long hx of BPH but only once a night nocturia. I don't know if he had a mercado at [place]. I checked reroperitoneal US and it did not show obstruction of hydronephrosis. (7) ATN: Acute on CKD (chronic kidney disease) stage 3, GFR 30-59 ml/min , resolving Conclusion/Plan: his lowest creat was 0.8 with us and he was 1.3 in January ER visit. Highest has been 1.6 and he was 1.5 on admission. However with hypotension to 50 systolic for an extended time, until line could be placed for levo, his creat has risen to 2.3>2.2>1.8>1.4 today. will continue to monitor and avoid nephrotoxic agents. Bactrim caused a severe rise in creat in the past and will be avoided. He is on reduced dose of allopurinol of 100 mg and will be continued. (8) Adrenal insufficiency Conclusion/Plan: was given one dose of solumedrol IV and then doses continued with his shock. Changed to his regular hydrocortisone 02/05 (9) Type 2 diabetes mellitus without complication, without long-term current use of insulin Conclusion/Plan: A1c 6.5%. it appears to be due to his steroids for his adrenals. I will not give metformin to a septic patient so as to avoid contributing to lactic acidosis. Use SS insulin for converage. (10) BRUCE on CPAP he is holding his breath for a few seconds today. Will see if CPAP helps. He to lerates overnight without issues. (11) Pruritis he has resolved flaking from red man syndrome. Now on zyvox and meroepenem for sepsis protocol. NO rash on body right now. Already on steroids. use benadryl prn
[2019-02-07] MEDS: GABAPENTIN 300 MG CAPSULE PO SCH (20:25)
[2019-02-08] MEDS: SODIUM CHLORIDE FLUSH 0.9% 10 ML SYRINGE IVP SCH ×2 (00:05→10:29)
[2019-02-08] MEDS: PANTOPRAZOLE 40 MG VIAL IVP SCH (06:01)
[2019-02-08] MEDS: SODIUM CHLORIDE FLUSH 0.9% 10 ML SYRINGE IVP PRN (06:01)
[2019-02-08] MEDS: MEROPENEM 1 GM in SODIUM CHLORIDE 0.9% MINIBAG 100 ML IV SCH (06:02)
[2019-02-08] MEDS ORDERED: POTASSIUM CHLORIDE 20 MEQ TABLET PO ONE ×2 (06:43→07:55)
[2019-02-08] MEDS: FORMOTEROL FUMARATE NEB 20 MCG/2 ML INH SCH (09:36)
[2019-02-08] MEDS: IPRATROPIUM/ALBUTEROL 3 ML NEB INH SCH ×2 (09:36→13:26)
[2019-02-08] MEDS: BUDESONIDE 0.5 MG/2 ML NEB INH SCH (09:37)
[2019-02-08] MEDS: INSULIN ASPART 300 UNIT/3 ML PEN SUBQ SCH (09:40)
[2019-02-08] MEDS: NYSTATIN POWDER 15 GM TOP SCH (10:26)
[2019-02-08] MEDS: POLYETHYLENE GLYCOL 3350 17 GM PACKET PO SCH (10:26)
[2019-02-08] MEDS: FUROSEMIDE 40 MG TABLET PO SCH (10:27)
[2019-02-08] MEDS: APIXABAN 2.5 MG TABLET PO SCH (10:28)
[2019-02-08] MEDS: ALLOPURINOL 100 MG TABLET PO SCH (10:28)
[2019-02-08] MEDS: TAMSULOSIN 0.4 MG CAPSULE PO SCH (10:28)
[2019-02-08] MEDS: FERROUS SULFATE 325 MG TABLET PO SCH (10:28)
[2019-02-08] MEDS: CARVEDILOL 12.5 MG TABLET PO SCH (10:28)
[2019-02-08] MEDS: HYDROCORTISONE 10 MG TABLET PO SCH (10:29)
--- NOTE | 2019-02-08 11:46 | Discharge Plan ---
"Discharge Plan for SNF / ERIC - Discharge Plan And Transition Orders Problem Reviewed?: Yes Disposition: 03 SNF DC/Xfer Condition: Good Allergies and Adverse Reactions: Allergies Allergy/AdvReac Type Severity Reaction Status Date / Time cefuroxime [From Ceftin] Allergy Rash Verified 01/01/19 22:16 ciprofloxacin Allergy Unknown Verified 01/01/19 22:16 nitrofurantoin Allergy Rash Verified 01/01/19 22:16 sulfamethoxazole Allergy Anaphylaxis Verified 01/01/19 22:16 [From Bactrim] trimethoprim [From Bactrim] Allergy Anaphylaxis Verified 01/01/19 22:16 vancomycin Allergy Rash Verified 02/03/19 12:24 Health Concerns: You are currently being taken care of at [facility] for antibiotics and rehab. You are temporarily there after receiving long-term therapy for MRSA pneumonia at [facility]. You were doing quite well at [facility] when you became ill with confusion, chills, shaking. We identified you as having a urinary tract infection with sepsis. Your urine culture has shown the bacteria is Escheria coli, and ESBL producing Klebsiella pneumonia. You have a known history of benign prostatic hypertrophy with urinary retention as well so a urinary tract infection in a gentleman your age with a prostate problem is not unusual. The infection left you temporarily confused, and almost completely unresponsive. You are unable to speak very well, and at times appeared to be in a deep, deep sleep. Plan of Treatment: 1. You received antibiotics to treat the urinary tract infection, and the bacteria in your blood called strep mitis. You will need 4 more days of antibiotics to complete therapy. Antibiotics will be given through a IV line in your arm placed right before you were sent to [facility]. 2. Your mentation and alertness gradually improved, and you are back to baseline. It has been a pleasure to meet you and take care of you. Your is a wonderful advocate for you. 3. Unfortunately the illness left you with generalized weakness again. You will also need to complete a few more days of physical therapy to regain your strength. The goal is to get you home again. Care Goals: 1. To complete antibiotic therapy 2. To get enough strength to return home to live independently with your Assessment: and patient understand goals, and will follow through with appointments for all of his doctors including his primary care provider, bracer, zoo veterinarian. - SNF / SHELTER Transition Orders Admit to (Facility): [facility] Discharge Diagnosis: 1. Sepsis, resolved, with UTI and streptococcal bacteremia 2 EBSL producing Klebsiella pneumonia and E. coli UTI 3. Metabolic encephalopathy, resolved 4. Chronic combined systolic and diastolic congestive heart failure 5. COPD without exacerbation 6. Benign prostatic hypertrophy with lower urinary tract symptoms of obstruction 7. Acute tubular necrosis, resolved 8. Chronic kidney disease stage III 9. Adrenal insufficiency 10. Type 2 diabetes mellitus without complication, without long-term use of insulin 11. Obstructive sleep apnea on CPAP 12. Pruritus Medicare Certification Statement: I certify that [facility] assisted care is medically necessary on a continuing basis for any of the conditions for which she/he is receiving care during hospitalization. Notify PCP of admission and forward orders to primary provider for signature. Weight on admission and: Daily Call PCP immediately if weight increases by: 2.2 kg Other Notification Orders: Call PCP immediately if patient develops dyspnea, chest pain/tightness or edema. House Bowel Program: Yes Additional Bowel Program Orders: If no BM after 2 days, nurse may give M.O.M. 30ml PO PRN and/or ducolax Supp 1 GA and/or PAULA 250mg P.O., and/or senna 1-2 tabs PO. On day 3 nurse may give repeat above order until residents constipation is resolved. Annual Influenza Vaccine (between Jan 03 and August 02): Yes Two-step PPD per [facility] [phone] or approved exception documents: Yes Medication Orders: PLEASE REFER TO THE DISCHARGE MEDICATION LIST. Insulin Orders?: No - Medications New Prescriptions: Meropenem [Merrem] 1 gm IV Q12H #8 vial - Diet Type: Geriatric Texture: Regular Liquids: Thin May have monthly special meal: Yes - Therapies | Activity Therapy: Evaluation | Treat if indicated: PT, OT Rehabilitation Potential: Return to independent living Activity: Activity as Tolerated Weight Bearing: Full Weight Assistance Devices: Walker Follow Up: He is to follow-up with his primary care provider, zoo veterinarian, bracer in the next 2 to 3 weeks."
--- NOTE | 2019-02-08 13:28 | XRAY Report ---
Reason: New PICC line Procedure Date: 02/08/2019 Accession Number: [id number] / [id number] Procedure: XR - Chest for Line Placement CPT Code: FULL RESULT: EXAM: CHEST RADIOGRAPHY EXAM DATE: 02/08/2019 12:25 PM. CLINICAL HISTORY: New PICC line. COMPARISON: CHEST FOR LINE PLACEMENT 02/03/2019 10:04 PM. TECHNIQUE: 1 view. FINDINGS: Tubes and lines: Right IJ approach central line terminates in the upper third SVC. There has been interval placement of left-sided PICC line, tip which terminates over the left brachiocephalic SVC junction. Lungs/Pleura: Lungs are hypo-expanded. There is bibasilar opacity worse on the left favoring atelectasis. Trace bilateral effusion. No extraventilatory air. Mediastinum: Stable borderline cardiomegaly. Stable mild prominence of the mediastinal contours reflecting technique. Other: None. IMPRESSION: 1. Left-sided PICC line tip near the left brachiocephalic SVC junction. 2. Persistent hypoinflation with bibasilar opacity favoring atelectasis in combination with small effusion. RADIA
--- NOTE | 2019-02-08 14:01 | ANESTHESIA PROCEDURE NOTE ---
Diagnosis: Urinary tract infection. S/P sepsis Procedure: Placement of PICC Consent for Procedure(s) Verified and Reviewed: Yes Height and Weight: Height 5 ft 8 in Weight (kg) 102 kg Body Mass Index 34.2 Vital Signs: Temp Pulse Resp BP Pulse Ox 36.8 C 71 20 131/74 H 96 02/08/19 10:39 02/08/19 13:26 02/08/19 13:26 02/08/19 10:18 02/08/19 10:39 Allergies cefuroxime [From Ceftin] Allergy (Verified 01/01/19 22:16) Rash ciprofloxacin Allergy (Verified 01/01/19 22:16) Unknown nitrofurantoin Allergy (Verified 01/01/19 22:16) Rash sulfamethoxazole [From Bactrim] Allergy (Verified 01/01/19 22:16) Anaphylaxis trimethoprim [From Bactrim] Allergy (Verified 01/01/19 22:16) Anaphylaxis vancomycin Allergy (Verified 02/03/19 12:24) Rash Anes. Procedure Start Time: 11:30 Anes. Procedure Stop Time: 12:10 Procedure Notes: Consent obtained from patient and patient's . Left arm was prepped with chloroprep x2. Sterile gown, gloves, mask and sterile drape utilized. Left basilic vein was identified under ultrasound and 2ml of 1% lidocaine was injected for skin localization. A 20G needle was used to access the vein and wire was advanced with ease. Sheath was inserted and wire removed. A 4Fr catheter was inserted and advanced with tip tracker showing tip advancing towards the heart. The catheter had been trimmed to 41cm and was advanced to the hub with 0cm exposed. A chest xray showed the tip at the SVC junction. Catheter was secured with stat-lock and opsite. Patient tolerated the procedure well. All wires were accounted for. Port aspirates and flushes with ease.
[2019-02-08 14:41] VITALS: BP 108/82
--- NOTE | 2019-02-08 18:08 | DISCHARGE SUMMARY ---
Discharge Summary Admit Date: 02/03/19 Discharge Date: 02/08/19 Discharging Provider: Morena Dominguez MD Primary Care Provider: Tyler Serrato MD Code Status: Attempt Resuscitation Condition at Discharge: Good Discharge Disposition: SNF DC/Xfer [facility] - DIAGNOSES Discharge Diagnoses with Status of Each Condition: 1. Sepsis, resolved, with UTI and streptococcal bacteremia 2 EBSL producing Klebsiella pneumonia and E. coli UTI 3. Metabolic encephalopathy, resolved 4. Chronic combined systolic and diastolic congestive heart failure 5. COPD without exacerbation 6. Benign prostatic hypertrophy with lower urinary tract symptoms of obstruction 7. Acute tubular necrosis, resolved 8. Chronic kidney disease stage III 9. Adrenal insufficiency 10. Type 2 diabetes mellitus without complication, without long-term use of insulin 11. Obstructive sleep apnea on CPAP 12. Pruritus - HPI History of Present Illness: He is an elderly gentleman who is currently living at a residential facility since last week. He was admitted to us in December 2018 with an episode of bronchitis and COPD exacerbation. He went home, and became more short of breath over 3 days at the end of December. On January 04, EMS was called and he asked to be taken to [facility]. He was there from 01/05-01/08 for pneumonia and sent home on more lasix plus doxycycline for hemophilus. After being home for 2 days, they called him back in because his sputum grew out MRSA. He was there from 01/11-01/15. He was discharged from [facility] and transitioned to a residential facility for rehab and continued IV Vancomycin at [facility]. Since being at [facility] he has seen his Borematic Machine Operator (Uday Mon II/[facility]), [place]field Redevelopment Site Manager (Noman Queen/Delicia) and Biochemistry Technologist (Flori Kendrick/[facility]). He did develop a drug rash of red man sydrome with the Vancomycin last week and was changed to Linezolid to complete his pneumonia therapy. About two weeks ago he had a gout attack and was put on colchicine in addition to his allopurinol. She got sick the the stomach flu ("everyone at [facility] has it" she states) 2 days ago and hasn't seen him. But even on that last day she noted he was starting to shiver out of the blue with no reason. He called his last night saying that they were not helping him go to the bathroom. He seemed confused. When his saw him this morning he was febrile, confused and he was brought to our emergency room. She does not describe cough, acute sob, edema, abd pain, diarrhea. He was evaluated by Dr. Espinoza. His highest temperature in the emergency room was 38.5. He is consistently tachycardic at 102 and up to 115. Mildly hypotensive at 100/72. He is requiring 2 to 3 L nasal cannula for his oxygenation. Respiratory rate is up to 21. He is not felt to have pneumonia on chest x-ray. There is no definite consolidation. His urinalysis is positive for infection. White cell count is not elevated. he does have a history of BPH but no documented pyelonephritis in the past. History - Past Medical History Cardiovascular: reports: Congestive heart failure (Ischemic Cardiomyopathy: Echocardiogram March 2017 done in association with chest pain showed overall left ventricular ejection fraction 50 to 55%. Grade 1 diastolic dysfunction. Right ventricle normal size. Echocardiogram done December 2018 in association with COPD exacerbation showed a mildly dilated left ventricle with moderately re duced ejection fraction. His ejection fraction was 35% due to primarily severe apical hypokinesis and hypokinesis of the distal anterior wall. Left atrium mildly dilated and he has normal pulmonary pressures.), Hypertension, High cholesterol, Coronary artery disease (s/p 1 stent in [place] and 2 stents in [place]), Deep vein thrombosis (with PE early 2016, tx w Eliquis), Pulmonary embolism, [place] (2008), Atrial fibrillation (paroxysmal in the past. Followed by [facility]) Respiratory: reports: COPD, Pneumonia (multiple admissions from [facility] in [place] to [place] ([facility]) to [place] over the years. ), Sleep apnea, Other Neuro: reports: None Endocrine/Autoimmune: reports: Type 2 diabetes, Other (hypoadrenal and followed by Flori Kendrick MD) GI: reports: GERD (without esophagitis), Cholelithiasis : reports: Benign prostate hypertrophy (and he takes concentrated cranberry juice (but not for weeks since recent illnesses)), Retention, Chronic bladder infection (not chronic but has recurrent infection hx), Nocturia, Frequency, Other (CKD Stage III) HEENT: reports: None Musculoskeletal: reports: Osteoarthritis (bella knees but Cardiology feels not safe for knee replacement), Gout, Chronic back pain (severe, gets regular LESI at [facility] with Henrry Dwyer MD (PM&R)), Other (shoulders with rotator cuff tears) Derm: reports: Other (recent drug rash with vancomycin last week) MRSA Hx?: Yes Other Past Medical History: thrombocytopenia. Hyperuricemia and gout - CONSULTS | PROCEDURES Procedures: 1. Chest x-ray with possible bronchitis, no definite consolidation. Borderline enlarged heart size. Subsequent chest x-ray after central line showed right IJ central line, no pneumothorax. 2. Head CT done for obtundation showed generalized age-related cortical atrophic changes without evidence of acute intracranial abnormality. 3. Retroperitoneal ultrasound done for acute rising creatinine showed no hydronephrosis or gross renal abscess. Suspected medical renal disease. 4. Random urine culture. E. coli and ESBL producing Klebsiella pneumonia. 5. First set of blood cultures showing strep mitis, viridans strep. 1 out of 4 bottles. This was on February 03. 6. Second set of blood cultures done February 05 for follow-up showed no growth after 2 days. - HOSPITAL COURSE Hospital Course: He was placed on MedSurg, continued on the antibiotics that were started in the emergency room. After a few hours on MedSurg, the patient became obtunded, and systolic was 50. The patient was immediately transferred to ICU and resuscitated as septic shock. He was started on meropenem and Zyvox since he could not take vancomycin. We were thinking that he was going to have recurrence of his staph infection, however, blood culture showed strep mitis in 1/4 bottles, and urine culture showed E BSL Klebsiella pneumonia and E. coli. In ICU he eventually became more and more alert. Acute tubular necrosis resolved and transitioned back to chronic kidney disease. His adrenal insufficiency was treated with high-dose steroids the first 2 days and then transition to his usual hydrocortisone. Type 2 diabetes mellitus was transitioned to Lantus and sliding scale insulin and well-controlled. At night we did use his CPAP mask. He did have one have one day of intense pruritus but no rash developed. He was felt to have benign prostatic hypertrophy with lower urinary tract symptoms of obstruction that contributed to his UTI. He did not have acute exacerbation of his chronic congestive heart failure's. We de- escalated his antitiotics to only meropenem. Pharmacy felt that this carbapenem would cover the Strep as well as the Klebsiella and E coli according to sensitivities. The day before discharge, the patient was awake, alert, visiting with his niece and nephew in law. Was actually up in the chair for many hours. As such on the day of discharge she was quite tired and sleepy. But he denied any chest pain, shortness of breath. is very concerned because of his sleepiness. A midline IV was placed to continue for more days of meropenem on the day of discharge. Temperature is 36.5 pulse is 72 blood pressure 108/82. Respirations 12 but he is 96% on room air. He is a 5 foot 8 inch male who weighs 102 kg. He is well-nourished, well-developed. No JVD. Occasional phlegmy cough but essentially clear lungs with diminished breath sounds at the bases and no increased respiratory effort. PMI as distant cardiac tones, and I can barely feel his PMI laterally. The abdomen is obese, soft, nontender. Extremities are warm. Slight edema around the ankles. Mentation is much improved than when he was admitted. He is alert, oriented to place and time and understands why he is been in the hospital. His is a wonderful and loving advocate for his care. He will need to see his adoption social worker, commercial roofer, primary care provider, and hairpiece stylist when he is done with his care at [facility]. He will finish his antibiotics and then need physical therapy with a goal to return to home. - ALLERGIES Allergies/Adverse Reactions: Allergies Allergy/AdvReac Type Severity Reaction Status Date / Time cefuroxime [From Ceftin] Allergy Rash Verified 01/01/19 22:16 ciprofloxacin Allergy Unknown Verified 01/01/19 22:16 nitrofurantoin Allergy Rash Verified 01/01/19 22:16 sulfamethoxazole Allergy Anaphylaxis Verified 01/01/19 22:16 [From Bactrim] trimethoprim [From Bactrim] Allergy Anaphylaxis Verified 01/01/19 22:16 vancomycin Allergy Rash Verified 02/03/19 12:24 - MEDICATIONS Home Medications: Ambulatory Orders Medication Instructions Recorded Confirmed Gabapentin 300 mg PO BID 06/22/16 02/04/19 Hydrocortisone 10 mg PO DAILY 02/18/18 02/04/19 Hydrocodone/Acetaminophen 1 tab PO Q6H PRN 02/19/18 02/04/19 [Hydrocodone-Acetamin 5-325 mg] Benzonatate 100 mg PO DAILY PRN 02/04/19 02/04/19 Calcium Carbonate 1,000 mg PO Q4H PRN 02/04/19 02/04/19 Fluticasone Propionate [24 Hour 1 spray ALAN DAILY PRN 02/04/19 02/04/19 Allergy] Miconazole Nitrate [Desenex] 1 applic TOP BID 02/04/19 02/04/19 Pantoprazole [Protonix] 40 mg PO BID 02/04/19 02/04/19 Acetaminophen [Tylenol] 650 mg PO Q4HR PRN tablet 02/08/19 Albuterol 3 ml INH Q8H #0 02/08/19 02/04/19 Allopurinol 100 mg PO DAILY #0 02/08/19 02/04/19 Apixaban [Eliquis] 2.5 mg PO BID #0 02/08/19 02/04/19 Aspirin [Aspirin EC] 81 mg PO DAILY #0 02/08/19 02/04/19 Carvedilol 12.5 mg PO BID #0 02/08/19 02/04/19 Ferrous Sulfate 325 mg PO DAILY #0 02/08/19 02/04/19 Furosemide 80 mg PO DAILY #0 02/08/19 02/04/19 Meropenem [Merrem] 1 gm IV Q12H #8 vial 02/08/19 Mometasone Furoate [Asmanex] 2 puffs IH DAILY #0 02/08/19 02/04/19 Oxybutynin Chloride [Ditropan Xl] 10 mg PO DAILY #0 02/08/19 02/04/19 Potassium Chloride 20 meq PO DAILY #0 02/08/19 02/04/19 Simvastatin 80 mg PO QPM #0 02/08/19 02/04/19 Tamsulosin HCl [Flomax] 0.4 mg PO DAILY #0 02/08/19 02/04/19 Tiotropium Br/Olodaterol HCl 2 puffs PO DAILY #0 02/08/19 02/04/19 [Stiolto Respimat Inhal [place]] metFORMIN [Glucophage] 500 mg PO BID #0 02/08/19 02/04/19 - LABS Result Diagrams: 02/06/19 06:10 02/07/19 08:25 - SEPSIS Current Stage of Sepsis: Resolved Possible source of Sepsis: Genitourinary Sepsis Criteria: Recorded Temperature greater than 38.3C or Less than 36C, Recorded Heart Rate greater than 90 bpm, Recorded Respiratory Rate greater than 20, Respiratory: Increasing oxygen requirements, TOOL GRINDER SET UP OPERATOR GEAR: altered consciousness (unrelated to primary neuro pathology), SBP drop more than 40mHg, SBP less than 90 mmHg
== END 2019-02-08 14:08 | DRG 871 ==
LOC: EDUNIT# → ED 11:03 → MS2 14:30 → ICU 21:01 → MS2 02-06 14:14
PROVIDERS: ADMIT Specialist; ATTEND Specialist
PROC: 02HV33Z Insertion of Infusion Device into Superior Vena Cava, Percutaneous Approach (ICD-10-PCS; principal; 2019-02-08)
DX: N30.00 Acute cystitis without hematuria (principal); I11.0 Hypertensive heart disease with heart failure; I50.9 Heart failure, unspecified; A40.9 Streptococcal sepsis, unspecified; E86.0 Dehydration; G93.41 Metabolic encephalopathy; N17.0 Acute kidney failure with tubular necrosis; R65.21 Severe sepsis with septic shock; N40.0 Benign prostatic hyperplasia without lower urinary tract symptoms; N39.0 Urinary tract infection, site not specified; I13.0 Hypertensive heart and chronic kidney disease with heart failure and stage 1 through stage 4 chronic kidney disease, or unspecified chronic kidney disease; I50.42 Chronic combined systolic (congestive) and diastolic (congestive) heart failure; N13.8 Other obstructive and reflux uropathy; E27.40 Unspecified adrenocortical insufficiency; A41.51 Sepsis due to Escherichia coli [E. coli]; A41.89 Other specified sepsis; E11.22 Type 2 diabetes mellitus with diabetic chronic kidney disease; N18.3 Chronic kidney disease, stage 3 (moderate); J44.9 Chronic obstructive pulmonary disease, unspecified; G47.33 Obstructive sleep apnea (adult) (pediatric); N40.1 Benign prostatic hyperplasia with lower urinary tract symptoms; R33.9 Retention of urine, unspecified; R35.1 Nocturia; R35.0 Frequency of micturition; I25.5 Ischemic cardiomyopathy; I48.0 Paroxysmal atrial fibrillation; E78.00 Pure hypercholesterolemia, unspecified; L29.8 Other pruritus; T36.8X5A Adverse effect of other systemic antibiotics, initial encounter; M10.9 Gout, unspecified; K21.9 Gastro-esophageal reflux disease without esophagitis; G89.29 Other chronic pain; M54.9 Dorsalgia, unspecified; Z79.51 Long term (current) use of inhaled steroids; Z79.52 Long term (current) use of systemic steroids; Z79.82 Long term (current) use of aspirin; Z79.891 Long term (current) use of opiate analgesic; Z79.84 Long term (current) use of oral hypoglycemic drugs; Z95.5 Presence of coronary angioplasty implant and graft; Z87.01 Personal history of pneumonia (recurrent); Z86.711 Personal history of pulmonary embolism; I25.2 Old myocardial infarction; Z87.440 Personal history of urinary (tract) infections; Z87.891 Personal history of nicotine dependence; Z86.14 Personal history of Methicillin resistant Staphylococcus aureus infection
CPT/HCPCS: 36415; 36600; 70450; 71045; 76770; 80048; 80053; 81001; 82040; 82140; 82330; 82803; 83036; 83605; 83690; 83735; 84100; 84443; 85025; 87040; 87077; 87086; 87181; 87640; 92610; 93005; 94640; 97162; 97530; 99283; 99285; A9270; J1815; J2020; J2185; J7040; J7120; J7626; 81003

== ENCOUNTER 2019-02-08 14:10 | Outpatient (CLI) | payer MEDICARE, OTHER | END 2019-02-08 14:11 | LOC: EMS 14:10 | PROVIDERS: ATTEND Surgery | DX: R53.1 Weakness (principal); Z74.01 Bed confinement status ==

== ENCOUNTER 2019-02-08 23:52 | Outpatient (CLI) | payer MEDICARE, OTHER | END 2019-02-08 23:53 | disposition critical access hospital (66) | LOC: EMS 23:52 | PROVIDERS: ATTEND Surgery | DX: Z76.89 Persons encountering health services in other specified circumstances (principal) | CPT/HCPCS: A0425; A0428; A0429 ==

== ENCOUNTER 2019-02-09 | Emergency (ER) | payer MEDICARE, OTHER ==
[2019-02-09] MEDS ORDERED: MEROPENEM 1 GM in SODIUM CHLORIDE 0.9% MINIBAG 100 ML IV STA (00:11)
--- NOTE | 2019-02-09 01:05 | ED Physician Documentation ---
History of Present Illness - Stated complaint Stated Complaint: ABD PAIN - Chief complaint Chief Complaint: General - History obtained from History obtained from: Patient, Family - History of Present Illness Timing: Today - Additonal information Additional information: 89-year-old male admitted to [facility] earlier today after being treated here in the emergency department and in the hospital for sepsis. He has returned to his baseline mentation and he has 4 more days of meropenem to be given and has a PICC line in place. They were unable to secure the medication for this evening's dose and the is brought him here to the emergency department for a dose of meropenem. He is not otherwise ill and has not become more ill this evening. Review of Systems Constitutional: reports: Fatigue. denies: Fever Eyes: denies: Decreased vision Ears: denies: Ear pain Nose: denies: Rhinorrhea / runny nose, Congestion Respiratory: reports: Cough Neurologic: reports: Generalized weakness. denies: Focal weakness, Numbness PD PAST MEDICAL HISTORY - Past Medical History Cardiovascular: Congestive heart failure, Hypertension, High cholesterol, Coronary artery disease, Deep vein thrombosis, Pulmonary embolism, [place], Atrial fibrillation Respiratory: COPD, Pneumonia (multiple admissions from [place] in [place] to [facility]) to [place] over the years. ), Sleep apnea, Other Neuro: None Endocrine/Autoimmune: Type 2 diabetes, Other GI: GERD (without esophagitis), Cholelithiasis : Benign prostate hypertrophy (and he takes concentrated cranberry juice (but not for weeks since recent illnesses)), Retention, Chronic bladder infection (not chronic but has recurrent infection hx), Nocturia, Frequency, Other (CKD Stage III) HEENT: None Psych: None, Other Musculoskeletal: Osteoarthritis, Gout, Chronic back pain, Other Derm: Other (recent drug rash with vancomycin last week) - Past Surgical History Past Surgical History: Yes General: Appendectomy Ortho: Shoulder arthroplasty, Spine surgery Cardiovascular: Coronary stent HEENT: Tonsil/Adenoidectomy - Present Medications Home Medications: Ambulatory Orders Medication Instructions Recorded Confirmed Gabapentin 300 mg PO BID 06/22/16 02/04/19 Hydrocortisone 10 mg PO DAILY 02/18/18 02/04/19 Hydrocodone/Acetaminophen 1 tab PO Q6H PRN 02/19/18 02/04/19 [Hydrocodone-Acetamin 5-325 mg] Benzonatate 100 mg PO DAILY PRN 02/04/19 02/04/19 Calcium Carbonate 1,000 mg PO Q4H PRN 02/04/19 02/04/19 Fluticasone Propionate [24 Hour 1 spray ALAN DAILY PRN 02/04/19 02/04/19 Allergy] Miconazole Nitrate [Desenex] 1 applic TOP BID 02/04/19 02/04/19 Pantoprazole [Protonix] 40 mg PO BID 02/04/19 02/04/19 Acetaminophen [Tylenol] 650 mg PO Q4HR PRN tablet 02/08/19 Albuterol 3 ml INH Q8H #0 02/08/19 02/04/19 Allopurinol 100 mg PO DAILY #0 02/08/19 02/04/19 Apixaban [Eliquis] 2.5 mg PO BID #0 02/08/19 02/04/19 Aspirin [Aspirin EC] 81 mg PO DAILY #0 02/08/19 02/04/19 Carvedilol 12.5 mg PO BID #0 02/08/19 02/04/19 Ferrous Sulfate 325 mg PO DAILY #0 02/08/19 02/04/19 Furosemide 80 mg PO DAILY #0 02/08/19 02/04/19 Meropenem [Merrem] 1 gm IV Q12H #8 vial 02/08/19 Mometasone Furoate [Asmanex] 2 puffs IH DAILY #0 02/08/19 02/04/19 Oxybutynin Chloride [Ditropan Xl] 10 mg PO DAILY #0 02/08/19 02/04/19 Potassium Chloride 20 meq PO DAILY #0 02/08/19 02/04/19 Simvastatin 80 mg PO QPM #0 02/08/19 02/04/19 Tamsulosin HCl [Flomax] 0.4 mg PO DAILY #0 02/08/19 02/04/19 Tiotropium Br/Olodaterol HCl 2 puffs PO DAILY #0 02/08/19 02/04/19 [Stiolto Respimat Inhal [place]] metFORMIN [Glucophage] 500 mg PO BID #0 02/08/19 02/04/19 - Allergies Allergies/Adverse Reactions: Allergies Allergy/AdvReac Type Severity Reaction Status Date / Time cefuroxime [From Ceftin] Allergy Rash Verified 02/09/19 00:15 ciprofloxacin Allergy Unknown Verified 02/09/19 00:15 nitrofurantoin Allergy Rash Verified 02/09/19 00:15 sulfamethoxazole Allergy Anaphylaxis Verified 02/09/19 00:15 [From Bactrim] trimethoprim [From Bactrim] Allergy Anaphylaxis Verified 02/09/19 00:15 vancomycin Allergy Rash Verified 02/09/19 00:15 - Social History Does the pt smoke?: No Smoking Status: Former smoker Does the pt drink ETOH?: No Does the pt have substance abuse?: No - Immunizations Immunizations are current?: Yes - POLST Patient has POLST: Yes POLST Status: Limited Interventions ( is very firm in this. Discussed with PCP. But she and have never seen or understand what full resucitation means.) PD ED PE NORMAL - Vitals Vital signs reviewed: Yes (hypertensive ) - General General: Alert and oriented X 3, No acute distress, Well developed/nourished, Other (The patient is not altered) - HEENT HEENT: Atraumatic, PERRL, EOMI - Cardiac Cardiac: RRR, No murmur - Respiratory Respiratory: No respiratory distress, Other (diminished breath sounds) - Abdomen Abdomen: Soft, Non tender - Derm Derm: Normal color, Warm and dry, No rash - Extremities Extremities: No deformity, Other (no erythema to mild edema ) - Neuro Neuro: Alert and oriented X 3, compensation advisor 2-12 intact, No motor deficit, No sensory deficit, Normal speech Eye Opening: Spontaneous Motor: Obeys Commands Verbal: Oriented GCS Score: 15 - Psych Psych: Normal mood, Normal affect Results - Vitals Vitals: Vital Signs - 24 hr 02/09/19 02/09/19 00:13 00:15 Temperature 36.7 C Heart Rate 72 71 Respiratory 14 15 Rate Blood Pressure 127/88 H 138/80 H O2 Saturation 97 100 Oxygen O2 Source [Without Activity] Nasal cannula O2 Source Room air PD MEDICAL DECISION MAKING - ED course Complexity details: reviewed results, re-evaluated patient, considered differential, d/w patient, d/w family ED course: 89 y/o male not able to get the dose of antibiotic needed today at [facility] is transferred to [facility] for administration of Meropenem. 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 Discharge Date/Time: 02/09/19 01:22
[2019-02-09 01:06] VITALS: BP 138/80
== END 2019-02-09 01:22 | disposition home or self-care (01) ==
LOC: EDUNIT# → ED
DX: A49.1 Streptococcal infection, unspecified site (principal); I13.0 Hypertensive heart and chronic kidney disease with heart failure and stage 1 through stage 4 chronic kidney disease, or unspecified chronic kidney disease; E11.22 Type 2 diabetes mellitus with diabetic chronic kidney disease; N18.3 Chronic kidney disease, stage 3 (moderate); I50.9 Heart failure, unspecified; Z79.84 Long term (current) use of oral hypoglycemic drugs; I48.91 Unspecified atrial fibrillation; Z86.711 Personal history of pulmonary embolism; Z86.718 Personal history of other venous thrombosis and embolism; Z79.01 Long term (current) use of anticoagulants; Z79.82 Long term (current) use of aspirin; Z87.891 Personal history of nicotine dependence; E61.1 Iron deficiency; I27.82 Chronic pulmonary embolism; B96.1 Klebsiella pneumoniae [K. pneumoniae] as the cause of diseases classified elsewhere
CPT/HCPCS: 80053; 85025; 85651; 96365; 99283; 99284; J2185

== ENCOUNTER 2019-02-09 01:23 | Outpatient (CLI) | payer MEDICARE, OTHER | END 2019-02-09 01:24 | LOC: EMS 01:23 | PROVIDERS: ATTEND Surgery | DX: R53.1 Weakness (principal); Z74.01 Bed confinement status | CPT/HCPCS: A0425; A0428 ==

== ENCOUNTER 2019-02-09 15:10 | Outpatient (CLI) | payer MEDICARE, OTHER ==
[2019-02-09 18:12] LABS: EOSINOPHILS # (AUTO) 0.2 10^3/uL (0.0-0.7); EOSINOPHILS % (AUTO) 3.2 %; HGB - HEMOGLOBIN 9.4 g/dL (14.0-18.0); LYMPHOCYTES % (AUTO) 20.3 %; MEAN CORPUSCULAR HEMOGLOBIN 29.2 pg (27.0-31.0); MEAN CORPUSCULAR HGB CONC 30.7 g/dL (32.0-36.0); MEAN PLATELET VOLUME 10.8 fL (7.4-11.4); MONOCYTES # (AUTO) 0.3 10^3/uL (0.0-1.0); MONOCYTES % (AUTO) 5.2 %; NEUTROPHILS # (AUTO) 3.5 10^3/uL (1.5-6.6); NEUTROPHILS % (AUTO) 70.7 %; PLT - PLATELET COUNT 125 10^3/uL (130-450); RED BLOOD COUNT 3.22 10^6/uL (4.70-6.10); RED CELL DISTRIBUTION WIDTH 17.2 % (12.0-15.0)
[2019-02-09 18:18] LABS: ALBUMIN 2.8 g/dL (3.2-5.5); ALBUMIN/GLOBULIN RATIO 1.1 (1.0-2.2); BILIRUBIN,TOTAL 0.8 mg/dL (0.2-1.0); CALCIUM 8.3 mg/dL (8.5-10.3); TOTAL PROTEIN 5.4 g/dL (6.7-8.2)
[2019-02-09 20:15] LABS: PLATELET ESTIMATE, MANUAL DECREASED (<130,000) (NORMAL); PLATELET MORPHOLOGY RARE GIANT PLATELETS (NORMAL)
== END 2019-02-09 23:59 | disposition home or self-care (01) ==
LOC: LAB.R 15:10
DX: E61.1 Iron deficiency (principal); I10 Essential (primary) hypertension; I27.82 Chronic pulmonary embolism; B96.1 Klebsiella pneumoniae [K. pneumoniae] as the cause of diseases classified elsewhere
CPT/HCPCS: 80053; 85025; 85651

== ENCOUNTER 2019-02-21 20:15 | Outpatient (CLI) | payer MEDICARE, OTHER ==
--- NOTE | 2019-02-22 03:24 | HISTORY & PHYSICAL EXAMINATION ---
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 Is described as a vivacious, active gentleman until 2 to 3 months ago. He has multiple, multiple medical problems. But his stoutly maintains that he was his baseline self until December 2018. We admitted him to [facility] with an episode of bronchitis and COPD exacerbation.He went home, and became more short of breath over 3 days at the end of December. On January 04, EMS was called and he asked to be taken to [facility]. He was there from 01/05-01/08 for pneumonia and sent home on more lasix plus dosycycline for hemophilus. After being home for 2 days, they called him back in because his sputum grew out MRSA. He was there from 01/11-01/15. He was discharged from [facility] and transitioned to a snf facility for rehab and continued IV Vancomycin at [facility]. Since being at [facility] he has seen his Exhibit Specialist (Uday oMn II/[facility]), School Health Assistant (Noman Queen/Delicia) and Server Support Technician (Flori Kendrick/Delicia). He did develop a drug rash of red man sydrome with the Vancomycin last week and was changed to Linezolid to complete his pneumonia therapy. About two weeks ago he had a gout attack and was put on colchicine in addition to his allopurinol. She got sick the the stomach flu ("everyone at [facility] has it" she states) 2 days ago and hasn't seen him. But even on that last day she noted he was starting to shiver out of the blue with no reason. He called his last night saying that they were not helping him go to the bathroom. He seemed confused. When his saw him that morning he was febrile, confused and he was brought to our emergency room. She does not describe cough, acute sob, edema, abd pain, diarrhea. He ended up having strep bacteremia. And grew out E. coli and ESBL Klebsiella in his urine. He has a long history of urinary retention from prostate issues. He went into septic shock, ATN and required to stay in the ICU. He eventually recovered and was stable enough to be transition to a regular [facility] bed. From there he went back to [facility] to complete antibiotic therapy for the strep bacteremia. He was scheduled to receive only a few more days of abx but his states he was given another 21 days and he is still on them. he has dysphagia and is being fed a nectar thick pureed food diet. He is getting protein cups 3 x a day. He also hasn't been mobile since returning. He was using a walker when we last admitted him but has lost ground. He can stand but needs a Katharina lift to get him up. Tonight he began having a distended abdomen, was complaining of abdominal fullness with discomfort. And then regurgitated his tomato soup 1 hour prior to admission. The snf facility staff noted that he sounded short of breath and more phlegmy. states he really didn't vomit but that what he was bringing up was a combination of phlegm and his soup. EMS was called and they found him to be saturating the low 90s on room air. He denies any chest pain, trouble breathing. His main complaint is that of mild belly discomfort that is generalized. His last bowel movement was yesterday. He has no previous abdominal surgery history. His states that he has had some increased swelling in his legs and abdomen recently. Lasix , Eliquis,flomax and o xybutinin have been stopped as of 01/15. His states she is angry. It is unclear why since he was discharged on 80 mg daily of lasix. She just found out about this and we don't have notes as of yet. He was evaluated by the emergency room physician. The patient was initially afebrile, mildly tachycardic at 104, and normotensive. He was saturating 95% on room air. They evaluated him for the nausea and vomiting and abdominal discomfort. Abdomen pelvis CT scan was done and he had chronic peripheral consolidation of the left lower lobe. Scattered liver cysts. A stomach that was mildly to moderately distended with fluid and debris. No bowel dilation. Scattered diverticulosis. The emergency room physician was going to send him back to [facility]. However during his stay in the emergency room he became sleepier, less responsive. Found to be febrile to 38.1, and as such, [facility]. His chest x-ray shows no changes. CT scan shows that chronic left lower lobe consolidation. Urinalysis is negative. With his last day creatinine peaked at 2.3. His creatinine is 1.2. Lactic acid is 1.4. This gentleman continues to have a PICC line in place. Blood cultures have been taken through the PICC line as well as peripherally. He is now admitted for metabolic encephalopathy due to a probable infectious disorder. History - Past Medical History Cardiovascular: reports: Congestive heart failure, Hypertension, High cholesterol, Coronary artery disease, Deep vein thrombosis, Pulmonary embolism, [place], Atrial fibrillation Respiratory: reports: COPD, Pneumonia (multiple admissions from [facility] in [place] to [facility]) to [place] over the years. ), Sleep apnea, Other Neuro: reports: None Endocrine/Autoimmune: reports: Type 2 diabetes, Other GI: reports: GERD (without esophagitis), Cholelithiasis : reports: Benign prostate hypertrophy (and he takes concentrated cranberry juice (but not for weeks since recent illnesses)), Retention, Chronic bladder infection (not chronic but has recurrent infection hx), Nocturia, Frequency, Other (CKD Stage III) HEENT: reports: None Psych: reports: None, Other Musculoskeletal: reports: Osteoarthritis, Gout, Chronic back pain, Other Derm: reports: Other (recent drug rash with vancomycin last week) MRSA Hx?: No - Past Surgical History General: reports: Appendectomy Ortho: reports: Shoulder arthroplasty, Spine surgery Cardiovascular: reports: Coronary stent HEENT: reports: Tonsil/Adenoidectomy - Family & Social History Family History: Mother: , CAD, Father: , Cancer, Sister: CAD Family History Comment/Other: Dad in his 80's of heart and cancer. Mom in her late 70's of heart. 6 siblings, 2 alive (his twin is in [place] in hospital with cholecystitis right now) and 4 : brother with CAD, brother with pancreatic cancer, Sister w COPD, and one ? no children Living arrangement: intermediate Social History Notes: The patient was born in [place] and raised in [place]. Patient currently lives with his second of 6 years in [place], [place] and anticipates this when going home after this admit to [facility]. He was and since 1987. Knew his second in high school and they re-met at a reunion and got . 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 He states that over his career he lived throughout [place], [place], [place], [place], [place] and [facility]. The patient states that he only settle down on [facility] 2015. The patient previously smoked cigars but quit in 1979. The patient states he has never touched alcohol and denies any illicit drug use. The patient and his are very active. - Substance History Use: Uses substance without health or social issues: NONE Abuse: Recurrent use of substance despite neg consequences: NONE Dependence: Experiences withdrawal or developed tolerances: NONE - POLST Patient has POLST: Yes POLST Status: DNR (with his last admit was full code. Since thinking about things, he and his have changed their status to DNR.) Meds/Allgy - Home Medications Home Medications: Ambulatory Orders Medication Instructions Recorded Confirmed Gabapentin 300 mg PO BID 06/22/16 02/04/19 Hydrocortisone 10 mg PO DAILY 02/18/18 02/04/19 Hydrocodone/Acetaminophen 1 tab PO Q6H PRN 02/19/18 02/04/19 [Hydrocodone-Acetamin 5-325 mg] Benzonatate 100 mg PO DAILY PRN 02/04/19 02/04/19 Calcium Carbonate 1,000 mg PO Q4H PRN 02/04/19 02/04/19 Fluticasone Propionate [24 Hour 1 spray ALAN DAILY PRN 02/04/19 02/04/19 Allergy] Miconazole Nitrate [Desenex] 1 applic TOP BID 02/04/19 02/04/19 Pantoprazole [Protonix] 40 mg PO BID 02/04/19 02/04/19 Acetaminophen [Tylenol] 650 mg PO Q4HR PRN tablet 02/08/19 Albuterol 3 ml INH Q8H #0 02/08/19 02/04/19 Allopurinol 100 mg PO DAILY #0 02/08/19 02/04/19 Apixaban [Eliquis] 2.5 mg PO BID #0 02/08/19 02/04/19 Aspirin [Aspirin EC] 81 mg PO DAILY #0 02/08/19 02/04/19 Carvedilol 12.5 mg PO BID #0 02/08/19 02/04/19 Ferrous Sulfate 325 mg PO DAILY #0 02/08/19 02/04/19 Furosemide 80 mg PO DAILY #0 02/08/19 02/04/19 Meropenem [Merrem] 1 gm IV Q12H #8 vial 02/08/19 Mometasone Furoate [Asmanex] 2 puffs IH DAILY #0 02/08/19 02/04/19 Oxybutynin Chloride [Ditropan Xl] 10 mg PO DAILY #0 02/08/19 02/04/19 Potassium Chloride 20 meq PO DAILY #0 02/08/19 02/04/19 Simvastatin 80 mg PO QPM #0 02/08/19 02/04/19 Tamsulosin HCl [Flomax] 0.4 mg PO DAILY #0 02/08/19 02/04/19 Tiotropium Br/Olodaterol HCl 2 puffs PO DAILY #0 02/08/19 02/04/19 [Stiolto Respimat Inhal Mcloud] metFORMIN [Glucophage] 500 mg PO BID #0 02/08/19 02/04/19 - Allergies Allergies/Adverse Reactions: Allergies Allergy/AdvReac Type Severity Reaction Status Date / Time cefuroxime [From Ceftin] Allergy Rash Verified 02/21/19 20:23 ciprofloxacin Allergy Unknown Verified 02/21/19 20:23 nitrofurantoin Allergy Rash Verified 02/21/19 20:23 sulfamethoxazole Allergy Anaphylaxis Verified 02/21/19 20:23 [From Bactrim] trimethoprim [From Bactrim] Allergy Anaphylaxis Verified 02/21/19 20:23 vancomycin Allergy Rash Verified 02/21/19 20:23 Review of Systems - Constitutional Constitutional: reports: Malaise, Weakness, Other ( speaks for him since he is so sleepy now). denies: Fatigue, Fever - Eyes Eyes: denies: Pain, Irritation, Amaurosis - Ears, Nose & Throat Ears, Nose & Throat: reports: Hearing loss. denies: Ear pain, Vertigo, Nasal discharge, Sore throat, Hoarseness - Cardiovascular Cariovascular: reports: Edema (worse over last few days), Exertional dyspnea, Decr. exercise tolerance. denies: Chest pain - Respiratory Respiratory: denies: Cough, Sputum production, Wheezing, SOB at rest, SOB with exertion - Gastrointestinal Gastrointestinal: reports: Abdominal pain, Abdominal distention, Nausea, Vomiting. denies: Constipation, Diarrhea, Change in bowel habits, Rectal bleeding, Black stools, Bloody stools - Genitourinary Genitourinary: reports: Frequency, Urgency, Incontinence, Nocturia. denies: Dysuria, Hematuria, Urethral discharge - Musculoskeletal Musculoskeletal: reports: Gout (in December). denies: Muscle pain, Back pain, Muscle aches - Integumentary Integumentary: reports: Rash (with vancomycin in December resolved. Has new scrotal rash) - Neurological Neurological: reports: General weakness, Memory problems - Psychiatric Psychiatric: denies: Depression, Anxiety, Suicidal - Endocrine Endocrine: denies: Polyuria, Polydypsia, Polyphagia - Hematologic/Lymphatic Hematologic/Lymphatic: reports: Blood clots Prior Level of Functionality: able to work with PT and use a walker, chair before his last admission with us. but needs to have help with bathing, feeding. He was hospitalized and was able to sit in chair , work w PT albeit slowly. Since returning to [facility] this time, she feels he has lost so much ground. Can't walk anymore, completely dependent and needs a lift to transfer. Describes being able to stand 11 minutes this week Exam - Vital Signs Reviewed Vital Signs: Yes - Physical Exam General Appearance: positive: No acute distress, Lethargic (he is already improving from when he was in [facility]. More talkative and responsive.), Other (obese white male , reddened face) Eyes Bilateral: positive: PERRL, EOMI ENT: positive: Pharynx nml, Pharyngeal erythema Neck: positive: No JVD. negative: Lymphadenopathy (R), Lymphadenopathy (L), Carotid bruit Respiratory: positive: Chest non-tender, No respiratory distress, Rales. negative: Wheezes, Rhonchi Cardiovascular: positive: Regular rate & rhythm. negative: Gallop/S4, Friction rub Peripheral Pulses: positive: 0 Abdomen: positive: Other (distended, slightly tympanitic, hypoactive bowel sounds but nontender, no guarding/rebound) Skin: positive: Warm, Other (scrotal rash). negative: Diaphoresis, Pallor Extremities: positive: Non-tender, Full ROM, Pedal edema Neurologic/Psychiatric: positive: CN's nml (2-12), Disoriented to place, Disoriented to time, Slurred/abnml speech (slightly). negative: Motor nml (with moderqte generalized weakness), Facial droop Conclusion/Plan - Problem List (1) Acute metabolic encephalopathy Conclusion/Plan: This is in a gentleman who has chronic respiratory problems, chronic heart problems. And recent hospitalizations for MRSA pneumonia, Haemophilus pneumonia, ESBL Klebsiella UTI, strep viridans bacteremia. He now presents with nausea, vomiting. He has a distended stomach and may have gastroenteritis. However the vomiting may resulted in aspiration with fever. Granted this is a quick response to emesis that happened earlier this evening. He could also have bacteremia as a source of his fever from his PICC line. Right now urine is negative for another UTI, and CT shows a same chronic left lower lobe changes that he has had before. Plan: IV antibiotics in the form of meropenem and Zyvox. De-escalate or change on the basis of PICC line cultures and peripheral line cultures in the next 48 hours get records from [facility] to find out why 21 days of abx rx'd Continue to examine frequently in the case a source of infection shows up we have not seen so far (2) Fever Conclusion/Plan: source could be PICC, could be chronic LLL changes, could be response to aspiration fo his stomach contents. Plan: empiric abx. tylenol. Qualifiers: Fever type: unspecified Qualified Code(s): R50.9 - Fever, unspecified (3) Weakness generalized Conclusion/Plan: PT/OT (4) Chronic combined systolic and diastolic CHF, NYHA class 2 Conclusion/Plan: unclear as to why his lasix was stopped. He has leg edema and crackles on exam. Plan: reusme lasix at 40 mg IV watch creatinine get records from [facility] to verify why med change (5) Stomach dilatation Conclusion/Plan: with nml bowel distal to it, full of debris. ? gastritis ?gastric outlet obstruction Plan: hold off on too much food. monitor for aspiraiton PPI (6) Chronic a-fib Conclusion/Plan: to be on rate control and anticoagulation. according to , his eliquis was stoppped. will verify with MAR from SNF. She wants it resumed or at least someone to explain why it was stopped. (7) Do not resuscitate status Conclusion/Plan: with his last admission he was a full code. She and he both state he is a DNR now. (8) COPD without exacerbation Conclusion/Plan: use duoneb while here. - Lab Results Lab results reviewed: Yes - Diagnostic Imaging Results Diagnostic Imaging Results: positive: Final report reviewed Diagnostic Imaging Results Comments: CT ABDOMEN AND PELVIS EXAM DATE: 02/21/2019 10:24 PM. CLINICAL HISTORY: Abd pain and distension, vomiting. COMPARISONS: CHEST ANGIO 12/28/2017 11:37 PM. TECHNIQUE: Routine helical CT imaging was performed through the abdomen and pelvis. IV contrast: OPTI 320 100ML. Enteric contrast: No. Reconstructions: Coronal and sagittal. In accordance with CT protocol optimization, one or more of the following dose reduction techniques were utilized for this exam: automated exposure control, adjustment of mA and/or KV based on patient size, or use of iterative reconstructive technique. FINDINGS: Lung Bases: Chronic peripheral consolidation in the left lower lobe and trace amount of pleural fluid is unchanged compared to the prior exam. Liver: Some scattered cysts, largest in the lateral segment of the left lobe, not significantly changed compared to the prior exam. Gallbladder/Bile Ducts: Unremarkable. Spleen: Normal. Pancreas: Normal. Adrenal Glands: Normal. Kidneys: Normal. No masses or hydronephrosis. Peritoneal Cavity/Bowel: Stomach is mild to moderately distended with fluid and debris. No bowel dilatation that would suggest obstruction. Scattered diverticulosis. In the left paracolic gutter best seen on images 51 through 55 there is some increased soft tissue attenuation, that could represent some inflammation and/or fluid. Appendix is not seen. No free air. Pelvic Organs: Normal. The bladder and visualized pelvic organs are within normal limits. Vasculature: No aneurysms or other significant abnormality. Bones: No significant abnormality. Other: None. IMPRESSION: 1. Diverticulosis. There may be a focal area of diverticulitis in the descending colon, versus some dependent peritoneal fluid in the left paracolic gutter. No colonic wall thickening or wall thickening around any diverticuli in the area. 2. 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 3. The stomach is distended with fluid and debris, however there is no evidence of small or large bowel obstruction. CHEST RADIOGRAPHY EXAM DATE: 02/21/2019 08:46 PM. CLINICAL HISTORY: Chest Pain. COMPARISON: CHEST FOR LINE PLACEMENT 02/08/2019 12:09 PM. TECHNIQUE: 1 view. FINDINGS: Lungs/Pleura: Mild right basilar scarring. No focal opacities evident. No pleural effusion. No pneumothorax. Mediastinum: There is moderate enlargement of cardiomediastinal silhoutte. Left-sided PICC line is well-positioned with its tip projected over the proximal SVC. Other: None. IMPRESSION: Moderate enlargement of cardiomediastinal silhouette. Mild right basilar scarring. - EKG Results EKG Interpreted Independently: No Core Measures - Anticipated LOS I expect patient to be DC'd or transferred within 96 hours.: Yes - DVT/VTE - Prophylaxis VTE/DVT Device ordered at admit?: Yes
== END 2019-02-21 20:16 | disposition critical access hospital (66) ==
LOC: EMS 20:15
PROVIDERS: ATTEND Surgery
DX: R06.02 Shortness of breath (principal)
CPT/HCPCS: A0425; A0429

== ENCOUNTER 2019-02-21 20:20 | Inpatient (IN) | payer MEDICARE, OTHER ==
--- NOTE | 2019-02-21 20:20 | ED Physician Documentation ---
History of Present Illness - Stated complaint Stated Complaint: PNA
--- NOTE | 2019-02-21 20:30 | ED Physician Documentation ---
History of Present Illness - Stated complaint Stated Complaint: PNA - Additonal information Additional information: This is an 89-year-old male with of diabetes, coronary artery disease status post PCI, DVT and pulmonary embolism on Eliquis, atrial fibrillation, sepsis in the last month from E. coli and kelbsiella with possible strep bacteremia, who presents with vomiting and increased work of breathing. Patient was diagnosed with UTI sepsis recently, he was discharged to [facility]. He has had some increasing swelling in his over the last week or so, and tonight several hours after eating he began coughing and had some vomiting of tomato soup which she had ate earlier. Since that time he has had some increased work of breathing and staff noted that his breathing sounded a bit rough. EMS was called and they found him saturating in the low 90s on room air, they put him on 2 L nasal cannula and this increased to the high 90s. He denies chest pain or trouble breathing, his only complaint at this time is that his belly is mildly and vaguely uncomfortable. His last bowel movement was yesterday and was normal. He denies ever having any abdominal surgeries. According to his he has had some increased swelling in his legs and abdomen recently. We talked to [facility], and it seems like his furosemide may have been stopped. By their records he is no longer on furosemide or his anticoagulant, however his states that she was not told that any of his medications have been stopped, so it is unclear if this is a discrepancy in their chart or a recent change not communicated with patients . He is receiving ertapenem IV infusions through a L PICC line. Review of Systems Constitutional: denies: Fever Cardiac: denies: Chest pain / pressure Respiratory: denies: Hemoptysis GI: reports: Abdominal Pain, Vomiting : denies: Dysuria Skin: denies: Rash PD PAST MEDICAL HISTORY - Past Medical History Cardiovascular: Congestive heart failure, Hypertension, High cholesterol, Coronary artery disease, Deep vein thrombosis, Pulmonary embolism, [place], Atrial fibrillation Respiratory: COPD, Pneumonia (multiple admissions from [facility] in [place] to [place] ([facility]) to [place] over the years. ), Sleep apnea, Other Neuro: None Endocrine/Autoimmune: Type 2 diabetes, Other GI: GERD (without esophagitis), Cholelithiasis : Benign prostate hypertrophy (and he takes concentrated cranberry juice (but not for weeks since recent illnesses)), Retention, Chronic bladder infection (not chronic but has recurrent infection hx), Nocturia, Frequency, Other (CKD Stage III) HEENT: None Psych: None, Other Musculoskeletal: Osteoarthritis, Gout, Chronic back pain, Other Derm: Other (recent drug rash with vancomycin last week) - Past Surgical History Past Surgical History: Yes General: Appendectomy Ortho: Shoulder arthroplasty, Spine surgery Cardiovascular: Coronary stent HEENT: Tonsil/Adenoidectomy - Present Medications Home Medications: Ambulatory Orders Medication Instructions Recorded Confirmed Gabapentin 300 mg PO BID 06/22/16 02/04/19 Hydrocortisone 10 mg PO DAILY 02/18/18 02/04/19 Hydrocodone/Acetaminophen 1 tab PO Q6H PRN 02/19/18 02/04/19 [Hydrocodone-Acetamin 5-325 mg] Benzonatate 100 mg PO DAILY PRN 02/04/19 02/04/19 Calcium Carbonate 1,000 mg PO Q4H PRN 02/04/19 02/04/19 Fluticasone Propionate [24 Hour 1 spray ALAN DAILY PRN 02/04/19 02/04/19 Allergy] Miconazole Nitrate [Desenex] 1 applic TOP BID 02/04/19 02/04/19 Pantoprazole [Protonix] 40 mg PO BID 02/04/19 02/04/19 Acetaminophen [Tylenol] 650 mg PO Q4HR PRN tablet 02/08/19 Albuterol 3 ml INH Q8H #0 02/08/19 02/04/19 Allopurinol 100 mg PO DAILY #0 02/08/19 02/04/19 Apixaban [Eliquis] 2.5 mg PO BID #0 02/08/19 02/04/19 Aspirin [Aspirin EC] 81 mg PO DAILY #0 02/08/19 02/04/19 Carvedilol 12.5 mg PO BID #0 02/08/19 02/04/19 Ferrous Sulfate 325 mg PO DAILY #0 02/08/19 02/04/19 Furosemide 80 mg PO DAILY #0 02/08/19 02/04/19 Meropenem [Merrem] 1 gm IV Q12H #8 vial 02/08/19 Mometasone Furoate [Asmanex] 2 puffs IH DAILY #0 02/08/19 02/04/19 Oxybutynin Chloride [Ditropan Xl] 10 mg PO DAILY #0 02/08/19 02/04/19 Potassium Chloride 20 meq PO DAILY #0 02/08/19 02/04/19 Simvastatin 80 mg PO QPM #0 02/08/19 02/04/19 Tamsulosin HCl [Flomax] 0.4 mg PO DAILY #0 02/08/19 02/04/19 Tiotropium Br/Olodaterol HCl 2 puffs PO DAILY #0 02/08/19 02/04/19 [Stiolto Respimat Inhal [place]] metFORMIN [Glucophage] 500 mg PO BID #0 02/08/19 02/04/19 - Allergies Allergies/Adverse Reactions: Allergies Allergy/AdvReac Type Severity Reaction Status Date / Time cefuroxime [From Ceftin] Allergy Rash Verified 02/21/19 20:23 ciprofloxacin Allergy Unknown Verified 02/21/19 20:23 nitrofurantoin Allergy Rash Verified 02/21/19 20:23 sulfamethoxazole Allergy Anaphylaxis Verified 02/21/19 20:23 [From Bactrim] trimethoprim [From Bactrim] Allergy Anaphylaxis Verified 02/21/19 20:23 vancomycin Allergy Rash Verified 02/21/19 20:23 - Social History Does the pt smoke?: No Smoking Status: Former smoker Does the pt drink ETOH?: No Does the pt have substance abuse?: No - Immunizations Immunizations are current?: Yes - POLST Patient has POLST: Yes POLST Status: Limited Interventions ( is very firm in this. Discussed with PCP. But she and have never seen or understand what full resucitation means.) PD ED PE NORMAL - Vitals Vital signs reviewed: Yes - General General: No acute distress - HEENT HEENT: PERRL - Neck Neck: Supple, no meningeal sign - Cardiac Cardiac: RRR - Respiratory Respiratory: Other (Diffuse rhonchi, slightly increased work of breathing on room air, normal on 2 L nasal cannula.) - Abdomen Abdomen: Other (Abdomen is distended, mildly and diffusely tender to deep palpation, no guarding) - Derm Derm: Warm and dry - Extremities Extremities: No deformity, Other (1+ pitting edema to the abdomen.) - Neuro Neuro: floor manager 2-12 intact, No motor deficit, No sensory deficit, Normal speech, Other (Alert and oriented to self, place, general event, able to provide some of his past medical history. His is able to fill in more of his history, patient does not know fine details) - Psych Psych: Normal mood, Normal affect Results - Vitals Vitals: Vital Signs - 24 hr 02/21/19 02/21/19 02/21/19 20:23 20:30 21:02 Temperature 36.8 C Heart Rate 81 104 H 89 Respiratory 22 20 Rate Blood Pressure 124/85 H 118/102 H 98/69 O2 Saturation 97 95 96 02/21/19 02/21/19 02/22/19 22:27 23:34 01:22 Temperature 38.1 C H Heart Rate 108 H 86 88 Respiratory 19 19 18 Rate Blood Pressure 120/76 121/73 O2 Saturation 100 94 93 02/22/19 02/22/19 02:12 02:20 Temperature 38.5 C H Heart Rate 91 Respiratory 21 Rate Blood Pressure 124/85 H O2 Saturation 91 L Oxygen O2 Source [Without Activity] Nasal cannula O2 Source Room air Oxygen Flow Rate 2 - EKG (time done) 20:32 Other comments: Other comments (Rate 87, rhythm sinus, there is a possible left bundle branch block. There is low voltage in the precordial leads. Poor R wave progression, T wave inversions in V1 and V2. QTc 443) 00:43 Other comments: Other comments (Rate 87, rhythm sinus, there is poor R wave progression. Left axis deviation. No ST segment elevation. There is some T wave inversions in the precordial leads. No significant change from prior) - Labs Labs: Laboratory Tests 02/21/19 02/21/19 02/21/19 20:31 20:31 20:31 WBC 6.0 RBC 3.42 L Hgb 10.1 L Hct 32.5 L MCV 95.0 H MCH 29.5 MCHC 31.1 L RDW 17.6 H Plt Count 164 MPV 10.4 Neut # (Auto) 4.1 Lymph # (Auto) 1.2 L [place] # (Auto) 0.3 Eos # (Auto) 0.3 Baso # (Auto) 0.0 Absolute Nucleated RBC 0.00 Nucleated RBC % 0.0 PT 16.1 H INR 1.4 H Sodium 140 Potassium 3.8 Chloride 102 Carbon Dioxide 25 Anion Gap 13.0 BUN 21 H Creatinine 1.2 Estimated GFR (MDRD) 57 L Glucose 149 H Lactic Acid Calcium 8.6 Total Bilirubin 0.7 AST 18 ALT 18 Alkaline Phosphatase 65 Troponin I High Sens C-Reactive Protein B-Natriuretic Peptide Total Protein 6.5 L Albumin 3.3 Globulin 3.2 Albumin/Globulin Ratio 1.0 Lipase 21 L Urine Color Urine Clarity Urine pH Ur Specific [place] Urine Protein Urine Glucose (UA) Urine Ketones Urine Occult Blood Urine Nitrite Urine Bilirubin Urine Urobilinogen Ur Leukocyte Esterase Ur Microscopic Review Urine Culture Comments 02/21/19 02/21/19 02/21/19 20:31 20:31 22:00 WBC RBC Hgb Hct MCV MCH MCHC RDW Plt Count MPV Neut # (Auto) Lymph # (Auto) [place] # (Auto) Eos # (Auto) Baso # (Auto) Absolute Nucleated RBC Nucleated RBC % PT INR Sodium Potassium Chloride Carbon Dioxide Anion Gap BUN Creatinine Estimated GFR (MDRD) Glucose Lactic Acid Calcium Total Bilirubin AST ALT Alkaline Phosphatase Troponin I High Sens 7.3 C-Reactive Protein B-Natriuretic Peptide 302 H Total Protein Albumin Globulin Albumin/Globulin Ratio Lipase Urine Color YELLOW Urine Clarity CLEAR Urine pH 6.0 Ur Specific [place] 1.010 Urine Protein NEGATIVE Urine Glucose (UA) NEGATIVE Urine Ketones NEGATIVE Urine Occult Blood NEGATIVE Urine Nitrite NEGATIVE Urine Bilirubin NEGATIVE Urine Urobilinogen 0.2 (NORMAL) Ur Leukocyte Esterase NEGATIVE Ur Microscopic Review NOT INDICATED Urine Culture Comments NOT INDICATED 02/22/19 02/22/19 02/22/19 00:43 02:43 02:43 WBC RBC Hgb Hct MCV MCH MCHC RDW Plt Count MPV Neut # (Auto) Lymph # (Auto) [place] # (Auto) Eos # (Auto) Baso # (Auto) Absolute Nucleated RBC Nucleated RBC % PT INR Sodium Potassium Chloride Carbon Dioxide Anion Gap BUN Creatinine Estimated GFR (MDRD) Glucose Lactic Acid 1.4 Calcium Total Bilirubin AST ALT Alkaline Phosphatase Troponin I High Sens 7.0 C-Reactive Protein < 1.0 B-Natriuretic Peptide Total Protein Albumin Globulin Albumin/Globulin Ratio Lipase Urine Color Urine Clarity Urine pH Ur Specific [place] Urine Protein Urine Glucose (UA) Urine Ketones Urine Occult Blood Urine Nitrite Urine Bilirubin Urine Urobilinogen Ur Leukocyte Esterase Ur Microscopic Review Urine Culture Comments - Rads (name of study) CT abd/pelvis W Radiology: Other (Distended stomach with fluid and debris without evidence of small or large bowel obstruction. Diverticulosis with a possible focal small area of diverticulitis in the descending. 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 He does have edema of his lower extremities extending to level his abdomen his abdomen is distended and mildly tender. He was given Zofran, EKG was obtained showing no significant change from prior, he does have poor R wave progression. CT of his abdomen shows a distended stomach with debris within, but no signs of obstruction. Also showed some mild colonic inflammation. Labs show a normal white blood cell count, hemoglobin of 10.1 which is improved from his past value, slightly elevated INR consistent with his anticoagulant use, BNP of 302, which is increased from previous values, normal troponin. We obtain some records from [facility], and appears that his furosemide may have been discontinued, along with his anticoagultion and tamsulosin, although this is not 100% clear. Patient did have some urinary retention, his bladder was greater than 500 cc and he required a straight catheterization well in the emergency department. Urine is negative for infection. A second troponin drawn several hours after the first is also negative. No signs of ACS at this time, and patient denies shortness of breath or chest pain, PE less likely given resolution of his symptoms. On repeat examination patient appears more confused than before, and he is now disoriented. Repeat temperature was elevated at 38.1. Blankets were removed from the patient, and on re-measure it was elevated to 38.6. Given patient's PICC line and his recent sepsis, I am concerned for infection, though are x-ray and labs so far unrevealing as to a source. He was started on meropenem and a dose of Zyvox given that he is allergic to cephalosporins as well as vancomycin. Lactic acid was drawn and is normal, patient was admitted to the hospital for further work-up and observation. Pt's updated with the plan. Departure - Departure Disposition: [facility] DC/Xfer Clinical Impression: Fever Qualifiers: Fever type: unspecified Qualified Code(s): R50.9 - Fever, unspecified Volume overload Qualifiers: Hypervolemia type: unspecified Qualified Code(s): E87.70 - Fluid overload, unspecified Condition: Stable
[2019-02-21 20:42] LABS: BASOPHILS % (AUTO) 0.7 %; EOSINOPHILS # (AUTO) 0.3 10^3/uL (0.0-0.7); EOSINOPHILS % (AUTO) 4.7 %; HGB - HEMOGLOBIN 10.1 g/dL (14.0-18.0); LYMPHOCYTES # (AUTO) 1.2 10^3/uL (1.5-3.5); LYMPHOCYTES % (AUTO) 20.6 %; MEAN CORPUSCULAR HEMOGLOBIN 29.5 pg (27.0-31.0); MEAN CORPUSCULAR HGB CONC 31.1 g/dL (32.0-36.0); MEAN PLATELET VOLUME 10.4 fL (7.4-11.4); MONOCYTES # (AUTO) 0.3 10^3/uL (0.0-1.0); MONOCYTES % (AUTO) 4.7 %; NEUTROPHILS # (AUTO) 4.1 10^3/uL (1.5-6.6); NEUTROPHILS % (AUTO) 69.1 %; PLT - PLATELET COUNT 164 10^3/uL (130-450); RED BLOOD COUNT 3.42 10^6/uL (4.70-6.10); RED CELL DISTRIBUTION WIDTH 17.6 % (12.0-15.0)
[2019-02-21 20:56] LABS: ALBUMIN 3.3 g/dL (3.2-5.5); BILIRUBIN,TOTAL 0.7 mg/dL (0.2-1.0); CALCIUM 8.6 mg/dL (8.5-10.3); CREATININE 1.2 mg/dL (0.6-1.2); TOTAL PROTEIN 6.5 g/dL (6.7-8.2)
[2019-02-21 21:04] LABS: INR 1.4 (0.8-1.2); PT - PROTHROMBIN TIME 16.1 secs (9.9-12.6)
--- NOTE | 2019-02-21 21:16 | XRAY Report ---
Reason: Chest Pain Procedure Date: 02/21/2019 Accession Number: [id number] / [id number] Procedure: XR - Chest 1 View X-Ray CPT Code: 12715 FULL RESULT: EXAM: CHEST RADIOGRAPHY EXAM DATE: 02/21/2019 08:46 PM. CLINICAL HISTORY: Chest Pain. COMPARISON: CHEST FOR LINE PLACEMENT 02/08/2019 12:09 PM. TECHNIQUE: 1 view. FINDINGS: Lungs/Pleura: Mild right basilar scarring. No focal opacities evident. No pleural effusion. No pneumothorax. Mediastinum: There is moderate enlargement of cardiomediastinal silhoutte. Left-sided PICC line is well-positioned with its tip projected over the proximal SVC. Other: None. IMPRESSION: Moderate enlargement of cardiomediastinal silhouette. Mild right basilar scarring. RADIA
[2019-02-21] MEDS ORDERED: IOVERSOL 320 100 ML VIAL IVP ONE ×2 (21:53→22:26)
[2019-02-21 22:09] LABS: BILIRUBIN,URINE NEGATIVE (NEGATIVE); GLUCOSE, URINE (UA) NEGATIVE (NEGATIVE); KETONES,URINE (UA) NEGATIVE (NEGATIVE); LEUKOCYTE ESTERASE, URINE NEGATIVE (NEGATIVE); NITRITE,URINE NEGATIVE (NEGATIVE); OCCULT BLOOD,URINE NEGATIVE (NEGATIVE); PROTEIN,URINE NEGATIVE (NEGATIVE); UROBILINOGEN,URINE 0.2 (NORMAL) E.U./dL (NORMAL)
[2019-02-21 22:11] LABS: CLARITY,URINE CLEAR (CLEAR)
--- NOTE | 2019-02-21 22:48 | CT Report ---
Reason: Abd pain and distension, vomiting Procedure Date: 02/21/2019 Accession Number: [id number] / [id number] Procedure: CT - Abdomen/Pelvis W CPT Code: FULL RESULT: EXAM: CT ABDOMEN AND PELVIS EXAM DATE: 02/21/2019 10:24 PM. CLINICAL HISTORY: Abd pain and distension, vomiting. COMPARISONS: CHEST ANGIO 12/28/2017 11:37 PM. TECHNIQUE: Routine helical CT imaging was performed through the abdomen and pelvis. IV contrast: OPTI 320 100ML. Enteric contrast: No. Reconstructions: Coronal and sagittal. In accordance with CT protocol optimization, one or more of the following dose reduction techniques were utilized for this exam: automated exposure control, adjustment of mA and/or KV based on patient size, or use of iterative reconstructive technique. FINDINGS: Lung Bases: Chronic peripheral consolidation in the left lower lobe and trace amount of pleural fluid is unchanged compared to the prior exam. Liver: Some scattered cysts, largest in the lateral segment of the left lobe, not significantly changed compared to the prior exam. Gallbladder/Bile Ducts: Unremarkable. Spleen: Normal. Pancreas: Normal. Adrenal Glands: Normal. Kidneys: Normal. No masses or hydronephrosis. Peritoneal Cavity/Bowel: Stomach is mild to moderately distended with fluid and debris. No bowel dilatation that would suggest obstruction. Scattered diverticulosis. In the left paracolic gutter best seen on images 51 through 55 there is some increased soft tissue attenuation, that could represent some inflammation and/or fluid. Appendix is not seen. No free air. Pelvic Organs: Normal. The bladder and visualized pelvic organs are within normal limits. Vasculature: No aneurysms or other significant abnormality. Bones: No significant abnormality. Other: None. IMPRESSION: 1. Diverticulosis. There may be a focal area of diverticulitis in the descending colon, versus some dependent peritoneal fluid in the left paracolic gutter. No colonic wall thickening or wall thickening around any diverticuli in the area. 2. 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 3. The stomach is distended with fluid and debris, however there is no evidence of small or large bowel obstruction. RADIA
[2019-02-22] MEDS ORDERED: BACITRACIN ZINC OINT 14 GM TOP ONE (01:21)
[2019-02-22] MEDS ORDERED: MEROPENEM 1 GM in SODIUM CHLORIDE 0.9% MINIBAG 100 ML IV STA (02:46)
[2019-02-22] MEDS ORDERED: ACETAMINOPHEN 325 MG TABLET PO STA (02:53)
[2019-02-22] MEDS ORDERED: LINEZOLID 600 MG/300 ML 600 MG/300 ML BAG IV SCH (03:00)
[2019-02-22] MEDS ORDERED: oxyCODONE 5 MG TABLET PO PRN (03:02)
[2019-02-22] MEDS ORDERED: ACETAMINOPHEN 325 MG TABLET PO PRN (03:02)
[2019-02-22] MEDS ORDERED: ONDANSETRON 4 MG/2 ML VIAL IVP PRN (03:02)
[2019-02-22] MEDS ORDERED: ONDANSETRON ODT 4 MG TABLET TL PRN (03:02)
[2019-02-22] MEDS ORDERED: MEROPENEM 500 MG in SODIUM CHLORIDE 0.9% MINIBAG 100 ML IV SCH (04:00)
[2019-02-22] MEDS ORDERED: SODIUM CHLORIDE 0.9% 1,000 ML IV SCH (04:00)
[2019-02-22] MEDS: SODIUM CHLORIDE FLUSH 0.9% 10 ML SYRINGE IVP PRN ×2 (04:26→07:05)
[2019-02-22] MEDS: FUROSEMIDE 20 MG/2 ML VIAL IVP SCH ×2 (07:05→14:32)
[2019-02-22] MEDS: PANTOPRAZOLE 40 MG TABLET PO SCH (07:05)
[2019-02-22] MEDS: IPRATROPIUM/ALBUTEROL 3 ML NEB INH PRN ×2 (11:11→15:37)
[2019-02-22] MEDS: carvediloL 12.5 MG TABLET PO SCH ×2 (12:13→20:43)
[2019-02-22] MEDS: SODIUM CHLORIDE FLUSH 0.9% 10 ML SYRINGE IVP SCH ×2 (12:13→17:22)
[2019-02-22] MEDS: MEROPENEM 500 MG in SODIUM CHLORIDE 0.9% MINIBAG 100 ML IV SCH ×2 (12:13→18:41)
[2019-02-22] MEDS: POLYETHYLENE GLYCOL 3350 17 GM PACKET PO SCH (12:13)
[2019-02-22] MEDS ORDERED: ZINC OXIDE 20% OINT 30 GM TUBE TOP PRN (14:16)
[2019-02-22] MEDS: LINEZOLID 600 MG/300 ML 600 MG/300 ML BAG IV SCH (14:32)
[2019-02-22] MEDS: ZINC OXIDE 20% OINT 30 GM TUBE TOP PRN (18:17)
[2019-02-22] MEDS ORDERED: TIOTROPIUM BROMIDE INH SCH (19:00)
[2019-02-22] MEDS ORDERED: [UNRECOGNIZED DRUG - OTHER] INH SCH (19:00)
[2019-02-22] MEDS ORDERED: OLODATEROL INH SCH (19:00)
[2019-02-22] MEDS: MOMETASONE INH SCH (19:10)
[2019-02-22] MEDS: TIOTROPIUM BROMIDE INH SCH (19:12)
[2019-02-22] MEDS: [UNRECOGNIZED DRUG - OTHER] INH SCH (19:12)
[2019-02-22] MEDS: OLODATEROL INH SCH (19:12)
[2019-02-22] MEDS ORDERED: MOMETASONE INH SCH (21:00)
[2019-02-23] MEDS ORDERED: SODIUM CHLORIDE 0.9% 500 ML IV PRN (00:57)
[2019-02-23] MEDS: MEROPENEM 500 MG in SODIUM CHLORIDE 0.9% MINIBAG 100 ML IV SCH ×3 (02:27→19:53)
[2019-02-23] MEDS: SODIUM CHLORIDE FLUSH 0.9% 10 ML SYRINGE IVP SCH ×3 (02:27→16:35)
[2019-02-23] MEDS ORDERED: SODIUM CHLORIDE FLUSH 0.9% 10 ML SYRINGE IVP PRN (02:50)
[2019-02-23] MEDS: LINEZOLID 600 MG/300 ML 600 MG/300 ML BAG IV SCH ×2 (03:09→14:36)
[2019-02-23 06:10] LABS: BASOPHILS % (AUTO) 0.4 %; EOSINOPHILS # (AUTO) 0.3 10^3/uL (0.0-0.7); EOSINOPHILS % (AUTO) 4.7 %; HGB - HEMOGLOBIN 8.3 g/dL (14.0-18.0); LYMPHOCYTES # (AUTO) 1.2 10^3/uL (1.5-3.5); LYMPHOCYTES % (AUTO) 22.2 %; MEAN CORPUSCULAR HEMOGLOBIN 29.4 pg (27.0-31.0); MEAN CORPUSCULAR HGB CONC 31.2 g/dL (32.0-36.0); MEAN CORPUSCULAR VOLUME 94.3 fL (80.0-94.0); MEAN PLATELET VOLUME 10.1 fL (7.4-11.4); MONOCYTES # (AUTO) 0.4 10^3/uL (0.0-1.0); MONOCYTES % (AUTO) 7.2 %; NEUTROPHILS # (AUTO) 3.5 10^3/uL (1.5-6.6); NEUTROPHILS % (AUTO) 65.3 %; PLT - PLATELET COUNT 143 10^3/uL (130-450); RED BLOOD COUNT 2.82 10^6/uL (4.70-6.10); WHITE BLOOD COUNT 5.3 x10^3/uL (4.8-10.8)
[2019-02-23 06:26] LABS: CALCIUM 8.3 mg/dL (8.5-10.3); CREATININE 1.3 mg/dL (0.6-1.2); PHOSPHORUS 3.1 mg/dL (2.5-4.6)
[2019-02-23] MEDS: PANTOPRAZOLE 40 MG TABLET PO SCH (06:48)
[2019-02-23] MEDS: FUROSEMIDE 20 MG/2 ML VIAL IVP SCH ×2 (06:48→14:36)
[2019-02-23] MEDS: SODIUM CHLORIDE FLUSH 0.9% 10 ML SYRINGE IVP PRN (06:48)
[2019-02-23] MEDS ORDERED: FLUTICASONE NASAL SPRAY NAS PRN (08:06)
[2019-02-23] MEDS ORDERED: MICONAZOLE TOP PRN (08:06)
[2019-02-23] MEDS ORDERED: IPRATROPIUM/ALBUTEROL 3 ML NEB INH PRN (08:06)
[2019-02-23] MEDS ORDERED: POTASSIUM CHLORIDE 20 MEQ TABLET PO ONE (08:30)
[2019-02-23] MEDS ORDERED: TIOTROPIUM BROMIDE INH SCH ×2 (09:00)
[2019-02-23] MEDS ORDERED: OLODATEROL INH SCH ×2 (09:00)
[2019-02-23] MEDS ORDERED: [UNRECOGNIZED DRUG - OTHER] INH SCH ×2 (09:00)
[2019-02-23] MEDS ORDERED: NON FORMULARY MED (Potassium Chloride [Potassium Chloride] 20 MEQ) PO SCH (09:00)
[2019-02-23] MEDS: carvediloL 12.5 MG TABLET PO SCH ×2 (10:21→21:04)
[2019-02-23] MEDS: POLYETHYLENE GLYCOL 3350 17 GM PACKET PO SCH (10:22)
[2019-02-23] MEDS: [UNRECOGNIZED DRUG - OTHER] INH SCH ×2 (10:37→19:52)
[2019-02-23] MEDS: TIOTROPIUM BROMIDE INH SCH ×2 (10:37→19:52)
[2019-02-23] MEDS: ALLOPURINOL 100 MG TABLET PO SCH (10:37)
[2019-02-23] MEDS: MOMETASONE INH SCH ×2 (10:37→19:52)
[2019-02-23] MEDS: ASPIRIN EC 81 MG TABLET PO SCH (10:37)
[2019-02-23] MEDS: OLODATEROL INH SCH ×2 (10:37→19:52)
[2019-02-23] MEDS: MOMETASONE FUROATE INH SCH (10:41)
[2019-02-23] MEDS: OXYBUTYNIN 5MG TABLET PO SCH ×2 (10:52→21:04)
[2019-02-23] MEDS: TAMSULOSIN 0.4 MG CAPSULE PO SCH (10:52)
[2019-02-23] MEDS: APIXABAN 2.5 MG TABLET PO SCH ×2 (10:52→21:04)
--- NOTE | 2019-02-23 14:20 | PROVIDER PROGRESS NOTE ---
Assessment/Plan - Problem List (1) Acute metabolic encephalopathy Assessment/Plan: This is in a gentleman who has chronic respiratory problems, chronic heart problems. And recent hospitalizations for MRSA pneumonia, Haemophilus pneumonia, ESBL Klebsiella UTI, strep viridans bacteremia. He now presents with nausea, vomiting. He had a distended stomach and may have gastroenteritis. However the vomiting may have resulted in aspiration with fever. He could also have bacteremia as a source of his fever from his PICC line. Right now urine is negative for another UTI, and CT shows a same chronic left lower lobe changes that he has had before. The fever may be the reason for confusion Continue empric IV antibiotics in the form of Meropenem and Zyvox. Head CT to evaluate for stroke or bleed as cause of persistent confusion. (2) Fever Qualifiers: Fever type: unspecified Qualified Code(s): R50.9 - Fever, unspecified Assessment/Plan: The describes that he normally runs a low body temp, therefore the current temps are a "fever for him". The source could be PICC line, could be chronic LLL changes, could be response to aspiration from his stomach contents. Awaiting blood cx, which will be 48 hrs from drawn, tomorrow. Empiric antibx continue. De-escalate or change on the basis of PICC line cultures and peripheral line cultures in the next 48 hours Will request PICC line out. (3) Weakness generalized Assessment/Plan: Presumably from his fever and not being on is CHF meds. PT/OT ordered. (4) Chronic combined systolic and diastolic CHF, NYHA class 2 Assessment/Plan: It was unclear if his Las[place] was stopped [place] [facility]; he had leg edema and crackles on exam at admission. I spoke to the "East RN" at [facility], who took care of him, and there were no meds stopped, but Eliquis dose was changed and Meropenam was on shortage, so he was on Ertepenam, according to that RN. His CHF meds were ordered at admission. Follow I's and O's, BMP (5) Stomach dilatation Assessment/Plan: Imaging showed this, with nml bowel distal to it, full of debris. ? gastritis ?gastric outlet obstruction. But no further N/V. Monitor for aspiraiton Continue PPI (6) Chronic a-fib Assessment/Plan: He was supposed to be on rate control meds and anticoagulation. According to , his Eliquis was stopped om 02/14, and she suspects it was done by the attending at [facility], no reason was given to her. According to the "Mian RN" at [facility], the Eliquis dose was changed, not stopped. According to our Pharmacist, the MAR from [facility] shows that he was on Eliquis from 01/15/19 daily I re-ordered Eliquis this a.m. (7) Type 2 diabetes mellitus without complication, without long-term current use of insulin Assessment/Plan: Metformin on hold, in case he needs iv dye. Cont diabetic diet and ss Insulin (8) Hypokalemia Assessment/Plan: Likely due to use of diuretic. Replace K and monitor BMP daily. (9) Anemia Assessment/Plan: He has a marked anemia and was on iron at [facility]. Resume his iron therapy. Follow CBC intermittently (10) COPD without exacerbation Assessment/Plan: Resumed and cont to use duoneb while here. - Current Meds Current Meds: Current Medications Generic Name Dose Route Start Last Admin Trade Name Freq PRN Reason Stop Dose Admin Albuterol/Ipratropium 3 ml 02/22/19 03:06 02/22/19 15:37 Duoneb INH 3 ml Q4HR PRN Administration Wheezing Allopurinol 100 mg 02/23/19 09:00 02/23/19 10:37 Zyloprim PO 100 mg DAILY JAZLYN Administration Apixaban 2.5 mg 02/23/19 09:00 02/23/19 10:52 Eliquis PO 2.5 mg BID JAZLYN Administration Aspirin 81 mg 02/23/19 09:00 02/23/19 10:37 Ecotrin PO 81 mg DAILY JAZLYN Administration Carvedilol 12.5 mg 02/22/19 09:00 02/23/19 10:21 Coreg PO 12.5 mg BID JAZLYN Administration Furosemide 20 mg 02/22/19 06:00 02/23/19 06:48 Lasix Inj 20mg Vial IVP 20 mg BIDDIURETIC JAZLYN Administration Linezolid 600 mg in 300 mls @ 300 mls/hr 02/22/19 15:00 02/23/19 04:27 Zyvox 600 Mg/300 Ml IV Infused Q12H JAZLYN Infusion Meropenem 500 mg/ Sodium 100 mls @ 200 mls/hr 02/22/19 11:00 02/23/19 12:28 Chloride IV Infused Q8H JAZLYN Infusion Multi-Ingredient Ointment 1 applic 02/22/19 17:30 02/22/19 18:17 Zinc Oxide TOP 1 applic QID PRN Administration Skin Care Oxybutynin Chloride 10 mg 02/23/19 09:00 02/23/19 10:52 Ditropan PO 10 mg BID JAZLYN Administration Pantoprazole Sodium 40 mg 02/22/19 07:00 02/23/19 06:48 Protonix PO 40 mg QDAC JAZLYN Administration Patient Own Med [ 1 each 02/22/19 19:00 02/23/19 10:37 Asmanex (Mometasone INH 1 each Furate) 220mcg] RTBID JAZLYN Administration Patient Own Med [ 1 each 02/22/19 19:00 02/23/19 10:37 Stiolto Respimat ( INH 1 each Tiotropium [place] RTBID JAZLYN Administration And Olodaterol) 2. 5mcg/2.5mcg] Patient Own Med ( 2 each 02/23/19 09:00 02/23/19 10:41 Mometasone Furoate [ INH Not Given Asmanex] 2 Puffs) DAILY JAZLYN Polyethylene Glycol 17 gm 02/22/19 09:00 02/23/19 10:22 Miralax PO Not Given DAILY JAZLYN Sodium Chloride 10 ml 02/22/19 03:02 02/23/19 06:48 Normal Saline Flush 0.9% IVP 10 ml PRN PRN Administration NEEDED PER PROVIDER ORDERS Sodium Chloride 10 ml 02/22/19 09:00 02/23/19 06:48 Normal Saline Flush 0.9% IVP 10 ml 0100,0900,1700 JAZLYN Administration Tamsulosin HCl 0.4 mg 02/23/19 09:00 02/23/19 10:52 Flomax PO 0.4 mg DAILY JAZLYN Administration - Lab Result Fish Bone Diagrams: 02/23/19 06:00 02/23/19 06:00 - Additional Planning My Orders: My Active Orders 02/23/19 08:05 Nebulizer/MDI Tx. [RC] .Q8hrs 02/23/19 08:06 Fluticasone [Flonase] 1 sprays ALAN DAILY PRN Ipratropium/Albuterol [Duoneb] 3 ml INH Q4H PRN Patient Own Med [Patient Own Medication] 1 each TOP BID PRN 02/23/19 09:00 Albuterol 2.5 mg INH Q8H Allopurinol [Zyloprim] 100 mg PO DAILY Apixaban [Eliquis] 2.5 mg PO BID Aspirin EC [Ecotrin] 81 mg PO DAILY Oxybutynin [Ditropan] 10 mg PO BID Patient Own Med [Patient Own Medication] 2 each INH DAILY Tamsulosin [Flomax] 0.4 mg PO DAILY 02/23/19 14:00 Benzonatate [Tessalon] 100 mg PO TID 02/24/19 08:00 Potassium Chloride [K-Dur] 20 meq PO DAILYWM 02/24/19 09:00 Cholecalciferol [Vitamin D3] 1,000 unit PO DAILY Subjective - Subjective Patient Reports: Resting Comfortably, Other ( reports he is sleepier today and confusion is same as yesterday.) Objective Vital Signs: Vital Signs - 24 hr 02/22/19 02/22/19 02/22/19 15:38 16:00 19:13 Temperature 36.3 C L Heart Rate 70 77 Heart Rate [ 73 Brachial] Respiratory 20 20 18 Rate Blood Pressure 110/76 [Right Brachial artery] O2 Saturation 99 02/22/19 02/22/19 02/23/19 19:15 20:40 00:40 Temperature 37.0 C Heart Rate 77 Heart Rate [ 78 80 Brachial] Respiratory 18 16 Rate Blood Pressure 118/66 119/66 [Right Brachial artery] O2 Saturation 94 02/23/19 08:00 Temperature 36.9 C Heart Rate Heart Rate [ 81 Brachial] Respiratory 20 Rate Blood Pressure 105/64 [Right Brachial artery] O2 Saturation 93 Oxygen O2 Source [Without Activity] Nasal cannula O2 Source Room air Oxygen Flow Rate 2 I&O (Last 24 Hrs): Intake and Output Totals x24h 02/21/19 02/22/19 02/23/19 23:59 23:59 23:59 Intake Total 2398.083 1460 Output Total 1425 300 Balance 658.118 5388 General: Other (Lethargic but awakens and answers but is not oriented to toime o place.) HEENT: Mucous membr. moist/pink Neck: Supple Neuro: Disoriented, Non Focal Cardiovascular: No murmurs Respiratory: No respiratory distress, Breath sounds nml Abdomen: Soft, Other (Obese) Extremities: Other (2+ edema to thighs) - Results Results: Laboratory Results WBC 5.3 x10^3/uL (4.8-10.8) 02/23/19 06:00 RBC 2.82 10^6/uL (4.70-6.10) L 02/23/19 06:00 Hgb 8.3 g/dL (14.0-18.0) L 02/23/19 06:00 Hct 26.6 % (42.0-52.0) L 02/23/19 06:00 MCV 94.3 fL (80.0-94.0) H 02/23/19 06:00 MCH 29.4 pg (27.0-31.0) 02/23/19 06:00 MCHC 31.2 g/dL (32.0-36.0) L 02/23/19 06:00 RDW 18.0 % (12.0-15.0) H 02/23/19 06:00 Plt Count 143 10^3/uL (130-450) 02/23/19 06:00 MPV 10.1 fL (7.4-11.4) 02/23/19 06:00 Neut # (Auto) 3.5 10^3/uL (1.5-6.6) 02/23/19 06:00 Lymph # (Auto) 1.2 10^3/uL (1.5-3.5) L 02/23/19 06:00 [place] # (Auto) 0.4 10^3/uL (0.0-1.0) 02/23/19 06:00 Eos # (Auto) 0.3 10^3/uL (0.0-0.7) 02/23/19 06:00 Baso # (Auto) 0.0 10^3/uL (0.0-0.1) 02/23/19 06:00 Absolute Nucleated RBC 0.00 x10^3/uL 02/23/19 06:00 Nucleated RBC % 0.0 /100WBC 02/23/19 06:00 PT 16.1 secs (9.9-12.6) H 02/21/19 20:31 INR 1.4 (0.8-1.2) H 02/21/19 20:31 Sodium 140 mmol/L (135-145) 02/23/19 06:00 Potassium 3.1 mmol/L (3.5-5.0) L 02/23/19 06:00 Chloride 102 mmol/L (101-111) 02/23/19 06:00 Carbon Dioxide 29 mmol/L (21-32) 02/23/19 06:00 Anion Gap 9.0 (6-13) 02/23/19 06:00 BUN 19 mg/dL (6-20) 02/23/19 06:00 Creatinine 1.3 mg/dL (0.6-1.2) H 02/23/19 06:00 Estimated GFR (MDRD) 52 (>89) L 02/23/19 06:00 Glucose 115 mg/dL (70-100) H 02/23/19 06:00 Lactic Acid 1.4 mmol/L (0.5-2.2) 02/22/19 02:43 Calcium 8.3 mg/dL (8.5-10.3) L 02/23/19 06:00 Phosphorus 3.1 mg/dL (2.5-4.6) 02/23/19 06:00 Magnesium 2.0 mg/dL (1.7-2.8) 02/23/19 06:00 Total Bilirubin 0.7 mg/dL (0.2-1.0) 02/21/19 20:31 AST 18 IU/L (10-42) 02/21/19 20:31 ALT 18 IU/L (10-60) 02/21/19 20:31 Alkaline Phosphatase 65 IU/L (42-121) 02/21/19 20:31 Troponin I High Sens 7.0 pg/mL (2.3-19.7) 02/22/19 00:43 C-Reactive Protein < 1.0 mg/dL (0-1.0) 02/22/19 02:43 B-Natriuretic Peptide 302 pg/mL (5-100) H 02/21/19 20:31 Total Protein 6.5 g/dL (6.7-8.2) L 02/21/19 20:31 Albumin 3.3 g/dL (3.2-5.5) 02/21/19: Globulin 3.2 g/dL (2.1-4.2) 02/21/19: Albumin/Globulin Ratio 1.0 (1.0-2.2) 02/21/19: Lipase 21 U/L (22-51) L 02/21/19: Urine Color YELLOW 02/21/19 22:00 Urine Clarity CLEAR (CLEAR) 02/21/19 22:00 Urine pH 6.0 PH (5.0-7.5) 02/21/19 22:00 Ur Specific [place] 1.010 (1.002-1.030) 02/21/19 22:00 Urine Protein NEGATIVE mg/dL (NEGATIVE) 02/21/19 22:00 Urine Glucose (UA) NEGATIVE mg/dL (NEGATIVE) 02/21/19 22:00 Urine Ketones NEGATIVE mg/dL (NEGATIVE) 02/21/19 22:00 Urine Occult Blood NEGATIVE (NEGATIVE) 02/21/19 22:00 Urine Nitrite NEGATIVE (NEGATIVE) 02/21/19 22:00 Urine Bilirubin NEGATIVE (NEGATIVE) 02/21/19 22:00 Urine Urobilinogen 0.2 (NORMAL) E.U./dL (NORMAL) 02/21/19 22:00 Ur Leukocyte Esterase NEGATIVE (NEGATIVE) 02/21/19 22:00 Ur Microscopic Review NOT INDICATED 02/21/19 22:00 Urine Culture Comments NOT INDICATED 02/21/19 22:00 - Procedures Procedures: Procedures INSERTION OF INFUSION DEV INTO SUP VENA CAVA, PERC APPROACH (02/03/19)
[2019-02-23] MEDS: BENZONATATE 100 MG CAPSULE PO SCH ×2 (14:36→21:03)
[2019-02-23] MEDS: ALBUTEROL NEB 2.5 MG/3 ML INH SCH ×2 (14:40→15:34)
[2019-02-23] MEDS ORDERED: CALCIUM CARB (OYSTER SHELL) 500 MG TABLET PO PRN (14:43)
[2019-02-23] MEDS: IPRATROPIUM/ALBUTEROL 3 ML NEB INH PRN (19:15)
--- NOTE | 2019-02-23 21:48 | CT Report ---
Reason: Confusion, fever Procedure Date: 02/23/2019 Accession Number: [id number] / [id number] Procedure: CT - HEAD WO CPT Code: FULL RESULT: EXAM: CT HEAD EXAM DATE: 02/23/2019 06:44 PM. CLINICAL HISTORY: Confusion, fever. COMPARISON: HEAD W/O 02/04/2019 1:04 AM. TECHNIQUE: Multiaxial CT images were obtained from the foramen magnum to the vertex. Reformats: Sagittal and coronal. IV contrast: None. In accordance with CT protocol optimization, one or more of the following dose reduction techniques were utilized for this exam: automated exposure control, adjustment of mA and/or KV based on patient size, or use of iterative reconstructive technique. FINDINGS: Parenchyma: No intraparenchymal hemorrhage. No evidence of mass, midline shift, or CT findings of infarction. Barton-white differentiation is distinct. Extraaxial Spaces: No subdural or epidural hemorrhage. Ventricles: Ventricles are enlarged but appear symmetric and unchanged. Sinuses and Orbits: There is mild right ethmoid sinus mucosal thickening. Other sinuses appear clear. Bones: No calvarium fracture. Other: None. IMPRESSION: 1. Negative for an acute or focal intracranial abnormality. 2. Generalized parenchymal volume loss without significant interval change. RADIA
[2019-02-24] MEDS: SODIUM CHLORIDE FLUSH 0.9% 10 ML SYRINGE IVP SCH ×3 (00:09→16:29)
[2019-02-24] MEDS: ALBUTEROL NEB 2.5 MG/3 ML INH SCH ×3 (00:51→16:40)
[2019-02-24] MEDS: SODIUM CHLORIDE FLUSH 0.9% 10 ML SYRINGE IVP PRN ×3 (02:19→06:15)
[2019-02-24] MEDS: LINEZOLID 600 MG/300 ML 600 MG/300 ML BAG IV SCH ×2 (02:25→16:28)
[2019-02-24] MEDS: MEROPENEM 500 MG in SODIUM CHLORIDE 0.9% MINIBAG 100 ML IV SCH ×3 (04:03→19:19)
[2019-02-24] MEDS: ZINC OXIDE 20% OINT 30 GM TUBE TOP PRN (05:25)
[2019-02-24 05:37] LABS: BASOPHILS % (AUTO) 0.4 %; EOSINOPHILS # (AUTO) 0.4 10^3/uL (0.0-0.7); EOSINOPHILS % (AUTO) 8.3 %; HGB - HEMOGLOBIN 8.9 g/dL (14.0-18.0); LYMPHOCYTES # (AUTO) 1.2 10^3/uL (1.5-3.5); LYMPHOCYTES % (AUTO) 27.5 %; MEAN CORPUSCULAR HEMOGLOBIN 30.3 pg (27.0-31.0); MEAN CORPUSCULAR HGB CONC 32.4 g/dL (32.0-36.0); MEAN CORPUSCULAR VOLUME 93.5 fL (80.0-94.0); MEAN PLATELET VOLUME 10.9 fL (7.4-11.4); MONOCYTES # (AUTO) 0.4 10^3/uL (0.0-1.0); MONOCYTES % (AUTO) 8.3 %; NEUTROPHILS # (AUTO) 2.5 10^3/uL (1.5-6.6); NEUTROPHILS % (AUTO) 55.5 %; PLT - PLATELET COUNT 155 10^3/uL (130-450); RED BLOOD COUNT 2.94 10^6/uL (4.70-6.10); RED CELL DISTRIBUTION WIDTH 17.6 % (12.0-15.0); WHITE BLOOD COUNT 4.5 x10^3/uL (4.8-10.8)
[2019-02-24 05:44] LABS: CALCIUM 8.7 mg/dL (8.5-10.3); CREATININE 1.2 mg/dL (0.6-1.2); MAGNESIUM 2.1 mg/dL (1.7-2.8); PHOSPHORUS 3.1 mg/dL (2.5-4.6)
[2019-02-24] MEDS: FUROSEMIDE 20 MG/2 ML VIAL IVP SCH ×2 (06:15→14:51)
[2019-02-24] MEDS: BENZONATATE 100 MG CAPSULE PO SCH ×3 (06:16→21:21)
[2019-02-24] MEDS: PANTOPRAZOLE 40 MG TABLET PO SCH (06:16)
[2019-02-24] MEDS: POLYETHYLENE GLYCOL 3350 17 GM PACKET PO SCH (08:39)
[2019-02-24] MEDS: POTASSIUM CHLORIDE 20 MEQ TABLET PO SCH (08:40)
[2019-02-24] MEDS: OXYBUTYNIN 5MG TABLET PO SCH ×2 (08:41→20:53)
[2019-02-24] MEDS: ASPIRIN EC 81 MG TABLET PO SCH (08:41)
[2019-02-24] MEDS: TAMSULOSIN 0.4 MG CAPSULE PO SCH (08:41)
[2019-02-24] MEDS: ALLOPURINOL 100 MG TABLET PO SCH (08:41)
[2019-02-24] MEDS: HYDROCORTISONE 10 MG TABLET PO SCH (08:41)
[2019-02-24] MEDS: FERROUS GLUCONATE 324 MG TABLET PO SCH (08:41)
[2019-02-24] MEDS: CHOLECALCIFEROL 1,000 UNIT TABLET PO SCH (08:41)
[2019-02-24] MEDS: carvediloL 12.5 MG TABLET PO SCH ×2 (08:42→20:56)
[2019-02-24] MEDS: APIXABAN 2.5 MG TABLET PO SCH ×2 (08:42→20:55)
[2019-02-24] MEDS: MOMETASONE INH SCH (08:55)
[2019-02-24] MEDS: [UNRECOGNIZED DRUG - OTHER] INH SCH ×2 (08:56→21:21)
[2019-02-24] MEDS: MOMETASONE FUROATE INH SCH (08:56)
[2019-02-24] MEDS: OLODATEROL INH SCH ×2 (08:56→21:21)
[2019-02-24] MEDS: TIOTROPIUM BROMIDE INH SCH ×2 (08:56→21:21)
--- NOTE | 2019-02-24 11:53 | PROVIDER PROGRESS NOTE ---
Assessment/Plan - Problem List (1) Acute metabolic encephalopathy Assessment/Plan: The head CT showed no significant change from previous and age-related changes were noted. Today he appears tired but is more communicative and participated in the conversation with me and the at bedside. Memory was still poor. ontinue to monitor. (2) Fever Qualifiers: Fever type: unspecified Qualified Code(s): R50.9 - Fever, unspecified Assessment/Plan: The PICC line was removed yesterday (and a periph iv placed) and the PICC line tip was sent for cx. That result is pending. The blood cx are neg to date. Another possible cause is his pneumonitis, with hx of recurrent aspiration. He will have his formal swallowing eval with the Speech Therapist, flouro and barium today>>> it was done and he passed the test. ST recommends not "shoveling" his food and treating his GERD, no meals before sleeping/supine. Will also continue empiric antibiotics. (3) Weakness generalized Assessment/Plan: He started PT yesterday, now that he is more alert and able to get to the chair. (4) Chronic combined systolic and diastolic CHF, NYHA class 2 Assessment/Plan: Fluid overload has improved. Continue present meds, but change from iv Lasix to po. (5) Chronic a-fib Assessment/Plan: HR is controlled, Eliquis continues. (6) Type 2 diabetes mellitus without complication, without long-term current use of insulin Assessment/Plan: Continue cc diet, Lantus and Reg ss Insulin. (7) Anemia Assessment/Plan: Hgb dropped from 10 to 8.9, despite diuresis. Will check serum B12, Folate and Iron panel levels, replace if low. (8) COPD without exacerbation Assessment/Plan: Continue inhalers prn. (9) Hypokalemia Assessment/Plan: Resolved. - Current Meds Current Meds: Current Medications Generic Name Dose Route Start Last Admin Trade Name Freq PRN Reason Stop Dose Admin Albuterol 2.5 mg 02/23/19 09:00 02/24/19 09:15 INH 2.5 mg Q8H JAZLYN Administration Albuterol/Ipratropium 3 ml 02/22/19 03:06 02/23/19 19:15 Duoneb INH 3 ml Q4HR PRN Administration Wheezing Allopurinol 100 mg 02/23/19 09:00 02/24/19 08:41 Zyloprim PO 100 mg DAILY JAZLYN Administration Apixaban 2.5 mg 02/23/19 09:00 02/24/19 08:42 Eliquis PO 2.5 mg BID JAZLYN Administration Aspirin 81 mg 02/23/19 09:00 02/24/19 08:41 Ecotrin PO 81 mg DAILY JAZLYN Administration Benzonatate 100 mg 02/23/19 14:00 02/24/19 06:16 Tessalon PO 100 mg TID JAZLYN Administration Carvedilol 12.5 mg 02/22/19 09:00 02/24/19 08:42 Coreg PO 12.5 mg BID JAZLYN Administration Cholecalciferol 1,000 unit 02/24/19 09:00 02/24/19 08:41 Vitamin D3 PO 1,000 unit DAILY [facility] Administration Ferrous Gluconate 324 mg 02/24/19 09:00 02/24/19 08:41 Fergon PO 324 mg DAILY JAZLYN Administration Furosemide 20 mg 02/22/19 06:00 02/24/19 06:15 Lasix Inj 20mg Vial IVP 20 mg BIDDIURETIC JAZLYN Administration Hydrocortisone 10 mg 02/24/19 09:00 02/24/19 08:41 Cortef PO 10 mg DAILY [facility] Administration Linezolid 600 mg in 300 mls @ 300 mls/hr 02/22/19 15:00 02/24/19 03:25 Zyvox 600 Mg/300 Ml IV Infused Q12H JAZLYN Infusion Meropenem 500 mg/ Sodium 100 mls @ 200 mls/hr 02/22/19 11:00 02/24/19 11:03 Chloride IV 200 mls/hr Q8H [facility] Administration Multi-Ingredient Ointment 1 applic 02/22/19 17:30 02/24/19 05:25 Zinc Oxide TOP 1 applic QID PRN Administration Skin Care Oxybutynin Chloride 10 mg 02/23/19 09:00 02/24/19 08:41 Ditropan PO 10 mg BID [facility] Administration Pantoprazole Sodium 40 mg 02/22/19 07:00 02/24/19 06:16 Protonix PO 40 mg QDAC JAZLYN Administration Patient Own Med [ 1 each 02/22/19 19:00 02/24/19 08:56 Stiolto Respimat ( INH Not Given Tiotropium [place] RTBID JAZLYN And Olodaterol) 2. 5mcg/2.5mcg] Polyethylene Glycol 17 gm 02/22/19 09:00 02/24/19 08:39 Miralax PO Not Given DAILY JAZLYN Potassium Chloride 20 meq 02/24/19 08:00 02/24/19 08:40 K-Dur PO 20 meq DAILYWM JAZLYN Administration Sodium Chloride 10 ml 02/22/19 03:02 02/24/19 06:15 Normal Saline Flush 0.9% IVP 10 ml PRN PRN Administration NEEDED PER PROVIDER ORDERS Sodium Chloride 10 ml 02/22/19 09:00 02/24/19 08:42 Normal Saline Flush 0.9% IVP 10 ml 0100,0900,1700 JAZLYN Administration Tamsulosin HCl 0.4 mg 02/23/19 09:00 02/24/19 08:41 Flomax PO 0.4 mg DAILY JAZLYN Administration - Lab Result Fish Bone Diagrams: 02/24/19 05:20 02/24/19 05:20 - Additional Planning My Orders: My Active Orders 02/23/19 14:00 Benzonatate [Tessalon] 100 mg PO TID 02/23/19 14:43 Calcium Carb (Oyster Shell) [Oysco-500] 1,000 mg PO Q4H PRN 02/23/19 16:29 PICC DC [PICC Line Discontinue] [RC] .ONCE 02/23/19 18:30 CUL, CATHETER TIP [RM] Urgent 02/24/19 08:00 Potassium Chloride [K-Dur] 20 meq PO DAILYWM 02/24/19 09:00 Cholecalciferol [Vitamin D3] 1,000 unit PO DAILY Ferrous Gluconate [Fergon] 324 mg PO DAILY Hydrocortisone [Cortef] 10 mg PO DAILY 02/24/19 09:27 Patient Own Med [Patient Own Medication] 2 each INH RTDAILY 02/24/19 11:35 Modified Barium Swallow W/SP [FL] Routine Subjective - Subjective Patient Reports: Resting Comfortably Objective Vital Signs: Vital Signs - 24 hr 02/23/19 02/23/19 02/23/19 15:30 18:57 19:30 Temperature 36.9 C Heart Rate 69 72 Heart Rate [ 76 Brachial] Respiratory 18 18 16 Rate Blood Pressure 111/67 [Right Brachial artery] O2 Saturation 95 02/23/19 02/23/19 02/24/19 21:02 23:50 00:50 Temperature 37 C 36.9 C Heart Rate 79 Heart Rate [ 76 76 Brachial] Respiratory 16 16 Rate Blood Pressure 123/66 117/67 [Right Brachial artery] O2 Saturation 96 02/24/19 02/24/19 02/24/19 08:15 09:15 11:11 Temperature 36.6 C Heart Rate 74 Heart Rate [ 74 Brachial] Respiratory 18 16 Rate Blood Pressure 117/77 [Right Brachial artery] O2 Saturation 97 95 Oxygen O2 Source [Without Activity] Nasal cannula O2 Source Room air Oxygen Flow Rate 2 I&O (Last 24 Hrs): Intake and Output Totals x24h 02/22/19 02/23/19 02/24/19 23:59 23:59 23:59 Intake Total 2398.083 2300 640 Output Total 1425 825 375 Balance 016.764 5113 265 General: Alert HEENT: Mucous membr. moist/pink Neck: Supple Neuro: Disoriented, Non Focal, Other (Oriented to place and person, not time.) Cardiovascular: No murmurs Respiratory: No respiratory distress Abdomen: Soft Extremities: No edema - Results Results: Laboratory Results WBC 4.5 x10^3/uL (4.8-10.8) L 02/24/19 05:20 RBC 2.94 10^6/uL (4.70-6.10) L 02/24/19 05:20 Hgb 8.9 g/dL (14.0-18.0) L 02/24/19 05:20 Hct 27.5 % (42.0-52.0) L 02/24/19 05:20 MCV 93.5 fL (80.0-94.0) 02/24/19 05:20 MCH 30.3 pg (27.0-31.0) 02/24/19 05:20 MCHC 32.4 g/dL (32.0-36.0) 02/24/19 05:20 RDW 17.6 % (12.0-15.0) H 02/24/19 05:20 Plt Count 155 10^3/uL (130-450) 02/24/19 05:20 MPV 10.9 fL (7.4-11.4) 02/24/19 05:20 Neut # (Auto) 2.5 10^3/uL (1.5-6.6) 02/24/19 05:20 Lymph # (Auto) 1.2 10^3/uL (1.5-3.5) L 02/24/19 05:20 [place] # (Auto) 0.4 10^3/uL (0.0-1.0) 02/24/19 05:20 Eos # (Auto) 0.4 10^3/uL (0.0-0.7) 02/24/19 05:20 Baso # (Auto) 0.0 10^3/uL (0.0-0.1) 02/24/19 05:20 Absolute Nucleated RBC 0.00 x10^3/uL 02/24/19 05:20 Nucleated RBC % 0.0 /100WBC 02/24/19 05:20 PT 16.1 secs (9.9-12.6) H 02/21/19 20:31 INR 1.4 (0.8-1.2) H 02/21/19 20:31 Sodium 142 mmol/L (135-145) 02/24/19 05:20 Potassium 3.5 mmol/L (3.5-5.0) 02/24/19 05:20 Chloride 104 mmol/L (101-111) 02/24/19 05:20 Carbon Dioxide 29 mmol/L (21-32) 02/24/19 05:20 Anion Gap 9.0 (6-13) 02/24/19 05:20 BUN 17 mg/dL (6-20) 02/24/19 05:20 Creatinine 1.2 mg/dL (0.6-1.2) 02/24/19 05:20 Estimated GFR (MDRD) 57 (>89) L 02/24/19 05:20 Glucose 105 mg/dL (70-100) H 02/24/19 05:20 Lactic Acid 1.4 mmol/L (0.5-2.2) 02/22/19 02:43 Calcium 8.7 mg/dL (8.5-10.3) 02/24/19 05:20 Phosphorus 3.1 mg/dL (2.5-4.6) 02/24/19 05:20 Magnesium 2.1 mg/dL (1.7-2.8) 02/24/19 05:20 Total Bilirubin 0.7 mg/dL (0.2-1.0) 02/21/19 20:31 AST 18 IU/L (10-42) 02/21/19 20:31 ALT 18 IU/L (10-60) 02/21/19 20:31 Alkaline Phosphatase 65 IU/L (42-121) 02/21/19 20:31 Troponin I High Sens 7.0 pg/mL (2.3-19.7) 02/22/19 00:43 C-Reactive Protein < 1.0 mg/dL (0-1.0) 02/22/19 02:43 B-Natriuretic Peptide 302 pg/mL (5-100) H 02/21/19 20:31 Total Protein 6.5 g/dL (6.7-8.2) L 02/21/19 20:31 Albumin 3.3 g/dL (3.2-5.5) 02/21/19 20:31 Globulin 3.2 g/dL (2.1-4.2) 02/21/19 20:31 Albumin/Globulin Ratio 1.0 (1.0-2.2) 02/21/19 20:31 Lipase 21 U/L (22-51) L 02/21/19 20:31 Urine Color YELLOW 02/21/19 22:00 Urine Clarity CLEAR (CLEAR) 02/21/19 22:00 Urine pH 6.0 PH (5.0-7.5) 02/21/19 22:00 Ur Specific [place] 1.010 (1.002-1.030) 02/21/19 22:00 Urine Protein NEGATIVE mg/dL (NEGATIVE) 02/21/19 22:00 Urine Glucose (UA) NEGATIVE mg/dL (NEGATIVE) 02/21/19 22:00 Urine Ketones NEGATIVE mg/dL (NEGATIVE) 02/21/19 22:00 Urine Occult Blood NEGATIVE (NEGATIVE) 02/21/19 22:00 Urine Nitrite NEGATIVE (NEGATIVE) 02/21/19 22:00 Urine Bilirubin NEGATIVE (NEGATIVE) 02/21/19 22:00 Urine Urobilinogen 0.2 (NORMAL) E.U./dL (NORMAL) 02/21/19 22:00 Ur Leukocyte Esterase NEGATIVE (NEGATIVE) 02/21/19 22:00 Ur Microscopic Review NOT INDICATED 02/21/19 22:00 Urine Culture Comments NOT INDICATED 02/21/19 22:00 - Procedures Procedures: Procedures INSERTION OF INFUSION DEV INTO SUP VENA CAVA, PERC APPROACH (02/03/19)
--- NOTE | 2019-02-24 17:11 | XRAY Report ---
Reason: Aspiration recurrent Procedure Date: 02/24/2019 Accession Number: [id number] / [id number] Procedure: FL - Modified Barium Swallow W/SP CPT Code: FULL RESULT: EXAM: MODIFIED BARIUM SWALLOW EXAM DATE: 02/24/2019 04:30 PM. CLINICAL HISTORY: Aspiration recurrent. COMPARISON: None. TECHNIQUE: Under the direction of speech pathology, patient swallowed various consistencies of barium under lateral fluoroscopic observation of the neck. Fluoroscopy Time: 1 minute 3 seconds . Number of Images: 77. FINDINGS: Swallowing Mechanism: Normal oral phase and swallowing reflex. Airway Protection: Normal epiglottic motion. No episodes of tracheal penetration or aspiration with all consistencies of barium. Pharynx: No significant vallecular or piriform sinus contrast pooling. Other: Prominent cricopharyngeal bar. IMPRESSION: Unremarkable modified barium swallow. No aspiration identified. See formal speech pathology report. RADIA
[2019-02-24] MEDS: FAMOTIDINE 20 MG TABLET PO SCH (20:56)
[2019-02-25] MEDS: SODIUM CHLORIDE FLUSH 0.9% 10 ML SYRINGE IVP SCH ×3 (00:01→17:02)
[2019-02-25] MEDS: ALBUTEROL NEB 2.5 MG/3 ML INH SCH ×3 (00:53→17:50)
[2019-02-25] MEDS: LINEZOLID 600 MG/300 ML 600 MG/300 ML BAG IV SCH ×2 (02:21→14:24)
[2019-02-25] MEDS: MEROPENEM 500 MG in SODIUM CHLORIDE 0.9% MINIBAG 100 ML IV SCH ×3 (03:58→19:26)
[2019-02-25 05:03] LABS: BASOPHILS % (AUTO) 0.5 %; EOSINOPHILS # (AUTO) 0.4 10^3/uL (0.0-0.7); HGB - HEMOGLOBIN 8.9 g/dL (14.0-18.0); LYMPHOCYTES # (AUTO) 1.2 10^3/uL (1.5-3.5); LYMPHOCYTES % (AUTO) 31.4 %; MEAN CORPUSCULAR HEMOGLOBIN 29.5 pg (27.0-31.0); MEAN CORPUSCULAR HGB CONC 31.4 g/dL (32.0-36.0); MEAN CORPUSCULAR VOLUME 93.7 fL (80.0-94.0); MEAN PLATELET VOLUME 10.3 fL (7.4-11.4); MONOCYTES # (AUTO) 0.3 10^3/uL (0.0-1.0); MONOCYTES % (AUTO) 6.8 %; NEUTROPHILS # (AUTO) 1.9 10^3/uL (1.5-6.6); PLT - PLATELET COUNT 163 10^3/uL (130-450); RED BLOOD COUNT 3.02 10^6/uL (4.70-6.10); RED CELL DISTRIBUTION WIDTH 17.2 % (12.0-15.0); WHITE BLOOD COUNT 3.7 x10^3/uL (4.8-10.8)
[2019-02-25 05:13] LABS: CALCIUM 8.9 mg/dL (8.5-10.3); CREATININE 1.1 mg/dL (0.6-1.2); MAGNESIUM 2.2 mg/dL (1.7-2.8); PHOSPHORUS 2.9 mg/dL (2.5-4.6)
[2019-02-25] MEDS: FUROSEMIDE 20 MG/2 ML VIAL IVP SCH (06:01)
[2019-02-25] MEDS: BENZONATATE 100 MG CAPSULE PO SCH ×3 (06:08→21:04)
[2019-02-25] MEDS: PANTOPRAZOLE 40 MG TABLET PO SCH (06:08)
[2019-02-25] MEDS: FERROUS GLUCONATE 324 MG TABLET PO SCH ×2 (09:00→20:55)
[2019-02-25] MEDS: CHOLECALCIFEROL 1,000 UNIT TABLET PO SCH (09:00)
[2019-02-25] MEDS: OXYBUTYNIN 5MG TABLET PO SCH ×2 (09:00→20:59)
[2019-02-25] MEDS: APIXABAN 2.5 MG TABLET PO SCH ×2 (09:01→20:58)
[2019-02-25] MEDS: TAMSULOSIN 0.4 MG CAPSULE PO SCH (09:02)
[2019-02-25] MEDS: POTASSIUM CHLORIDE 20 MEQ TABLET PO SCH (09:02)
[2019-02-25] MEDS: carvediloL 12.5 MG TABLET PO SCH ×2 (09:02→20:56)
[2019-02-25] MEDS: ALLOPURINOL 100 MG TABLET PO SCH (09:02)
[2019-02-25 09:03] LABS: % IRON SATURATION 13 % (20-50); IRON 35 ug/dL (45-182); TOTAL IRON BINDING CAPACITY 269 ug/dL (250-450); TRANSFERRIN 192 mg/dL (180-329)
[2019-02-25] MEDS: FAMOTIDINE 20 MG TABLET PO SCH ×2 (09:03→20:57)
[2019-02-25] MEDS: HYDROCORTISONE 10 MG TABLET PO SCH (09:03)
[2019-02-25] MEDS: ASPIRIN EC 81 MG TABLET PO SCH (09:03)
[2019-02-25] MEDS: MOMETASONE FUROATE INH SCH (09:14)
[2019-02-25] MEDS: [UNRECOGNIZED DRUG - OTHER] INH SCH (09:14)
[2019-02-25] MEDS: OLODATEROL INH SCH (09:14)
[2019-02-25] MEDS: TIOTROPIUM BROMIDE INH SCH (09:14)
[2019-02-25] MEDS: POLYETHYLENE GLYCOL 3350 17 GM PACKET PO SCH (11:02)
[2019-02-25] MEDS ORDERED: MIN OIL/DIMETHICON/COCONUT OIL 92 GM TUBE TOP PRN (15:24)
--- NOTE | 2019-02-25 17:32 | PROVIDER PROGRESS NOTE ---
Assessment/Plan - Problem List (1) Acute metabolic encephalopathy Assessment/Plan: He remains confused as yesterday, only oriented to self. However he is more interactive, able to converse with me using long sentences. Continue with treatment of the underlying infection, fluid status which is now improved, cardiac meds and continue with PT and OT (2) Fever Qualifiers: Fever type: unspecified Qualified Code(s): R50.9 - Fever, unspecified Assessment/Plan: Fever resolved on antibiotics and after removal of PICC line. Blood cx were all neg. Still awaiting PICC line tip culture results. He is currently still on his Zyvox for his strep viridans bacteremia from last admission, and is currently on meropenem for his ESBL producing Klebsiella from the last admission. Depending on the above culture results, the IV antibiotics will be adjusted tomorrow, he needs IV treatment until February 22 (to complete 2 weeks for bacteremia and 3 weeks for his UTI) (3) Weakness generalized Assessment/Plan: Improving daily, today he sat up in a chair for >4 hours. (4) Chronic combined systolic and diastolic CHF, NYHA class 2 Assessment/Plan: Improved, able to sleep supine. Will change iv bid LAsix to daily am po Lasix. Continue his other CHF meds. (5) Chronic a-fib Assessment/Plan: HR is controlled and Eliquis being dosed. (6) Type 2 diabetes mellitus without complication, without long-term current use of insulin Assessment/Plan: His metformin was put on hold and admission. Continue with sliding scale insulin, fingerstick checks and cc diet. (7) Anemia Qualifiers: Anemia type: iron deficiency Assessment/Plan: Folate level is normal, B12 level is pending. Iron stores are low. We will start oral iron replacement and check guaiac of stool (8) COPD without exacerbation Assessment/Plan: Continue inhaler once not twice daily, requested by . (9) Hypokalemia Assessment/Plan: Resolved - Current Meds Current Meds: Current Medications Generic Name Dose Route Start Last Admin Trade Name Freq PRN Reason Stop Dose Admin Albuterol 2.5 mg 02/23/19 09:00 02/25/19 09:07 INH 2.5 mg Q8H JAZLYN Administration Allopurinol 100 mg 02/23/19 09:00 02/25/19 09:02 Zyloprim PO 100 mg DAILY JAZLYN Administration Apixaban 2.5 mg 02/23/19 09:00 02/25/19 09:01 Eliquis PO 2.5 mg BID JAZLYN Administration Aspirin 81 mg 02/23/19 09:00 02/25/19 09:03 Ecotrin PO 81 mg DAILY JAZLYN Administration Benzonatate 100 mg 02/23/19 14:00 02/25/19 14:24 Tessalon PO 100 mg TID JAZLYN Administration Carvedilol 12.5 mg 02/22/19 09:00 02/25/19 09:02 Coreg PO 12.5 mg BID JAZLYN Administration Cholecalciferol 1,000 unit 02/24/19 09:00 02/25/19 09:00 Vitamin D3 PO 1,000 unit DAILY JAZLYN Administration Famotidine 20 mg 02/24/19 21:00 02/25/19 09:03 Pepcid PO 20 mg BID JAZLYN Administration Ferrous Gluconate 324 mg 02/24/19 09:00 02/25/19 09:00 Fergon PO 324 mg DAILY JAZLYN Administration Hydrocortisone 10 mg 02/24/19 09:00 02/25/19 09:03 Cortef PO 10 mg DAILY JAZLYN Administration Linezolid 600 mg in 300 mls @ 300 mls/hr 02/22/19 15:00 02/25/19 15:25 Zyvox 600 Mg/300 Ml IV Infused Q12H JAZLYN Infusion Meropenem 500 mg/ Sodium 100 mls @ 200 mls/hr 02/22/19 11:00 02/25/19 12:36 Chloride IV Infused Q8H [facility] Infusion Multi-Ingredient Ointment 1 applic 02/22/19 17:30 02/24/19 05:25 Zinc Oxide TOP 1 applic QID PRN Administration Skin Care Oxybutynin Chloride 10 mg 02/23/19 09:00 02/25/19 09:00 Ditropan PO 10 mg BID JZALYN Administration Pantoprazole Sodium 40 mg 02/22/19 07:00 02/25/19 06:08 Protonix PO 40 mg QDAC JAZLYN Administration Patient Own Med ( 2 each 02/24/19 09:27 02/25/19 09:14 Mometasone Furoate [ INH 2 each Asmanex] 2 Puffs) RTDAILY JAZLYN Administration Polyethylene Glycol 17 gm 02/22/19 09:00 02/25/19 11:02 Miralax PO Not Given DAILY JAZLYN Potassium Chloride 20 meq 02/24/19 08:00 02/25/19 09:02 K-Dur PO 20 meq DAILYWM JAZLYN Administration Sodium Chloride 10 ml 02/22/19 03:02 02/24/19 06:15 Normal Saline Flush 0.9% IVP 10 ml PRN PRN Administration NEEDED PER PROVIDER ORDERS Sodium Chloride 10 ml 02/22/19 09:00 02/25/19 17:02 Normal Saline Flush 0.9% IVP 10 ml 0100,0900,1700 JAZLYN Administration Tamsulosin HCl 0.4 mg 02/23/19 09:00 02/25/19 09:02 Flomax PO 0.4 mg DAILY JAZLYN Administration - Lab Result Fish Bone Diagrams: 02/25/19 04:15 02/25/19 04:15 - Additional Planning My Orders: My Active Orders 02/24/19 17:19 Miscellaenous Nursing Order [RC] QSHIFT 02/24/19 21:00 Famotidine [Pepcid] 20 mg PO BID 02/25/19 15:24 Min Oil/Dimeth/Coconut Oil Crm [Cavilon] 1 applic TOP PRN PRN 02/25/19 17:18 Blood Glucose Checks - Eating [RC] 0800,1200,1700,2100 Initiate Hypoglycemia Protocol [RC] .protocol 02/25/19 17:30 Insulin Aspart [NovoLOG] 1 - 5 unit SUBQ 0800,1200,1700,2100 02/25/19 Breakfast Cardiac Diet [DIET] 02/26/19 05:00 A1C [CHEM] Routine VITAMIN B12 [IAI] DAILYLAB 02/26/19 07:00 Patient Own Med [Patient Own Medication] 1 each INH RTDAILY 02/26/19 08:00 Furosemide [Lasix] 20 mg PO 0800 Subjective - Subjective Patient Reports: Resting Comfortably, No Complaints Objective Vital Signs: Vital Signs - 24 hr 02/25/19 02/25/19 02/25/19 00:00 00:53 08:10 Temperature 36.8 C 36.8 C Heart Rate 73 Heart Rate [ 68 73 Brachial] Respiratory 20 20 20 Rate Blood Pressure 122/77 112/73 [Right Brachial artery] O2 Saturation 97 94 02/25/19 02/25/19 02/25/19 09:15 15:04 16:00 Temperature 36.8 C 36.7 C Heart Rate 70 70 Heart Rate [ 71 Brachial] Respiratory 18 18 20 Rate Blood Pressure 114/65 [Right Brachial artery] O2 Saturation 95 98 Oxygen O2 Source [Without Activity] Nasal cannula O2 Source Room air Oxygen Flow Rate 2 I&O (Last 24 Hrs): Intake and Output Totals x24h 02/23/19 02/24/19 02/25/19 23:59 23:59 23:59 Intake Total 2300 2660 1120 Output Total 825 1550 475 Balance 1475 1110 645 General: Alert Neck: Supple, No JVD Neuro: Disoriented, Non Focal Cardiovascular: No murmurs Respiratory: No respiratory distress Abdomen: Soft Extremities: No edema, Other (Venous stasis color changes.) - Results Results: Laboratory Results WBC 3.7 x10^3/uL (4.8-10.8) L 02/25/19 04:15 RBC 3.02 10^6/uL (4.70-6.10) L 02/25/19 04:15 Hgb 8.9 g/dL (14.0-18.0) L 02/25/19 04:15 Hct 28.3 % (42.0-52.0) L 02/25/19 04:15 MCV 93.7 fL (80.0-94.0) 02/25/19 04:15 MCH 29.5 pg (27.0-31.0) 02/25/19 04:15 MCHC 31.4 g/dL (32.0-36.0) L 02/25/19 04:15 RDW 17.2 % (12.0-15.0) H 02/25/19 04:15 Plt Count 163 10^3/uL (130-450) 02/25/19 04:15 MPV 10.3 fL (7.4-11.4) 02/25/19 04:15 Neut # (Auto) 1.9 10^3/uL (1.5-6.6) 02/25/19 04:15 Lymph # (Auto) 1.2 10^3/uL (1.5-3.5) L 02/25/19 04:15 [place] # (Auto) 0.3 10^3/uL (0.0-1.0) 02/25/19 04:15 Eos # (Auto) 0.4 10^3/uL (0.0-0.7) 02/25/19 04:15 Baso # (Auto) 0.0 10^3/uL (0.0-0.1) 02/25/19 04:15 Absolute Nucleated RBC 0.00 x10^3/uL 02/25/19 04:15 Nucleated RBC % 0.0 /100WBC 02/25/19 04:15 PT 16.1 secs (9.9-12.6) H 02/21/19 20:31 INR 1.4 (0.8-1.2) H 02/21/19 20:31 Sodium 141 mmol/L (135-145) 02/25/19 04:15 Potassium 3.7 mmol/L (3.5-5.0) 02/25/19 04:15 Chloride 105 mmol/L (101-111) 02/25/19 04:15 Carbon Dioxide 26 mmol/L (21-32) 02/25/19 04:15 Anion Gap 10.0 (6-13) 02/25/19 04:15 BUN 16 mg/dL (6-20) 02/25/19 04:15 Creatinine 1.1 mg/dL (0.6-1.2) 02/25/19 04:15 Estimated GFR (MDRD) 63 (>89) L 02/25/19 04:15 Glucose 115 mg/dL (70-100) H 02/25/19 04:15 Lactic Acid 1.4 mmol/L (0.5-2.2) 02/22/19 02:43 Calcium 8.9 mg/dL (8.5-10.3) 02/25/19 04:15 Phosphorus 2.9 mg/dL (2.5-4.6) 02/25/19 04:15 Magnesium 2.2 mg/dL (1.7-2.8) 02/25/19 04:15 Iron 35 ug/dL (45-182) L 02/25/19 04:15 TIBC 269 ug/dL (250-450) 02/25/19 04:15 % Saturation 13 % (20-50) L 02/25/19 04:15 Transferrin 192 mg/dL (180-329) 02/25/19 04:15 Total Bilirubin 0.7 mg/dL (0.2-1.0) 02/21/19 20:31 AST 18 IU/L (10-42) 02/21/19 20:31 ALT 18 IU/L (10-60) 02/21/19 20:31 Alkaline Phosphatase 65 IU/L (42-121) 02/21/19 20:31 Troponin I High Sens 7.0 pg/mL (2.3-19.7) 02/22/19 00:43 C-Reactive Protein < 1.0 mg/dL (0-1.0) 02/22/19 02:43 B-Natriuretic Peptide 302 pg/mL (5-100) H 02/21/19 20:31 Total Protein 6.5 g/dL (6.7-8.2) L 02/21/19 20:31 Albumin 3.3 g/dL (3.2-5.5) 02/21/19 20:31 Globulin 3.2 g/dL (2.1-4.2) 02/21/19 20:31 Albumin/Globulin Ratio 1.0 (1.0-2.2) 02/21/19 20:31 Lipase 21 U/L (22-51) L 02/21/19 20: Folate 12.16 ng/mL (5.90 - >24.8) 02/25/19 04:15 Urine Color YELLOW 02/21/19 22:00 Urine Clarity CLEAR (CLEAR) 02/21/19 22:00 Urine pH 6.0 PH (5.0-7.5) 02/21/19 22:00 Ur Specific [place] 1.010 (1.002-1.030) 02/21/19 22:00 Urine Protein NEGATIVE mg/dL (NEGATIVE) 02/21/19 22:00 Urine Glucose (UA) NEGATIVE mg/dL (NEGATIVE) 02/21/19 22:00 Urine Ketones NEGATIVE mg/dL (NEGATIVE) 02/21/19 22:00 Urine Occult Blood NEGATIVE (NEGATIVE) 02/21/19 22:00 Urine Nitrite NEGATIVE (NEGATIVE) 02/21/19 22:00 Urine Bilirubin NEGATIVE (NEGATIVE) 02/21/19 22:00 Urine Urobilinogen 0.2 (NORMAL) E.U./dL (NORMAL) 02/21/19 22:00 Ur Leukocyte Esterase NEGATIVE (NEGATIVE) 02/21/19 22:00 Ur Microscopic Review NOT INDICATED 02/21/19 22:00 Urine Culture Comments NOT INDICATED 02/21/19 22:00 - Procedures Procedures: Procedures INSERTION OF INFUSION DEV INTO SUP VENA CAVA, PERC APPROACH (02/03/19)
[2019-02-25] MEDS ORDERED: CALCIUM CARBONATE CHEW 500 MG TABLET PO PRN (18:41)
[2019-02-25] MEDS: INSULIN ASPART 300 UNIT/3 ML PEN SUBQ SCH ×2 (19:30→20:59)
[2019-02-26] MEDS: SODIUM CHLORIDE FLUSH 0.9% 10 ML SYRINGE IVP SCH ×3 (01:30→19:03)
[2019-02-26] MEDS: ALBUTEROL NEB 2.5 MG/3 ML INH SCH ×2 (01:46→07:44)
[2019-02-26] MEDS: MEROPENEM 500 MG in SODIUM CHLORIDE 0.9% MINIBAG 100 ML IV SCH (02:54)
[2019-02-26] MEDS: LINEZOLID 600 MG/300 ML 600 MG/300 ML BAG IV SCH (03:55)
[2019-02-26 05:20] LABS: BASOPHILS % (AUTO) 0.6 %; EOSINOPHILS # (AUTO) 0.4 10^3/uL (0.0-0.7); EOSINOPHILS % (AUTO) 10.6 %; HGB - HEMOGLOBIN 8.6 g/dL (14.0-18.0); LYMPHOCYTES # (AUTO) 1.1 10^3/uL (1.5-3.5); LYMPHOCYTES % (AUTO) 31.3 %; MEAN CORPUSCULAR HEMOGLOBIN 29.3 pg (27.0-31.0); MEAN CORPUSCULAR HGB CONC 31.2 g/dL (32.0-36.0); MEAN CORPUSCULAR VOLUME 93.9 fL (80.0-94.0); MEAN PLATELET VOLUME 10.3 fL (7.4-11.4); MONOCYTES # (AUTO) 0.2 10^3/uL (0.0-1.0); MONOCYTES % (AUTO) 5.6 %; NEUTROPHILS # (AUTO) 1.8 10^3/uL (1.5-6.6); NEUTROPHILS % (AUTO) 51.6 %; PLT - PLATELET COUNT 166 10^3/uL (130-450); RED BLOOD COUNT 2.94 10^6/uL (4.70-6.10); RED CELL DISTRIBUTION WIDTH 17.4 % (12.0-15.0); WHITE BLOOD COUNT 3.4 x10^3/uL (4.8-10.8)
[2019-02-26 05:32] LABS: CALCIUM 8.8 mg/dL (8.5-10.3); CREATININE 1.5 mg/dL (0.6-1.2); MAGNESIUM 2.2 mg/dL (1.7-2.8); PHOSPHORUS 3.2 mg/dL (2.5-4.6)
[2019-02-26 05:49] LABS: HB2 TOTAL 9.3 g/dL; HEMOGLOBIN A1C 0.41 g/dL; HEMOGLOBIN A1C % 6.2 % (4.6-6.2)
[2019-02-26] MEDS: BENZONATATE 100 MG CAPSULE PO SCH ×2 (06:37→14:47)
[2019-02-26] MEDS: PANTOPRAZOLE 40 MG TABLET PO SCH (06:37)
[2019-02-26] MEDS ORDERED: PATIENT OWN MED INH SCH (07:00)
[2019-02-26] MEDS ORDERED: FUROSEMIDE 20 MG TABLET PO SCH (08:00)
--- NOTE | 2019-02-26 08:14 | Discharge Plan ---
Discharge Plan for SNF / [facility] - Discharge Plan And Transition Orders Problem Reviewed?: Yes Disposition: 03 SNF DC/Xfer Condition: Stable Allergies and Adverse Reactions: Allergies Allergy/AdvReac Type Severity Reaction Status Date / Time cefuroxime [From Ceftin] Allergy Rash Verified 02/21/19 20:23 nitrofurantoin Allergy Hives Verified 02/27/19 12:05 vancomycin Allergy Rash Verified 02/27/19 08:49 ciprofloxacin AdvReac Severe RENAL Verified 02/27/19 12:02 FAILURE sulfamethoxazole AdvReac RENAL Verified 02/27/19 12:05 [From Bactrim] FAILURE trimethoprim [From Bactrim] AdvReac RENAL Verified 02/27/19 12:05 FAILURE Health Concerns: Admitted with fluid overload, confusion and a fever and cough. He was being treated already with iv antibiotics (Zyvox for Strep viridens bacteremia and Ertepenam substituted for Meropenam, treating E coli and ESBL-producing Klebsiella) from the last recent hospital admission. A new/worse pneumonia was found while here. He was also lethargic and confused, which improved with antibiotics and stress dose steroids (for Micah's disease). Plan of Treatment: Diuresis and antibiotics were given, the PICC line was removed (and did not grow any bacteria on culture). He will need just 5 more days of antibiotics using oral Levofloxacin, plus a probiotic. Gabapentin was stopped while here since it can add to sedation, it can be resumed if wanted. He is on new Spironolactone. He may resume his prior medications, except the Lasix oral dose was decreased from 80 mg daily to 40 mg daily. He was found to be anemic and deficient in B12, which was started, and his Iron supplement was continued. His Metformin was on hold, but restarted at discharge. Care Goals: Needs PT and OT, since he has had many admissions over 3 mos that have led to confusion and deconditioning. Finish antibiotics. Resume his other oral meds. Assessment: Patient DCh to a SNF to carry out the above plan. - SNF / [facility] Transition Orders Admit to (Facility): [facility] Under the care of (Name): Dr Chris Ramirez and Dr Latosha Ramirez Discharge Diagnosis: (1) Acute metabolic encephalopathy, resolved (2) HCAP (healthcare-associated pneumonia) (3) Weakness generalized, due to deconditioning (4) Chronic combined systolic and diastolic CHF, NYHA class 2 (5) Chronic a-fib (6) Type 2 diabetes mellitus without complication, without long-term current use of insulin Resume Metformin at [facility], since he had good control, A1c was 6.2 at admission (7) Anemia Iron and B12 being supplemented (8) COPD without exacerbation (9) Beresford's disease Tapering doen schedule after stress doses used here (10) RUSSELL (acute kidney injury), resolved (11) Hypokalemia, resolved Medicare Certification Statement: I certify that [facility] medically necessary on a continuing basis for any of the conditions for which she/he is receiving care during hospitalization. Notify PCP of admission and forward orders to primary provider for signature. Weight on admission and: Weekly Call PCP immediately if weight increases by: 5 kg Other Notification Orders: Call PCP immediately if patient develops dyspnea, chest pain/tightness or edema. House Bowel Program: Yes Additional Bowel Program Orders: If no BM after 2 days, nurse may give M.O.M. 30ml PO PRN and/or ducolax Supp 1 ME and/or PAULA 250mg P.O., and/or senna 1-2 tabs PO. On day 3 nurse may give repeat above order until residents constipation is resolved. Annual Influenza Vaccine (between Jan 03 and August 02): Yes Two-step PPD per [facility] [phone] or approved exception documents: Yes Treatments & Other Orders: Daily PT and OT. Speech Therapy if needed Oxygen Orders: None, but use home CPAP device at bedtime and with naps during the day Lab Tests or X-ray Orders: BMP every Mon Medication Orders: PLEASE REFER TO THE DISCHARGE MEDICATION LIST. Insulin Orders?: No - Medications New Prescriptions: Cyanocobalamin (Vitamin B-12) [Vitamin B-12] 1,000 mcg PO DAILY #30 capsule Fluconazole [Diflucan] 100 mg PO DAILY #2 tablet Furosemide [Lasix] 40 mg PO DAILY #30 tablet Levofloxacin [Levaquin] 750 mg PO DAILY #5 tablet Nystatin [Nystop] 1 applic TOP BID #1 bottle Pantoprazole [Protonix] 40 mg PO QPM #30 tablet Saccharomyces Boulardii [Florastor] 250 mg PO BID #10 capsule - Diet Type: No added salt (2gm Sodium diet, cardiac diet, and 4-carb Diabetic diet with a 1-carb evening snack) Texture: Regular Liquids: Thin May have monthly special meal: Yes - Therapies | Activity Therapy: Evaluation | Treat if indicated: Speech, PT, OT Rehabilitation Potential: Maximize functional status Activity: Activity as Tolerated Weight Bearing: Full Weight Assistance Devices: Walker Additional Instructions: He "shovels" his food and then aspirates. He must eat slowly and in the upright position, then remain upright for 30 min after food. No food 1 hour prior to bedtime. Follow Up: See your PCP after DCh from the Senior Living Facility.
[2019-02-26] MEDS: CHOLECALCIFEROL 1,000 UNIT TABLET PO SCH (08:58)
[2019-02-26] MEDS: POTASSIUM CHLORIDE 20 MEQ TABLET PO SCH (08:58)
[2019-02-26] MEDS: ALLOPURINOL 100 MG TABLET PO SCH (08:58)
[2019-02-26] MEDS: FERROUS GLUCONATE 324 MG TABLET PO SCH ×2 (08:59→19:04)
[2019-02-26] MEDS: FAMOTIDINE 20 MG TABLET PO SCH ×2 (08:59→21:13)
[2019-02-26] MEDS: APIXABAN 2.5 MG TABLET PO SCH ×2 (08:59→21:13)
[2019-02-26] MEDS: ASPIRIN EC 81 MG TABLET PO SCH (08:59)
[2019-02-26] MEDS: carvediloL 12.5 MG TABLET PO SCH ×2 (08:59→21:13)
[2019-02-26] MEDS: HYDROCORTISONE 10 MG TABLET PO SCH (08:59)
[2019-02-26] MEDS ORDERED: levoFLOXacin 250 MG TABLET PO SCH ×2 (09:00)
[2019-02-26] MEDS: OXYBUTYNIN 5MG TABLET PO SCH ×2 (09:00→21:13)
[2019-02-26] MEDS: TAMSULOSIN 0.4 MG CAPSULE PO SCH (09:00)
[2019-02-26] MEDS: CYANOCOBALAMIN 500 MCG TABLET PO SCH (09:00)
[2019-02-26] MEDS: POLYETHYLENE GLYCOL 3350 17 GM PACKET PO SCH (09:04)
[2019-02-26] MEDS: MOMETASONE FUROATE INH SCH (11:05)
[2019-02-26] MEDS: INSULIN ASPART 300 UNIT/3 ML PEN SUBQ SCH ×4 (11:10→21:12)
[2019-02-26] MEDS ORDERED: GABAPENTIN 300 MG CAPSULE PO SCH (11:30)
--- NOTE | 2019-02-26 13:19 | PROVIDER PROGRESS NOTE ---
Assessment/Plan - Problem List (1) Acute metabolic encephalopathy Assessment/Plan: His mental status is once again worse today, he is as confused and delirious as at admission. The also noticed a more productive cough and thick yellow-brown sputum. Will not restart Gabapentin, which may add to somnolence. Will obtain CT of chest to f/u the pneumonia, and will obtain CT of abdomen since the just remembered that he has GB sludge. Will change his pulmonary toilet: stop Tessalon Perles and start Mucinex and add Acapella flutter valve. Assure that he is not hypoxic or hypotensive, causing the confusion, with VS checks. Will change his puffers to nebs to help the pulmonary toilet. Will give a short burst of higher dose iv steroids, as this could be Addisonian crisis. The also reported that he was awoken with bright room lights at 3 a.m. for skin care. I will order no interruptions from 2400 to 0500 so he can sleep. No DCh today; MARIANELA and the were informed. I updated the on all the above, at his bedside. (2) Fever Qualifiers: Fever type: unspecified Qualified Code(s): R50.9 - Fever, unspecified Assessment/Plan: Fever has resolved. His PICC line grew nothing. He is still finishing treatment from the last admission: Zyvox for Strep viridens is done, and the Meropenam for E coli and ASBL-producing Klebsiella had 2 weeks. I reviewed the VIOLETTE's for the bacteremia and the bacteriuria from the last admission: The VIOLETTE's were compared against the patient's allergies. He needs 7 more days of antibiotic for the UTI bacteria and will therefore change to oral Levofloxacin today. His allergy list contains Ciprofloxacin with reaction being "unknown". Will therefore dose the Levofloxacin orally and watch for any untoward side effects while here. (3) Weakness generalized Assessment/Plan: When he is confused he is also weaker, like today. He does participate in PT minimally, continue this. Avoid awakening from 2400 to 0500. Per PT he will be discharged to a SNF. The thinks she would like [place]. MARIANELA was informed. (4) Chronic combined systolic and diastolic CHF, NYHA class 2 Assessment/Plan: At admission he was diuresed with IV twice daily Lasix, which was to be changed to p.o. Lasix starting today. Due to the worsening creatinine today, will hold all diuretics for 1 day, resume tomorrow (5) RUSSELL (acute kidney injury) Assessment/Plan: Likely from over diuresis. Lasix po on hold today, start tomorrow. (6) Chronic a-fib Assessment/Plan: HR is controlled and Eliquis continued. (7) Type 2 diabetes mellitus without complication, without long-term current use of insulin Assessment/Plan: Metformin on hold while here, continue cc diet and ss Insulin coverage. His A1c was good at 6.2 with just Metformin use pre-hospitalization. (8) Anemia Qualifiers: Anemia type: iron deficiency Assessment/Plan: B12 reeplacement started, higher dose of Iron replacement started. (9) COPD without exacerbation Assessment/Plan: Will change his puffers to inhalers, to try and open his bronchioles. 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 (11) Hypokalemia Assessment/Plan: Resolved - Current Meds Current Meds: Current Medications Generic Name Dose Route Start Last Admin Trade Name Freq PRN Reason Stop Dose Admin Albuterol 2.5 mg 02/23/19 09:00 02/26/19 07:44 INH 2.5 mg Q8H JAZLYN Administration Allopurinol 100 mg 02/23/19 09:00 02/26/19 08:58 Zyloprim PO 100 mg DAILY JAZLYN Administration Apixaban 2.5 mg 02/23/19 09:00 02/26/19 08:59 Eliquis PO 2.5 mg BID JAZLYN Administration Aspirin 81 mg 02/23/19 09:00 02/26/19 08:59 Ecotrin PO 81 mg DAILY JAZLYN Administration Benzonatate 100 mg 02/23/19 14:00 02/26/19 06:37 Tessalon PO 100 mg TID JAZLYN Administration Carvedilol 12.5 mg 02/22/19 09:00 02/26/19 08:59 Coreg PO 12.5 mg BID JAZLYN Administration Cholecalciferol 1,000 unit 02/24/19 09:00 02/26/19 08:58 Vitamin D3 PO 1,000 unit DAILY JAZLYN Administration Cyanocobalamin 1,000 mcg 02/26/19 09:00 02/26/19 09:00 Vitamin B-12 PO 1,000 mcg DAILY JAZLYN Administration Famotidine 20 mg 02/24/19 21:00 02/26/19 08:59 Pepcid PO 20 mg BID JAZLYN Administration Ferrous Gluconate 324 mg 02/25/19 19:30 02/26/19 08:59 Fergon PO 324 mg BIDWM JAZLYN Administration Hydrocortisone 10 mg 02/24/19 09:00 02/26/19 08:59 Cortef PO 10 mg DAILY JAZLYN Administration Insulin Aspart 1 - 5 unit 02/25/19 17:30 02/26/19 11:55 Novolog SUBQ Not Given 0800,1200,1700,2100 [facility] Protocol Levofloxacin 750 mg 02/26/19 09:00 02/26/19 11:41 Levaquin PO 750 mg Q48H JAZLYN Administration Multi-Ingredient Ointment 1 applic 02/22/19 17:30 02/24/19 05:25 Zinc Oxide TOP 1 applic QID PRN Administration Skin Care Oxybutynin Chloride 10 mg 02/23/19 09:00 02/26/19 09:00 Ditropan PO 10 mg BID JAZLYN Administration Pantoprazole Sodium 40 mg 02/22/19 07:00 02/26/19 06:37 Protonix PO 40 mg QDAC JAZLYN Administration Patient Own Med ( 2 each 02/24/19 09:27 02/26/19 11:05 Mometasone Furoate [ INH 2 each Asmanex] 2 Puffs) RTDAILY JAZLYN Administration Patient Own Medication 1 each 02/26/19 07:00 02/26/19 11:05 Patient Own Medication INH 1 each RTDAILY JAZLYN Administration Polyethylene Glycol 17 gm 02/22/19 09:00 02/26/19 09:04 Miralax PO Not Given DAILY JAZLYN Potassium Chloride 20 meq 02/24/19 08:00 02/26/19 08:58 K-Dur PO 20 meq DAILYWM JAZLYN Administration Sodium Chloride 10 ml 02/22/19 03:02 02/24/19 06:15 Normal Saline Flush 0.9% IVP 10 ml PRN PRN Administration NEEDED PER PROVIDER ORDERS Sodium Chloride 10 ml 02/22/19 09:00 02/26/19 09:00 Normal Saline Flush 0.9% IVP 10 ml 0100,0900,1700 JAZLYN Administration Tamsulosin HCl 0.4 mg 02/23/19 09:00 02/26/19 09:00 Flomax PO 0.4 mg DAILY JAZLYN Administration - Lab Result Fish Bone Diagrams: 02/26/19 05:00 02/26/19 05:00 - Additional Planning My Orders: My Active Orders 02/25/19 15:24 Min Oil/Dimeth/Coconut Oil Crm [Cavilon] 1 applic TOP PRN PRN 02/25/19 17:18 Blood Glucose Checks - Eating [RC] 0800,1200,1700,2100 Initiate Hypoglycemia Protocol [RC] .protocol 02/25/19 17:30 Insulin Aspart [NovoLOG] 1 - 5 unit SUBQ 0800,1200,1700,2100 02/25/19 18:41 Calcium Carbonate [Tums] 1,000 mg PO Q4H PRN 02/25/19 19:30 Ferrous Gluconate [Fergon] 324 mg PO BIDWM 02/26/19 07:00 Patient Own Med [Patient Own Medication] 1 each INH RTDAILY 02/26/19 09:00 Cyanocobalamin [Vitamin B-12] 1,000 mcg PO DAILY levoFLOXacin [Levaquin] 750 mg PO Q48H 02/26/19 11:52 CHEST WO [CT] Routine 02/26/19 11:54 NPO [DIET] ABDOMEN/PELVIS WO [CT] Routine 02/26/19 21:00 Atorvastatin [Lipitor] 40 mg PO QPM 02/27/19 08:00 Furosemide [Lasix] 20 mg PO 0800 Subjective - Subjective Patient Reports: Resting Comfortably Nursing Reports: Other (He is more confused, reaching at things in the space ahead of him, thinks he is in [place].) Objective Vital Signs: Vital Signs - 24 hr 02/25/19 02/25/19 02/25/19 15:04 16:00 17:52 Temperature 36.8 C 36.7 C Heart Rate 70 76 Heart Rate [ 71 Brachial] Respiratory 18 20 20 Rate Blood Pressure 114/65 [Right Brachial artery] O2 Saturation 95 98 02/26/19 02/26/19 02/26/19 00:00 01:48 07:45 Temperature 37.1 C Heart Rate 96 86 Heart Rate [ 96 Brachial] Respiratory 20 20 20 Rate Blood Pressure 172/72 H [Right Brachial artery] O2 Saturation 96 02/26/19 08:00 Temperature 36.7 C Heart Rate Heart Rate [ 93 Brachial] Respiratory 18 Rate Blood Pressure 107/55 L [Right Brachial artery] O2 Saturation 95 Oxygen O2 Source [Without Activity] Nasal cannula O2 Source CPAP Oxygen Flow Rate 2 I&O (Last 24 Hrs): Intake and Output Totals x24h 02/24/19 02/25/19 02/26/19 23:59 23:59 23:59 Intake Total 2660 1760 500 Output Total 1550 475 Balance 1110 1285 500 General: Other (Somnolent, sitting upright in chair, opens eyes and says some jibberish) HEENT: Mucous membr. moist/pink Neck: Supple Neuro: Disoriented Cardiovascular: No murmurs Respiratory: No respiratory distress Abdomen: Soft Extremities: No edema - Results Results: Laboratory Results WBC 3.4 x10^3/uL (4.8-10.8) L 02/26/19 05:00 RBC 2.94 10^6/uL (4.70-6.10) L 02/26/19 05:00 Hgb 8.6 g/dL (14.0-18.0) L 02/26/19 05:00 Hct 27.6 % (42.0-52.0) L 02/26/19 05:00 MCV 93.9 fL (80.0-94.0) 02/26/19 05:00 MCH 29.3 pg (27.0-31.0) 02/26/19 05:00 MCHC 31.2 g/dL (32.0-36.0) L 02/26/19 05:00 RDW 17.4 % (12.0-15.0) H 02/26/19 05:00 Plt Count 166 10^3/uL (130-450) 02/26/19 05:00 MPV 10.3 fL (7.4-11.4) 02/26/19 05:00 Neut # (Auto) 1.8 10^3/uL (1.5-6.6) 02/26/19 05:00 Lymph # (Auto) 1.1 10^3/uL (1.5-3.5) L 02/26/19 05:00 [place] # (Auto) 0.2 10^3/uL (0.0-1.0) 02/26/19 05:00 Eos # (Auto) 0.4 10^3/uL (0.0-0.7) 02/26/19 05:00 Baso # (Auto) 0.0 10^3/uL (0.0-0.1) 02/26/19 05:00 Absolute Nucleated RBC 0.00 x10^3/uL 02/26/19 05:00 Nucleated RBC % 0.0 /100WBC 02/26/19 05:00 PT 16.1 secs (9.9-12.6) H 02/21/19 20:31 INR 1.4 (0.8-1.2) H 02/21/19 20:31 Sodium 143 mmol/L (135-145) 02/26/19 05:00 Potassium 3.6 mmol/L (3.5-5.0) 02/26/19 05:00 Chloride 107 mmol/L (101-111) 02/26/19 05:00 Carbon Dioxide 26 mmol/L (21-32) 02/26/19 05:00 Anion Gap 10.0 (6-13) 02/26/19 05:00 BUN 16 mg/dL (6-20) 02/26/19 05:00 Creatinine 1.5 mg/dL (0.6-1.2) H 02/26/19 05:00 Estimated GFR (MDRD) 44 (>89) L 02/26/19 05:00 Glucose 128 mg/dL (70-100) H 02/26/19 05:00 Glycated Hemoglobin 6.2 % (4.6-6.2) 02/26/19 05:00 Estim Average Glucose 131 (70-100) H 02/26/19 05:00 Lactic Acid 1.4 mmol/L (0.5-2.2) 02/22/19 02:43 Calcium 8.8 mg/dL (8.5-10.3) 02/26/19 05:00 Phosphorus 3.2 mg/dL (2.5-4.6) 02/26/19 05:00 Magnesium 2.2 mg/dL (1.7-2.8) 02/26/19 05:00 Iron 35 ug/dL (45-182) L 02/25/19 04:15 TIBC 269 ug/dL (250-450) 02/25/19 04:15 % Saturation 13 % (20-50) L 02/25/19 04:15 Transferrin 192 mg/dL (180-329) 02/25/19 04:15 Total Bilirubin 0.7 mg/dL (0.2-1.0) 02/21/19 20:31 AST 18 IU/L (10-42) 02/21/19 20:31 ALT 18 IU/L (10-60) 02/21/19 20:31 Alkaline Phosphatase 65 IU/L (42-121) 02/21/19 20:31 Troponin I High Sens 7.0 pg/mL (2.3-19.7) 02/22/19 00:43 C-Reactive Protein < 1.0 mg/dL (0-1.0) 02/22/19 02:43 B-Natriuretic Peptide 302 pg/mL (5-100) H 02/21/19 20:31 Total Protein 6.5 g/dL (6.7-8.2) L 02/21/19 20:31 Albumin 3.3 g/dL (3.2-5.5) 02/21/19 20:31 Globulin 3.2 g/dL (2.1-4.2) 02/21/19 20:31 Albumin/Globulin Ratio 1.0 (1.0-2.2) 02/21/19 20:31 Lipase 21 U/L (22-51) L 02/21/19 20:31 Vitamin B12 97 pg/mL (180-914) L 02/26/19 05:00 Folate 12.16 ng/mL (5.90 - >24.8) 02/25/19 04:15 Urine Color YELLOW 02/21/19 22:00 Urine Clarity CLEAR (CLEAR) 02/21/19 22:00 Urine pH 6.0 PH (5.0-7.5) 02/21/19 22:00 Ur Specific [place] 1.010 (1.002-1.030) 02/21/19 22:00 Urine Protein NEGATIVE mg/dL (NEGATIVE) 02/21/19 22:00 Urine Glucose (UA) NEGATIVE mg/dL (NEGATIVE) 02/21/19 22:00 Urine Ketones NEGATIVE mg/dL (NEGATIVE) 02/21/19 22:00 Urine Occult Blood NEGATIVE (NEGATIVE) 02/21/19 22:00 Urine Nitrite NEGATIVE (NEGATIVE) 02/21/19 22:00 Urine Bilirubin NEGATIVE (NEGATIVE) 02/21/19 22:00 Urine Urobilinogen 0.2 (NORMAL) E.U./dL (NORMAL) 02/21/19 22:00 Ur Leukocyte Esterase NEGATIVE (NEGATIVE) 02/21/19 22:00 Ur Microscopic Review NOT INDICATED 02/21/19 22:00 Urine Culture Comments NOT INDICATED 02/21/19 22:00 - Procedures Procedures: Procedures INSERTION OF INFUSION DEV INTO SUP VENA CAVA, PERC APPROACH (02/03/19)
--- NOTE | 2019-02-26 15:51 | CT Report ---
Reason: Cough, eval for aspiration pneumonia Procedure Date: 02/26/2019 Accession Number: [id number] / [id number] Procedure: CT - CHEST WO CPT Code: FULL RESULT: EXAM: CT CHEST EXAM DATE: 02/26/2019 02:13 PM. CLINICAL HISTORY: Cough. COMPARISONS: CHEST ANGIO 12/28/2017 11:37 PM ABDOMEN/PELVIS W/ 02/21/2019 10:13 PM. TECHNIQUE: Routine helical CT imaging was performed through the chest. IV contrast: None. Reconstructions: Coronal and sagittal. In accordance with CT protocol optimization, one or more of the following dose reduction techniques were utilized for this exam: automated exposure control, adjustment of mA and/or KV based on patient size, or use of iterative reconstructive technique. FINDINGS: Lungs/Pleura: Visualization of the lungs is slightly limited by extensive respiratory motion in the lung bases. There is slightly increasing consolidation and volume loss seen in the left lower lobe compared with 02/21/2019 exam. A small left pleural effusion is again seen, minimally changed. Minimal right pleural effusion and minor compressive atelectasis is present. Mediastinum: Heart is mildly enlarged. 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 No adenopathy. Extensive calcified coronary artery disease is again seen. Diffuse narrowing/flattening of the central airway including the mainstem bronchus is seen suggesting bronchomalacia. Bones: Unremarkable. Visualized Abdomen: Scattered calcifications in the liver and spleen related to old granulomatous disease is seen. Small left hepatic lobe cyst is present. See separate CT report for details. Other: None. IMPRESSION: 1. Increasing consolidation with some volume loss in the left lower lobe likely representing combination of atelectasis and pneumonia. Small left pleural effusion is unchanged. 2. Minimal right pleural effusion and minor compressive atelectasis. 3. Diffuse narrowing of the central airway likely due to the underlying bronchomalacia. 4. Cardiomegaly and extensive calcified coronary artery disease again seen. RADIA
--- NOTE | 2019-02-26 15:59 | CT Report ---
Reason: Hx of GB sludge, eval for cholecystitis Procedure Date: 02/26/2019 Accession Number: [id number] / [id number] Procedure: CT - Abdomen/Pelvis WO CPT Code: FULL RESULT: EXAM: CT ABDOMEN AND PELVIS (CT KUB) EXAM DATE: 02/26/2019 02:13 PM. CLINICAL HISTORY: Abdominal pain. COMPARISONS: ABDOMEN/PELVIS W/ 02/21/2019 10:13 PM. TECHNIQUE: Routine axial helical CT imaging was performed through the abdomen and pelvis without IV contrast. Reconstructions: Coronal and sagittal. In accordance with CT protocol optimization, one or more of the following dose reduction techniques were utilized for this exam: automated exposure control, adjustment of mA and/or KV based on patient size, or use of iterative reconstructive technique. FINDINGS: Lung Bases: See separate report. Solid Organs: Noncontrast imaging of the solid organs demonstrates no acute findings. Calcifications in the liver and spleen related to old granulomatous disease are seen. Small cysts in the left hepatic lobe are suggested, unchanged. Gallbladder/Bile Ducts: Partially contracted gallbladder is seen with no surrounding inflammatory changes suggested. No biliary dilation. Peritoneal Cavity: There is mild predominantly left hemicolon diverticulosis without evidence of diverticulitis. There is no obstruction or ileus. No free fluid or free air. Pelvic Organs: No bladder stones or wall thickening. Noncontrast images of the visualized pelvic organs are unremarkable. Vasculature: Calcified atherosclerotic disease of the aorta is seen without aneurysm or other significant vascular abnormality. Other: Mild generalized anasarca is seen, unchanged. Diffuse degenerative changes are seen in the spine. No acute osseous abnormality is demonstrated. IMPRESSION: 1. No acute intra-abdominal abnormality demonstrated including no CT evidence to suggest cholecystitis. No biliary dilation. 2. Mild colonic diverticulosis without evidence of diverticulitis. RADIA
[2019-02-26] MEDS ORDERED: ALBUTEROL NEB 2.5 MG/3 ML INH PRN (17:58)
[2019-02-26] MEDS: IPRATROPIUM/ALBUTEROL 3 ML NEB INH SCH (18:23)
[2019-02-26] MEDS: BUDESONIDE 0.5 MG/2 ML NEB INH SCH (18:23)
[2019-02-26] MEDS: methylPREDNISolone SUCCINATE 40 MG/ML VIAL IVP SCH ×2 (19:04→22:42)
[2019-02-26] MEDS: NYSTATIN POWDER 15 GM TOP SCH (21:12)
[2019-02-26] MEDS: ATORVASTATIN 40 MG TABLET PO SCH (21:13)
[2019-02-26] MEDS: guaiFENesin 600 MG TABLET PO SCH (21:14)
[2019-02-26] MEDS: SODIUM CHLORIDE FLUSH 0.9% 10 ML SYRINGE IVP PRN (22:43)
[2019-02-27] MEDS: SODIUM CHLORIDE FLUSH 0.9% 10 ML SYRINGE IVP SCH ×3 (00:05→16:50)
[2019-02-27 05:19] LABS: HGB - HEMOGLOBIN 9.2 g/dL (14.0-18.0); LYMPHOCYTES % (AUTO) 18.4 %; MEAN CORPUSCULAR HEMOGLOBIN 28.8 pg (27.0-31.0); MEAN CORPUSCULAR HGB CONC 31.2 g/dL (32.0-36.0); MEAN CORPUSCULAR VOLUME 92.2 fL (80.0-94.0); MONOCYTES % (AUTO) 0.8 %; NEUTROPHILS % (AUTO) 79.6 %; PLT - PLATELET COUNT 157 10^3/uL (130-450); RED CELL DISTRIBUTION WIDTH 17.2 % (12.0-15.0); WHITE BLOOD COUNT 2.6 x10^3/uL (4.8-10.8)
[2019-02-27 05:23] LABS: ABNORMAL LYMPHS % (MANUAL) 0 %
[2019-02-27] MEDS: SODIUM CHLORIDE FLUSH 0.9% 10 ML SYRINGE IVP PRN ×3 (05:34→21:23)
[2019-02-27 05:35] LABS: ALBUMIN/GLOBULIN RATIO 0.9 (1.0-2.2); BILIRUBIN,TOTAL 0.9 mg/dL (0.2-1.0); CREATININE 1.2 mg/dL (0.6-1.2); TOTAL PROTEIN 6.4 g/dL (6.7-8.2)
[2019-02-27] MEDS: methylPREDNISolone SUCCINATE 40 MG/ML VIAL IVP SCH ×3 (05:35→21:22)
[2019-02-27 05:43] LABS: BAND NEUTROPHILS % (MANUAL) 1 %; LYMPHOCYTES # (MANUAL) 0.5 10^3/uL (1.5-3.5); LYMPHOCYTES % (MANUAL) 20 %; PLATELET ESTIMATE, MANUAL NORMAL (130-450,000) (NORMAL); PLATELET MORPHOLOGY NORMAL APPEARANCE (NORMAL); RBC MORPHOLOGY (MULTIPLE) 1+ ANISOCYTOSIS (NORMAL)
[2019-02-27 05:44] LABS: DIFFERENTIAL COMMENT MANUAL DIFFERENTIAL
[2019-02-27] MEDS: IPRATROPIUM/ALBUTEROL 3 ML NEB INH SCH ×4 (07:57→19:27)
[2019-02-27] MEDS: BUDESONIDE 0.5 MG/2 ML NEB INH SCH ×2 (07:57→19:27)
--- NOTE | 2019-02-27 08:14 | PROVIDER PROGRESS NOTE ---
Assessment/Plan - Problem List (1) Acute metabolic encephalopathy Assessment/Plan: His mental status is once again worse yesterday, like at admission. The also noticed a more productive cough and thick yellow-brown sputum yesterday. Gabapentin was not restarted which may add to somnolence. Started a short burst of higher dose iv steroids yesterday, as this could be Addisonian crisis. The also reported that he was awoken with bright room lights at 3 a.m. for skin care. I ordered no interruptions from 2400 to 0500 so he can sleep. (2) HCAP (healthcare-associated pneumonia) Assessment/Plan: Yesterday's CT chest showed a increasing consolidation with a LLL infiltrate. Fever has resolved. WBC improved from 6 down each day, now he runs low WBCs His PICC line was removed, it grew nothing on cultures. He was still finishing treatment from the last admission: Zyvox for Strep viridens is done, and the Meropenam for E coli and ASBL-producing Klebsiella had 2 weeks of treatment, needing 3 weeks. He needed about 7 more days of antibiotic for the UTI bacteria and therefore, yesterday, coverage was changed to oral Levofloxacin. There was no adverse side effect from Levofloxacin (since he has Cipro listed as an allergy) Will change antibiotic coverage for a HCAP today to iv Pip-Tazo plus iv Levofloxacin. Plan 2 days of these iv antibiotics, then transition to po. Continue Mucinex and nebs (started yesterday) for better pulmonary toilet (3) Weakness generalized Assessment/Plan: Lethargy has improved Continue PT (4) Chronic combined systolic and diastolic CHF, NYHA class 2 Assessment/Plan: Oral Lasix today, and continue B-estephania and Ariel (5) Chronic a-fib Assessment/Plan: HR controlled and Eliquis continues (6) Type 2 diabetes mellitus without complication, without long-term current use of insulin Assessment/Plan: cc diet and ss Insulin orders continue Metformin on hold since admission, since he may have needed imaging using dye Will resume Metformin at [facility], since he had good control, A1c was 6.2, checked this admission (7) Anemia Qualifiers: Anemia type: iron deficiency Assessment/Plan: Iron and B12 being supplemented (8) COPD without exacerbation Assessment/Plan: No wheezing heard, but puffers changed to nebs yesterday, when the pneumonia findings were worse by CT (9) Dawes's disease Assessment/Plan: His lethargy was also improved with the stress dose iv steroids begun yesterday (10) RUSSELL (acute kidney injury) Assessment/Plan: Improved, after 1 day yesterday of no diuresis (11) Hypokalemia Assessment/Plan: Resolved - Current Meds Current Meds: Current Medications Generic Name Dose Route Start Last Admin Trade Name Jen PRN Reason Stop Dose Admin Albuterol/Ipratropium 3 ml 02/26/19 19:00 02/27/19 07:57 Duoneb INH 3 ml RTQID JAZLYN Administration Allopurinol 100 mg 02/23/19 09:00 02/26/19 08:58 Zyloprim PO 100 mg DAILY JAZLYN Administration Apixaban 2.5 mg 02/23/19 09:00 02/26/19 21:13 Eliquis PO 2.5 mg BID JAZLYN Administration Aspirin 81 mg 02/23/19 09:00 02/26/19 08:59 Ecotrin PO 81 mg DAILY JAZLYN Administration Atorvastatin Calcium 40 mg 02/26/19 21:00 02/26/19 21:13 Lipitor PO 40 mg QPM JAZLYN Administration Budesonide 0.5 mg 02/26/19 19:00 02/27/19 07:57 Pulmicort INH 0.5 mg RTBID JAZLYN Administration Carvedilol 12.5 mg 02/22/19 09:00 02/26/19 21:13 Coreg PO 12.5 mg BID JAZLYN Administration Cholecalciferol 1,000 unit 02/24/19 09:00 02/26/19 08:58 Vitamin D3 PO 1,000 unit DAILY JAZLYN Administration Cyanocobalamin 1,000 mcg 02/26/19 09:00 02/26/19 09:00 Vitamin B-12 PO 1,000 mcg DAILY JAZLYN Administration Famotidine 20 mg 02/24/19 21:00 02/26/19 21:13 Pepcid PO 20 mg BID JAZLYN Administration Ferrous Gluconate 324 mg 02/25/19 19:30 02/26/19 19:04 Fergon PO 324 mg BIDWM JAZLYN Administration Guaifenesin 600 mg 02/26/19 21:00 02/26/19 21:14 Mucinex PO 600 mg BID JAZLYN Administration Insulin Aspart 1 - 5 unit 02/25/19 17:30 02/26/19 21:12 Novolog SUBQ Not Given 0800,1200,1700,2100 [facility] Protocol Methylprednisolone 40 mg 02/26/19 17:00 02/27/19 05:35 Solu-Medrol (40mg Vial) IVP 02/28/19 00:01 40 mg TID JAZLYN Administration Multi-Ingredient Ointment 1 applic 02/22/19 17:30 02/24/19 05:25 Zinc Oxide TOP 1 applic QID PRN Administration Skin Care Nystatin 1 applic 02/26/19 21:00 02/26/19 21:12 Nystop TOP 1 applic BID JAZLYN Administration Oxybutynin Chloride 10 mg 02/23/19 09:00 02/26/19 21:13 Ditropan PO 10 mg BID JAZLYN Administration Polyethylene Glycol 17 gm 02/22/19 09:00 02/26/19 09:04 Miralax PO Not Given DAILY JAZLYN Sodium Chloride 10 ml 02/22/19 03:02 02/27/19 05:34 Normal Saline Flush 0.9% IVP 10 ml PRN PRN Administration NEEDED PER PROVIDER ORDERS Sodium Chloride 10 ml 02/22/19 09:00 02/27/19 00:05 Normal Saline Flush 0.9% IVP 10 ml 0100,0900,1700 [facility] Administration Tamsulosin HCl 0.4 mg 02/23/19 09:00 02/26/19 09:00 Flomax PO 0.4 mg DAILY JAZLYN Administration - Lab Result Fish Bone Diagrams: 02/27/19 05:05 02/27/19 05:05 - Additional Planning My Orders: My Active Orders 02/26/19 09:00 Cyanocobalamin [Vitamin B-12] 1,000 mcg PO DAILY 02/26/19 16:40 Acapella (Flutter Valve Device [RC] .TID 02/26/19 17:00 methylPREDNISolone SUCCINATE [SOLU-Medrol (40MG VIAL)] 40 mg IVP TID 02/26/19 17:48 Miscellaenous Nursing Order [RC] QSHIFT Vital Signs- Do Not Awaken For [RC] HS 02/26/19 17:58 Albuterol 2.5 mg INH RTQ4H PRN 02/26/19 19:00 Budesonide [Pulmicort] 0.5 mg INH RTBID Ipratropium/Albuterol [Duoneb] 3 ml INH RTQID 02/26/19 21:00 Atorvastatin [Lipitor] 40 mg PO QPM guaiFENesin [Mucinex] 600 mg PO BID 02/26/19 Dinner Carb-controlled Diet [DIET] 02/27/19 08:00 Furosemide [Lasix] 20 mg PO 0800 02/27/19 09:00 Levofloxacin/D5W 750 mg/150 mL q24h levoFLOXacin 750 MG/150 ML [Levaquin 750 mg/150 ml] 750 mg in 150 ml IV Q24H Piperacillin/Tazobactam [Zosyn] 3.375 gm Sodium Chloride 0.9% Minibag [Normal Saline 0.9% Minibag] 100 ml IV Q6H 02/28/19 05:00 CBC - COMP BLD CT W/AUTO DIFF [HEME] DAILYLAB CMP [COMPREHENSIVE METABOLIC PANEL] [CHEM] DAILYLAB 03/01/19 05:00 CBC - COMP BLD CT W/AUTO DIFF [HEME] DAILYLAB CMP [COMPREHENSIVE METABOLIC PANEL] [CHEM] DAILYLAB Subjective - Subjective Patient Reports: Feeling Better, Other (Alert, oriented to place and person) Objective Vital Signs: Vital Signs - 24 hr 02/26/19 02/26/19 02/26/19 16:00 18:24 22:00 Temperature 36.6 C Heart Rate 86 86 Heart Rate [ 78 Brachial] Respiratory 20 20 20 Rate Blood Pressure 125/64 [Right Brachial artery] O2 Saturation 96 02/26/19 02/27/19 02/27/19 23:50 07:34 08:00 Temperature 36.9 C 36.9 C Heart Rate 82 Heart Rate [ 82 77 Brachial] Respiratory 16 16 16 Rate Blood Pressure 166/90 H 142/88 H [Right Brachial artery] O2 Saturation 96 94 Oxygen O2 Source [Without Activity] Nasal cannula O2 Source Room air Oxygen Flow Rate 2 I&O (Last 24 Hrs): Intake and Output Totals x24h 02/25/19 02/26/19 02/27/19 23:59 23:59 23:59 Intake Total 1760 1240 Output Total 475 255 900 Balance 1285 985 -900 General: Alert HEENT: Mucous membr. moist/pink, Other (Poor dentition) Neck: Supple Neuro: Alert, Non Focal Cardiovascular: No murmurs Respiratory: No respiratory distress, Other (L base has diminishe BS, no rales or rhonchi) Abdomen: Soft, Other (Obese with a pannus) Extremities: No edema - Results Results: Laboratory Results WBC 2.6 x10^3/uL (4.8-10.8) L 02/27/19 05:05 RBC 3.20 10^6/uL (4.70-6.10) L 02/27/19 05:05 Hgb 9.2 g/dL (14.0-18.0) L 02/27/19 05:05 Hct 29.5 % (42.0-52.0) L 02/27/19 05:05 MCV 92.2 fL (80.0-94.0) 02/27/19 05:05 MCH 28.8 pg (27.0-31.0) 02/27/19 05:05 MCHC 31.2 g/dL (32.0-36.0) L 02/27/19 05:05 RDW 17.2 % (12.0-15.0) H 02/27/19 05:05 Plt Count 157 10^3/uL (130-450) 02/27/19 05:05 MPV 10.0 fL (7.4-11.4) 02/27/19 05:05 Neut # (Auto) Not Reportable 02/27/19 05:05 Lymph # (Auto) Not Reportable 02/27/19 05:05 [place] # (Auto) Not Reportable 02/27/19 05:05 Eos # (Auto) Not Reportable 02/27/19 05:05 Baso # (Auto) Not Reportable 02/27/19 05:05 Absolute Nucleated RBC Not Reportable 02/27/19 05:05 Total Counted 100 02/27/19 05:05 Band Neuts % (Manual) 1 % (0-10) 02/27/19 05:05 Abnorm Lymph % (Manual) 0 % 02/27/19 05:05 Nucleated RBC % Not Reportable 02/27/19 05:05 Neutrophils # (Manual) 2.1 10^3/uL (1.5-6.6) 02/27/19 05:05 Lymphocytes # (Manual) 0.5 10^3/uL (1.5-3.5) L 02/27/19 05:05 Monocytes # (Manual) 0.0 10^3/uL (0.0-1.0) 02/27/19 05:05 Eosinophils # (Manual) 0.0 10^3/uL (0-0.7) 02/27/19 05:05 Basophils # (Manual) 0.0 10^3/uL (0-0.1) 02/27/19 05:05 Differential Comment MANUAL DIFFERENTIAL 02/27/19 05:05 WBC Morphology NORMAL APPEARANCE (NORMAL) 02/27/19 05:05 Platelet Estimate NORMAL (130-450,000) (NORMAL) 02/27/19 05:05 Platelet Morphology NORMAL APPEARANCE (NORMAL) 02/27/19 05:05 RBC Morph Micro Appear 1+ ANISOCYTOSIS (NORMAL) 02/27/19 05:05 PT 16.1 secs (9.9-12.6) H 02/21/19 20:31 INR 1.4 (0.8-1.2) H 02/21/19 20:31 Sodium 143 mmol/L (135-145) 02/27/19 05:05 Potassium 4.3 mmol/L (3.5-5.0) 02/27/19 05:05 Chloride 108 mmol/L (101-111) 02/27/19 05:05 Carbon Dioxide 23 mmol/L (21-32) 02/27/19 05:05 Anion Gap 12.0 (6-13) 02/27/19 05:05 BUN 14 mg/dL (6-20) 02/27/19 05:05 Creatinine 1.2 mg/dL (0.6-1.2) 02/27/19 05:05 Estimated GFR (MDRD) 57 (>89) L 02/27/19 05:05 Glucose 173 mg/dL (70-100) H 02/27/19 05:05 Glycated Hemoglobin 6.2 % (4.6-6.2) 02/26/19 05:00 Estim Average Glucose 131 (70-100) H 02/26/19 05:00 Lactic Acid 1.4 mmol/L (0.5-2.2) 02/22/19 02:43 Calcium 9.0 mg/dL (8.5-10.3) 02/27/19 05:05 Phosphorus 3.2 mg/dL (2.5-4.6) 02/26/19 05:00 Magnesium 2.2 mg/dL (1.7-2.8) 02/26/19 05:00 Iron 35 ug/dL (45-182) L 02/25/19 04:15 TIBC 269 ug/dL (250-450) 02/25/19 04:15 % Saturation 13 % (20-50) L 02/25/19 04:15 Transferrin 192 mg/dL (180-329) 02/25/19 04:15 Total Bilirubin 0.9 mg/dL (0.2-1.0) 02/27/19 05:05 AST 15 IU/L (10-42) 02/27/19 05:05 ALT 17 IU/L (10-60) 02/27/19 05:05 Alkaline Phosphatase 53 IU/L (42-121) 02/27/19 05:05 Troponin I High Sens 7.0 pg/mL (2.3-19.7) 02/22/19 00:43 C-Reactive Protein < 1.0 mg/dL (0-1.0) 02/22/19 02:43 B-Natriuretic Peptide 302 pg/mL (5-100) H 02/21/19 20:31 Total Protein 6.4 g/dL (6.7-8.2) L 02/27/19 05:05 Albumin 3.0 g/dL (3.2-5.5) L 02/27/19 05:05 Globulin 3.4 g/dL (2.1-4.2) 02/27/19 05:05 Albumin/Globulin Ratio 0.9 (1.0-2.2) L 02/27/19 05:05 Lipase 21 U/L (22-51) L 02/21/19 20:31 Vitamin B12 97 pg/mL (180-914) L 02/26/19 05:00 Folate 12.16 ng/mL (5.90 - >24.8) 02/25/19 04:15 Urine Color YELLOW 02/21/19 22:00 Urine Clarity CLEAR (CLEAR) 02/21/19 22:00 Urine pH 6.0 PH (5.0-7.5) 02/21/19 22:00 Ur Specific [place] 1.010 (1.002-1.030) 02/21/19 22:00 Urine Protein NEGATIVE mg/dL (NEGATIVE) 02/21/19 22:00 Urine Glucose (UA) NEGATIVE mg/dL (NEGATIVE) 02/21/19 22:00 Urine Ketones NEGATIVE mg/dL (NEGATIVE) 02/21/19 22:00 Urine Occult Blood NEGATIVE (NEGATIVE) 02/21/19 22:00 Urine Nitrite NEGATIVE (NEGATIVE) 02/21/19 22:00 Urine Bilirubin NEGATIVE (NEGATIVE) 02/21/19 22:00 Urine Urobilinogen 0.2 (NORMAL) E.U./dL (NORMAL) 02/21/19 22:00 Ur Leukocyte Esterase NEGATIVE (NEGATIVE) 02/21/19 22:00 Ur Microscopic Review NOT INDICATED 02/21/19 22:00 Urine Culture Comments NOT INDICATED 02/21/19 22:00 - Procedures Procedures: Procedures INSERTION OF INFUSION DEV INTO SUP VENA CAVA, PERC APPROACH (02/03/19)
[2019-02-27] MEDS: POLYETHYLENE GLYCOL 3350 17 GM PACKET PO SCH (08:29)
[2019-02-27] MEDS: INSULIN ASPART 300 UNIT/3 ML PEN SUBQ SCH ×4 (08:29→21:23)
[2019-02-27] MEDS: ALLOPURINOL 100 MG TABLET PO SCH (08:30)
[2019-02-27] MEDS: CYANOCOBALAMIN 500 MCG TABLET PO SCH (08:30)
[2019-02-27] MEDS: TAMSULOSIN 0.4 MG CAPSULE PO SCH (08:30)
[2019-02-27] MEDS: APIXABAN 2.5 MG TABLET PO SCH ×2 (08:30→21:14)
[2019-02-27] MEDS: guaiFENesin 600 MG TABLET PO SCH ×2 (08:30→21:14)
[2019-02-27] MEDS: FUROSEMIDE 20 MG TABLET PO SCH (08:32)
[2019-02-27] MEDS: FERROUS GLUCONATE 324 MG TABLET PO SCH ×2 (08:32→17:01)
[2019-02-27] MEDS: CHOLECALCIFEROL 1,000 UNIT TABLET PO SCH (08:32)
[2019-02-27] MEDS: ASPIRIN EC 81 MG TABLET PO SCH (08:32)
[2019-02-27] MEDS: FAMOTIDINE 20 MG TABLET PO SCH ×2 (08:32→21:14)
[2019-02-27] MEDS: carvediloL 12.5 MG TABLET PO SCH ×2 (08:32→21:14)
[2019-02-27] MEDS: NYSTATIN POWDER 15 GM TOP SCH ×2 (08:33→21:15)
[2019-02-27] MEDS: OXYBUTYNIN 5MG TABLET PO SCH ×2 (08:39→21:14)
[2019-02-27] MEDS ORDERED: levoFLOXacin 750 MG/150 ML 750 MG/150 ML BAG IV SCH (09:00)
[2019-02-27] MEDS: PIPERACILLIN/TAZOBACTAM 3.375 GM in SODIUM CHLORIDE 0.9% MINIBAG 100 ML IV SCH ×3 (10:15→21:23)
[2019-02-27] MEDS: ATORVASTATIN 40 MG TABLET PO SCH (21:14)
[2019-02-28] MEDS: SODIUM CHLORIDE FLUSH 0.9% 10 ML SYRINGE IVP SCH ×3 (00:19→18:37)
[2019-02-28] MEDS: PIPERACILLIN/TAZOBACTAM 3.375 GM in SODIUM CHLORIDE 0.9% MINIBAG 100 ML IV SCH ×4 (02:13→22:12)
[2019-02-28 06:19] LABS: HGB - HEMOGLOBIN 8.7 g/dL (14.0-18.0); LYMPHOCYTES # (AUTO) 0.4 10^3/uL (1.5-3.5); LYMPHOCYTES % (AUTO) 13.5 %; MEAN CORPUSCULAR HEMOGLOBIN 28.9 pg (27.0-31.0); MEAN CORPUSCULAR HGB CONC 31.1 g/dL (32.0-36.0); MONOCYTES # (AUTO) 0.1 10^3/uL (0.0-1.0); MONOCYTES % (AUTO) 3.5 %; NEUTROPHILS # (AUTO) 2.6 10^3/uL (1.5-6.6); NEUTROPHILS % (AUTO) 82.4 %; PLT - PLATELET COUNT 144 10^3/uL (130-450); RED BLOOD COUNT 3.01 10^6/uL (4.70-6.10); RED CELL DISTRIBUTION WIDTH 17.2 % (12.0-15.0); WHITE BLOOD COUNT 3.1 x10^3/uL (4.8-10.8)
[2019-02-28 06:29] LABS: ALBUMIN 3.1 g/dL (3.2-5.5); ALBUMIN/GLOBULIN RATIO 1.1 (1.0-2.2); CREATININE 1.2 mg/dL (0.6-1.2)
[2019-02-28] MEDS: FUROSEMIDE 20 MG TABLET PO SCH (08:05)
[2019-02-28] MEDS: CHOLECALCIFEROL 1,000 UNIT TABLET PO SCH (08:05)
[2019-02-28] MEDS: APIXABAN 2.5 MG TABLET PO SCH ×2 (08:05→22:03)
[2019-02-28] MEDS: CYANOCOBALAMIN 500 MCG TABLET PO SCH (08:05)
[2019-02-28] MEDS: guaiFENesin 600 MG TABLET PO SCH ×2 (08:05→22:04)
[2019-02-28] MEDS: ALLOPURINOL 100 MG TABLET PO SCH (08:05)
[2019-02-28] MEDS: TAMSULOSIN 0.4 MG CAPSULE PO SCH (08:05)
[2019-02-28] MEDS: ASPIRIN EC 81 MG TABLET PO SCH (08:06)
[2019-02-28] MEDS: OXYBUTYNIN 5MG TABLET PO SCH ×2 (08:06→22:03)
[2019-02-28] MEDS: FAMOTIDINE 20 MG TABLET PO SCH ×2 (08:06→22:03)
[2019-02-28] MEDS: FERROUS GLUCONATE 324 MG TABLET PO SCH ×2 (08:06→18:37)
[2019-02-28] MEDS: carvediloL 12.5 MG TABLET PO SCH ×2 (08:06→22:04)
[2019-02-28] MEDS: INSULIN ASPART 300 UNIT/3 ML PEN SUBQ SCH ×4 (08:06→22:08)
[2019-02-28] MEDS: POLYETHYLENE GLYCOL 3350 17 GM PACKET PO SCH (08:07)
[2019-02-28] MEDS: NYSTATIN POWDER 15 GM TOP SCH ×2 (08:57→22:11)
[2019-02-28] MEDS ORDERED: levoFLOXacin 750 MG/150 ML 750 MG/150 ML BAG IV SCH (10:00)
[2019-02-28] MEDS: IPRATROPIUM/ALBUTEROL 3 ML NEB INH SCH ×4 (10:00→20:00)
[2019-02-28] MEDS: BUDESONIDE 0.5 MG/2 ML NEB INH SCH ×2 (10:00→20:00)
[2019-02-28] MEDS: FLUCONAZOLE 100 MG TABLET PO SCH (10:31)
--- NOTE | 2019-02-28 11:35 | PROVIDER PROGRESS NOTE ---
Assessment/Plan - Problem List (1) Acute metabolic encephalopathy Assessment/Plan: The improvement in alertness continues I suspect he needed antibiotics changed and stress dose steroids, which caused the improvement PT continues, now that he can follow cues (2) HCAP (healthcare-associated pneumonia) Assessment/Plan: Yeast has grown in newest sputum culture. Will add 3 days of Diflucan po. Continue the new iv antibiotics for 48 hours and will descalate to oral a ntibiotics tomorrow and [facility] on those. (3) Weakness generalized Assessment/Plan: suspect he needed antibiotics changed and stress dose steroids, which caused t he improvement PT continues, now that he can follow cues Plan for [facility] tomorrow to a SNF for PT/OT rehab, on new antibiotics (4) Chronic combined systolic and diastolic CHF, NYHA class 2 Assessment/Plan: He is now euvolemic and on stable doses of cardiac meds including his diuretics (5) Chronic a-fib Assessment/Plan: HR controlled. Eliquis continues (6) Type 2 diabetes mellitus without complication, without long-term current use of insulin Assessment/Plan: Will plan to resume Metformin at [facility] (7) Anemia Qualifiers: Anemia type: iron deficiency Assessment/Plan: Higher dose Iron replacement and new B12 continue (8) COPD without exacerbation Assessment/Plan: Nebs were ordered with the new HCAP. Will transition back to inhalers at [facility] (9) Lander's disease Assessment/Plan: The burst of steroids will decrease tomorrow (10) RUSSELL (acute kidney injury) Assessment/Plan: Resolved (11) Hypokalemia Assessment/Plan: Resolved - Current Meds Current Meds: Current Medications Generic Name Dose Route Start Last Admin Trade Name Freq PRN Reason Stop Dose Admin Albuterol/Ipratropium 3 ml 02/26/19 19:00 02/28/19 10:00 Duoneb INH 3 ml RTQID JAZLYN Administration Allopurinol 100 mg 02/23/19 09:00 02/28/19 08:05 Zyloprim PO 100 mg DAILY JAZLYN Administration Apixaban 2.5 mg 02/23/19 09:00 02/28/19 08:05 Eliquis PO 2.5 mg BID JAZLYN Administration Aspirin 81 mg 02/23/19 09:00 02/28/19 08:06 Ecotrin PO 81 mg DAILY JAZLYN Administration Atorvastatin Calcium 40 mg 02/26/19 21:00 02/27/19 21:14 Lipitor PO 40 mg QPM JAZLYN Administration Budesonide 0.5 mg 02/26/19 19:00 02/28/19 10:00 Pulmicort INH 0.5 mg RTBID JAZLYN Administration Carvedilol 12.5 mg 02/22/19 09:00 02/28/19 08:06 Coreg PO 12.5 mg BID JAZLYN Administration Cholecalciferol 1,000 unit 02/24/19 09:00 02/28/19 08:05 Vitamin D3 PO 1,000 unit DAILY JAZLYN Administration Cyanocobalamin 1,000 mcg 02/26/19 09:00 02/28/19 08:05 Vitamin B-12 PO 1,000 mcg DAILY JAZLYN Administration Famotidine 20 mg 02/24/19 21:00 02/28/19 08:06 Pepcid PO 20 mg BID JAZLYN Administration Ferrous Gluconate 324 mg 02/25/19 19:30 02/28/19 08:06 Fergon PO 324 mg BIDWM JAZLYN Administration Fluconazole 100 mg 02/28/19 09:00 02/28/19 10:31 Diflucan PO 03/02/19 15:00 100 mg DAILY JAZLYN Administration Furosemide 20 mg 02/27/19 08:00 02/28/19 08:05 Lasix PO 20 mg 0800 JAZLYN Administration Guaifenesin 600 mg 02/26/19 21:00 02/28/19 08:05 Mucinex PO 600 mg BID JAZLYN Administration Piperacillin Sod/Tazobactam 100 mls @ 200 mls/hr 02/27/19 09:00 02/28/19 10:44 Sod 3.375 gm/ Sodium Chloride IV Infused Q6H JAZLYN Infusion Levofloxacin 750 mg in 150 mls @ 100 mls/hr 02/28/19 10:00 02/28/19 10:31 Levaquin 750 Mg/150 Ml IV 100 mls/hr Q48H JAZLYN Administration Insulin Aspart 1 - 5 unit 02/25/19 17:30 02/28/19 08:06 Novolog SUBQ 1 unit 0800,1200,1700,2100 JAZLYN Administration Protocol Multi-Ingredient Ointment 1 applic 02/22/19 17:30 02/24/19 05:25 Zinc Oxide TOP 1 applic QID PRN Administration Skin Care Nystatin 1 applic 02/26/19 21:00 02/28/19 08:57 Nystop TOP 1 applic BID JAZLYN Administration Oxybutynin Chloride 10 mg 02/23/19 09:00 02/28/19 08:06 Ditropan PO 10 mg BID JAZLYN Administration Polyethylene Glycol 17 gm 02/22/19 09:00 02/28/19 08:07 Miralax PO Not Given DAILY JAZLYN Sodium Chloride 10 ml 02/22/19 03:02 02/27/19 21:23 Normal Saline Flush 0.9% IVP 10 ml PRN PRN Administration NEEDED PER PROVIDER ORDERS Sodium Chloride 10 ml 02/22/19 09:00 02/28/19 08:04 Normal Saline Flush 0.9% IVP 10 ml 0100,0900,1700 JAZLYN Administration Tamsulosin HCl 0.4 mg 02/23/19 09:00 02/28/19 08:05 Flomax PO 0.4 mg DAILY JAZLYN Administration - Lab Result Fish Bone Diagrams: 02/28/19 06:10 02/28/19 06:10 - Additional Planning My Orders: My Active Orders 02/27/19 14:50 CUL, RESPIRATORY [RM] Urgent 02/28/19 09:00 Fluconazole [Diflucan] 100 mg PO DAILY 02/28/19 10:00 levoFLOXacin 750 MG/150 ML [Levaquin 750 mg/150 ml] 750 mg in 150 ml IV Q48H 03/01/19 05:00 CBC - COMP BLD CT W/AUTO DIFF [HEME] DAILYLAB CMP [COMPREHENSIVE METABOLIC PANEL] [CHEM] DAILYLAB Objective Vital Signs: Vital Signs - 24 hr 02/27/19 02/27/19 02/27/19 15:52 16:16 19:25 Temperature 36.6 C Heart Rate 80 64 Heart Rate [ 67 Brachial] Respiratory 16 20 63 H Rate Blood Pressure 141/80 H [Right Brachial artery] O2 Saturation 99 02/27/19 02/27/19 02/28/19 21:16 23:25 06:30 Temperature 36.3 C L 36.4 C L Heart Rate Heart Rate [ 86 70 72 Brachial] Respiratory 18 18 Rate Blood Pressure 135/64 H 144/74 H 135/78 H [Right Brachial artery] O2 Saturation 95 97 02/28/19 10:02 Temperature Heart Rate 67 Heart Rate [ Brachial] Respiratory 18 Rate Blood Pressure [Right Brachial artery] O2 Saturation Oxygen O2 Source [Without Activity] Nasal cannula O2 Source Room air Oxygen Flow Rate 2 I&O (Last 24 Hrs): Intake and Output Totals x24h 02/26/19 02/27/19 02/28/19 23:59 23:59 23:59 Intake Total 1240 1825 660 Output Total 255 1925 Balance 985 -100 660 General: Alert, No acute distress HEENT: Atraumatic, Mucous membr. moist/pink Neck: Supple, No JVD Neuro: Alert, Non Focal Cardiovascular: No murmurs Respiratory: No respiratory distress Abdomen: Soft, Other (Obese with pannus) Extremities: No edema - Results Results: Laboratory Results WBC 3.1 x10^3/uL (4.8-10.8) L 02/28/19 06:10 RBC 3.01 10^6/uL (4.70-6.10) L 02/28/19 06:10 Hgb 8.7 g/dL (14.0-18.0) L 02/28/19 06:10 Hct 28.0 % (42.0-52.0) L 02/28/19 06:10 MCV 93.0 fL (80.0-94.0) 02/28/19 06:10 MCH 28.9 pg (27.0-31.0) 02/28/19 06:10 MCHC 31.1 g/dL (32.0-36.0) L 02/28/19 06:10 RDW 17.2 % (12.0-15.0) H 02/28/19 06:10 Plt Count 144 10^3/uL (130-450) 02/28/19 06:10 MPV 10.0 fL (7.4-11.4) 02/28/19 06:10 Neut # (Auto) 2.6 10^3/uL (1.5-6.6) 02/28/19 06:10 Lymph # (Auto) 0.4 10^3/uL (1.5-3.5) L 02/28/19 06:10 [place] # (Auto) 0.1 10^3/uL (0.0-1.0) 02/28/19 06:10 Eos # (Auto) 0.0 10^3/uL (0.0-0.7) 02/28/19 06:10 Baso # (Auto) 0.0 10^3/uL (0.0-0.1) 02/28/19 06:10 Absolute Nucleated RBC 0.00 x10^3/uL 02/28/19 06:10 Total Counted 100 02/27/19 05:05 Band Neuts % (Manual) 1 % (0-10) 02/27/19 05:05 Abnorm Lymph % (Manual) 0 % 02/27/19 05:05 Nucleated RBC % 0.0 /100WBC 02/28/19 06:10 Neutrophils # (Manual) 2.1 10^3/uL (1.5-6.6) 02/27/19 05:05 Lymphocytes # (Manual) 0.5 10^3/uL (1.5-3.5) L 02/27/19 05:05 Monocytes # (Manual) 0.0 10^3/uL (0.0-1.0) 02/27/19 05:05 Eosinophils # (Manual) 0.0 10^3/uL (0-0.7) 02/27/19 05:05 Basophils # (Manual) 0.0 10^3/uL (0-0.1) 02/27/19 05:05 Differential Comment MANUAL DIFFERENTIAL 02/27/19 05:05 WBC Morphology NORMAL APPEARANCE (NORMAL) 02/27/19 05:05 Platelet Estimate NORMAL (130-450,000) (NORMAL) 02/27/19 05:05 Platelet Morphology NORMAL APPEARANCE (NORMAL) 02/27/19 05:05 RBC Morph Micro Appear 1+ ANISOCYTOSIS (NORMAL) 02/27/19 05:05 PT 16.1 secs (9.9-12.6) H 02/21/19 20:31 INR 1.4 (0.8-1.2) H 02/21/19 20:31 Sodium 144 mmol/L (135-145) 02/28/19 06:10 Potassium 4.3 mmol/L (3.5-5.0) 02/28/19 06:10 Chloride 108 mmol/L (101-111) 02/28/19 06:10 Carbon Dioxide 24 mmol/L (21-32) 02/28/19 06:10 Anion Gap 12.0 (6-13) 02/28/19 06:10 BUN 20 mg/dL (6-20) 02/28/19 06:10 Creatinine 1.2 mg/dL (0.6-1.2) 02/28/19 06:10 Estimated GFR (MDRD) 57 (>89) L 02/28/19 06:10 Glucose 200 mg/dL (70-100) H 02/28/19 06:10 Glycated Hemoglobin 6.2 % (4.6-6.2) 02/26/19 05:00 Estim Average Glucose 131 (70-100) H 02/26/19 05:00 Lactic Acid 1.4 mmol/L (0.5-2.2) 02/22/19 02:43 Calcium 9.0 mg/dL (8.5-10.3) 02/28/19 06:10 Phosphorus 3.2 mg/dL (2.5-4.6) 02/26/19 05:00 Magnesium 2.2 mg/dL (1.7-2.8) 02/26/19 05:00 Iron 35 ug/dL (45-182) L 02/25/19 04:15 TIBC 269 ug/dL (250-450) 02/25/19 04:15 % Saturation 13 % (20-50) L 02/25/19 04:15 Transferrin 192 mg/dL (180-329) 02/25/19 04:15 Total Bilirubin 1.0 mg/dL (0.2-1.0) 02/28/19 06:10 AST 17 IU/L (10-42) 02/28/19 06:10 ALT 18 IU/L (10-60) 02/28/19 06:10 Alkaline Phosphatase 48 IU/L (42-121) 02/28/19 06:10 Troponin I High Sens 7.0 pg/mL (2.3-19.7) 02/22/19 00:43 C-Reactive Protein < 1.0 mg/dL (0-1.0) 02/22/19 02:43 B-Natriuretic Peptide 302 pg/mL (5-100) H 02/21/19 20:31 Total Protein 6.0 g/dL (6.7-8.2) L 02/28/19 06:10 Albumin 3.1 g/dL (3.2-5.5) L 02/28/19 06:10 Globulin 2.9 g/dL (2.1-4.2) 02/28/19 06:10 Albumin/Globulin Ratio 1.1 (1.0-2.2) 02/28/19 06:10 Lipase 21 U/L (22-51) L 02/21/19 20:31 Vitamin B12 97 pg/mL (180-914) L 02/26/19 05:00 Folate 12.16 ng/mL (5.90 - >24.8) 02/25/19 04:15 Urine Color YELLOW 02/21/19 22:00 Urine Clarity CLEAR (CLEAR) 02/21/19 22:00 Urine pH 6.0 PH (5.0-7.5) 02/21/19 22:00 Ur Specific [place] 1.010 (1.002-1.030) 02/21/19 22:00 Urine Protein NEGATIVE mg/dL (NEGATIVE) 02/21/19 22:00 Urine Glucose (UA) NEGATIVE mg/dL (NEGATIVE) 02/21/19 22:00 Urine Ketones NEGATIVE mg/dL (NEGATIVE) 02/21/19 22:00 Urine Occult Blood NEGATIVE (NEGATIVE) 02/21/19 22:00 Urine Nitrite NEGATIVE (NEGATIVE) 02/21/19 22:00 Urine Bilirubin NEGATIVE (NEGATIVE) 02/21/19 22:00 Urine Urobilinogen 0.2 (NORMAL) E.U./dL (NORMAL) 02/21/19 22:00 Ur Leukocyte Esterase NEGATIVE (NEGATIVE) 02/21/19 22:00 Ur Microscopic Review NOT INDICATED 02/21/19 22:00 Urine Culture Comments NOT INDICATED 02/21/19 22:00 - Procedures Procedures: Procedures INSERTION OF INFUSION DEV INTO SUP VENA CAVA, PERC APPROACH (02/03/19)
[2019-02-28] MEDS: ATORVASTATIN 40 MG TABLET PO SCH (22:04)
[2019-02-28] MEDS: ZINC OXIDE 20% OINT 30 GM TUBE TOP PRN (22:12)
[2019-02-28] MEDS: SODIUM CHLORIDE FLUSH 0.9% 10 ML SYRINGE IVP PRN (22:15)
[2019-03-01] MEDS: PIPERACILLIN/TAZOBACTAM 3.375 GM in SODIUM CHLORIDE 0.9% MINIBAG 100 ML IV SCH ×2 (02:57→09:47)
[2019-03-01] MEDS: SODIUM CHLORIDE FLUSH 0.9% 10 ML SYRINGE IVP SCH ×2 (02:58→10:21)
[2019-03-01 05:58] LABS: EOSINOPHILS % (AUTO) 0.3 %; HGB - HEMOGLOBIN 8.3 g/dL (14.0-18.0); LYMPHOCYTES # (AUTO) 0.9 10^3/uL (1.5-3.5); LYMPHOCYTES % (AUTO) 23.2 %; MEAN CORPUSCULAR HEMOGLOBIN 28.9 pg (27.0-31.0); MEAN CORPUSCULAR HGB CONC 30.7 g/dL (32.0-36.0); MEAN CORPUSCULAR VOLUME 94.1 fL (80.0-94.0); MEAN PLATELET VOLUME 10.2 fL (7.4-11.4); MONOCYTES # (AUTO) 0.4 10^3/uL (0.0-1.0); MONOCYTES % (AUTO) 9.8 %; NEUTROPHILS # (AUTO) 2.6 10^3/uL (1.5-6.6); NEUTROPHILS % (AUTO) 66.2 %; PLT - PLATELET COUNT 127 10^3/uL (130-450); RED BLOOD COUNT 2.87 10^6/uL (4.70-6.10); RED CELL DISTRIBUTION WIDTH 17.7 % (12.0-15.0); WHITE BLOOD COUNT 3.9 x10^3/uL (4.8-10.8)
[2019-03-01 06:08] LABS: ALBUMIN 2.8 g/dL (3.2-5.5); BILIRUBIN,TOTAL 0.8 mg/dL (0.2-1.0); CALCIUM 8.7 mg/dL (8.5-10.3); CREATININE 1.3 mg/dL (0.6-1.2); TOTAL PROTEIN 5.5 g/dL (6.7-8.2)
[2019-03-01] MEDS: INSULIN ASPART 300 UNIT/3 ML PEN SUBQ SCH ×2 (07:44→12:05)
[2019-03-01 08:11] VITALS: BP 150/88
[2019-03-01] MEDS: BUDESONIDE 0.5 MG/2 ML NEB INH SCH (08:26)
[2019-03-01] MEDS: IPRATROPIUM/ALBUTEROL 3 ML NEB INH SCH ×2 (08:26→13:01)
[2019-03-01] MEDS: FERROUS GLUCONATE 324 MG TABLET PO SCH (10:10)
[2019-03-01] MEDS: FUROSEMIDE 20 MG TABLET PO SCH (10:10)
[2019-03-01] MEDS: APIXABAN 2.5 MG TABLET PO SCH (10:11)
[2019-03-01] MEDS: ASPIRIN EC 81 MG TABLET PO SCH (10:11)
[2019-03-01] MEDS: carvediloL 12.5 MG TABLET PO SCH (10:11)
[2019-03-01] MEDS: ALLOPURINOL 100 MG TABLET PO SCH (10:11)
[2019-03-01] MEDS: CHOLECALCIFEROL 1,000 UNIT TABLET PO SCH (10:12)
[2019-03-01] MEDS: CYANOCOBALAMIN 500 MCG TABLET PO SCH (10:12)
[2019-03-01] MEDS: FLUCONAZOLE 100 MG TABLET PO SCH (10:12)
[2019-03-01] MEDS: FAMOTIDINE 20 MG TABLET PO SCH (10:12)
[2019-03-01] MEDS: TAMSULOSIN 0.4 MG CAPSULE PO SCH (10:13)
[2019-03-01] MEDS: guaiFENesin 600 MG TABLET PO SCH (10:13)
[2019-03-01] MEDS: OXYBUTYNIN 5MG TABLET PO SCH (10:17)
[2019-03-01] MEDS: POLYETHYLENE GLYCOL 3350 17 GM PACKET PO SCH (10:21)
[2019-03-01] MEDS: NYSTATIN POWDER 15 GM TOP SCH (10:36)
[2019-03-02] MEDS ORDERED: levoFLOXacin 250 MG TABLET PO SCH (09:00)
--- NOTE | 2019-03-04 11:46 | DISCHARGE SUMMARY ---
Discharge Summary Admit Date: 02/22/19 Discharge Date: 03/01/19 Discharging Provider: Dr Lizz Maharaj Primary Care Provider: Dr Arden Serrato Code Status: Do Not Attempt Resuscitation Condition at Discharge: Stable Discharge Disposition: SNF DC/Xfer Discharge Facility Name: [facility] - DIAGNOSES Admission Diagnoses: 1) Acute metabolic encephalopathy 2) Fever 3) Generalized weakness 4) Chronic combined systolic and diastolic heart failure, NYHA class II 5) Stomach distension 6) Chronic Afib 7) COPD without exacerbation Discharge Diagnoses with Status of Each Condition: See below - HPI History of Present Illness: From the admission H&P of Dr Morena Dominguez: This is an 89 y/o WM, 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 He was discharged from [place] and transitioned to a assisted facility for rehab and continued IV Vancomycin at [facility]. Since being at [facility] he saw his Solar Thermal Technician (Uday Mon II/[facility]), Surface Grinder Tender (Noman Queen/[facility]) and Civil Engineer (Flori Kendrick/[facility]). He did develop a drug rash of Red Man Syndrome with the Van comycin and was changed to Linezolid to complete his pneumonia therapy. He had a gout attack and was put on colchicine in addition to his allopurinol. He then got sick with the the stomach flu at [facility] and developed confusion and was hospitalized here from 02/03 to 02/08 with metabolic encephalopathy due to ESBL producing Klebsiella bacteremia and an E. coli UTI. He was then discharged back to [facility] with a PICC line to finish several weeks of iv antibiotics. He again developed confusion plus lethargy, shaking chills and a fever and was brought to the ER here. In the ER, he was normotensive, in Afib with rate 104, temp was 38.5C, BNP was 320, WBC and differential were normal, urinalysis was normal, he was tachypneic and had a distended abdomen and a CT of the abdomen showed a mildly distended stomach, but no bowel obstruction, CXR and CT chest showed a persistent LLL infiltrate, he was lethargic and generally very weak. He was admitted for evaluation and treatment for a presumed infection causing metabolic encephalopathy again. - HOSPITAL COURSE Hospital Course: (1) Acute metabolic encephalopathy, resolved A head CT was unremarkable. His Gabapentin and any sedating meds were put on hold. The lethargy and confusion persisted until his his PICC line was removed, and his antibiotics were changed, when repeat lung imaging showed worsening pneumonia, and also, when stress doses of his steroids were begun then. The PICC line specimen grew no bacteria on culture. He then became alert and oriented x3. PT was then started, and he was transferred to [facility] for more PT and OT rehab. (2) HCAP (healthcare-associated pneumonia) Initially the same iv antibiotics were continued as had been dosed at the SNF. When his cough became worse and imaging showed a larger LLL infiltrate, he was put on nebs, Mucinex and iv antibiotics were broadened. A swallowing eval with barium was done and was normal. The sputum grew only yeast. He was discharged on oral Diflucan and oral Levofloxacin for several more days, plus Mucinex and probiotics. (3) Weakness generalized, due to deconditioning This patient had had multiple hospitalizations over the course of 3 months, that had led to marked weakness; PT and OT were very necessary. (4) Chronic combined systolic and diastolic CHF, NYHA class 2 He required diuresis and his other cardiac meds were continued this admission. (5) Chronic a-fib His rate was under control with treatment of the infection. He was on his Eliquis throughout this hospitalization. (6) Type 2 diabetes mellitus without complication, without long-term current use of insulin While here, he was on a cc diet and ss Insulin coverage. Metformin was resumed at [facility], since he had good control; his A1c was 6.2 at admission. (7) Anemia Hgb ranged between 8.3 and 9.2. Serum tests showed low iron and B12 stores, and a higher Iron dose and new B12 were supplemented orally. (8) COPD without exacerbation He did not have wheezing, however, nebs were used for several days, when the worsened pneumonia was found. His inhalers were ordered to resume at [facility]. 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 (10) RUSSELL (acute kidney injury), resolved Treating the mild volume overload found at admission, improved his renal function to 16/1.0. His BUN/creat at [facility] was 20/1.3. He has a narrow range of proper volume status. (11) Hypokalemia, resolved Low K was related to diuretic use. It was replaced. - ALLERGIES Allergies/Adverse Reactions: Allergies Allergy/AdvReac Type Severity Reaction Status Date / Time cefuroxime [From Ceftin] Allergy Rash Verified 02/21/19 20:23 nitrofurantoin Allergy Hives Verified 02/27/19 12:05 vancomycin Allergy Rash Verified 02/27/19 08:49 ciprofloxacin AdvReac Severe RENAL Verified 02/27/19 12:02 FAILURE sulfamethoxazole AdvReac RENAL Verified 02/27/19 12:05 [From Bactrim] FAILURE trimethoprim [From Bactrim] AdvReac RENAL Verified 02/27/19 12:05 FAILURE - MEDICATIONS Home Medications: Ambulatory Orders Medication Instructions Recorded Confirmed Gabapentin 300 mg PO BID 06/22/16 02/22/19 Hydrocortisone 10 mg PO DAILY 02/18/18 02/22/19 Hydrocodone/Acetaminophen 1 tab PO Q6H PRN 02/19/18 02/22/19 [Hydrocodone-Acetamin 5-325 mg] Benzonatate 100 mg PO TID PRN 02/04/19 02/22/19 Calcium Carbonate 1,000 mg PO Q4H PRN 02/04/19 02/23/19 Fluticasone Propionate [24 Hour 1 spray ALAN DAILY PRN 02/04/19 02/22/19 Allergy] Miconazole Nitrate [Desenex] 1 applic TOP BID PRN 02/04/19 02/22/19 Pantoprazole [Protonix] 40 mg PO BID 02/04/19 02/22/19 Allopurinol 100 mg PO DAILY #0 02/08/19 02/22/19 Apixaban [Eliquis] 2.5 mg PO BID #0 02/08/19 02/22/19 Aspirin [Aspirin EC] 81 mg PO DAILY #0 02/08/19 02/22/19 Carvedilol 12.5 mg PO BID #0 02/08/19 02/22/19 Mometasone Furoate [Asmanex] 2 puffs IH DAILY #0 02/08/19 02/22/19 Oxybutynin Chloride [Ditropan Xl] 10 mg PO DAILY #0 02/08/19 02/22/19 Potassium Chloride 20 meq PO DAILY #0 02/08/19 02/22/19 Simvastatin 80 mg PO QPM #0 02/08/19 02/22/19 Tamsulosin HCl [Flomax] 0.4 mg PO DAILY #0 02/08/19 02/22/19 Tiotropium Br/Olodaterol HCl 2 puffs PO DAILY #0 02/08/19 02/22/19 [Stiolto Respimat Inhal Benedicta] metFORMIN [Glucophage] 500 mg PO BID #0 02/08/19 02/22/19 Cholecalciferol (Vitamin D3) 1,000 unit PO DAILY 02/22/19 02/22/19 [Vitamin D3] Colchicine 1.2 mg PO ONCE PRN 02/22/19 02/22/19 Ipratropium/Albuterol [Duoneb] 3 ml INH Q4H 02/22/19 02/22/19 Ferrous Gluconate 240 mg PO DAILY 02/23/19 02/23/19 Cyanocobalamin (Vitamin B-12) 1,000 mcg PO DAILY #30 capsule 02/26/19 [Vitamin B-12] Levofloxacin [Levaquin] 750 mg PO DAILY #5 tablet 02/26/19 Pantoprazole [Protonix] 40 mg PO QPM #30 tablet 02/26/19 Albuterol Sulf [Ventolin Hfa 2 puffs INH Q6HR PRN #1 inhaler 03/01/19 Inhaler] Fluconazole [Diflucan] 100 mg PO DAILY #2 tablet 03/01/19 Furosemide [Lasix] 40 mg PO DAILY #30 tablet 03/01/19 Nystatin [Nystop] 1 applic TOP BID #1 bottle 03/01/19 Saccharomyces Boulardii [Florastor] 250 mg PO BID #10 capsule 03/01/19 Spironolactone 25 mg PO MOWEFR #15 tablet 03/01/19 - PHYSICAL EXAM AT DISCHARGE General Appearance: positive: No acute distress, Alert Eyes Bilateral: positive: Normal inspection ENT: positive: ENT inspection nml, No signs of dehydration Neck: positive: Nml inspection, No JVD Respiratory: positive: No respiratory distress, Other (L basilar rhonchi) Cardiovascular: positive: No murmur, Irregularly irregular Abdomen: positive: Non-tender, Other (Obese with a pannus) Skin: positive: Color nml Extremities: positive: No pedal edema Neurologic/Psychiatric: positive: Oriented x3 - LABS Result Diagrams: 03/01/19 05:50 03/01/19 05:50 - DIAGNOSTIC IMAGING Diagnostic Imaging Results: Final report reviewed - FOLLOW UP Follow Up: This will be determined after his stay at the SNF - TIME SPENT Time Spent in Discharge (Minutes): 70
== END 2019-03-01 15:20 | DRG 70 ==
LOC: EDUNIT# → ED 20:20 → MS2 02-22 03:02
PROVIDERS: ADMIT Specialist; ATTEND Internal Medicine
DX: R50.9 Fever, unspecified (principal); E87.70 Fluid overload, unspecified; I48.91 Unspecified atrial fibrillation; G93.41 Metabolic encephalopathy; J18.9 Pneumonia, unspecified organism; I13.0 Hypertensive heart and chronic kidney disease with heart failure and stage 1 through stage 4 chronic kidney disease, or unspecified chronic kidney disease; N39.0 Urinary tract infection, site not specified; I50.9 Heart failure, unspecified; I48.20 Chronic atrial fibrillation, unspecified; I50.42 Chronic combined systolic (congestive) and diastolic (congestive) heart failure; E27.2 Addisonian crisis; R78.81 Bacteremia; B95.4 Other streptococcus as the cause of diseases classified elsewhere; B96.1 Klebsiella pneumoniae [K. pneumoniae] as the cause of diseases classified elsewhere; B96.20 Unspecified Escherichia coli [E. coli] as the cause of diseases classified elsewhere; E11.22 Type 2 diabetes mellitus with diabetic chronic kidney disease; N18.3 Chronic kidney disease, stage 3 (moderate); J44.9 Chronic obstructive pulmonary disease, unspecified; G47.30 Sleep apnea, unspecified; D50.9 Iron deficiency anemia, unspecified; E53.8 Deficiency of other specified B group vitamins; R13.10 Dysphagia, unspecified; E78.00 Pure hypercholesterolemia, unspecified; I25.10 Atherosclerotic heart disease of native coronary artery without angina pectoris; K21.9 Gastro-esophageal reflux disease without esophagitis; K80.20 Calculus of gallbladder without cholecystitis without obstruction; N40.1 Benign prostatic hyperplasia with lower urinary tract symptoms; R33.8 Other retention of urine; R35.0 Frequency of micturition; R35.1 Nocturia; R39.15 Urgency of urination; E66.9 Obesity, unspecified; Z68.34 Body mass index [BMI] 34.0-34.9, adult; G89.29 Other chronic pain; M10.9 Gout, unspecified; M19.90 Unspecified osteoarthritis, unspecified site; M54.9 Dorsalgia, unspecified; R41.3 Other amnesia; Z66 Do not resuscitate; Y95 Nosocomial condition; R09.3 Abnormal sputum; I25.2 Old myocardial infarction; Z95.5 Presence of coronary angioplasty implant and graft; Z79.84 Long term (current) use of oral hypoglycemic drugs; Z79.01 Long term (current) use of anticoagulants; Z79.52 Long term (current) use of systemic steroids; Z79.891 Long term (current) use of opiate analgesic; Z79.51 Long term (current) use of inhaled steroids; Z79.82 Long term (current) use of aspirin; Z86.711 Personal history of pulmonary embolism; Z86.718 Personal history of other venous thrombosis and embolism; Z87.440 Personal history of urinary (tract) infections; Z87.891 Personal history of nicotine dependence; Z86.14 Personal history of Methicillin resistant Staphylococcus aureus infection
CPT/HCPCS: 36415; 51701; 70450; 71045; 71250; 74176; 74177; 74230; 80048; 80053; 81003; 82607; 82746; 83036; 83540; 83605; 83690; 83735; 83880; 84100; 84466; 84484; 85025; 85610; 86140; 87040; 87070; 87071; 87205; 92611; 93005; 94640; 97110; 97161; 97166; 97530; 99284; 99285; A6250; A9270; J2020; J2185; J7626; Q9967; 81001; 82272; 87086

== ENCOUNTER 2019-03-01 15:36 | Outpatient (CLI) | payer MEDICARE, OTHER | END 2019-03-01 15:37 | LOC: EMS 15:36 | PROVIDERS: ATTEND Surgery | DX: R53.1 Weakness (principal); J18.9 Pneumonia, unspecified organism; Z74.01 Bed confinement status | CPT/HCPCS: A0425; A0428 ==

== ENCOUNTER 2019-03-04 15:00 | Outpatient (CLI) | payer MEDICARE, OTHER ==
[2019-03-04 16:50] LABS: ALBUMIN 2.9 g/dL (3.2-5.5); BILIRUBIN,TOTAL 0.4 mg/dL (0.2-1.0); CALCIUM 8.6 mg/dL (8.5-10.3); CREATININE 1.2 mg/dL (0.6-1.2); TOTAL PROTEIN 5.9 g/dL (6.7-8.2)
[2019-03-04 19:57] LABS: BASOPHILS % (AUTO) 0.2 %; EOSINOPHILS # (AUTO) 0.2 10^3/uL (0.0-0.7); EOSINOPHILS % (AUTO) 3.3 %; HGB - HEMOGLOBIN 9.3 g/dL (14.0-18.0); LYMPHOCYTES # (AUTO) 1.3 10^3/uL (1.5-3.5); MEAN CORPUSCULAR HEMOGLOBIN 29.6 pg (27.0-31.0); MEAN CORPUSCULAR HGB CONC 31.6 g/dL (32.0-36.0); MEAN CORPUSCULAR VOLUME 93.6 fL (80.0-94.0); MEAN PLATELET VOLUME 10.6 fL (7.4-11.4); MONOCYTES # (AUTO) 0.7 10^3/uL (0.0-1.0); MONOCYTES % (AUTO) 10.9 %; NEUTROPHILS # (AUTO) 3.9 10^3/uL (1.5-6.6); NEUTROPHILS % (AUTO) 63.6 %; PLT - PLATELET COUNT 158 10^3/uL (130-450); RED BLOOD COUNT 3.14 10^6/uL (4.70-6.10); RED CELL DISTRIBUTION WIDTH 17.7 % (12.0-15.0); WHITE BLOOD COUNT 6.1 x10^3/uL (4.8-10.8)
== END 2019-03-04 23:59 ==
LOC: LAB.R 15:00
DX: I50.40 Unspecified combined systolic (congestive) and diastolic (congestive) heart failure (principal)
CPT/HCPCS: 80053; 85025

== ENCOUNTER 2019-03-08 08:00 | Outpatient (CLI) | payer MEDICARE, OTHER ==
[2019-03-08 17:20] LABS: CALCIUM 8.7 mg/dL (8.5-10.3); CREATININE 1.3 mg/dL (0.6-1.2)
== END 2019-03-08 23:59 ==
LOC: LAB.R 08:00
DX: I50.40 Unspecified combined systolic (congestive) and diastolic (congestive) heart failure (principal)
CPT/HCPCS: 80048

== ENCOUNTER 2019-03-15 14:45 | Outpatient (CLI) | payer MEDICARE, OTHER ==
[2019-03-15 23:47] LABS: BASOPHILS % (AUTO) 0.7 %; EOSINOPHILS # (AUTO) 0.4 10^3/uL (0.0-0.7); EOSINOPHILS % (AUTO) 6.4 %; HGB - HEMOGLOBIN 9.8 g/dL (14.0-18.0); LYMPHOCYTES # (AUTO) 1.2 10^3/uL (1.5-3.5); LYMPHOCYTES % (AUTO) 21.3 %; MEAN CORPUSCULAR HEMOGLOBIN 28.6 pg (27.0-31.0); MEAN CORPUSCULAR HGB CONC 30.2 g/dL (32.0-36.0); MEAN CORPUSCULAR VOLUME 94.8 fL (80.0-94.0); MEAN PLATELET VOLUME 10.4 fL (7.4-11.4); MONOCYTES # (AUTO) 0.4 10^3/uL (0.0-1.0); MONOCYTES % (AUTO) 7.8 %; NEUTROPHILS # (AUTO) 3.6 10^3/uL (1.5-6.6); NEUTROPHILS % (AUTO) 63.3 %; PLT - PLATELET COUNT 197 10^3/uL (130-450); RED BLOOD COUNT 3.43 10^6/uL (4.70-6.10); RED CELL DISTRIBUTION WIDTH 17.8 % (12.0-15.0); WHITE BLOOD COUNT 5.6 x10^3/uL (4.8-10.8)
[2019-03-16] LABS: ALBUMIN 3.3 g/dL (3.2-5.5); ALBUMIN/GLOBULIN RATIO 1.1 (1.0-2.2); BILIRUBIN,TOTAL 0.4 mg/dL (0.2-1.0); CALCIUM 9.1 mg/dL (8.5-10.3); CREATININE 1.1 mg/dL (0.6-1.2); TOTAL PROTEIN 6.3 g/dL (6.7-8.2)
== END 2019-03-15 23:59 | disposition home or self-care (01) ==
LOC: LAB.R 14:45
PROVIDERS: ATTEND Family Medicine
DX: G93.41 Metabolic encephalopathy (principal); D64.9 Anemia, unspecified; I50.40 Unspecified combined systolic (congestive) and diastolic (congestive) heart failure; I25.5 Ischemic cardiomyopathy
CPT/HCPCS: 80053; 85025

== ENCOUNTER 2019-03-18 07:00 | Outpatient (CLI) | payer MEDICARE, OTHER ==
[2019-03-18 20:15] LABS: BASOPHILS % (AUTO) 0.5 %; EOSINOPHILS # (AUTO) 0.5 10^3/uL (0.0-0.7); EOSINOPHILS % (AUTO) 9.6 %; HGB - HEMOGLOBIN 9.9 g/dL (14.0-18.0); LYMPHOCYTES # (AUTO) 1.5 10^3/uL (1.5-3.5); LYMPHOCYTES % (AUTO) 27.3 %; MEAN CORPUSCULAR HEMOGLOBIN 29.6 pg (27.0-31.0); MEAN CORPUSCULAR HGB CONC 31.2 g/dL (32.0-36.0); MEAN CORPUSCULAR VOLUME 94.9 fL (80.0-94.0); MEAN PLATELET VOLUME 10.9 fL (7.4-11.4); MONOCYTES # (AUTO) 0.4 10^3/uL (0.0-1.0); MONOCYTES % (AUTO) 7.3 %; NEUTROPHILS % (AUTO) 55.1 %; PLT - PLATELET COUNT 210 10^3/uL (130-450); RED BLOOD COUNT 3.34 10^6/uL (4.70-6.10); RED CELL DISTRIBUTION WIDTH 17.6 % (12.0-15.0); WHITE BLOOD COUNT 5.5 x10^3/uL (4.8-10.8)
[2019-03-18 20:29] LABS: ALBUMIN 3.3 g/dL (3.2-5.5); ALBUMIN/GLOBULIN RATIO 1.1 (1.0-2.2); BILIRUBIN,TOTAL 0.3 mg/dL (0.2-1.0); CALCIUM 9.4 mg/dL (8.5-10.3); CREATININE 1.3 mg/dL (0.6-1.2); TOTAL PROTEIN 6.4 g/dL (6.7-8.2)
== END 2019-03-18 23:59 | disposition home or self-care (01) ==
LOC: LAB.R 07:00
PROVIDERS: ATTEND Nurse Practitioner
DX: I10 Essential (primary) hypertension (principal); D64.9 Anemia, unspecified
CPT/HCPCS: 80053; 85025

== ENCOUNTER 2019-03-22 14:30 | Outpatient (CLI) | payer MEDICARE, OTHER ==
[2019-03-22 18:08] LABS: BASOPHILS % (AUTO) 0.4 %; EOSINOPHILS # (AUTO) 0.4 10^3/uL (0.0-0.7); HGB - HEMOGLOBIN 9.9 g/dL (14.0-18.0); LYMPHOCYTES % (AUTO) 21.8 %; MEAN CORPUSCULAR HEMOGLOBIN 29.4 pg (27.0-31.0); MEAN CORPUSCULAR HGB CONC 31.1 g/dL (32.0-36.0); MEAN CORPUSCULAR VOLUME 94.4 fL (80.0-94.0); MEAN PLATELET VOLUME 10.6 fL (7.4-11.4); MONOCYTES # (AUTO) 0.4 10^3/uL (0.0-1.0); MONOCYTES % (AUTO) 8.6 %; NEUTROPHILS # (AUTO) 2.9 10^3/uL (1.5-6.6); PLT - PLATELET COUNT 194 10^3/uL (130-450); RED BLOOD COUNT 3.37 10^6/uL (4.70-6.10); RED CELL DISTRIBUTION WIDTH 17.3 % (12.0-15.0); WHITE BLOOD COUNT 4.8 x10^3/uL (4.8-10.8)
[2019-03-22 18:14] LABS: ALBUMIN 3.2 g/dL (3.2-5.5); BILIRUBIN,TOTAL 0.5 mg/dL (0.2-1.0); CALCIUM 8.7 mg/dL (8.5-10.3); CREATININE 1.2 mg/dL (0.6-1.2); TOTAL PROTEIN 6.3 g/dL (6.7-8.2)
== END 2019-03-22 23:59 | disposition home or self-care (01) ==
LOC: LAB.R 14:30
DX: G93.41 Metabolic encephalopathy (principal); D64.9 Anemia, unspecified; A41.9 Sepsis, unspecified organism; I25.5 Ischemic cardiomyopathy
CPT/HCPCS: 80053; 85025

== ENCOUNTER 2019-03-29 10:20 | Outpatient (CLI) | payer MEDICARE, OTHER ==
[2019-03-29 20:32] LABS: BASOPHILS % (AUTO) 0.8 %; EOSINOPHILS # (AUTO) 0.4 10^3/uL (0.0-0.7); EOSINOPHILS % (AUTO) 7.2 %; HGB - HEMOGLOBIN 9.6 g/dL (14.0-18.0); LYMPHOCYTES # (AUTO) 1.4 10^3/uL (1.5-3.5); LYMPHOCYTES % (AUTO) 27.4 %; MEAN CORPUSCULAR HEMOGLOBIN 28.8 pg (27.0-31.0); MEAN CORPUSCULAR HGB CONC 30.7 g/dL (32.0-36.0); MEAN PLATELET VOLUME 10.5 fL (7.4-11.4); MONOCYTES # (AUTO) 0.3 10^3/uL (0.0-1.0); MONOCYTES % (AUTO) 6.8 %; NEUTROPHILS # (AUTO) 2.9 10^3/uL (1.5-6.6); NEUTROPHILS % (AUTO) 57.2 %; PLT - PLATELET COUNT 231 10^3/uL (130-450); RED BLOOD COUNT 3.33 10^6/uL (4.70-6.10); RED CELL DISTRIBUTION WIDTH 17.4 % (12.0-15.0)
== END 2019-03-29 23:59 | disposition home or self-care (01) ==
LOC: LAB.R 10:20
DX: D64.9 Anemia, unspecified (principal); G93.41 Metabolic encephalopathy; A41.9 Sepsis, unspecified organism; I25.5 Ischemic cardiomyopathy
CPT/HCPCS: 80053; 85025